=== PATIENT | male | born 1980 | race Caucasian/White ===

== ENCOUNTER 2023-12-17 21:16 | Observation (INO) | payer OTHER, SELFPAY ==
[2023-12-17 21:26] VITALS: BP 162/94; PULSE 78; TEMP 36.2; O2SAT 99; BMI 34.9
--- NOTE | 2023-12-17 21:38 | PC.NURSE ---
Patient reports he has had dry cough and that today he coughed up black blood tinged sputum.
--- NOTE | 2023-12-17 22:23 | ED_ITS ---
HPI HPI - General Adult General Chief complaint: Upper Respiratory Infection Stated complaint: Nausea/Vomiting Time Seen by Provider: 12/17/23 22:18 Source: family Mode of arrival: walk-in Limitations: no limitations History of Present Illness HPI narrative: patient presents with recurrent episodes of hematemesis daily for the past couple of weeks./ States occurred again this AM. Describes coughing jags this AM and then vomiting large amount of blood including clots. States hematemesis a few more times today but none tonight. Called his PCP and was advised to come to the ER. Denies abdominal pain or light headiness he believes he started vomiting because he was started on Actos Related Data Allergies Allergy/AdvReac Type Severity Reaction Status Date / Time aspirin Allergy tachycardia Verified 12/17/23 21:25 meloxicam (From Mobic) Allergy Anaphylaxis Verified 12/17/23 21:25 Opioid HPI Opioid Management Most Recent Opioid Data: No Data to Display Review of Systems ROS Status of ROS 10 or more systems reviewed and unremark able except as noted in history and below PFSH PFSH Social History Little interest or pleasure in doing things: not at all Feeling down, depressed, or hopeless: not at all Exam Constitutional Vital Signs, click to edit/add: Last Vital Signs Temp 97.1 F L 12/17/23 21:26 Pulse 78 12/17/23 21:26 Resp 18 12/17/23 21:26 BP 162/94 H 12/17/23 21:26 Pulse Ox 99 12/17/23 21:26 Common normals: no apparent distress, average body habitus, oriented x3, no limitations, healthy appearing, alert and well nourished [facility] Common normals: normocephalic and head/scalp atraumatic Eye Common normals: PERRL and EOMs intact bilaterally Respiratory Common normals: normal respiratory effort, no retractions, no use of accessory muscles and clear to auscultation bilaterally Cardio Common normals: regular rate, regular rhythm, S1 normal heart sound and S2 normal heart sound GI Common normals: Normal to inspection, nondistended, normoactive bowel sounds present, soft to palpation and non-tender Extremity Common normals: normal to inspection and full ROM Neuro Common normals: oriented x3, CN's II-XII intact bilaterally, moves all extremities and no focal motor deficits Psych Appearance: grossly normal Course Vital Signs Vital signs: Vital Signs Temperature 97.1 F L 12/17/23 21:26 Pulse Rate 78 12/17/23 21:26 Respiratory Rate 18 12/17/23 21:26 Blood Pressure 162/94 H 12/17/23 21:26 Pulse Oximetry 99 12/17/23 21:26 Temperature 97.1 F L 12/17/23 21:26 Pulse Rate 78 12/17/23 21:26 Respiratory Rate 18 12/17/23 21:26 Blood Pressure 162/94 H 12/17/23 21:26 Pulse Oximetry 99 12/17/23 21:26 Medical Decision Making MDM Narrative Medical decision making narrative: patient presents with a history of daily AM vomiting. States this AM the emesis was large in volume. Vomited a few more times later today. Arrives to the ER as directed by his PCP. exam is neg. Hgb 12.9 he denies use of ASA or NSAIDs. not alcoholic given his history of daily hematemesis for [address] Sousa who will consult on the patient . Patient admitted to the hospitalist service patient given dose of Protonix Discharge Plan Discharge Chief Complaint: Upper Respiratory Infection Clinical Impression: Hematemesis of fresh blood Patient Disposition: Admitted as Observation Print Language: Hong Konger Referrals: [facility] [Primary Care Provider] - 1 week
[2023-12-17] MEDS: PANTOPRAZOLE SODIUM 40 MG VIAL IV (22:46)
[2023-12-17 23:03] LABS: INR 1.02; Prothrombin Time 10.8 sec (9.0-11.6)
[2023-12-17 23:04] LABS: Alanine Aminotransferase 34 U/L (16-63); Albumin Globulin Ratio 1.1; Albumin Level 3.4 g/dL (3.4-5.0); Alkaline Phosphatase 69 U/L (46-116); Aspartate Amino Transferase 13 U/L (15-37); Bilirubin Direct 0.1 mg/dL (0.0-0.2); Bilirubin Total 0.4 mg/dL (0.2-1.0); Globulin 3.1 g/dL; Total Protein 6.5 g/dL (6.4-8.2)
[2023-12-17 23:16] LABS: Basophils Absolute Auto 0.1 10^3/uL (0.0-0.1); Basophils Percent Auto 0.8 % (0.2-2.0); Eosinophils Absolute Auto 0.5 10^3/uL (0.0-0.7); Eosinophils Percent Auto 7.5 % (0.9-7.0); Hematocrit 34.4 % (42.0-54.0); Hemoglobin 12.5 g/dL (14.0-18.0); Immature Granulocytes Abs Auto 0.02 10^3/uL (0.00-0.03); Immature Granulocytes Pct Auto 0.3 % (0.0-0.5); Lymphocytes Percent Auto 32.5 % (20.5-60.0); Mean Corpuscular HGB Conc 36.3 g/dL (29.9-35.2); Mean Corpuscular Hemoglobin 31.5 pg (25.9-34.0); Mean Corpuscular Volume 86.6 fL (80.0-94.0); Mean Platelet Volume 9.7 fL (9.5-13.5); Monocytes Absolute Auto 0.5 10^3/uL (0.3-0.8); Monocytes Percent Auto 7.8 % (1.7-12.0); Neutrophils Absolute Auto 3.2 10^3/uL (1.4-6.5); Neutrophils Percent Auto 51.1 % (43.0-75.0); Platelet Count 225 10^3/uL (150-450); Red Blood Count 3.97 10^6/uL (4.70-6.10); Red Cell Distribution Width 12.5 % (11.0-15.0); White Blood Count 6.2 10^3/uL (4.0-11.0)
[2023-12-17 23:20] LABS: Anion Gap 11.5; BUN Creatinine Ratio 11.2; Calcium 8.8 mg/dL (8.5-10.1); Carbon Dioxide 27.1 mmol/L (21.0-32.0); Chloride 102 mmol/L (98-107); Estimated GFR (African America 54 (>=60 mL/min/1.73m^2); Estimated GFR (Non-African Ame 44 (>=60 mL/min/1.73m^2); Glucose 216 mg/dL (74-106); Potassium 3.6 mmol/L (3.5-5.1); Sodium 137 mmol/L (136-145)
[2023-12-18] VITALS (16 sets, daily range): BP systolic 142–169; BP diastolic 78–90; PULSE 63–93; TEMP 36.5–37; O2SAT 92–100; BMI 33.9
[2023-12-18] MEDS: DEXTROSE 5%-0.9% NACL 1,000 ML 1,000 ML 50 ML IV (01:55)
--- NOTE | 2023-12-18 06:16 | P.HP_ITS ---
HPI H&P: HPI History of Present Illness Chief complaint: Nausea/Vomiting Narrative: Patient with a history in the past to hematemesis. Was set up for an endoscopy but was unable to complete that, that was in August. Her last 2 weeks due to having increasing hematemesis in the morning again. Yesterday had a more significant episode with more clots. As well as episode in the afternoon. With that his PCP recommended him go to the emergency room. In the emergency room hemoglobin actually is not significantly low at this time. But with the reoccurrence patient mated to observation When I saw patient up in the medical surgical floor, resting comfortably in bed, mild to moderate distress secondary to abdominal pain. Opioid HPI Opioid Management Most Recent Pain and Opioid Data: Last Pain Assessment 12/18/23 09:33 Last ORT Total Score 0 12/18/23 02:09 12/18/23 Last ORT Risk Category Low Risk 12/18/23 02:09 12/18/23 Review of Systems ROS Status of ROS 10 or more systems reviewed and unremark able except as noted in history and below PFSH PFSH Family History (Updated 12/18/23 @ 01:50 by Pina Bess RN) Grandmother Family history of COPD (chronic obstructive pulmonary disease) Other Family history of cancer Family history of diabetes mellitus Family history of hypertension Social History (Updated 12/18/23 @ 01:51 by Pina Bess RN) Within the past year, how often did you have a drink containing alcohol: monthly or less Within the past year, how often did you have six or more drinks on one occasion: less than monthly Smoking status: Never smoker Non-prescribed substance use: denies use Highest level of school completed/degree received: high school graduate Are you now , , , , never or living with a partner: refused to answer In a typical week, how many times do you talk on the telephone with family, friends, or neighbors: twice per week How often do you get together with friends or relatives: twice per week Little interest or pleasure in doing things: not at all Feeling down, depressed, or hopeless: not at all Do you think of yourself as: straight/heterosexual Gender Identity: male Meds Home Medications and Allergies Home Medications ?Medication ?Instructions ?Recorded ?Confirmed ?Type benzonatate 100 mg capsule 100 mg PO Q8H 12/18/23 12/18/23 History lisinopril 20 2 tab PO DAILY 12/18/23 12/18/23 History mg-hydrochlorothiazide 25 mg tablet pioglitazone 30 mg tablet 30 mg PO DAILY 12/18/23 12/18/23 History Allergies Allergy/AdvReac Type Severity Reaction Status Date / Time aspirin Allergy tachycardia Verified 12/17/23 21:25 meloxicam (From Mobic) Allergy Anaphylaxis Verified 12/17/23 21:25 Exam Constitutional Vital Signs, click to edit/add: Last Vital Signs Temp 98.4 F 12/18/23 05:30 Pulse 66 12/18/23 05:55 Resp 16 12/18/23 05:30 BP 162/81 H 12/18/23 05:30 Pulse Ox 97 12/18/23 05:30 O2 Del Method Room Air 12/18/23 05:30 Documenting provider has reviewed patient's vital signs: yes Common normals: apparent distress (Mild to moderate painful distress) Chest Common normals: inspection of chest normal Respiratory Common normals: normal respiratory effort, no retractions and clear to auscultation bilaterally Cardio Common normals: regular rate, regular rhythm and no murmurs GI Common normals: Normal to inspection, nondistended, normoactive bowel sounds present and soft to palpation; tender (Significant tenderness epigastric and right upper quadrant) Extremity Common normals: normal to inspection Results Labs Labs: Short CBC 12/17/23 Range/Units 22:35 WBC 6.2 (4.0-11.0) 10^3/uL Hgb 12.5 L (14.0-18.0) g/dL Hct 34.4 L (42.0-54.0) % Plt Count 225 (150-450) 10^3/uL BMP 12/17/23 22:35 Sodium 137 Potassium 3.6 Chloride 102 Carbon Dioxide 27.1 BUN 19.0 H Creatinine 1.70 H Glucose 216 H Calcium 8.8 Liver Function 12/17/23 Range/Units 22:35 Total Bilirubin 0.4 (0.2-1.0) mg/dL Direct Bilirubin 0.1 (0.0-0.2) mg/dL AST 13 L (15-37) U/L ALT 34 (16-63) U/L Alkaline Phosphatase 69 (46-116) U/L Albumin 3.4 (3.4-5.0) g/dL Assessment and Plan Assessment and Plan (1) Hematemesis of fresh blood: (2) Hypertension: (3) COPD (chronic obstructive pulmonary disease): (4) Diabetes mellitus: Plan Admission findings: Patient with hematemesis-hemoglobin actually fairly stable on admission Hematemesis: Patient on IV Protonix, status have some significant abdominal tenderness no x-rays completed at this time. Will get a stat acute abdominal series and likely need CT scan. Dysuria as well as discoloration of his urine-check urinalysis [id number], was told he has this in the past, no significant cough Hypertension-blood pressure well-controlled Diabetes mellitus-sugars are in the 140s to 150s at home., Insulin sliding scale here Admission status: Patient with hematemesis, consultation to surgery and possible endoscopy later today. Patient currently NPO. If stable later today there is a possibility he can be discharged home so currently maintain observational status. If further intervention is required patient inpatient as medically necessary treatment will span 2 midnights
[2023-12-18 06:23] LABS: Hematocrit 34.8 % (42.0-54.0); Hemoglobin 12.6 g/dL (14.0-18.0); Mean Corpuscular HGB Conc 36.2 g/dL (29.9-35.2); Mean Corpuscular Hemoglobin 31.2 pg (25.9-34.0); Mean Corpuscular Volume 86.1 fL (80.0-94.0); Mean Platelet Volume 9.5 fL (9.5-13.5); Platelet Count 209 10^3/uL (150-450); Red Blood Count 4.04 10^6/uL (4.70-6.10); Red Cell Distribution Width 12.4 % (11.0-15.0); White Blood Count 5.2 10^3/uL (4.0-11.0)
[2023-12-18 06:32] LABS: Anion Gap 12.8; BUN Creatinine Ratio 11.7; Calcium 8.4 mg/dL (8.5-10.1); Chloride 104 mmol/L (98-107); Estimated GFR (African America >60 (>=60 mL/min/1.73m^2); Estimated GFR (Non-African Ame 50 (>=60 mL/min/1.73m^2); Glucose 259 mg/dL (74-106); Potassium 3.8 mmol/L (3.5-5.1); Sodium 137 mmol/L (136-145)
[2023-12-18 07:41] LABS: Hematocrit 34.9 % (42.0-54.0); Hemoglobin 12.7 g/dL (14.0-18.0); Mean Corpuscular HGB Conc 36.4 g/dL (29.9-35.2); Mean Corpuscular Hemoglobin 31.3 pg (25.9-34.0); Platelet Count 201 10^3/uL (150-450); Red Blood Count 4.06 10^6/uL (4.70-6.10); Red Cell Distribution Width 12.4 % (11.0-15.0); White Blood Count 5.1 10^3/uL (4.0-11.0)
[2023-12-18] MEDS: INSULIN ASPART 300 UNIT/3 ML PEN SUBQ (08:31)
[2023-12-18 08:32] LABS: Glucometer 248 mg/dL (74-106)
[2023-12-18] MEDS: LACTATED RINGER'S SOLUTION 1,000 ML 50 ML IV (08:32)
[2023-12-18] MEDS: PANTOPRAZOLE SODIUM 40 MG VIAL IV (08:32)
--- NOTE | 2023-12-18 09:02 | XR_ITS ---
The [address] [address] Patient Name: ABI VALDEZ MRN: [id number] date: 1980 Sex: M Assigned Patient Location: [place] Current Patient Location: [place] Accession/Order Number: [id number] Exam Date: 12/18/2023 09:50 Report Date: 12/18/2023 11:18 At the request of: KEIRA DAHL Procedure: XR acute abdomen series EXAMINATION: XR acute abdomen series HISTORY: severe abd pain COMPARISON: No relevant comparison available. FINDINGS: LUNGS: No infiltrate, pneumothorax, or pleural effusion. MEDIASTINUM: No abnormal widening. BOWEL GAS PATTERN: Non-obstructed. FREE AIR: None. CALCIFICATIONS: None significant. BONES: No fracture or visible bone lesion. OTHER: Negative. XR/XR acute abdomen series IMPRESSION: Clear lungs Nonobstructive bowel gas pattern Electronically authenticated by: EMERALD MCKINNEY Date: 12/18/2023 11:18
--- NOTE | 2023-12-18 09:02 | CM.NOTE ---
Rounds made with Dr. Lyles, pt NPO for EGD today. Pt continues with c/o stomach pain today. Dr. Lyles will re-evaluate pt after EGD for discharge planning.
[2023-12-18 11:08] LABS: Glucometer 199 mg/dL (74-106)
[2023-12-18 12:02] LABS: Hematocrit 35.4 % (42.0-54.0); Hemoglobin 12.9 g/dL (14.0-18.0); Mean Corpuscular HGB Conc 36.4 g/dL (29.9-35.2); Mean Corpuscular Hemoglobin 31.2 pg (25.9-34.0); Mean Corpuscular Volume 85.5 fL (80.0-94.0); Mean Platelet Volume 9.4 fL (9.5-13.5); Platelet Count 209 10^3/uL (150-450); Red Blood Count 4.14 10^6/uL (4.70-6.10); Red Cell Distribution Width 12.4 % (11.0-15.0); White Blood Count 4.9 10^3/uL (4.0-11.0)
--- NOTE | 2023-12-18 12:13 | P.GSCN_ITS ---
History of Present Illness Consult details Consult date: 12/18/23 Reason for consult: other (Hematemesis/coffee-ground emesis) Requesting physician: Tunde Teran Narrative: 43-year-old male presented to the ED with complaints of hematemesis and coffee- ground emesis. He relates that he has had lower abdominal pain for some time. He states that the coffee-ground emesis and the vomiting of blood clots began after he began taking diabetes medication per his primary care physician. He never called and let them know that that happened. He just stopped the diabetes medication. His is at the bedside. Denies any melena unusual weight loss or any family history of intestinal cancer. Denies any history of ulcer disease gastritis or reflux disease. He denies aspirin or nonsteroidal anti-inflammatory drug use. He does drink 5 16 ounce Pepsi's daily. 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 I previously seen him in the office for an umbilical hernia. He is obese with a BMI of 34. The ED physician wanted him to have endoscopy and thought he needed to be admitted to the hospital. His hemoglobin and hematocrit are stable. He denies tobacco or alcohol use or drug use. Denies smoking marijuana. Review of Systems ROS Status of ROS 10 or more systems reviewed and unremark able except as noted in history and below PFSH PFSH Family History Grandmother Family history of COPD (chronic obstructive pulmonary disease) Other Family history of cancer Family history of diabetes mellitus Family history of hypertension Social History Within the past year, how often did you have a drink containing alcohol: lexi hly or less Within the past year, how often did you have six or more drinks on one occasion: less than monthly Smoking status: Never smoker Non-prescribed substance use: denies use Highest level of school completed/degree received: high school graduate Are you now , , , , never or living with a partner: refused to answer In a typical week, how many times do you talk on the telephone with family, friends, or neighbors: twice per week How often do you get together with friends or relatives: twice per week Little interest or pleasure in doing things: not at all Feeling down, depressed, or hopeless: not at all Do you think of yourself as: straight/heterosexual Gender Identity: male Meds Home Medications and Allergies Home Medications ?Medication ?Instructions ?Recorded ?Confirmed ?Type benzonatate 100 mg capsule 100 mg PO Q8H 12/18/23 12/18/23 History lisinopril 20 2 tab PO DAILY 12/18/23 12/18/23 History mg-hydrochlorothiazide 25 mg tablet pioglitazone 30 mg tablet 30 mg PO DAILY 12/18/23 12/18/23 History Allergies Allergy/AdvReac Type Severity Reaction Status Date / Time aspirin Allergy tachycardia Verified 12/17/23 21:25 meloxicam (From Mobic) Allergy Anaphylaxis Verified 12/17/23 21:25 Exam Constitutional Vital Signs, click to edit/add: Last Vital Signs Temp 98.3 F 12/18/23 08:42 Pulse 70 12/18/23 11:52 Resp 18 12/18/23 08:42 BP 142/87 H 12/18/23 08:42 Pulse Ox 97 12/18/23 11:26 O2 Del Method Room Air 12/18/23 11:26 Documenting provider has reviewed patient's vital signs: yes Common normals: no apparent distress, average body habitus, oriented x3, no limitations, healthy appearing, alert and well nourished GI Common normals: Normal to inspection, nondistended, normoactive bowel sounds present, soft to palpation, non-tender, no hepatosplenomegaly and no masses Palpation: other (sMall reducible umbilical hernia less than 1 cm) Results Labs Labs: Abnormal lab results 12/17/23 12/18/23 12/18/23 Range/Units 22:35 06:04 07:35 RBC 3.97 L 4.04 L 4.06 L (4.70-6.10) 10^6/uL Hgb 12.5 L 12.6 L 12.7 L (14.0-18.0) g/dL Hct 34.4 L 34.8 L 34.9 L (42.0-54.0) % MCHC 36.3 H 36.2 H 36.4 H (29.9-35.2) g/dL MPV 9.0 L (9.5-13.5) fL Eos % (Auto) 7.5 H (0.9-7.0) % BUN 19.0 H (7.0-18.0) mg/dL Creatinine 1.70 H 1.54 H (0.70-1.30) mg/dL Est GFR ( Amer) 54 L (>=60 mL/min/1.73m^2) Est GFR (Non-Af Amer) 44 L 50 L (>=60 mL/min/1.73m^2) Glucose 216 H 259 H (74-106) mg/dL Calcium 8.4 L (8.5-10.1) mg/dL AST 13 L (15-37) U/L POC Glucose (74-106) mg/dL 12/18/23 12/18/23 12/18/23 Range/Units 08:30 11:06 11:56 RBC 4.14 L (4.70-6.10) 10^6/uL Hgb 12.9 L (14.0-18.0) g/dL Hct 35.4 L (42.0-54.0) % MCHC 36.4 H (29.9-35.2) g/dL MPV 9.4 L (9.5-13.5) fL Eos % (Auto) (0.9-7.0) % BUN (7.0-18.0) mg/dL Creatinine (0.70-1.30) mg/dL Est GFR ( Amer) (>=60 mL/min/1.73m^2) Est GFR (Non-Af Amer) (>=60 mL/min/1.73m^2) Glucose (74-106) mg/dL Calcium (8.5-10.1) mg/dL AST (15-37) U/L POC Glucose 248 H 199 H (74-106) mg/dL Diabetes panel 12/17/23 12/18/23 Range/Units 22:35 06:04 Sodium 137 137 (136-145) mmol/L Potassium 3.6 3.8 (3.5-5.1) mmol/L Chloride 102 104 (98-107) mmol/L Carbon Dioxide 27.1 24.0 (21.0-32.0) mmol/L BUN 19.0 H 18.0 (7.0-18.0) mg/dL Creatinine 1.70 H 1.54 H (0.70-1.30) mg/dL Glucose 216 H 259 H (74-106) mg/dL Calcium 8.8 8.4 L (8.5-10.1) mg/dL AST 13 L (15-37) U/L ALT 34 (16-63) U/L Alkaline Phosphatase 69 (46-116) U/L Total Protein 6.5 (6.4-8.2) g/dL Albumin 3.4 (3.4-5.0) g/dL Calcium panel 12/17/23 12/18/23 Range/Units 22:35 06:04 Calcium 8.8 8.4 L (8.5-10.1) mg/dL Albumin 3.4 (3.4-5.0) g/dL Pituitary panel 12/17/23 12/18/23 Range/Units 22:35 06:04 Sodium 137 137 (136-145) mmol/L Potassium 3.6 3.8 (3.5-5.1) mmol/L Chloride 102 104 (98-107) mmol/L Carbon Dioxide 27.1 24.0 (21.0-32.0) mmol/L BUN 19.0 H 18.0 (7.0-18.0) mg/dL Creatinine 1.70 H 1.54 H (0.70-1.30) mg/dL Glucose 216 H 259 H (74-106) mg/dL Calcium 8.8 8.4 L (8.5-10.1) mg/dL Adrenal panel 12/17/23 12/18/23 Range/Units 22:35 06:04 Sodium 137 137 (136-145) mmol/L Potassium 3.6 3.8 (3.5-5.1) mmol/L Chloride 102 104 (98-107) mmol/L Carbon Dioxide 27.1 24.0 (21.0-32.0) mmol/L BUN 19.0 H 18.0 (7.0-18.0) mg/dL Creatinine 1.70 H 1.54 H (0.70-1.30) mg/dL Glucose 216 H 259 H (74-106) mg/dL Calcium 8.8 8.4 L (8.5-10.1) mg/dL Total Bilirubin 0.4 (0.2-1.0) mg/dL AST 13 L (15-37) U/L ALT 34 (16-63) U/L Alkaline Phosphatase 69 (46-116) U/L Total Protein 6.5 (6.4-8.2) g/dL Albumin 3.4 (3.4-5.0) g/dL All other labs normal. Assessment and Plan Assessment and Plan (1) Hematemesis of fresh blood: (2) Hypertension: (3) COPD (chronic obstructive pulmonary disease): (4) Diabetes mellitus: Plan EGD with possible biopsy. Risks benefits and alternatives to endoscopy may include perforation or bleeding. He understood and wished to proceed.
--- NOTE | 2023-12-18 13:45 | P.GSPRC_ITS ---
Date of procedure: 12/18/23 Indications for Procedure: hematemesis /coffee ground emesis Pre-op diagnosis: hematemesis/coffee ground emesis Post-op diagnosis: other (Duodenitis/gastritis without hemorrhage/esophagitis) Procedure: EGD w/ Biopsy antrum and GE junction Findings: Superficial gastritis without hemorrhage, duodenitis, esophagitis Anesthesia: [facility] [place] Surgeon: Lukasz Sousa Procedure Summary: Patient was taken to the endoscopy suite placed in the left lateral recumbent position and given IV sedation as above. The Olympus EGD scope was advanced under direct visualization into the posterior pharynx esophagus into the stomach through the pylorus and the first second third and fourth portions of the duodenum. Patient was found to have duodenitis of the first and second portions of the duodenum without ulceration. Upon withdrawing the scope into the stomach he had severe gastritis without hemorrhage or ulcers. Biopsies were taken to rule out H. pylori. The scope was retroflexed on itself look in the GE junction which was normal. The scope was then withdrawn to the distal esophagus where he has mild esophagitis and biopsies were taken and hemostasis maintained. The rest of the esophagus was normal. I would recommend that he decrease his caffeine intake to 5 Pepsi's daily to plain water and be on a proton pump inhibitor twice daily for 6 weeks only. Avoid all nonsteroidal anti-inflammatory drugs. Estimated blood loss (mL): 0 Specimens: Antral and esophageal biopsies Complications: No Condition: stable Disposition: PACU
[2023-12-18 15:02] LABS: Glucometer 223 mg/dL (74-106)
[2023-12-19 14:43] LABS: H Pylori Tissue, Urease Negative
--- NOTE | 2023-12-22 12:09 | CM.DCFOLLOWU ---
Person spoke with: patient How are you feeling?well How is your pain?none Did you understand your discharge instructions?yes Do you have any questions about your discharge instructions?no Were you given any prescriptions at discharge?yes Were you able to get your prescriptions filled?yes Do you understand how to take your medications as ordered?yes Do you have any questions about your follow up appointment and do you plan to keep your follow up appointment?no questions, [facility] contacted patient today Is there anything else that you would like to discuss?no Questions/Comments/Concerns/Other:n/a
== END 2023-12-18 18:32 | disposition home or self-care (01) ==
LOC: ER 12-18 00:22 → MS 12-18 01:55
PROVIDERS: Registered Nurse; Surgery; Admitting Provider Family Medicine; Emergency Provider Internal Medicine; Visit Provider Family Medicine
PROC: (CPT 731; principal; 2023-12-18 13:50)
DX: K29.30 Chronic superficial gastritis without bleeding (principal); K29.80 Duodenitis without bleeding; K20.90 Esophagitis, unspecified without bleeding; K92.0 Hematemesis; I10 Essential (primary) hypertension; J44.9 Chronic obstructive pulmonary disease, unspecified; E11.9 Type 2 diabetes mellitus without complications; R30.0 Dysuria; E66.9 Obesity, unspecified; Z68.34 Body mass index [BMI] 34.0-34.9, adult
CPT/HCPCS: 43239; 36415; 74022; 80048; 80076; 81001; 82948; 85025; 85027; 85610; 87077; 94761; 96361; 96374; 96376; 99285; 99999; G0328; G0378; J2250; J2704

== ENCOUNTER 2024-11-11 21:58 | Emergency (ER) | payer OTHER, SELFPAY ==
--- OUTSIDE RECORDS SUMMARY | 2024-11-02 07:29 | XMS_ITS ---
Author Organization [facility] vices Address [address] [place], [place] [id number] Care Team Providers Care Typewriter Repairer Name Role Phone Lupis Tidwell Primary Care Provider REASON FOR VISIT Refills Medications Medication SIG (Take, Route, Frequency, Duration) Notes Start Date End Date Status Lisinopril-hydroCHLOROthia zide 20-25 MG 1 tablet Oral daily; Duration: 90 days Active Social History Sex Assigned At : Social History Observation Description Sex Assigned At Male Encounters Encounter Location Date Provider Diagnosis Main [address] [place], [place] [id number] 11/02/2024 Lupis Tidwell Plan Of Treatment Medication Medication Name Sig Start Date Stop Date Notes Lisinopril-hydroCHLOROthiazi de 20-25 MG 1 tablet Oral daily; Duration: 90 days Next Appt Details Provider Name:Leonarda Adair, 12/06/2024 05:45:00 PM, [address] [place], [id number], Provider Name:Angelito Carrera, 12/20/2024 05:15:00 PM, [address] [place], [id number], Progress Notes * Charlie ADAM LDOB:1980 (44 yo M)Acc No.[id number]:11/02/2024 Patient: Shivani Charlie SAHU :1980 A ge:44 Y S ex:Male Address:[address] [place] [address], [id number] * Refills Refill Lisinopril-hydroCHLOROthiazide Tablet, 20-25 MG, Oral, 90 Tablet, 1 tablet, daily, 90 days, Refills=0 Subjective: * Chief Complaints: * R efills * Medical History: * Surgical History: * Hospitalization/Major Diagno stic Procedure: * Medications: Objective: * Vitals: * Physical Examination: Assessment: Plan: * Treatment: * Procedure Codes: * true * Date: Generated for Nickolas barnett/Fan/eTransmitting on: 0 11/11/2024 10:03 PM EDT
--- OUTSIDE RECORDS SUMMARY | 2024-11-08 13:30 | XMS_ITS ---
Author Organization Formerly [facility] vices Address [address] [place], [place] [id number] Care Team Providers Care Shingle Sawyer Name Role Phone DiannLupis germain Primary Care Provider Leonarda Adair Unavailable [phone] Allergies Allergen (clinical drug ingredient) Drug/Non Drug Allergy documented on EMR Reaction Allergy Type Onset Date Status aspirin Aspirin Comments: heart racing Drug Allergy Active Reason For Referral Reason management hx of bip olar Diagnosis 1 Anxiety and depressi on (F41.9) Referral Organization Main Referring Provider First Name Leonarda Referring Provider Last Name Giovany Referring Provider Speciality Internal M edicine Referred Organization Main Referred Provider Angelito Carrera Referred Address [address], [id number], Referred Provider Specialty Psychiatry Referral Priority Routine REASON FOR VISIT issues with sleep Medications Medication SIG (Take, Route, Frequency, Duration) Notes Start Date End Date Status hydrOXYzine Pamoate 25 MG 1 capsule at b edtime as needed Orally Once a day; Duration: 30 days 11/08/2024 Active Blood Glucose Test - 1 (one) In Vitro th ree times a day; Duration: 30 days 04/13/2019 Active Pantoprazole Sodium 40 MG Oral; Duration: 30 Days Active Plavix 75 MG 1 tablet Orally Once a day daily Active Atorvastatin Calcium 80 MG Oral; Duration: 30 Days Acti ve buPROPion HCl ER (XL) 150 MG 1 tablet in the morning Orally Once a day; Duration: 30 days 11/08/2024 Active busPIRone HCl 10 MG 1 tablet Orally Twic e a day; Duration: 30 days 11/08/2024 Active Hydrocortisone 2.5 % 1 application Externally Twice a day; Duration: 14 days 11/08/2024 Active Lisinopril-hydroCHLOROthi azide 20-25 MG 1 tablet Oral daily; Duration: 90 days Active Montelukast Sodium 10 MG 1 tablet Orally Once a day; Duration: 90 days Not-Takin g Pioglitazone HCl 30 MG 1 tablet Orally O nce a day Not-Taking Dextromethorphan-guaiFENe sin 10-200 MG/5ML 10 mL as needed Orally every 4 hrs; Duration: 7 days 07/27/2024 Not-Taking Trulicity 1.5 MG/0.5ML as directed Subcutaneous WEEKLY; Duration: 28 days Not-Taking Pepcid 20 MG 1 tablet at bedtime as needed Orally Once a day Not-Taking Cetirizine HCl 10 MG 1 tablet Orally Onc e a day; Duration: 90 days 08/20/2021 Not-Takin g Sildenafil Citrate 25 MG 1 tablet as nee ded Orally Once a day; Duration: 30 day(s) 08/10/2024 Active Pioglitazone HCl 30 MG Oral; Duration: 30 Days Not-Taking Social History Tobacco Use: Social History Observation Description Date Details (start date - stop date) Never Smoker NA - NA Sex Assigned At : Social History Observation Description Sex Assigned At Male Tobacco Use/Smoking Question Answer Notes Tobacco use: nonsmoker patient enter ed data CAGE-AID Questionnaire (2018 Edition) Question Answer Notes Have you ever felt that you ought to cut down on your drinking or drug use? Yes patient entered data Have people annoyed you by criticizing your drinking or drug use? Yes patient entered data Have you ever felt bad or gu ilty about your drinking or drug use? Yes patient entered da ta Have you ever had a drink or used drugs first thing in the morning to steady your nerves or to get rid of a hangover? No patient entered data CAGE-AID Score 1 Interpretation Possible Subtance Abuse PRAPARE Question Answer Notes Date Completed/Updated: 07/27/2024 carson nt entered data What is your current housing situation? I have housing patient entered data Are you worried about losing your housing? No patient entered data What is the highest level of school that you have finished? 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 Check all that apply I do not have problems meeting my needs Has lack of transportation k ept you from medical appointments, meetings, work or from getting things needed for daily living? No How often do you see or talk to people that you care about and feel close to? (For example: talking to friends on the phone, visiting friends or family, going to alevism or club meetings) Less than once a week patient entered data How stressed are you? Stress is when someone feels tense, nervous, anxious, or can't sleep at night because their mind is troubled Quite a bit patient entered data In the past year have you sp ent more than 2 nights in a row in a fdc, residential, group home center, or juvenile correctional facility? No patient entered marlyn a Are you a refugee? No patient en tered data What country are you from? [place] tient entered data Do you feel physically and emotionally safe where you currently live? Yes patient entered data In the past year, have you b een afraid of your partner or ex-partner? No patient entered data PRAPARE Score: 5 Problems Problem Type SNOMED Code ICD Code Onset Dates Problem Status W/U Status Risk Notes Problem Insomnia (133633928) Other insomnia (G47.09) Active confirmed Problem Essential hypertension (08635221) Essential hypertension (I10) Active confirmed Vital Signs Temperature 98.4 degrees Fahrenheit 11/09/19 25 Weight 264 lbs 11/08/2024 Height 71.00 in 11/08/2024 BMI 36.82 kg/m2 11/08/2024 Blood pressure systolic 160 mm Hg 11/09/19 25 Blood pressure diastolic 98 mm Hg 025 Heart Rate 89 /min 11/08/2024 Respiratory Rate 18 /min 11/08/2024 Oximetry 96 % 11/08/2024 Weight-kg 119.75 kg 11/08/2024 Height-cm 180.34 cm 11/08/2024 Christina العلي 11/08/2024 0 5:35:07 PM EDT > Leonarda Adair 11/08/2024 05:49:09 PM EDT > Encounters Encounter Location Date Provider Diagnosis Main [address] , [place] [id number] 11/08/2024 Leonarda Castillol Anxiety and depressi on F41.9 ; Type 1 diabetes mellitus E10.9 ; Rash R21 and Essential hypertension I10 Assessments Encounter Date Diagnosis (ICD Code) Assessment Notes Treatment Notes Treatment Clinical Notes Section Notes 11/08/2024 Anxiety and depression (ICD-10 - F41.9) I will start Wellbutrin and Buspar along with hydroxyzine as needed. Will refer to for further management given his complex hx 11/08/2024 Type 1 diabetes mellitus (ICD-10 - E10.9) Unsure whether he has type 1 or type [address] Tompkins and discuss his meds 11/08/2024 Rash (ICD-10 - R21) Likely dermatitis. Will trial hydrocortisone cream avoiding oral prednisone given DM and not taking meds. IF not improving let us know 11/08/2024 Essential hypertension (ICD-10 - I10) BP noted to be elevated. Advised to check BP at home and keep a record of it to bring on next visit Discussed having diet low in salt and exercise. Plan Of Treatment Medication Medication Name Sig Start Date Stop Date Notes hydrOXYzine Pamoate 25 MG 1 capsule at b edtime as needed Orally Once a day; Duration: 30 days 11/08/2024 buPROPion HCl ER (XL) 150 MG 1 tablet in the morning Orally Once a day; Duration: 30 days 11/08/2024 busPIRone HCl 10 MG 1 tablet Orally Twic e a day; Duration: 30 days 11/08/2024 Hydrocortisone 2.5 % 1 application Exter jose Twice a day; Duration: 14 days 11/08/2024 Lisinopril-hydroCHLOROthiazi de 20-25 MG 1 tablet Oral daily; Duration: 90 days Treatment Notes Assessment Notes Anxiety and depression I will start Well butrin and Buspar along with hydroxyzine as needed. Will refer to for further management given his complex hx Type 1 diabetes mellitus Unsure whether he has type 1 or type [address] Tompkins and discuss his meds Rash Likely dermatitis. W ill trial hydrocortisone cream avoiding oral prednisone given DM and not taking meds. IF not improving let us know Essential hypertension BP noted to be elevated. Advised to check BP at home and keep a record of it to bring on next visit Discussed having diet low in salt and exercise. Referrals Referral Date Details 11/08/2024 11/08/2024, manageme nt hx of bipolar, Angelito Carrera, [address] [place], [place], [id number], Next Appt Details Follow Up: 4 Weeks, Reason: HTN and anxiety/depression Provider Name:Leonarda Adair, 12/06/2024 05:45:00 PM, [address] [place], [place], [phone], Provider Name:Angelito Carrera, 12/20/2024 05:15:00 PM, [address] [place], [place], [id number], Progress Notes * Charlie ADAM LDOB:1980 (44 yo M)Acc No.[id number]:11/08/2024 Medical Note Patient: Ean CADETwale Quiroz Provider: Maksim Adair MD :1980 A ge:44 Y S ex:Male Date:11/08/2024 Address:[address] [place], [place] [id number] Pcp:Lupis Tidwell Subjective: * Chief Complaints: * I ssues with sleep * HPI: I nterim History: Pt presented with concerns of sleep issues ongoign for 2 months due to lot of stress between work and everything else. He is in bed at 9 o clock but cannot go to sleep until 2-3 am. then wake up at 6 am. mostly have racing thoughts. He tried tyelnol PM but unable to function next day. He tried SSRI but had sexual side effects. He does have hx of bipolar Also have depression 2 weeks ago he s topped taking pioglitasone that was prescribed from Dr Tompkins, due to having an itcy allergic reaction. He is still itchy from it. * ROS: N egative except mentioned above in the HPI. * Medical History: * Surgical History: H erniorrhaphy Right knee replacement Rotator Cuff Repair - Right Neck surgery 06/12/21 * Hospitalization/Major Diagno stic Procedure: H ematemesis 12/2023see surgical hx High Blood Sugar 02/2024 * Family History: F ather: unknown. M other: alive. P aternal Grand Father: unknown. P aternal Grand Mother: unknown. M aternal Grand Father: . M aternal Grand Mother: . 1 brother(s) . . * Social History: M iscellaneous: C ulture/Language Barrier: No. Education Level: Grade 7-12. Barriers to Learning: None. Learning Preference: Watching a video, Doing or practicing. How often do you need to have someone help you read instructions: Never. Occupation: unable to work due to surgery. S afety: P atient feels safe in relationships: Yes. L imited Patient Authorization: Richie RODRIGUEZ I authorize the following person access to my entire chart or to make inquiries concerning my healthcare. This authorization does NOT include picking up prescriptions and/or medications. I agree to the limited patient authorization for disclosure of protected health information. This authorization expires at the end of the calendar year in which it was signed. Y es patient entered data N albin, Relationship & Phone Number Geoffrey barajas casiepatient entered data [facility] Demographics: P [facility] Questions D o you have any barriers to learning? N one patient entered data W hat is your preferred method of learning??Doing or practicing patient entered data H ow often do you need to have someone help you read instructions? S ometimes patient entered data T obacco Use: T obacco Use/Smoking T obacco use: n onsmoker patient entered data D rugs/Alcohol/Caffeine: D rugs H ave you used drugs other than those for medical reasons in the past 12 months? N o Caffeine I ntake: m ore than 4 cups per day Pepsi Do you drink alcohol?: No. CAGE-AID Questionnaire (2018 Edition) H ave you ever felt that you ought to cut down on your drinking or drug use? Y es patient entered data H ave people annoyed you by criticizing your drinking or drug use? Y es patient entered data H ave you ever felt bad or guilty about your drinking or drug use? Y es patient entered data H ave you ever had a drink or used drugs first thing in the morning to steady your nerves or to get rid of a hangover? N o patient entered data C AGE-AID Score 1 I nterpretation P ossible Subtance Abuse S ocial Determinants: P RAPARE D ate Completed/Updated: 0 07/27/2024 patient entered data W hat is your current housing situation? I have housing patient entered data A re you worried about losing your housing??No patient entered data W hat is the highest level of school that you have finished? H igh school diploma or GED patient entered data W hat is your current work situation? F ull time work patient entered data I n the past year, have you or any family members you live with been unable to get any of the following when it was really needed? Check all that apply I do not have problems meeting my needs H as lack of transportation kept you from medical appointments, meetings, work or from getting things needed for daily living? N o H ow often do you see or talk to people that you care about and feel close to? (For example: talking to friends on the phone, visiting friends or family, going to alevism or club meetings) L ess than once a week patient entered data H ow stressed are you? Stress is when someone feels tense, nervous, anxious, or can't sleep at night because their mind is troubled Q uite a bit patient entered data I n the past year have you spent more than 2 nights in a row in a fdc, residential, group home center, or juvenile correctional facility? N o patient entered data A re you a refugee? N o patient entered data W hat country are you from[place] patient entered data D o you feel physically and emotionally safe where you currently live? Y es patient entered data I n the past year, have you been afraid of your partner or ex-partner? N o patient entered data P RAPARE Score: 5 * Medications: T akingPlavix 75 MG Tablet 1 tablet Orally Once a day , Notes to Pharmacist: dailyPantoprazole Sodium 40 MG Tablet Delayed Release Oral Atorvastatin Calcium 80 MG Tablet Oral Blood Glucose Test - Strip 1 (one) In Vitro three times a day Sildenafil Citrate 25 MG Tablet 1 tablet as needed Orally Once a day Lisinopril-hydroCHLOROthiazide 20-25 MG Tablet 1 tablet Oral daily Taking Plavix 75 MG Tablet 1 tablet Orally Once a day , Notes to Pharmacist: dailyTaking Pantoprazole Sodium 40 MG Tablet Delayed Release Oral Taking Atorvastatin Calcium 80 MG Tablet Oral Taking Blood Glucose Test - Strip 1 (one) In Vitro three times a day Taking Sildenafil Citrate 25 MG Tablet 1 tablet as needed Orally Once a day Taking Lisinopril-hydroCHLOROthiazide 20-25 MG Tablet 1 tablet Oral daily Not-Taking/PRNPioglitazone HCl 30 MG Tablet Oral Dextromethorphan-guaiFENesin 10-200 MG/5ML Liquid 10 mL as needed Orally every 4 hrs Pioglitazone HCl 30 MG Tablet 1 tablet Orally Once a day Pepcid 20 MG Tablet 1 tablet at bedtime as needed Orally Once a day Trulicity 1.5 MG/0.5ML Solution Pen-injector as directed Subcutaneous WEEKLY Cetirizine HCl 10 MG Tablet 1 tablet Orally Once a day Montelukast Sodium 10 MG Tablet 1 tablet Orally Once a day Medication List reviewed and reconciled with the patientNot-Taking/PRN Pioglitazone HCl 30 MG Tablet Oral Not-Taking/PRN Dextromethorphan-guaiFENesin 10-200 MG/5ML Liquid 10 mL as needed Orally every 4 hrs Not-Taking/PRN Pioglitazone HCl 30 MG Tablet 1 tablet Orally Once a day Not-Taking/PRN Pepcid 20 MG Tablet 1 tablet at bedtime as needed Orally Once a day Not-Taking/PRN Trulicity 1.5 MG/0.5ML Solution Pen-injector as directed Subcutaneous WEEKLY Not-Taking/PRN Cetirizine HCl 10 MG Tablet 1 tablet Orally Once a day Not-Taking/PRN Montelukast Sodium 10 MG Tablet 1 tablet Orally Once a day Medication List reviewed and reconciled with the patient * Allergies: Mary richard: Comments: heart racing - Allergyno[Allergies Verified] Objective: * Vitals: T emp:98.4F, Wt:264lbs, Ht: 71.00 in, BMI:36.82Index, BP: 150/91 mm Hg,160/98mm Hg, HR:89/min, RR:18/min, Pain scale:01-10, Oxygen sat %:96%, Wt-k.75 kg, Ht- cm: 180.34 cm, Body Surface Area: 2.45. Christina العلي 11/08/2024 05:35:07 PM EDT >Leonarda Adair 11/08/2024 05:49:09 PM EDT > . * Examination: G eneral Examination: G eneral appearance: alert, pleasant, well-nourished and in no acute distress. Head: normocephalic, atraumatic. Eyes: pupils equal, round, reactive to light and accommodation. Skin: skin is warm and dry, with erythematous rash on belly. Heart: regular rate and rhythm without murmurs, gallops, clicks or rubs. Lungs: clear to auscultation bilaterally, with good air movement and no rales, rhonchi or wheezes. Extremities: normal extremity with no clubbing, cyanosis or edema , full range of motion. Psych: alert and oriented x 3 , cooperative with exam , normal affect / mood , speech is clear and coherent. Assessment: * Assessment: 1. A nxiety and depression - F41.9 2 . T ype 1 diabetes mellitus - E10.9? 3. R anjelica - R21 4 . E ssential hypertension - I10 ? Plan: * Treatment: 2. T ype 1 diabetes mellitus Notes: Unsure whether he has type 1 or type [address] Tompkins and discuss his meds ? 3. R anjelica Start Hydrocortisone Cream, 2.5 %, 1 application, Externally, Twice a day, 14 days, 60 gm, Refills 1. Notes: Likely dermatitis. Will trial hydrocortisone cream avoiding oral prednisone given DM and not taking meds. IF not improving let us know 4. E ssential hypertension Refill Lisinopril-hydroCHLOROthiazide Tablet, 20-25 MG, 1 tablet, Oral, daily, 90 days, 90 Tablet, Refills 0. Notes: BP noted to be elevated. Advised to check BP at home and keep a record of it to bring on next visit Discussed having diet low in salt and exercise. * Procedure Codes: 3 077F HTN SYST BP >= [id number] HTN DIAST BP >= 90 * Follow Up: 4 Weeks (Reason: HTN and anxiety/depression) * Billing Information: * Visit Code: 50780 Office Visit Est 30-39 minutes. * Procedure Codes: 3077F HTN SYST BP >= 140. 3080F HTN DIAST BP >= 90. * Sign off status: Completed true * Provider: Maksim Adair MD Date: 0 11/08/2024 Generated for Nickolas barnett/Fan/Jonhitting on: 11/11/2024 10:03 PM EDT History and Physical Notes * HPI (History of Present Illness) Category Sub-Category Detail Notes Category Not es Interim History Pt presented with concerns of sleep issues ongoign for 2 months due to lot of stress between work and everything else. He is in bed at 9 o clock but cannot go to sleep until 2-3 am. then wake up at 6 am. mostly have racing thoughts. He tried tyelnol PM but unable to function next day. He tried SSRI but had sexual side effects. He does have hx of bipolar Also have depression 2 weeks ago he stopped taking pioglitasone that was prescribed from Dr Tompkins, due to having an itcy allergic reaction. He is still itchy from it. Examination Category Sub-Category Detail Notes Category Not es General Examination General appearance: alert, pleasant, well-nourished and in no acute distress. Head: normocephalic, atraumatic. Eyes: pupils equal, round, reactive to light and accommodation. Skin: skin is warm and dry, with erythematous rash on belly. Heart: regular rate and rhythm without murmurs, gallops, clicks or rubs. Lungs: clear to auscultation bilaterally, with good air movement and no rales, rhonchi or wheezes. Extremities: normal extremity with no clubbing, cyanosis or edema , full range of motion. Psych: alert and oriented x 3 , cooperative with exam , normal affect / mood , speech is clear and coherent. Consultation Request Notes Referral Date Referring Provider Referred Provider Not es 11/08/2024 Leonarda Adair, Angelito management hx of bipolar
[2024-11-11 22:03] VITALS: BP 149/102; PULSE 100; TEMP 37.2; O2SAT 97; BMI 34.9
--- OUTSIDE RECORDS SUMMARY | 2024-11-11 22:04 | XMS_ITS | Clinical Summary ---
Author Organization [facility] Address [address] [place] [address] Care Team Providers Care Manager Project Name Role Phone Paige Warner DO Primary Care Provider [phone] Edson Tompkins MD Unavailable [phone] Allergies Active Allergy Reactions Criticality Noted Date Comments Aspirin Unknown Medium 04/11/2013 Other Reaction(s): heart rate increase Extreme tachycardia Other reaction(s): Tachycardia Meloxicam Rash,Shortness of breath High 07/02/2021 Mushroom Extract Complex (Obsolete) Swelling 05/02/2020 Other reaction(s): Anaphylaxis Oxycodone-Acetaminop hen 08/01/2022 Other Reaction(s): addiction/mental issues Medications amLODIPine (Norvasc) 10 MG tablet Take 10 mg by mouth in the morning. 03/07/2022 Active cetirizine (ZyrTEC ALLERGY) 10 MG tablet Take 10 mg by mouth Daily prn Active OneTouch Verio test strip 12/02/2021 Active hydroCHLOROthia zide (HYDRODiuril) 12.5 MG tablet 01/16/2022 Acti ve lisinopril-hydr oCHLOROthiazide 20-25 MG tablet Take 1 tablet by mouth in the morning. 03/07/2022 Active Singulair 10 MG tablet Take 10 mg by mouth at bedtime Active omeprazole (PriLOSEC) [address] capsule Take 40 mg by mouth in the morning. Take before meals. 03/05/2022 Active Ubrelvy 100 MG tablet 04/11/2022 Active erenumab (Aimovig, 140 MG Dose,) 70 MG/ML injection Inject 140 mg under the skin every 28 (twenty-eight ) days Active ibuprofen 600 MG tablet Take 600 mg by mouth in the morning and 600 mg in the evening and 600 mg before bedtime. 07/05/2022 Active lisinopril-hydr oCHLOROthiazide 10-12.5 MG tablet Take 1 tablet by mouth Daily Active Continuous Glucose Press Service Reader (FreeStyle Sarahy 2 [place]) device 1 Device Active Continuous Glucose Sensor (FreeStyle Sarahy 2 Sensor) misc 1 Device every 14 (fourteen) days Active albuterol HFA 90 mcg/act inhaler Inhale 2 puffs every 4 (four) hours if needed for wheezing Active ergocalciferol (Vitamin D-2) 1.25 MG (67286 UT) capsule Take 1 capsule by mouth 1 (one) time per week Active simvastatin (Zocor) 20 MG tablet Take 1 tablet by mouth at bedtime Active pancrelipase, Kez-Ypdi-Bxcd, (Zenpep) 66837-185376 units capsule delayed-release particles capsule Take 1 capsule by mouth Daily Active glimepiride (Amaryl) 2 MG tabletIndicatio ns:Type 2 diabetes mellitus with hyperglycemia, without long-term current use of insulin (HCC) Take 1 tablet (2 mg) by mouth in the morning. Take before meals. 90 tablet 1 02/12/2024 Active pioglitazone (Actos) 30 MG tabletIndicatio ns:Type 2 diabetes mellitus with hyperglycemia, without long-term current use of insulin (HCC) Take 1 tablet (30 mg) by mouth Daily 90 tablet 1 09/30/2024 03/29/19 26 Active Active Problems Problem Noted Date Diagnosed Date Acute lateral meniscus tear of right knee 2022 Acute pain of right knee 08/01/2022 Internal derangement of left knee 08/01/2022 Internal derangement of right knee 08/01/2022 Patellofemoral disorder of left knee 08/01/2022 Patellofemoral disorders, right knee 08/01/2022 Vestibular dysfunction 08/01/2022 RLS (restless legs syndrome) 08/01/2022 Chronic headache disorder 04/11/2022 Hypersomnia 04/11/2022 Median neuropathy 04/11/2022 Postconcussion syndrome 04/11/2022 Cervical radiculopathy 06/12/2021 Migraine headache 06/12/2021 Hearing loss 05/15/2021 Vasovagal syncope 05/02/2020 H/O multiple concussions 08/26/2017 Amnesia 08/07/2017 Encounters Date Type Department Care Team Description 09/30/2024 11:10 AM EDT Office Visit [facility] [address] [place] [address] Edson Tompkins MD Type 2 diabetes mellitus with hyperglycemia, without long-term current use of insulin (HCC) (Primary Dx); Encounter for dietary consultation; Vitamin D deficiency; Primary hypertension ; Class 2 severe obesity due to excess calories with serious comorbidity and body mass index (BMI) of 35.0 to 35.9 in adult ([facility]) 09/30/2024 Bamboo flowsheet [facility] [address] [place] [address] Edson Tompkins MD from Last 3 Months Immunizations Immunization Administration Dates Next Due Tdap 01/11/2023,02/10/2015,04/07/2014 Family History Relation Name Status Comments Brother x 1 Daughter x 2 Alive Father Alive Mother Alive Son x 2 Alive Social History Tobacco Use Types Packs/Day Years Used Date Smoking Tobacco: Never Smokeless Tobacco: Never Tobacco Cessation:Counseling Given: Not Answered Alcohol Use Standard Drinks/Week Comments Never 0 (1 standard drink = 0.6 oz pur e alcohol) Sex and Gender Information Value Date Recorded Sex Assigned at Not on file Legal Sex Male 7:23 PM EDT Gender Identity Not on file Sexual Orientation Not on file Last Filed Vital Signs Vital Sign Reading Time Taken Comments Blood Pressure 120/78 09/30/2024 11:18 AM EDT Pulse 83 09/30/2024 11:18 AM EDT Temperature - - Respiratory Rate 16 09/30/2024 11:18 AM EDT Oxygen Saturation 94% 09/30/2024 11:18 AM EDT Inhaled Oxygen Concentration - - Weight 116 kg (255 lb 3.2 oz) 09/30/2024 11:18 A M EDT Height 180.3 cm (5' 11 ) 09/30/2024 11:18 AM EDT Body Mass Index 35.59 09/30/2024 11:18 AM EDT Plan of Treatment Upcoming Encounters Date Type Department Care Team (Late st Contact Info) Description 01/20/2025 11:10 AM EST Office Visit [facility] [address] [place] [phone] Edson Tompkins MD [address] [place] [address] Health Maintenance Due Date Last Done Comments Diabetes: Retinopathy Screening 1990 Diabetes: Urine Protein Screening 07/06/2024 024, 07/07/2023 Influenza Vaccine (#1) 2024 Diabetes: Hemoglobin A1C 12/31/2024 025, 06/03/2024, 02/08/2024, Additional history exists Procedures Procedure Name Priority Date/Time Associated Diagnosis Comments POCT GLUCOSE Routine 09/30/2024 11:27 AM EDT Type 2 diabetes mellitus with hyperglycemia, without long-term current use of insulin (HCC) POCT GLYCOSYLATED HEMOGLOBIN (HGB A1C) Routine 09/30/2024 11:27 AM EDT Type 2 diabetes mellitus with hyperglycemia, without long-term current use of insulin (HCC) from Last 3 Months Results * (ABNORMAL) POCT glycosylated hemoglobin (Hb A1C) docked device (09/30/2024 11:27 AM EDT) Hemoglobin A1C 7.5 Blood Venous blood specimen / Unknown 09/30/2024 11:27 AM EDT Edson Tompkins MD POINT OF CARE TEST ENTER/EDIT ORDERABLES Final Result * (ABNORMAL) POCT glucose manually resulted (09/30/2024 11:27 AM EDT) Glucose Blood, POC 174 mg/dL Blood Capillary blood specimen / Unknown 09/30/2024 11:27 AM EDT Edson Tompkins MD POINT OF CARE TEST ENTER/EDIT ORDERABLES Final Result from Last 3 Months Insurance [employer] Care Teams Manager Project Relationship Specialty Start Date End Date Paige Warner DO [address] [place] [address] PCP - General Family Medicine 12/16/23 Edson Tompkins MD [address], [facility] [address] [place] [address] PCP - Medical [employer] 01/31/23 03/02/99
--- OUTSIDE RECORDS SUMMARY | 2024-11-11 22:04 | XMS_ITS | Encounter Summary ---
Author Organization [facility] Address [id number] [address] [place] [address] Care Team Providers Care Infantry Indirect Fire Crewmember Name Role Phone Services, [facility] Primary Care Provider Encounter Details Date Type Department Care Team (Late st Contact Info) Description 05/29/2020 Orders Only [facility] [address] [place] [address] External, Scanning Provider Social History Tobacco Use Types Packs/Day Years Used Date Smoking Tobacco: Never Smokeless Tobacco: Never Alcohol Use Standard Drinks/Week Comments No 0 (1 standard drink = 0.6 oz pur e alcohol) Childcare Answer Date Recorded Childcare Unknown 08/12/2018 Employment Answer Date Recorded Employment Unknown 08/12/2018 Purpose - Life Answer Date Recorded Purpose and direction in life Unknown Sex and Gender Information Value Date Recorded Sex Assigned at Not on file Legal Sex Male 11:34 AM EDT Gender Identity Not on file Sexual Orientation Not on file COVID-19 Exposure Response Date Recorded In the last month, have you been in contact with someone who was confirmed or suspected to have Coronavirus / COVID-19? Unable to assess 06/01/2020 1:14 PM EDT documented as of this encounter Plan of Treatment Upcoming Encounters Date Type Department Care Team (Late st Contact Info) Description 02/11/2025 8:15 AM EST Office Visit [facility] [address] [place] [address] Guzman Bowling MD [address] [place] [address] Jose Morris DO [address] [place] [address] documented as of this encounter Procedures Procedure Name Priority Date/Time Associated Diagnosis Comments MULTIPLE LABS Routine 05/22/2020 documented in this encounter Results * Multiple labs (05/22/2020) us Scanning Provider External [facility] Final Result MANUALLY TRANSCRIBED RESULTS documented in this encounter Visit Diagnoses Not on filedocumented in this encounter Additional Health Concerns Infection Onset Date Last Indicated Resolved Time Respiratory Rule-Out 07/24/2024 07/24/2024 025 12:23 AM EDT documented as of this encounter Care Teams Infantry Indirect Fire Crewmember Relationship Specialty Start Date End Date Services, [facility] [address] [place] PCP - General Family Medicine 07/24/24 documented as of this encounter
--- OUTSIDE RECORDS SUMMARY | 2024-11-11 22:04 | XMS_ITS | Clinical Summary ---
Author Organization [facility] Address [address] [place] [address] Care Team Providers Care Oven Press Tender Name Role Phone AubrieabigailvincenzoPaige DO Unavailable [phone] Paige Warner DO Primary Care Provider [phone] Allergies Active Allergy Reactions Criticality Noted Date Comments Aspirin Other: See Comments Medium 04/11/2013 Extreme tachycardia Other reaction(s): Tachycardia Meloxicam Shortness of Breath High 07/02/2021 Mushroom Swelling 05/02/2020 Other reaction(s): Anaphylaxis Medications albuterol HFA (PROVENTIL HFA, VENTOLIN HFA) 90 mcg/actuation inhaler 2 Active amLODIPine (NORVASC) 10 mg tablet Take 10 mg by mouth. 3 Active cetirizine (ZYRTEC) 5 mg tablet Take 5 mg by mouth. 0 Active dulaglutide (TRULICITY) 1.5 mg/0.5 mL pen injector Inject 1.5 mg subcutaneously one time a week. 2 Active empagliflozin (JARDIANCE) 25 mg tablet Take 25 mg by mouth. 1 Active ergocalciferol 50,000 unit capsule (VITAMIN D2, DRISDOL) 3 Active fluticasone (FLONASE) 50 mcg/actuation nasal spray Use in the nose. 1 Active gabapentin (NEURONTIN) 300 mg capsule Take 300 mg by mouth. 1 Active hydroCHLOROthi azide (HYDRODIURIL, ESIDRIX) 12.5 mg tablet 2 Active lipase-proteas e-amylase (ZENPEP) 40,000-126,000 - 168,000 unit delayed release capsule Take by mouth. 1 Active lisinopril-hyd roCHLOROthiazi de (PRINZIDE, ZESTORETIC) 20-25 mg per tablet 3 Active metFORMIN (GLUCOPHAGE) 1,000 mg tablet 2 Active montelukast sodium (SINGULAIR ORAL) 5 mg. 0 Active omeprazole (PRILOSEC) 40 mg capsule 3 Active simvastatin (ZOCOR) 20 mg tablet 2 Active ubrogepant (UBRELVY) 100 mg tablet Take 100 mg by mouth. 2 Active Active Problems Problem Noted Date Diagnosed Date Amnesia 04/11/2022 Chronic headache disorder 04/11/2022 Glycosuria 04/11/2022 Hypersomnia 04/11/2022 Hypertension 04/11/2022 Median neuropathy 04/11/2022 Postconcussion syndrome 04/11/2022 Chronic pancreatitis 06/12/2021 Cervical radiculopathy 06/12/2021 Diabetes mellitus 06/12/2021 Migraine headache 06/12/2021 Obstructive sleep apnea syndrome 06/12/2021 Vasovagal syncope 05/02/2020 CHERYL (generalized anxiety disorder) 08/26/2017 H/O multiple concussions 08/26/2017 SOB (shortness of breath) 08/07/2017 Social History Tobacco Use Types Packs/Day Years Used Date Smoking Tobacco: Never Assessed Area Deprivation Index Answer Date Ricardo rded National Score (1-100), lower number is lower ri 86 04/12/2022 State Score (1-10), lower number is lower risk N ot on file 04/12/2022 Data from: https://www.neighborhoodatlas.medicine.[facility].edu/. Last address used for calculation [address] [place] [address] 04/12/2022 Sex and Gender Information Value Date Recorded Sex Assigned at Not on file Legal Sex Male 4:20 PM EDT Gender Identity Not on file Sexual Orientation Not on file Plan of Treatment Health Maintenance Due Date Last Done Comments Anxiety Screening 1998 Depression Screening 1998 HIV Screening 1998 Hepatitis C Screening 1998 DTaP,Tdap,Td Vaccine (1 - Tdap) 07/11/1999 Hepatitis B Vaccine (1 of 3 - 19+ 3-dose series) 07/10 HPV Vaccine (1 - 3-dose SCDM series) 07/11/2007 Lipid Screening 08/28/2023 08/27/2018 Influenza Vaccine (#1) 2024 Insurance [facility] MEDICAID Care Teams Oven Press Tender Relationship Specialty Start Date End Date Paige Warner DO [address] [place], [place] [id number] PCP - General Family Medicine 11/03/19 Paige Warner DO [address] [place], [place] [id number] Referring Family Medicine 11/03/19
--- OUTSIDE RECORDS SUMMARY | 2024-11-11 22:04 | XMS_ITS | Clinical Summary ---
Author Organization [employer] Address [id number] [place] [address] Care Team Providers Care Compliance Quality Performance Analyst Name Role Phone Services, [facility] Primary Care Provider Allergies Active Allergy Reactions Criticality Noted Date Comments Aspirin 02/05/2017 Extreme tachycardia Other reaction(s): Tachycardia Meloxicam Shortness Of Breath High 07/02/2021 Mushroom Swelling 05/02/2020 Other reaction(s): Anaphylaxis Medications pantoprazole (PROTONIX) 40 mg EC tabletIndications :heartburn Take 1 tablet (40 mg total) by mouth in the morning and 1 tablet (40 mg total) before bedtime. Indications: heartburn. Active atorvastatin (LIPITOR) 80 mg tablet Take 1 tablet (80 mg total) by mouth in the morning. 90 tablet 3 5 Active lisinopril-hydroC HLOROthiazide (PRINZIDE,ZESTORE TIC) 20-25 mg per tablet Take 1 tablet by mouth in the morning. 30 tablet 5 Active CHEST CONGESTION RELIEF DM 10-100 mg/5 mL liquid Take 5 mL by mouth every 12 (twelve) hours. 5 Active clopidogreL (PLAVIX) 75 mg tablet Take 1 tablet (75 mg total) by mouth in the morning. 90 tablet 4 5 Active carvediloL (COREG) 6.25 mg tabletIndications :Primary hypertension Take 1 tablet (6.25 mg total) by mouth in the morning and 1 tablet (6.25 mg total) before bedtime. 180 tablet 3 5 Active metoprolol tartrate (LOPRESSOR) 50 mg tabletIndications :Chest pain, unspecified type Take 1 tablet (50 mg total) by mouth as needed (take one pill the morning of the CT scan). 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 Will prescribe Plavix. Will refer him to neurology for intracranial fibromuscular dysplasia versus atherosclerotic occlusive disease. Recommend to continue high intensity statin therapy. Renal cyst 04/28/2024 Overview (09/13/2024): ==== 09/13/2024 ==== ultrasound read simple cyst only right kidney. Pain is non urologic. No mentioned of stones based on the ultrasound. I reviewed the CAT scan from August of 2023. I do not see a stone as well. PLAN: Ultrasound again read simple cyst only. At this point there is no indication for further vascular management. I do not see any stones as well. He is asymptomatic from a urologic perspective. Return clinic as needed. 04/28/24: Abd US 02/09/24 showed a 4.9 x 5.7 x 4.5cm right renal cyst and possible kidney stones. No obstruction. Of note, there were no obvious kidney stones seen on CT from August 2023. He has been having some midline lower back pain which really is more consistent with a musculoskeletal source. He agrees to referral to spine care center Assessment & Plan (04/28/2024 1:01 PM EST): We will plan on seeing him back in August with a repeat ultrasound. He will call sooner if any problems. Left ventricular hypertrophy 03/04/2024 JOS (acute kidney injury) 02/08/2024 Mixed hyperlipidemia 07/14/2023 Hearing loss 05/15/2021 Eczematoid otitis externa 05/15/2021 Obesity (BMI 30-39.9) 09/08/2020 Vasovagal syncope 05/02/2020 Hyperglycemia 04/07/2019 Hypertension Type 2 diabetes mellitus wit h hyperglycemia, without long-term current use of insulin Encounters Date Type Department Care Team Description 09/13/2024 12:30 PM EDT Office Visit [facility] [address] [phone] Lukasz Mejia MD Renal cyst (Primary Dx) 08/27/2024 9:55 AM EDT - 08/27/2024 11:59 PM EDT Hospital Encounter [facility] - [place] [address] [place] [address] Chest pain, unspecified type Discharge Disposition: Home 08/27/2024 Refill [facility] [address] [place] [phone] Meka Reyes RN opened in error 08/26/2024 Travel 08/26/2024 Telephone [facility] [address] [place] [address] Jessica Hill CMA 08/17/2024 7:09 AM EDT - 08/17/2024 11:59 PM EDT Hospital Encounter [facility] - Ultrasound [address] [place] [phone] Chronic midline low back pain with bilateral sciatica Discharge Disposition: Home 08/17/2024 Telephone [facility] [address] [place] [address] Jessica Hill CMA 08/17/2024 Travel 08/12/2024 2:30 PM EDT Office Visit [facility] [address] [place] [phone] Nicolás Maria MD Primary hypertension (Primary Dx); Chest pain, unspecified type 08/11/2024 Travel 08/11/2024 Telephone [facility] [address] [place] [address] Martine Sands CMA from Last 3 Months Immunizations Immunization Administration Dates Next Due Tdap 01/11/2023 Family History Medical History Relation Name Comments No Known Problems Father No Known Problems Mother Relation Name Status Comments Father Unknown Mother Alive Social History Tobacco Use Types Packs/Day Years Used Date Smoking Tobacco: Never Smokeless Tobacco: Never Tobacco Cessation:Counseling Given: Not Answered Alcohol Use Standard Drinks/Week Comments Not Currently 1 (1 standard drink = 0.6 oz pur e alcohol) [facility] Utilities Answer Date Recorded In the past 12 months has th e electric, gas, oil, or water company threatened to shut off services in your home? No 02/08/2024 Social Connection and Isolat ion Panel [NHANES] Answer Date Recorded In a typical week, how many times do you talk on the phone with family, friends, or neighbors? More than three times a week 02/08/2024 How often do you get togethe r with friends or relatives? More than three times a week 02/08/2024 How often do you attend chur ch or faith services? 1 to 4 times per year 02/08/2024 Do you belong to any clubs o r organizations such as congregational groups, unions, fraternal or athletic groups, or school groups? Yes 02/08/2024 How often do you attend meet ings of the clubs or organizations you belong to? More than 4 times per year 02/08/2024 Are you , , di vorced, , never , or living with a partner? 02/08/2024 AUDIT-C Answer Date Recorded Q1: How often do you have a drink containing alc ohol? 2-4 times a month 02/08/2024 Q2: How many drinks containi ng alcohol do you have on a typical day when you are drinking? 1 or 2 02/08/2024 Q3: How often do you have si x or more drinks on one occasion? Never 02/08/2024 Overall Financial Resource Strain (CARDIA) Answe r Date Recorded How hard is it for you to pa y for the very basics like food, housing, medical care, and heating? Not hard at all 02/08/2024 PHQ-2 Answer Date Recorded Total Score 0 02/08/2024 [facility] Occupat ional Health - Occupational Stress Questionnaire Answer Date Recorded Do you feel stress - tense, restless, nervous, or anxious, or unable to sleep at night because your mind is troubled all the time - these days? Not at all 02/08/2024 PRAPARE - Transportation Answer Date Re corded In the past 12 months, has l ack of transportation kept you from medical appointments or from getting medications? No 10/2023 In the past 12 months, has l ack of transportation kept you from meetings, work, or from getting things needed for daily living? No 02/08/2024 Housing Instability Answer Date Recorde d Are you worried or concerned that in the next two months you may not have stable housing that you own, rent or stay in as a part of a household? No 02/08/2024 Childcare Answer Date Recorded Do problems getting child ca re make it difficult for you to work or study? No 02/08/2024 Employment Answer Date Recorded Do you need help finding a [facility] career center and/or a training program? No 02/08/2024 Hunger Screening Answer Date Recorded Within the past 12 months we worried whether our food would run out before we got money to buy more. Never True 09/13/2024 Within the past 12 months th e food we bought just didn't last and we didn't have money to get more. Never True 09/13/2024 Purpose - Life Answer Date Recorded I have a purpose and direction in my life. Stron gly Agree 02/08/2024 Sex and Gender Information Value Date Recorded Sex Assigned at Not on file Legal Sex Male 11:34 AM EDT Gender Identity Not on file Sexual Orientation Not on file Last Filed Vital Signs Vital Sign Reading Time Taken Comments Blood Pressure 125/82 09/13/2024 12:54 PM EDT Pulse 92 09/13/2024 12:54 PM EDT Temperature 37.1 C (98.7 F) 08/10/2024 9:07 PM EDT Respiratory Rate 17 08/10/2024 11:15 PM EDT Oxygen Saturation 97% 08/12/2024 2:34 PM EDT Inhaled Oxygen Concentration - - Weight 112 kg (247 lb) 09/13/2024 12:54 PM EDT Height 180.3 cm (5' 11 ) 09/13/2024 12:54 PM EDT Body Mass Index 34.45 09/13/2024 12:54 PM EDT Plan of Treatment Upcoming Encounters Date Type Department Care Team (Late st Contact Info) Description 02/11/2025 8:15 AM EST Office Visit [facility] [address] [place] [phone] Guzman Bowling MD [address] [place] [address] Jose Morris DO [address] [place] [address] Health Maintenance Due Date Last Done Comments Diabetic Ophthalmology Exam 1980 Diabetic Foot Exam 1998 Adult BMI Follow Up Plan 07/06/2024 07/07/2023 Influenza Vaccine 11/01/2024 Depression Screening 02/07/2025 02/08/2024 Statin Use: Diabetic 03/04/2025 03/04/2024 Adult BMI Screening 09/13/2025 09/13/2024 Tobacco Screening 09/13/2025 09/13/2024 DTaP,Tdap and Td Vaccines (5 - Td or Tdap) 08/11/2034 08/11/2024, 01/11/2023, 02/10/2015, Additional history exists Goals Goal Patient Goal Type Associated Problems Recent Progress Patient-Stated? Author home General Yes Olimpia Olmstead LSW Note: Evaluation of progress towards goal: hopes to DC to home today, is in better position to afford insulin Medical Devices Implanted Type Area Human Resources Executive Assistant Device Identifier Shelf Expiration Date Model / Serial / Lot Anch Sut 5.5mm Multifix S Ult Rpl [id number] - Sna - [id number] Implanted:Qty : 1 on 03/11/2018 by Troy Wise DO at [facility] Ovalo Right: Shoulder [employer] 08/12/2020 [id number] / NA / [id number] Procedures Procedure Name Priority Date/Time Associated Diagnosis Comments CT CTA COR ARTERIES W OR WO SCORING Routine 08/31/2024 10:17 AM EDT Chest pain, unspecified type US RETROPERITONEAL COMPLETE Routine 08/17/2024 7:35 AM EDT Chronic midline low back pain with bilateral sciatica from Last 3 Months Results * CT angiogram coronary arteries with or without scoring (08/31/2024 10:17 AM EDT) Anatomical Region Laterality Modality Heart, Body, Body Covera N/A Compute d Tomography 08/31/2024 11:4 6 AM EDT Narrative 08/31/2024 12:49 PM EDT CLINICAL INFORMATION: Chest pain. Fatigue. TECHNIQUE: Computed tomography (CT) of the heart was obtained using electrocardiography (ECG) triggering. 80 mL of Omni 350 contrast was administered intravenously. In preparation for the examination, the patient received 20 mg oral metoprolol for heart rate/rhythm control and 0.8 mg sublingual nitroglycerin tablet for coronary vasodilation. There were no complications 3-D volume rendered maximum intensity projection images were generated and reviewed under concurrent physician supervision on an independent workstation.. No FFR performed. All CT scans at this facility use dose modulation, iterative reconstruction, and/or weight based dosing when appropriate to reduce radiation dose to as low as reasonably achievable. COMPARISON: No relevant prior studies available. EXTRACARDIAC FINDINGS: The visualized lungs and mediastinum are within normal limits. Images of the upper abdomen demonstrate no appreciable abnormality. The pulmonary arteries are not sufficiently opacified for diagnostic assessment. Ascending thoracic aorta measures 3.9 cm at the level the right main pulmonary artery. CALCIUM SCORE: Agatston Score: The total (aggregate) calcium score using the AJ-130 method is 31.6. Total volume score is 35.4. 22% of similar patients have less coronary artery calcium {this is reported using the interactive GENAO form found at http://www.genao- nhlbi.org} Individual major vessel AJ-130 scores are: LM = 19.7 LAD = 11.9 LCX = 0 RCA/PDA = 0 Other = [address] Angiogram: The overall quality of the CT angiographic examination is satisfactory. . Coronary Artery Angiogram Findings: Stenoses are reported as maximum percentage diameter stenosis. Stenosis grading is reported using the following scheme: Normal: no stenosis Mild: 1-49% stenosis Moderate: 50-70% stenosis Severe: >70% stenosis Occluded The coronary artery system is right dominant with normal origins. The LM no significant narrowing with small calcified plaque. The proximal LAD and first diagonal branch (D1) mild narrowing with predominantly soft plaque. The mid-distal LAD and diagonal branches demonstrate minimal additional disease. The LCx and its obtuse marginal (OM) branches have no stenosis with no plaque. The RCA demonstrates soft plaque formation with mild narrowing. No significant disease distally. IMPRESSION: Mild nonobstructive coronary disease with soft plaque formation. No FFR performed. Total calcium score of 31.6; 22% of similar patients have less coronary artery calcium. The coronary arteries and cardiac structures were co-interpreted by Dr. Clifford Eddy DO of the department of radiology and Dr. Yi of department of cardiology. The extracardiac structures including the lungs were solely interpreted by Dr. Clifford Eddy DO of the department of radiology. Calcium Score interpretation and guidelines for asymptomatic individuals, 45 - 75 years of age are as follows: Estimated Risk of a Total Score Relative Risk Coronary Event Each Year 0 very low risk 2 per 1000 1-10 low risk 5 per 1000 11-100 intermediate risk 5 to 20 per 1000 101-400 moderately high risk more than 2 per 100 over 400 high risk between 2 and 5 per 100; approximately 15% chance of significant blockages; consideration should be given to obtaining stress echo or stress nuclear testing. Finalized by Clifford Eddy DO on 08/31/2024 12:49 PM Procedure Note Clifford Eddy DO - 08/31/2024 CLINICAL INFORMATION: Chest pain. Fatigue. TECHNIQUE: Computed tomography (CT) of the heart was obtained usingelectrocardiography (ECG) triggering. 80 mL of Omni 350 contrast wasadministered intravenously. In preparation for the examination, thepatient received 20 mg oral metoprolol for heart rate/rhythm control and0.8 mg sublingual nitroglycerin tablet for coronary vasodilation. There were no complications 3-D volumerendered maximum intensity projection images were generated and reviewedunder concurrent physician supervision on an independent workstation.. No FFR performed. All CT scans at this facility use dose modulation, iterativereconstruction, and/or weight based dosing when appropriate to reduceradiation dose to as low as reasonably achievable. COMPARISON: No relevant prior studies available. EXTRACARDIAC FINDINGS: The visualized lungs and mediastinum are within normal limits. Images ofthe upper abdomen demonstrate no appreciable abnormality. The pulmonary arteries are not sufficiently opacified for diagnosticassessment. Ascending thoracic aorta measures 3.9 cm at the level the right mainpulmonary artery. CALCIUM SCORE: Agatston Score: The total (aggregate) calcium score using the AJ-130method is 31.6. Total volume score is 35.4. 22% of similar patients haveless coronary artery calcium {this is reported using the interactive MESAform found at http://www.genao- nhlbi.org} Individual major vessel AJ-130scores are: LM = 19.7 LAD = 11.9 LCX = 0 RCA/PDA = 0 Other = [address] Angiogram: The overall quality of the CT angiographic examination is satisfactory. . Coronary Artery Angiogram Findings: Stenoses are reported as maximumpercentage diameter stenosis. Stenosis grading is reported using thefollowing scheme: Normal: no stenosis Mild: 1-49% stenosis Moderate: 50-70% stenosis Severe: >70% stenosis Occluded The coronary artery system is right dominant with normal origins. The LM no significant narrowing with small calcified plaque. The proximal LAD and first diagonal branch (D1) mild narrowing withpredominantly soft plaque. The mid-distal LAD and diagonal branches demonstrate minimal additionaldisease. The LCx and its obtuse marginal (OM) branches have no stenosis with noplaque. The RCA demonstrates soft plaque formation with mild narrowing. Nosignificant disease distally. IMPRESSION: Mild nonobstructive coronary disease with soft plaque formation. No FFR performed. Total calcium score of 31.6; 22% of similar patients have less coronaryartery calcium. The coronary arteries and cardiac structures were co-interpreted by Dr.Bruce Surjit DO of the department of radiology and Dr. Yi [facility] of cardiology. The extracardiac structures including the lungs were solely interpreted byDr. Clifford Eddy DO of the department of radiology. Calcium Score interpretation and guidelines for asymptomatic individuals,45 - 75 years of age are as follows: Estimated Risk of a Total Score Relative Risk Coronary Event Each Year 0 very low risk 2 per 1000 1-10 low risk 5 per 1000 11-100 intermediate risk 5 to 20 per 1000 101-400 moderately high risk more than 2 per 100 over 400 high risk between 2 and 5 per 100;approximately 15% chance ofsignificant blockages; consideration should be given toobtaining stress echo or stress nuclear testing. Finalized by Clifford Eddy DO on 08/31/2024 12:49 PM Nicolás Maria MD IMG CT ORDERABLES Final Resu lt * Ultrasound retroperitoneal complete (08/17/2024 7:35 AM EDT) Anatomical Region Laterality Modality Body Ultrasound 08/20/2024 11:1 6 AM EDT Narrative 08/20/2024 11:19 AM EDT Clinical history: Renal cysts, kidney stones, chronic midline low back pain. COMPARISON: CT scan 08/28/2023. FINDINGS: Right kidney measures 14.1 x 6.8 x 5.3 cm. Renal cortical thickness measures 0.7 cm. No shadowing calculi. Collecting system is not dilated. There is an anechoic simple cyst upper pole right kidney measuring 5.2 x 4.6 x 4.7 cm. There are sharp morgan and good increased through transmission consistent with simple cyst. The left kidney measures 13.4 x 6.7 x 5.4 cm with renal cortical thickness of 0.7 cm. No cysts or masses are identified. Renal collecting system is not dilated. No shadowing calculi are seen. Urinary bladder contents are anechoic with bladder volume calculated at 38 mL. Color Doppler interrogation reveals the presence of bilateral ureteral jets. Prostate measurements reveal prostate volume at 35 mL. IMPRESSION: 1. Simple cyst upper pole right kidney. 2. Otherwise unremarkable exam. Finalized by Gabe Vidal MD on 08/20/2024 11:19 AM Procedure Note Gabe Vidal MD - 08/20/2024 Clinical history: Renal cysts, kidney stones, chronic midline low backpain. COMPARISON: CT scan 08/28/2023. FINDINGS: Right kidney measures 14.1 x 6.8 x 5.3 cm. Renal corticalthickness measures 0.7 cm. No shadowing calculi. Collecting system is notdilated. There is an anechoic simple cyst upper pole right kidneymeasuring 5.2 x 4.6 x 4.7 cm. There are sharp morgan and good increasedthrough transmission consistent with simple cyst. The left kidney measures 13.4 x 6.7 x 5.4 cmwith renal cortical thickness of 0.7 cm. No cysts or masses areidentified. Renal collecting system is not dilated. No shadowing calculiare seen. Urinary bladder contents are anechoic with bladder volumecalculated at 38 mL. Color Doppler interrogation reveals the presence of bilateral ureteraljets. Prostate measurements reveal prostate volume at 35 mL. IMPRESSION: 1. Simple cyst upper pole right kidney. 2. Otherwise unremarkable exam. Finalized by Gabe Vidal MD on 08/20/2024 11:19 AM Radha RODRIGUEZ G ORDERABLES Final Res ult from Last 3 Months Insurance [employer] Advance Directives * Full Code (Latest Code Status on File) Date Activated Date Inactivated Comments 02/08/2024 9:06 AM 02/09/2024 5:49 PM * Full Code Date Activated Date Inactivated Comments 04/07/2019 8:25 AM 04/08/2019 5:52 PM Care Teams Compliance Quality Performance Analyst Relationship Specialty Start Date End Date Services, [facility] [address] [place] PCP - General Family Medicine 07/24/24
--- OUTSIDE RECORDS SUMMARY | 2024-11-11 22:04 | XMS_ITS | Encounter Summary ---
Author Organization [facility] Address [address] [place] [address] Care Team Providers Care Telegraph Plant Maintainer Name Role Phone Paige Warner DO Primary Care Provider [phone] Edson Tompkins MD Unavailable [phone] Encounter Details Date Type Department Care Team (Late Contact Info) Description 07/31/2022 Abstract [facility] [address] [place] [phone] Dashawn Oleary MD [address] [place], [place] [id number] Social History Tobacco Use Types Packs/Day Years Used Date Smoking Tobacco: Never Tobacco Cessation:Counseling Given: Not Answered Alcohol Use Standard Drinks/Week Comments Never 0 (1 standard drink = 0.6 oz pur e alcohol) Sex and Gender Information Value Date Recorded Sex Assigned at Not on file Legal Sex Male 7:23 PM EDT Gender Identity Not on file Sexual Orientation Not on file COVID-19 Exposure Response Date Recorded In the last 10 days, have yo u been in contact with someone who was confirmed or suspected to have Coronavirus/COVID-19? No / Unsure 07/31/2022 6:39 PM EDT documented as of this encounter Plan of Treatment Upcoming Encounters Date Type Department Care Team (Late st Contact Info) Description 01/20/2025 11:10 AM EST Office Visit [facility] [address] [place] [phone] Edson Tompkins MD [address] [place] [address] documented as of this encounter Visit Diagnoses Not on filedocumented in this encounter Care Teams Telegraph Plant Maintainer Relationship Specialty Start Date End Date Paige Warner DO [address] [place] [address] PCP - General Family Medicine 12/16/23 Edson Tompkins MD [address] [place] [address] PCP - Medical [facility] Commercial 01/31/23 03/02/99 documented as of this encounter
--- OUTSIDE RECORDS SUMMARY | 2024-11-11 22:04 | XMS_ITS | Clinical Summary ---
Author Organization [facility] Address [address], [address] [place] [address] Care Team Providers Care Web Content Developer Name Role Phone Monserrat Underwood Primary Care Provider [phone] Allergies Active Allergy Reactions Criticality Noted Date Comments Aspirin 02/05/2017 Medications lisinopril-hydr ochlorothiazide (PRINZIDE;ZESTO RETIC) 10-12.5 MG per tablet Take 1 tablet by mouth daily Active cetirizine (ZYRTEC) 10 MG tablet TAKE 1 TABLET BY MOUTH ONCE DAILY NEEDED FOR ALLERGIES 0 9 Active OLANZapine (ZYPREXA) 10 MG tablet Take 15 mg by mouth Daily 1 9 Active Active Problems Problem Noted Date Diagnosed Date CHERYL (generalized anxiety disorder) 08/26/2017 H/O multiple concussions 08/26/2017 SOB (shortness of breath) 08/07/2017 Chest pain 08/07/2017 Memory loss 08/07/2017 Elevated blood sugar 08/07/2017 Social History Tobacco Use Types Packs/Day Years Used Date Smoking Tobacco: Never Smokeless Tobacco: Never Alcohol Use Standard Drinks/Week Comments No 0 (1 standard drink = 0.6 oz pur e alcohol) PHQ-2 Answer Date Recorded PHQ-2 Score 3 06/03/2018 Sex and Gender Information Value Date Recorded Sex Assigned at Not on file Legal Sex Male 3:38 PM EST Gender Identity Not on file Sexual Orientation Not on file Last Filed Vital Signs Vital Sign Reading Time Taken Comments Blood Pressure 128/74 08/31/2018 12:08 PM EDT Pulse 100 08/31/2018 12:00 PM EDT Temperature 37.6 C (99.7 F) 07/30/2017 8:43 PM EDT Respiratory Rate 14 08/02/2017 4:34 AM EDT Oxygen Saturation 98% 08/31/2018 12:00 PM EDT Inhaled Oxygen Concentration - - Weight 128.4 kg (283 lb) 08/31/2018 12:00 PM EDT Height - - Body Mass Index - - Plan of Treatment Not on file Insurance [facility] Care Teams Web Content Developer Relationship Specialty Start Date End Date Monserrat Underwood [address] [place], [place] [id number] PCP - General 07/31/18
--- OUTSIDE RECORDS SUMMARY | 2024-11-11 22:04 | XMS_ITS | Encounter Summary ---
Author Organization [employer] Address [id number] [address] [place] [address] Care Team Providers Care Rack Puller Name Role Phone Services, [facility] Primary Care Provider Encounter Details Date Type Department Care Team (Late st Contact Info) Description 05/03/2020 Orders Only [facility] [address] [place] [phone] Berto Perez MD [address] [place] [address] Hypertension, unspecified type Social History Tobacco Use Types Packs/Day Years [...] or suspected to have Coronavirus / COVID-19? No / Unsure 05/02/2020 11:01 AM EST documented as of this encounter Plan of Treatment Upcoming Encounters Date Type Department Care Team (Late st Contact Info) Description 02/11/2025 8:15 AM EST Office Visit [facility] [address] [place] [address] Guzman Bowling MD [address] [place], [place] [phone] Jose Morris DO [address] [place] [address] documented as of this encounter Procedures Procedure Name Priority Date/Time Associated Diagnosis Comments ECG 12-LEAD Routine 05/02/2020 10:49 AM EST Hypertension, unspecified type documented in this encounter Results * ECG 12 lead (05/02/2020 10:49 AM EST) us Berto Perez MD ECG ORDERABLES Final Result Performing Organization Address City/State/[facility] Co de Phone Number [email or web address] documented in this encounter Visit Diagnoses Diagnosis Hypertension, unspecified type documented in this encounter Additional Health Concerns Infection Onset Date Last Indicated Resolved Time COVID-19 Rule-Out 05/23/2020 05/23/2020 05/23/2020 7:47 PM EDT Respiratory Rule-Out 07/24/2024 07/24/2024 025 12:23 AM EDT documented as of this encounter Care Teams Rack Puller Relationship Specialty Start Date End Date Services, [facility] [address] [place], [place] PCP - General Family Medicine 07/24/24 documented as of this encounter
--- OUTSIDE RECORDS SUMMARY | 2024-11-11 22:04 | XMS_ITS | Encounter Summary ---
Author Organization [employer] Address [facility] [id number] [address] [place] [address] Care Team Providers Care Pediatric Registered Nurse Name Role Phone Services, [facility] Primary Care Provider Encounter Details Date Type Department Care Team (Late st Contact Info) Description 05/23/2021 Orders Only [facility] [address] [place] [address] External, Scanning Provider Social History Tobacco Use Types Packs/Day Years Used Date Smoking Tobacco: Never Smokeless Tobacco: Never Alcohol Use Standard Drinks/Week Comments Not Currently 0 (1 standard drink = 0.6 oz [...] suspected to have Coronavirus/COVID-19? No / Unsure 05/15/2021 10:54 AM EDT documented as of this encounter Plan of Treatment Upcoming Encounters Date Type Department Care Team (Late st Contact Info) Description 02/11/2025 8:15 AM EST Office Visit [facility] [address] [place] [phone] Guzman Bowling MD [address] [place] [address] Jose Morris DO [address] [place] [address] documented as of this encounter Procedures Procedure Name Priority Date/Time Associated Diagnosis Comments TYMPANOMETRY (AUDIOLOGY) Routine 022 8:11 AM EDT documented in this encounter Visit Diagnoses Not on filedocumented in this encounter Additional Health Concerns Infection Onset Date Last Indicated Resolved Time Respiratory Rule-Out 07/24/2024 07/24/2024 025 12:23 AM EDT documented as of this encounter Care Teams Pediatric Registered Nurse Relationship Specialty Start Date End Date Services, [facility] [address] [place], [place] PCP - General Family Medicine 07/24/24 documented as of this encounter
--- OUTSIDE RECORDS SUMMARY | 2024-11-11 22:04 | XMS_ITS | Encounter Summary ---
Author Organization [employer] Address [id number] [address] [place] [address] Care Team Providers Care Poultry Farm Manager Name Role Phone Services, [facility] Primary Care Provider Encounter Details Date Type Department Care Team (Late st Contact Info) Description 08/10/2024 Telephone [facility] [address] [place] [address] Tong Sanz MD [address], [facility] [address] [place] [address] Social History Tobacco Use Types Packs/Day Years Used Date Smoking Tobacco: Never Smokeless Tobacco: Never Alcohol Use Standard Drinks/Week Comments Not Currently 1 (1 standard drink = 0.6 oz pur e alcohol) [facility] Utilities Answer Date Recorded In the past 12 months has [employer], gas, oil, or water [employer] threatened to shut off services in your [...] often do you attend chur ch or tenriism services? 1 to 4 times per year 02/08/2024 Do you belong to any clubs o r organizations such as oriental orthodox groups, unions, fraternal or athletic groups, or [...] Answer Date Recorded Total Score 0 02/08/2024 [facility] - Occupational Stress Questionnaire Answer Date Recorded [...] Recorded Do you need help finding a l ocal career center and/or a training program? No 02/08/2024 Hunger Screening Answer Date Recorded Within the past 12 months we worried whether our food would run out before we got money to buy more. Never True 08/12/2024 Within the past 12 months th e food we bought just didn't last and we didn't have money to get more. Never True 08/12/2024 Purpose - Life Answer Date Recorded I have a purpose and direction in my life. Yanely villalba Agree 02/08/2024 Sex and Gender Information Value Date Recorded Sex Assigned at Not on file Legal Sex Male 11:34 AM EDT Gender Identity Not on file Sexual Orientation Not on file documented as of this encounter Miscellaneous Notes * Telephone Encounter - Analisa Chaos - 08/10/2024 12:32 PM EDT Patient is calling because his employer is now threatening to fire him if his FMLA/Disability paperwork is not turned in to employer STAT. I have checked the fax folder up front and the paperwork is not in there. Patient would like an update at [phone]. sending to and [facility] as MA is out for a couple of days Thank you * Telephone Encounter - Kerry Churchill - 08/10/2024 12:32 PM EDT Patients is calling to see if there is an update on the FMLA/Disability paperwork. She states it has been almost 2 weeks and he hasn't gotten it back. The patient and KESHIA would like an update at either [phone] (KESHIA) or [phone] (Charlie) Thank you. documented in this encounter Plan of Treatment Upcoming Encounters Date Type Department Care Team (Late st Contact Info) Description 02/11/2025 8:15 AM EST Office Visit [facility] [address] [place] [phone] Guzman Bowling MD [address] [place] [address] Jose Morris DO [address] [place] [address] documented as of this encounter Goals Goal Patient Goal Type Associated Problems Recent Progress Patient-Stated? Author home General Yes Olimpia Olmstead LSW Note: Evaluation of progress towards goal: hopes to DC to home today, is in better position to afford insulin documented as of this encounter Visit Diagnoses Not on filedocumented in this encounter Additional Health Concerns Assessment Noted Time PHQ-9 Depression Total Score: 0 02/08/20 24 10:42 AM EST documented as of this encounter Care Teams Poultry Farm Manager Relationship Specialty Start Date End Date Services, [facility] [address] [place], [place] PCP - General Family Medicine 07/24/24 documented as of this encounter
--- NOTE | 2024-11-11 22:07 | XR_ITS ---
The [address] [address] Patient Name: ABI VALDEZ MRN: [id number] date: 1980 Sex: M Assigned Patient Location: ED.MAIN Current Patient Location: ED.MAIN Accession/Order Number: [id number] Exam Date: 11/11/2024 22:25 Report Date: 11/11/2024 22:51 At the request of: SKYLER GOLDMAN MD Procedure: XR hand RT min 3V 3 views right hand INDICATION: Pain third metacarpal FINDINGS: No fracture or dislocation. Joint spaces preserved. Soft tissues are unremarkable. No radiopaque foreign body XR/XR hand RT min 3V IMPRESSION: Negative acute osseous abnormality. Impression dictated by: Arturo Rodriguez M.D. 11/11/2024 10:51 PM Dictation Location: [place] [address] Electronically authenticated by: [id number] Date: 11/11/2024 22:51
--- NOTE | 2024-11-11 22:07 | ED.GENADUL1 ---
HPI HPI - General Adult General Chief complaint: Extremity Injury, Upper Stated complaint: RIGHT HAND PAIN Time Seen by Provider: 11/11/24 22:02 History of Present Illness HPI narrative: 44-year-old male presents to the emergency department for pain in his right hand. He points to the mid shaft area of the third metacarpal. He states this started today when he was at work and he was putting an oil filter on a truck. He did not fall and nothing hit him there. He is right-handed. The pain is moderate and worse when he moves it. Related Data Home Medications ?Medication ?Instructions ?Recorded ?Confirmed benzonatate 100 mg capsule 100 mg PO Q8H 12/18/23 12/18/23 lisinopril 20 2 tab PO DAILY 12/18/23 12/18/23 mg-hydrochlorothiazide 25 mg tablet pioglitazone 30 mg tablet 30 mg PO DAILY 12/18/23 12/18/23 Previous Rx's ?Medication ?Instructions ?Recorded pantoprazole 40 mg tablet,delayed 40 mg PO BID #60 tabs 12/18/23 release (Protonix) Allergies Allergy/AdvReac Type Severity Reaction Status Date / Time aspirin Allergy tachycardia Verified 12/17/23 21:25 meloxicam (From Mobic) Allergy Anaphylaxis Verified 12/17/23 21:25 Opioid HPI Opioid Management Most Recent Opioid Data: Last Pain Scale 5 Today, 22:26 Last ORT Total Score 0 12/18/23, 02:09 Last ORT Risk Category Low Risk 12/18/23, 02:09 Review of Systems ROS Narrative A ten point review of systems is negative except as noted above. [facility] Medical History (Updated 11/11/24 @ 22:38 by Shadi Partida MD) Hypertension ?I10 - Essential (primary) hypertension (ICD-10) COPD (chronic obstructive pulmonary disease) ?J44.9 - Chronic obstructive pulmonary disease, unspecified (ICD-10) Diabetes mellitus ?E11.9 - Type 2 diabetes mellitus without complications (ICD-10) Hematemesis of fresh blood ?K92.0 - Hematemesis (ICD-10) Family History Grandmother Family history of COPD (chronic obstructive pulmonary disease) Other Family history of cancer Family history of diabetes mellitus Family history of hypertension Social History Within the past year, how often did you have a drink containing alcohol: monthly or less Within the past year, how often did you have six or more drinks on one occasion: less than monthly Smoking status: Never smoker Non-prescribed substance use: denies use Highest level of school completed/degree received: high school graduate Are you now , , , , never or living with a partner: refused to answer In a typical week, how many times do you talk on the telephone with family, friends, or neighbors: twice per week How often do you get together with friends or relatives: twice per week Little interest or pleasure in doing things: not at all Feeling down, depressed, or hopeless: not at all Do you think of yourself as: straight/heterosexual Gender Identity: male Exam Narrative Exam Narrative: Nurses note and vital signs reviewed and patient is not hypoxic. General: The patient appears well and in no apparent distress. Patient is resting comfortably on cart. Skin: Warm, dry, no pallor noted. There is no rash noted. Head: Normocephalic, atraumatic Eye: Normal conjunctiva, no drainage Ears, Nose, Mouth, and Throat: oral mucosa is moist. Nares patent. Cardiovascular: Regular Rate and Rhythm Respiratory: Patient is in no distress, no accessory muscle use, lungs are clear to auscultation, no wheezing, rales or rhonchi Back: non-tender GI: Soft and nontender Musculoskeletal: The right hand is examined. There is no bruising swelling or abrasion or other break in the skin. Fingers have full range of motion. He has tenderness in the third metacarpal region. Neurological: A&O, normal speech Psychiatric: Cooperative Constitutional Vital Signs, click to edit/add: Last Vital Signs Temp 99.0 F 11/11/24 22:03 Pulse 100 H 11/11/24 22:03 Resp 16 11/11/24 22:03 BP 149/102 H 11/11/24 22:03 Pulse Ox 97 11/11/24 22:03 O2 Del Method Room Air 11/11/24 22:03 Course Vital Signs Vital signs: Vital Signs Temperature 99.0 F 11/11/24 22:03 Pulse Rate 100 H 11/11/24 22:03 Respiratory Rate 16 11/11/24 22:03 Blood Pressure 149/102 H 11/11/24 22:03 Pulse Oximetry 97 11/11/24 22:03 Oxygen Delivery Method Room Air 11/11/24 22:03 Temperature 99.0 F 11/11/24 22:03 Pulse Rate 100 H 11/11/24 22:03 Respiratory Rate 16 11/11/24 22:03 Blood Pressure 149/102 H 11/11/24 22:03 Pulse Oximetry 97 11/11/24 22:03 Oxygen Delivery Method Room Air 11/11/24 22:03 Medical Decision Making MDM Narrative Medical decision making narrative: X-ray of the hand on my interpretation shows no acute findings. Ancelmo wrap applied, application checked by me and found to be appropriate, he is neurovascularly intact. He was recommended ice and ibuprofen. Treatment diagnosis and follow-up were discussed with the patient. Differential Diagnosis Differential Diagnosis: Hand sprain, hand fracture Imaging Data Right hand x-ray: My impression: No acute findings Discharge Plan Discharge Chief Complaint: Extremity Injury, Upper Clinical Impression: Hand pain, right Patient Disposition: Home, Self-Care Time of Disposition Decision: 22:37 Condition: Good Mode of Transportation: Private Vehicle Prescriptions / Home Meds: No Action benzonatate 100 mg capsule 100 mg PO Q8H lisinopril-hydrochlorothiazide 20-25 mg tablet 2 tab PO DAILY pioglitazone 30 mg tablet 30 mg PO DAILY pantoprazole [Protonix] 40 mg tablet,delayed release (DR/EC) 40 mg PO BID Qty: 60 11RF Print Language: Ukrainian Instructions: Hand Sprain (ED) Referrals: [facility] [Primary Care Provider, Unknown] - 1 week
--- OUTSIDE RECORDS SUMMARY | 2024-11-11 22:07 | XMS_ITS | CCD ---
Author Organization [facility] Care Team Providers Care Cover Maker Name Role Phone JOSTINYISELYAZMIN Referring Unavailable MONSERRAT UNDERWOOD Primary Care Unavailable OLESYA CADET Referring Unavailable LEW OCONNOR Primary Care Unavailable PAIGE SOTO Primary Care Physician Georgina Sototy Unavailable Paige Soto Primary Care Provider TRACEY CARRERA Admitting Unavailable TRACEY CARRERA Attending Unavailable MISC, DR CARABALLO Primary Care Unavailable MISC, DR CARABALLO Primary Care Unavailable TERRY TOLEDO Admitting Unavailable TERRY TOLEDO Attending Unavailable TERRY TOLEDO Consulting Unavailable CORINAC, DR CARABALLO Primary Care Unavailable AUSTIN, DR ATIF Loya Admitting Unavailabl e AUSTIN, DR ATIF Loya Attending Unavailabl e AUSTIN, DR ATIF Loya Consulting Unavailabl e ROBEL, GLADYS Consulting Unavailable LAWRENCE, DR SERGIO Schaeffer Admitting Unavailable LAWRENCE, DR SERGIO Schaeffer Attending Unavailable CORINAC, DR CARABALLO Primary Care Unavailable LAWRENCE, DR SERGIO Schaeffer Consulting Unavailable ALEISHA CARREON Consulting Unavailable TRACEY CARRERA Admitting Unavailable TRACEY CARRERA Attending Unavailable MISC, DR CARABALLO Primary Care Unavailable CHRIS, DR NIKKI Schaeffer Consulting Unavailable TRACEY CARRERA Consulting Unavailable MIYALAMatt, PAIGE Primary Care Unavailable Jose Love Attending Unavailable PAIGE SOTO Referring Unavailable PAIGE SOTO Primary Care Unavailable DO Paige Soto Primary Care Provider DO Aicha Kaur Attending Provider Aicha Kaur Attending Unavailable Aicha Kaur Admitting Unavailable Paige Soto Primary Care Unavailable Paige Soto DO Primary Care Provider Unavailable Primary Care Provider Unavailabl e Services, [facility] Primary Care Provider Paige Soto DO Primary Care Provider Services, [facility] Primary Care Provider Services, [facility] Primary Care Provider Edson Tompkins MD Unavailable [phone] Services, [facility] Primary Care Provider DULCE LLAMAS Attending Unavailable SERVICES, [facility] Primary Care Unava ilable DULCE LLAMAS Attending Unavailable DULCE LLAMAS Referring Unavailable SERVICES, [facility] Primary Care Unava ilable SERVICES, [facility] Care Unava ilable CAM RICH Attending Unavailable SERVICES, [facility] Primary Care Unava ilable DION MORENO Attending Unavailable SERVICES, [facility] Unava ilable NIRMAL ALIA Referring Unavailable SERVICES, [facility] Primary Care Unava ilable SERVICES, [facility] Primary Care Unava ilable KAYLIN TRAN Attending Unavailable MARSHA BENTLEY Admitting Unavailable DANA LUTHER Attending Unavailable PAIGE SOTO Referring Unavailable SERVICES, [facility] Primary Care Unava ilable SERVICES, [facility] Primary Care Unava ilable KAYLIN TRAN Attending Unavailable KAYLIN TRAN Attending Unavailable KAYLIN TRAN Referring Unavailable SERVICES, [facility] Primary Care Unava ilable SERVICES, [facility] Primary Care Unava ilable KAIA WASHINGTON Attending Unavailable NICOLÁS MARIA Attending Unavailable SERVICES, [facility] Primary Care Unava ilable CORAL CHRISTINA I Referring Unavailable SERVICES, [facility] Primary Care Unava ilable NICOLÁS MARIA Referring Unavailable SERVICES, [facility] Primary Care Unava ilable AICHA KAUR Attending Unavailable CAM RICH Referring Unavailable SERVICES, [facility] Care Unava ilable CORAL CHRISTINA I Attending Unavailable ELIS KELLEY Referring Unavailable SERVICES, [facility] Care Unava ilable TONG SANZ Attending Unavailable SERVICES, [facility] Primary Care Unava ilable AICHA SANTOS Attending Unavailable SERVICES, [facility] Primary Care Unava ilable EDSON TOMPKINS Attending Unavailable EDSON TOMPKINS Attending Unavailable EDSON TOMPKINS Attending Unavailable EDSON TOMPKINS Referring Unavailable EDSON TOMPKINS Attending Unavailable Allergies Allergy Classification Reported Allergen(s) Allergy Type Date of Onset Reaction(s) Facility (20 sources) Aspirin; Translations: [aspirin] Drug Allergy 7 Tachycardia [facility] (20 sources) meloxicam; Translations: [meloxicam] Drug Allergy 2 Dyspnea (finding), Shortness Of Breath [facility] (9 sources) Mushroom (edible); Translations: [Mushrooms] Drug allergy Anaphylaxis [facility] (2 sources) Aspirin Drug Allergy 4 [facility] (4 sources) Mushroom (edible); Translations: [MUSHROOM] Drug allergy (disorder) 1 [facility] (1 source) Aspirin Drug Allergy 1 [facility] (12 sources) Acetaminophen / oxyCODONE Drug Allergy 3 [facility] (12 sources) Aluminum aspirin Drug Allergy 4 Unknown [facility] (12 sources) meloxicam Drug Allergy 2 Rash, Shortness of breath [facility] (12 sources) Mushroom Propensity to adverse reactions 1 [facility] (20 sources) cultivated mushroom extract Drug Allergy 1 Swelling [facility] Medications Current Medications Medication Drug Class(es) Dates Sig (Normalized) Sig (Original) acetaminophen 325 mg / HYDROcodone bitartrate 5 mg oral tablet (7 sources) Opioid Agonist Start: 06-13-2021 take 1 tablet by mouth three times daily as needed for pain [place] 325 mg-5 mg oral tablet 1 tab(s), Oral, TID as needed for pain, 21 tab(s), Refill(s) 0, [facility] 536, 182.9, cm, 06/06/21 10:00:00 EDT, Height/Length Dosing, 121, kg, 06/13/21 5:10:00 EDT, Weight Dosing Start Date: 06/13/21 Status: Ordered Aimovig SureClick (8 sources) Start: 09-24-2019 inject 140 mg by subcutaneous injection every month Aimovig SureClick 140 mg, SubCutaneous, qMonth, Refills(s) 0, Headache Start Date: 09/24/19 Status: Ordered [id number] 200 actuat albuterol 0.09 mg/actuat metered dose inhaler (16 sources) beta2-Adrenergic Agonist Start: 02-25-2023 End: 10-01-2023 take 2 puff(s) by inhalation every four hours as needed for wheezing albuterol (PROVENTIL HFA;VENTOLIN HFA) 90 mcg/actuation inhaler Indications: Bronchitis Inhale 2 puffs every 4 (four) hours as needed for wheezing. 18 g 02/25/2023 10/01/2023 Discontinued Start: 08-08-2020 take 2.5 mg by inhal ation every four hours as needed for wheezing albuterol 0.083% Inh Alba 3 mL 2.5 mg, 3 mL, NEB, q4hr as needed for wheezing, Refill(s) 0 Start Date: 08/08/20 Status: Ordered take 2 puff(s) by in halation every four hours for wheezing albuterol HFA 90 mcg/act inhaler Inhale 2 puffs every 4 (four) hours if needed for wheezing Active amylase [id number] unt / lipase 26343 unt / protease [id number] unt delayed release oral capsule (13 sources) Start: 08-08-2020 take 2 capsules by mouth three times daily Zenpep 40,000 units-126,000 units-168,000 units oral delayed release capsule 2 cap(s), Oral, TID, Refill(s) 0, Other (see comment) Start Date: 08/08/20 Status: Ordered take 1 capsule by mouth once omar ly pancrelipase, Mey-Kfcm-Ofju, (Zenpep) [id number] units capsule delayed-release particles capsule Take 1 capsule by mouth Daily Active atorvastatin 80 mg oral tablet (13 sources) HMG-CoA Reductase Inhibitor Start: 03-04-2024 take 1 tablet by mouth in the morning atorvastatin (LIPITOR) 80 mg tablet Take 1 tablet (80 mg total) by mouth in the morning. 90 tablet 3 03/04/2024 Active Start: 07-14-2023 End: 10-01-2023 take 1 tablet by mouth in the morning atorvastatin (LIPITOR) 40 mg tablet Take 1 tablet (40 mg total) by mouth in the morning. 90 tablet 3 07/14/2023 10/01/2023 Discontinued (Patient Never Started This Medication) carvedilol 6.25 mg oral tablet (5 sources) alpha-Adrenergic Clare, beta-Adrenergic Clare Start: 08-12-2024 take 1 tablet by mouth in the morning, then take 1 tablet by mouth at bedtime carvediloL (COREG) 6.25 mg tablet Indications: Primary hypertension Take 1 tablet (6.25 mg total) by mouth in the morning and 1 tablet (6.25 mg total) before bedtime. 180 tablet 3 08/12/2024 Active cetirizine hydrochloride 5 mg oral tablet (20 sources) Histamine-1 Receptor Antagonist Start: 09-27-2019 take 5 mg by mouth once daily as needed Zyrtec 5 mg, Oral, Daily, PRN as needed for allergy symptoms, Refills(s) 0 Start Date: 09/27/19 Status: Ordered End: 10-01-2023 take 1 tablet by mouth once daily as needed cetirizine (ZyrTEC ALLERGY) 10 MG tablet Take 10 mg by mouth Daily prn Active ciprofloxacin 500 mg oral tablet (1 source) Quinolone Antimicrobial Start: 10-01-2023 End: 10-15-2023 take 1 tablet by mouth in the morning, then take 1 tablet by mouth at bedtime ciprofloxacin HCl (CIPRO) 500 mg tablet Take 1 tablet (500 mg total) by mouth in the morning and 1 tablet (500 mg total) before bedtime. Do all this for 14 days. 28 tablet 10/01/2023 10/15/2023 Active clopidogrel 75 mg oral tablet (7 sources) P2Y12 Platelet Inhibitor Start: 07-29-2024 take 1 tablet by mouth in the morning clopidogreL (PLAVIX) 75 mg tablet Take 1 tablet (75 mg total) by mouth in the morning. 90 tablet 4 07/29/2024 Active Continuous Glucose Jailkeeper (FreeStyle Sarahy 2 [place]) device (9 sources) Continuous Gluco se Jailkeeper (FreeStyle Sarahy 2 [place]) device 1 Device Active Continuous Glucose Sensor (FreeStyle Sarahy 2 Sensor) misc (9 sources) Continuous Gluco se Sensor (FreeStyle Sarahy 2 Sensor) misc 1 Device every 14 (fourteen) days Active cyclobenzaprine hydrochloride 5 mg oral tablet (3 sources) Muscle Relaxant Start: 06-13-2021 End: 07-13-2021 take 1 tablet by mouth three times daily as needed for muscle spasms cyclobenzaprine 5 mg Tab 5 mg = 1 tab(s), Oral, TID, PRN Spasm, X 30 day(s), # 90 tab(s), Refills(s) 0, Pharmacy: [facility] 536, 182.9, cm, 06/06/21 10:00:00 EDT, Height/Length Dosing, 121, kg, 06/13/21 5:10:00 EDT, Weight Dosing Start Date: 06/13/21 Stop Date: 07/13/21 Status: Ordered dextromethorphan hydrobromide 2 mg/ml / guaiFENesin 20 mg/ml oral solution (7 sources) Uncompetitive L-esrlvt-L-asparta te Receptor Antagonist, Sigma-1 Agonist Start: 07-27-2024 take 5 mL by mouth every twelve hours CHEST CONGESTION RELIEF DM 10-100 mg/5 mL liquid Take 5 mL by mouth every 12 (twelve) hours. 07/27/2024 Active Jardiance (3 sources) Sodium-Glucose Cotransporter 2 Inhibitor Start: 07-16-2023 Jardiance Oral, qAM, Refills(s) 0 Start Date: 07/16/23 Status: Ordered Start: 08-08-2020 take 1 tablet by delfina th once daily in the morning Jardiance 25 mg oral tablet 25 mg = 1 tab(s), Oral, qAM, Refills(s) 0, Blood glucose Start Date: 08/08/20 Status: Ordered 1 ml erenumab-aooe 70 mg/ml auto-injector (12 sources) erenumab (Aimovi g, 140 MG Dose,) 70 MG/ML injection Inject 140 mg under the skin every 28 (twenty-eight) days Active ergocalciferol 1.25 mg oral capsule (9 sources) Provitamin D2 Compound take 1 capsule by mouth every week ergocalciferol (Vitamin D-2) 1.25 MG (60598 UT) capsule Take 1 capsule by mouth 1 (one) time per week Active famotidine 20 mg oral tablet (2 sources) Histamine-2 Receptor Antagonist Start : 08-27 End: 09-30 take 1 tablet by mouth in the morning, then take 1 tablet by mouth at bedtime famotidine (PEPCID) 20 mg tablet Take 1 tablet (20 mg total) by mouth in the morning and 1 tablet (20 mg total) before bedtime. 20 tablet 08/28/2023 10/01/2023 Discontinued (Therapy completed) Flonase 0.05 mg/inh nasal spray (6 sources) Start : 08-08 Flonase 0.05 mg/inh nasal spray 2 spray(s), Nasal, Daily Allergy symptoms, Refill(s) 0 Start Date: 08/08/20 Status: Ordered fluticasone propionate 0.05 mg/actuat metered dose nasal spray (2 sources) Corticosteroid Start : 08-08 Flonase 0.05 mg/inh nasal spray 2 spray(s), Nasal, Daily Allergy symptoms, Refill(s) 0 Start Date: 08/08/20 Status: Ordered gabapentin 300 mg oral capsule (1 source) Anti-epileptic Agent Start : 08-08 take 300 mg by mouth twice daily gabapentin 300 mg, Oral, BID, Refills(s) 0, Neuropathy Start Date: 08/08/20 Status: Ordered glimepiride 2 mg oral tablet (8 sources) Sulfonylurea Start : 02-11 End: 08-10 take 1 tablet by mouth before mealtime glimepiride (Amaryl) 2 MG tablet Indications: Type 2 diabetes mellitus with hyperglycemia, without long-term current use of insulin (HCC) Take 1 tablet (2 mg) by mouth in the morning. Take before meals. 90 tablet 1 02/12/2024 Active hydroCHLOROthiazide 12.5 mg oral tablet (12 sources) Thiazide Diuretic Start : 01-16 hydroCHLOROthiazide (HYDRODiuril) 12.5 MG tablet 01/16/2022 Active hydroCHLOROthiazide 25 mg / lisinopril 20 mg oral tablet (20 sources) Thiazide Diuretic, Angiotensin Converting Enzyme Inhibitor Start : 07-25 take 1 tablet by mouth once in the morning lisinopril-hydroCHLOROth iazide (PRINZIDE,ZESTORETIC) 20-25 mg per tablet Take 1 tablet by mouth in the morning. 30 tablet 07/25/2024 Active Start: 06-12-2023 End: 07-14-2023 take 1.5 tablets by mouth once in the morning lisinopril-hydroCHLOROthiazide (PRINZIDE,ZESTORETIC) 20-25 mg per tablet Take 1.5 tablets by mouth in the morning. 135 tablet 3 07/14/2023 Active Start: 03-07-2022 take 1 tablet by delfina th in the morning lisinopril-hydroCHLOROthiazide 20-25 MG tablet Take 1 tablet by mouth in the morning. 03/07/2022 Active take 1 tablet by delfina th once daily lisinopril-hydroCHLOROthiazide 10-12.5 M G tablet Take 1 tablet by mouth Daily Active take 1 tablet by delfina th in the morning lisinopril-hydroCHLOROthiazide 10-12.5 M G tablet Take 1 tablet by mouth in the morning. Active ibuprofen 600 mg oral tablet (12 sources) Nonsteroidal Anti-inflammatory Drug Start: 07-05-2022 take 1 tablet by mouth in the morning, then take 1 tablet by mouth in the evening, then take 1 tablet by mouth at bedtime ibuprofen 600 MG tablet Take 600 mg by mouth in the morning and 600 mg in the evening and 600 mg before bedtime. 07/05/2022 Active metFORMIN hydrochloride 1000 mg oral tablet (8 sources) Biguanide Start: 08-08-2020 take 1 tablet by mouth twice daily metformin 1000 mg oral tablet 1,000 mg = 1 tab(s), Oral, BID, Refills(s) 0, Blood glucose Start Date: 08/08/20 Status: Ordered methylPREDNISolone 4 mg oral tablet (2 sources) Corticosteroid Start: 08-28-2021 End: 09-03-2021 Medrol 4 mg Tab = 1 packet(s), Oral, As Directed, as directed on package labeling, X 6 day(s), # 21 tab(s), Refills(s) 0, Pharmacy: [facility] [id number], 182.9, cm, 08/28/21 10:54:00 EDT, Height/Length Dosing, 121, kg, 06/13/21 5:10:00 EDT, Weight Dosing Start Date: 08/28/21 Stop Date: 09/03/21 Status: Ordered metoprolol tartrate 50 mg oral tablet (5 sources) beta-Adrenergic Clare Start: 08-12-2024 metoprolol tartrate (LOPRESSOR) 50 mg tablet Indications: Chest pain, unspecified type Take 1 tablet (50 mg total) by mouth as needed (take one pill the morning of the CT scan). 2 tablet 08/12/2024 Active Singulair (20 sources) Leukotriene Receptor Antagonist Start: 09-27-2019 Singulair 5 mg, Chewed, Daily, PRN Allergy symptoms, Refills(s) 0 Start Date: 09/27/19 Status: Ordered End: 10-01-2023 take 1 tablet by mouth at bedtime Singulair 10 MG tabl et Take 10 mg by mouth at bedtime Active nitroglycerin 0.4 mg sublingual tablet (5 sources) Nitrate Vasodilator Start: 08-12-2024 nitroglycerin (NITROSTAT) disintegrating tablet 0.4 mg omeprazole 40 mg delayed release oral capsule (12 sources) Proton Pump Inhibitor Start: 03-05-2022 take 1 capsule by mouth before mealtime omeprazole (PriLOSEC) [address] capsule Take 40 mg by mouth in the morning. Take before meals. 03/05/2022 Active pantoprazole 40 mg delayed release oral tablet (11 sources) Proton Pump Inhibitor take 1 tablet by mouth in the morning, then take 1 tablet by mouth at bedtime pantoprazole (PROTONIX) 40 mg EC tablet Indications: heartburn Take 1 tablet (40 mg total) by mouth in the morning and 1 tablet (40 mg total) before bedtime. Indications: heartburn. Active pioglitazone 30 mg oral tablet (19 sources) Peroxisome Proliferator Receptor alpha Agonist, Peroxisome Proliferator Receptor gamma Agonist, Thiazolidinedione Start: 11-27-2023 End: 03-29-2025 take 1 tablet by mouth once daily pioglitazone (Actos) 30 MG tablet Indications: Type 2 diabetes mellitus with hyperglycemia, without long-term current use of insulin (HCC) Take 1 tablet (30 mg) by mouth Daily 90 tablet 1 09/30/2024 03/29/2025 Active simvastatin 20 mg oral tablet (9 sources) HMG-CoA Reductase Inhibitor take 1 tablet by mouth at bedtime simvastatin (Zocor) 20 MG tablet Take 1 tablet by mouth at bedtime Active ubrogepant 100 mg oral tablet (20 sources) Start: 05-18-2021 Ubrelvy 100 MG tablet 04/11/2022 Active Ventolin HFA 90 mcg/inh Aerosol (8 sources) Start: 05-18-2021 take 2 puff(s) by inhalation every six hours for wheezing Ventolin HFA 90 mcg/inh Aerosol 2 puff(s), Inhalation, q6hr for wheezing Start Date: 05/18/21 Status: Ordered Zenpep 40,000 units-126,000 units-168,000 units oral delayed release capsule (4 sources) Start: 08-08-2020 take 2 capsules by mouth three times daily Zenpep 40,000 units-126,000 units-168,000 units oral delayed release capsule 2 cap(s), Oral, TID, Refill(s) 0, Other (see comment) Start Date: 08/08/20 Status: Ordered Completed/Discontinued Medications Medication Drug Class(es) Dates Sig (Normalized) Sig (Original) amLODIPine 5 mg oral tablet (20 sources) Dihydropyridine Calcium Channel Clare Start: 02-10-2024 End: 03-11-2024 take 1 tablet by mouth in the morning amLODIPine (NORVASC) 5 mg tablet Take 1 tablet (5 mg total) by mouth in the morning for 30 days. 30 tablet 02/10/2024 03/04/2024 Discontinued Start: 03-07-2022 take 1 tablet by delfina th in the morning amLODIPine (Norvasc) 10 MG tablet Take 10 mg by mouth in the morning. 03/07/2022 Active Start: 06-12-2021 take 1 tablet by delifna th once daily amLODIPine 2.5 mg Tab 2.5 mg = 1 tab(s), Oral, Daily, Refills(s) 0, High blood pressure Start Date: 06/12/21 Status: Ordered benzonatate 100 mg oral capsule (11 sources) Non-narcotic Antitussive Start: 12-14-2023 End: 08-12-2024 take 1 capsule by mouth every eight hours benzonatate (TESSALON PERLES) 100 mg capsule Take 1 capsule (100 mg total) by mouth every 8 (eight) hours. 21 capsule 12/14/2023 08/12/2024 Discontinued (Discontinued by another clinician) Start: 02-25-2023 End: 06-12-2023 take 1 capsule by mouth every eight hours benzonatate (TESSALON PERLES) 100 mg capsule Take 1 capsule (100 mg total) by mouth every 8 (eight) hours. 21 capsule 02/25/2023 06/12/2023 Discontinued (Therapy completed) 0.5 ml dulaglutide 1.5 mg/ml auto-injector (14 sources) GLP-1 Receptor Agonist Start: 06-18-2022 End: 11-27-2023 inject 0.75 mg by subcutaneous injection every week Trulicity 0.75 MG/0.5ML solution pen-injector Inject 0.75 mg under the skin 1 (one) time per week. 06/18/2022 11/27/2023 Discontinued (Cost of medication) Start: 05-18-2021 inject 1.5 mg by sub cutaneous injection every week Trulicity Pen 1.5 mg/0.5 mL subcutaneous solution 1.5 mg, SubCutaneous, qWeek, Blood glucose Start Date: 05/18/21 Status: Ordered End: 10-01-2023 dulaglutide (TRULICITY) 1.5 mg/0.5 mL pen injector Inject 1.5 mg under the skin every 7 days. 10/01/2023 Discontinued (Cost of medication) 3 ml insulin glargine 100 unt/ml pen injector (8 sources) Insulin Analog Start: 02-09-2024 End: 08-12-2024 inject 20 [IU] by subcutaneous injection in the morning insulin glargine (LANTUS, SEMGLEE) 100 unit/mL (3 mL) insulin pen Inject 20 Units under the skin in the morning and 20 Units before bedtime. 15 mL 12 02/09/2024 08/12/2024 Discontinued (Discontinued by another clinician) Start: 08-11-2023 End: 09-10-2023 inject 0.5 mL by subcutaneous injection once daily insulin glargine (LANTUS U-100 INSULIN) 100 unit/mL injection Inject 0.5 mL (50 Units total) under the skin nightly for 30 days. 10 mL 12 08/11/2023 09/10/2023 Active 3 ml insulin lispro 100 unt/ml pen injector (8 sources) Insulin Analog Start: 02-09-2024 End: 08-12-2024 inject 2-10 [IU] by subcutaneous injection four times daily at mealtime insulin lispro (HumaLOG) 100 unit/mL insulin pen Inject 2-10 Units under the skin 4 (four) times a day with meals and nightly. 15 mL 12 02/09/2024 08/12/2024 Discontinued (Discontinued by another clinician) Start: 06-13-2021 End: 06-13-2021 Insulin Lispro Sliding Scale 0-10 Units, Injection-Insulin, SubCutaneous, Start date 06/13/21 7:30:00 EDT Start Date: 06/13/21 Stop Date: 06/13/21 Status: Completed lisinopril 20 mg oral tablet (15 sources) Angiotensin Converting Enzyme Inhibitor Start: 03-04-2024 End: 08-12-2024 take 1 tablet by mouth in the morning lisinopriL (PRINIVIL,ZESTRIL) 20 mg tablet Take 1 tablet (20 mg total) by mouth in the morning. 90 tablet 3 03/04/2024 08/12/2024 Discontinued (Discontinued by another clinician) Start: 06-13-2021 End: 06-13-2021 lisinopril 20 mg Tab 40 mg = 2 tab(s), Tab, Oral, Start date 06/13/21 9:00:00 EDT, 06/12/21 10:37:00 EDT Start Date: 06/13/21 Stop Date: 06/13/21 Status: Completed Start: 05-29-2021 take 2 tablets by mo [facility] once daily lisinopril 20 mg Tab 40 mg = 2 tab(s), Oral, Daily, High blood pressure Start Date: 05/29/21 Status: Ordered Start: 05-29-2021 take 1 tablet by [facility] once daily lisinopril 20 mg Tab 20 mg = 1 tab(s), Oral, Daily, High blood pressure Start Date: 05/29/21 Status: Ordered ondansetron 4 mg disintegrating oral tablet (5 sources) Serotonin-3 Receptor Antagonist Start: 07-25-2024 End: 08-24-2024 take 1 tablet by mouth every six hours as needed for nausea and vomiting ondansetron ODT (ZOFRAN ODT) 4 mg disintegrating tablet Dissolve 1 tablet (4 mg total) on tongue every 6 (six) hours as needed for nausea or vomiting for up to 30 days. 10 tablet 07/25/2024 08/12/2024 Discontinued (Discontinued by another clinician) Start: 08-28-2023 End: 10-01-2023 take 1 tablet by mouth every eight hours as needed for nausea ondansetron ODT (ZOFRAN ODT) 4 mg disintegrating tablet Dissolve 1 tablet (4 mg total) on tongue every 8 (eight) hours as needed for nausea for up to 10 doses. 10 tablet 08/28/2023 10/01/2023 Discontinued (Patient Stopped On Own) return to work (2 sources) Start: 08-29-2021 return to work return to work, See Instructions, 1 EA, 0, ok to return to work on 08/30/21 without restrcition, Supply Start Date: 08/29/21 Status: Ordered Problems Active Problems Problem Classification Problem Date Documented Da te Episodic/Chronic Administrative/social admission (6 sources) Patient encounter status; Translations: [Dietary counseling and surveillance] 11-27-2023 Episodic Asthma (8 sources) Acute asthma 10-11-2019 Chronic Calculus of urinary tract (1 source) Kidney stone; Translations: [Calculus of kidney] 04-28-2024 Episodic Delirium, dementia, and amnestic and other cognitive disorders (20 sources) Postconcussion syndrome; Translations: [Postconcussional syndrome] Onset: 04-11-2022 09-24-2019 Chronic Diabetes mellitus with complications (19 sources) Hyperglycemia due to type 2 diabetes mellitus; Translations: [Type 2 diabetes mellitus with hyperglycemia] 02-12-2024 Chronic Diabetes mellitus without complication (17 sources) Diabetes mellitus; Translations: [Type 2 diabetes mellitus without complication] Onset: 06-12-2021 09-24-2019 Chronic Disorders of lipid metabolism (20 sources) Mixed hyperlipidemia; Translations: [Mixed hyperlipidemia] Onset: 07-14-2023 02-08-2024 Chronic Disorders of teeth and jaw (4 sources) Other specified disorders of teeth and supporting structures; Translations: [OTH SPEC DISORDERS TEETH SUPP STRCT] Onset: 05-20-2022 Episodic E Codes: Struck by; against (1 source) Striking against or struck by other objects, initial encounter; Translations: [STRIKING AGNST/STRUCK OTH OBJ INIT] Onset: 06-18-2022 Episodic Essential hypertension (20 sources) Hypertensive disorder; Translations: [Essential hypertension] Onset: 06-12-2021 09-24-2019 Chronic Gout and other crystal arthropathies (1 source) Idiopathic gout, right ankle and foot; Translations: [IDIOPATHIC GOUT RIGHT ANKLE AND FOOT] Onset: 11-13-2021 Chronic Headache; including migraine (20 sources) Migraine; Translations: [Migraine, unspecified, not intractable, without status migrainosus] Onset: 06-12-2021 09-24-2019 Chronic Joint disorders and dislocations; trauma-related (20 sources) Derangement of left knee; Translations: [Unspecified internal derangement of left knee] Onset: 08-01-2022 08-01-2022 Chronic Joint disorders and dislocations; trauma-related (20 sources) Derangement of right knee; Translations: [Unspecified internal derangement of right knee] Onset: 08-01-2022 08-01-2022 Chronic Malaise and fatigue (1 source) Other malaise; Translations: [Other malaise] Onset: 07-24-2024 Episodic Nausea and vomiting (4 sources) Nausea; Translations: [Nausea] Onset: 07-16-2023 Episodic Nonspecific chest pain (7 sources) Chest pain; Translations: [Chest pain, unspecified] Onset: 08-10-2024 08-12-2024 Episodic Nutritional deficiencies (6 sources) Vitamin D deficiency; Translations: [Vitamin D deficiency, unspecified] 11-27-2023 Chronic Osteoarthritis (4 sources) Primary osteoarthritis, right ankle and foot; Translations: [PRIMARY OSTEOARTHRITIS RT ANK FOOT] Onset: 11-20-2021 Chronic Other aftercare (1 source) 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; Translations: [OTH SHELTER CURRENT DRUG THERAPY] Onset: 06-18-2022 Episodic Other and ill-defined heart disease (11 sources) Left ventricular hypertrophy; Translations: [Cardiomegaly] Onset: 03-04-2024 03-04-2024 Chronic Other and ill-defined heart disease (1 source) Cardiomegaly; Translations: [Cardiomegaly] Onset: 03-04-2024 Chronic Other circulatory disease (8 sources) Arterial fibromuscular dysplasia; Translations: [Other specified disorders of arteries and arterioles] Onset: 07-29-2024 07-29-2024 Chronic Other diseases of kidney and ureters (11 sources) Cyst of kidney; Translations: [Cyst of kidney, acquired] Onset: 04-28-2024 04-28-2024 Episodic Other diseases of kidney and ureters (1 source) Cyst of kidney, acquired; Translations: [Cyst of kidney, acquired] Onset: 09-13-2024 Episodic Other ear and sense organ disorders (20 sources) Hearing loss; Translations: [Unspecified hearing loss, unspecified ear] Onset: 05-15-2021 08-01-2022 Chronic Other gastrointestinal disorders (3 sources) Altered bowel function; Translations: [Change in bowel habit] Onset: 07-16-2023 Episodic Other gastrointestinal disorders (1 source) Swollen abdomen; Translations: [Abdominal distension (gaseous)] Onset: 07-16-2023 Episodic Other gastrointestinal disorders (1 source) Diarrhea; Translations: [Diarrhea, unspecified] Onset: 07-16-2023 Episodic Other gastrointestinal disorders (2 sources) Abdominal bloating 07-16-2023 Episodic Other hereditary and degenerative nervous system conditions (12 sources) Restless legs; Translations: [Restless legs syndrome] Onset: 08-01-2022 08-01-2022 Chronic Other injuries and conditions due to external causes (8 sources) Concussion injury of body structure 09-24-2019 Episodic Other injuries and conditions due to external causes (8 sources) Injury of head 10-11-2019 Episodic Other injuries and conditions due to external causes (3 sources) Unspecified injury of left lower leg, initial encounter; Translations: [UNS INJURY LT LOWER LEG INITIAL ENC] Onset: 06-16-2022 Episodic Other nervous system disorders (20 sources) Median neuropathy; Translations: [Other lesions of median nerve, unspecified upper limb] Onset: 04-11-2022 09-24-2019 Chronic Other nervous system disorders (2 sources) Other chronic pain; Translations: [Other chronic pain] Onset: 04-28-2024 Chronic Other nutritional; endocrine; and metabolic disorders (2 sources) Obesity caused by energy imbalance; Translations: [Other obesity due to excess calories] 11-27-2023 Chronic Other nutritional; endocrine; and metabolic disorders (20 sources) Body mass index 30+ - obesity; Translations: [Obesity, unspecified] Onset: 09-08-2020 03-07-2022 Chronic Other nutritional; endocrine; and metabolic disorders (5 sources) Severe obesity; Translations: [Morbid (severe) obesity due to excess calories] 10-01-2023 Chronic Pancreatic disorders (not diabetes) (8 sources) Chronic pancreatitis; Translations: [Other chronic pancreatitis] Onset: 06-12-2021 Chronic Residual codes; unclassified (20 sources) Hypersomnia; Translations: [Hypersomnia, unspecified] Onset: 04-11-2022 09-24-2019 Chronic Residual codes; unclassified (9 sources) Obstructive sleep apnea syndrome; Translations: [Obstructive sleep apnea (adult) (pediatric)] Onset: 06-12-2021 09-24-2019 Chronic Sprains and strains (1 source) Sprain of unspecified site of left knee, initial encounter; Translations: [SPRAIN UNS SITE LT KNEE INITIAL] Onset: 06-18-2022 Episodic Unclassified (8 sources) Patient encounter status 10-11-2019 Unclassified (2 sources) 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 07-29-2024 Unclassified (1 source) Weakness - Generalized Onset: 07-24-2024 Unclassified (1 source) Patient's other noncompliance with medication regimen for other reason; Translations: [Patient's other noncompliance with medication regimen for other reason] Onset: 02-08-2024 Unclassified (1 source) High Blood Sugar - Symptomatic Onset: 02-08-2024 Unclassified (1 source) Acute cough; Translations: [Acute cough] Onset: 12-14-2023 Unclassified (1 source) Insect Bite Onset: 12-14-2023 Unclassified (1 source) Eye Problem Onset: 11-10-2023 Unclassified (1 source) Groin Pain Onset: 09-23-2023 Unclassified (1 source) Vomiting, Diarrhea, Abdominal Pain Onset: 08-28-2023 Unclassified (1 source) New Patient Onset: 04-28-2024 Unclassified (1 source) renal cyst Onset: 04-28-2024 Unclassified (1 source) Nephrolithiasis Onset: 04-28-2024 Past or Other Problems Problem Classification Problem Date Documented Da te Episodic/Chronic Abdominal hernia (6 sources) Right inguinal hernia ; Translations: [Unilateral inguinal hernia, without obstruction or gangrene, not specified as recurrent] Onset: 4 10-01-2023 Episodic Abdominal pain (5 sources) Generalized abdominal pain; Translations: [Generalized abdominal pain] Onset: 05-15-202 4 Episodic Acute and unspecified renal failure (11 sources) Acute renal failure syndrome; Translations: [Acute kidney failure, unspecified] Onset: 4 02-08-2024 Episodic Conditions associated with dizziness or vertigo (12 sources) Dysfunction of vestibular system; Translations: [Unspecified disorder of vestibular function, unspecified ear] Onset: 3 08-01-2022 Episodic Diabetes mellitus without complication (20 sources) Glycosuria; Translations: [Hyperglycemia] Onset: 0 10-11-2019 Episodic E Codes: Natural/environment (2 sources) Other and unspecified overexertion or strenuous movements or postures, initial encounter; Translations: [Bitten or stung by nonvenomous insect and other nonvenomous arthropods, initial encounter] Onset: 3 Episodic Gastrointestinal hemorrhage (1 source) Hematemesis; Translations: [Hematemesis] Onset: 4 Episodic Headache; including migraine (20 sources) Chronic headache disorder; Translations: [Chronic headache disorder] Onset: 3 10-11-2019 Episodic Immunizations and screening for infectious disease (1 source) Encounter for screening for human immunodeficiency virus [HIV]; Translations: [Encounter for screening for human immunodeficiency virus (HIV)] Onset: 4 Episodic Inflammatory conditions of male genital organs (2 sources) Acute epididymitis; Translations: [Epididymitis] Onset: 4 10-01-2023 Episodic Intracranial injury (12 sources) History of concussion injury of brain; Translations: [Personal history of traumatic brain injury] Onset: 8 08-01-2022 Episodic Joint disorders and dislocations; trauma-related (12 sources) Acute tear of lateral meniscus of right knee; Translations: [Other tear of lateral meniscus, current injury, right knee, initial encounter] Onset: 3 08-01-2022 Episodic Mood disorders (11 sources) Mood disorders Onset: 4 02-08-2024 Other connective tissue disease (3 sources) Pain in right foot; Translations: [PAIN IN RIGHT FOOT] Onset: 2 Episodic Other ear and sense organ disorders (20 sources) Eczema of external auditory canal; Translations: [Acute eczematoid otitis externa, unspecified ear] Onset: 2 05-15-2021 Episodic Other injuries and conditions due to external causes (1 source) Other injuries of left eye and orbit, initial encounter; Translations: [Other injuries of left eye and orbit, initial encounter] Onset: 4 Episodic Other non-traumatic joint disorders (12 sources) Pain in right knee; Translations: [Pain in joint, lower leg] Onset: 3 08-01-2022 Episodic Other screening for suspected conditions (not mental disorders or infectious disease) (2 sources) Other specified abnormal findings of blood chemistry; Translations: [Encounter for screening for malignant neoplasm of prostate] Onset: 4 Episodic Residual codes; unclassified (20 sources) Amnesia; Translations: [Other amnesia] Onset: 8 09-24-2019 Episodic Spondylosis; intervertebral disc disorders; other back problems (20 sources) Cervical radiculopathy; Translations: [Lumbar radiculopathy] Onset: 2 09-24-2019 Episodic Superficial injury; contusion (2 sources) Contusion of left knee, initial encounter; Translations: [Insect bite (nonvenomous) of right upper arm, initial encounter] Onset: 3 Episodic Syncope (20 sources) Syncope; Translations: [Syncope and collapse] Onset: 1 09-24-2019 Episodic Results Test Name Value Interpretation Reference Range Facility Glucose (Bld) [Mass/Vol]on 0 09-30-2024 Glucose Blood, POC 174 mg/dL [facility] Hematology and Cell countson 09-30-2024 HbA1c (Bld) [Mass fraction] 7.5 % [facility] No Panel Informationon 09-30 Interpretation and review of laboratory results Abnormal [facility] CT CTA COR ARTERIES W OR WO SCORINGon 08-31-2024 CT CTA COR ARTERIES W OR WO SCORING CT CTA COR ARTERIES W OR WO SCORING CLINICAL INFORMATION: Chest pain. Fatigue. TECHNIQUE: Computed [...] using the interactive GENAO form found at [email or web address]-[email or web address] org} Individual major vessel AJ-130 scores are: LM [...] Eddy DO of the department of radiology. __ Calcium Score interpretation and guidelines for asymptomatic individuals, 45 - 75 years of age are as follows: Estimated Risk of a Total Score Relative Risk Coronary Event Each Year __ 0 very low risk 2 per 1000 1-10 low risk 5 per 1000 11-100 intermediate risk 5 to 20 per 1000 101-400 moderately high risk more than 2 per 100 over 400 high risk between 2 and 5 per 100; approximately 15% chance of significant blockages; consideration should be given to obtaining stress echo or stress nuclear testing. __ Finalized by Clifford Eddy DO on 08/31/2024 12:49 PM [facility] US RETROPERITONEAL COMPLETEo n 08-20-2024 US RETROPERITONEAL COMPLETE US RETROPERITONEAL COMPLETE Clinical history: Renal cysts, kidney stones, chronic [...] Gabe Vidal MD on 08/20/2024 11:19 AM Normal [facility] CBC WITH AUTO DIFFERENTIALon 08-10-2024 BASOPHILS ABSOLUTE COUNT (10*3/UL) BY AUTOMATED COUNT 0.1 10*3/uL Normal 0.0-0.2 [facility] Comment on above: Performed By: #### 3 040-3, 97204-2, 50465-3, BMP, LIVR, CBCA, 53605-0, PINR #### [facility] ([id number]) [address] [place] [address] 69010 BASOPHILS RELATIVE PERCENT BY AUTOMATED COUNT 1.1 % Normal [facility] Comment on above: Performed By: #### 3 040-3, 79189-7, 30942-1, BMP, LIVR, CBCA, 17486-2, PINR #### [facility] ([id number]) [address] [place] [address] 78221 CELLAVISION DIFFERENTIAL TYPE AUTOMATED DIFFERENTIAL Normal [facility] Comment on above: Performed By: #### 3 040-3, 24882-0, 66442-7, BMP, LIVR, CBCA, 98337-7, PINR #### [facility] ([id number]) [address] [place] [address] 44809 Eosinophils (Bld) [#/Vol] 0.6 10*3/uL High 0.0-0.4 [facility] Comment on above: Performed By: #### 3 040-3, 72141-2, 56571-2, BMP, LIVR, CBCA, 44733-6, PINR #### [facility] ([id number]) [address] [place] [address] 99684 EOSINOPHILS RELATIVE PERCENT BY AUTOMATED COUNT 8.0 % Normal [facility] Comment on above: Performed By: #### 3 040-3, 66823-7, 97981-3, BMP, LIVR, CBCA, 18862-2, PINR #### [facility] ([id number]) [address] [place] [address] 82352 Erythrocyte distribution width (RBC) [Ratio] 13.7 % Normal 11.5-15 [facility] Comment on above: Performed By: #### 3 040-3, 12501-2, 54886-1, BMP, LIVR, CBCA, 49823-5, PINR #### [facility] ([id number]) [address] [place] [address] 43051 Hematocrit (Bld) [Volume fraction] 41.6 % Normal 39-50 [facility] Comment on above: Performed By: #### 3 040-3, 37358-5, 79490-3, BMP, LIVR, CBCA, 87231-1, PINR #### [facility] ([id number]) [address] [place] [address] 73726 Hemoglobin (Bld) [Mass/Vol] 15.2 g/dL Normal 13-17 [facility] Comment on above: Performed By: #### 3 040-3, 38745-6, 80727-4, BMP, LIVR, CBCA, 53813-7, PINR #### [facility] ([id number]) [address] [place] [address] 83023 LYMPHOCYTES ABSOLUTE COUNT (10*3/UL) BY AUTOMATED COUNT 1.7 10*3/uL Normal 1.0-3.5 [facility] Comment on above: Performed By: #### 3 040-3, 16425-1, 93968-6, BMP, LIVR, CBCA, 90925-6, PINR #### [facility] ([id number]) [address] [place] [address] 17055 LYMPHOCYTES RELATIVE PERCENT BY AUTOMATED COUNT 22.3 % Normal [facility] Comment on above: Performed By: #### 3 040-3, 80554-6, 92252-9, BMP, LIVR, CBCA, 39083-2, PINR #### [facility] ([id number]) [address] [place] [address] 80605 MCH (RBC) [Entitic mass] 30.7 pg Normal 27-34 [facility] Comment on above: Performed By: #### 3 040-3, 88691-0, , BMP, LIVR, CBCA, 90676-4, PINR #### [facility] ([id number]) [address] [place] [address] 45785 MCHC (RBC) [Mass/Vol] 36.4 g/dL High 32-36 [facility] Comment on above: Performed By: #### 3 040-3, 27267-4, , BMP, LIVR, CBCA, 69553-1, PINR #### [facility] ([id number]) [address] [place] [address] 30568 MCV (RBC) [Entitic vol] 84 fL Normal 80-100 [facility] Comment on above: Performed By: #### 3 040-3, 94046-3, , BMP, LIVR, CBCA, 76472-3, PINR #### [facility] ([id number]) [address] [place] [address] 53742 MONOCYTES ABSOLUTE COUNT (10*3/UL) BY AUTOMATED COUNT 0.5 10*3/uL Normal 0.0-0.9 [facility] Comment on above: Performed By: #### 3 040-3, 70894-5, 77761-9, BMP, LIVR, CBCA, 01397-1, PINR #### [facility] ([id number]) [address] [place] [address] 99626 MONOCYTES RELATIVE PERCENT BY AUTOMATED COUNT 6.1 % Normal [facility] Comment on above: Performed By: #### 3 040-3, 50335-8, 01388-7, BMP, LIVR, CBCA, 04500-2, PINR #### [facility] ([id number]) [address] [place] [address] 59097 NEUTROPHILS ABSOLUTE COUNT BY AUTOMATED COUNT 4.7 10*3/uL Normal 1.5-6.6 [facility] Comment on above: Performed By: #### 3 040-3, 73845-0, 39397-5, BMP, LIVR, CBCA, 77998-9, PINR #### [facility] ([id number]) [address] [place] [address] 01625 NEUTROPHILS RELATIVE PERCENT BY AUTOMATED COUNT 62.5 % Normal [facility] Comment on above: Performed By: #### 3 040-3, 93019-8, 94516-0, BMP, LIVR, CBCA, 13853-1, PINR #### [facility] ([id number]) [address] [place] [address] 96244 Platelet mean volume (Bld) [Entitic vol] 8.3 fL Normal 7-12 [facility] Comment on above: Performed By: #### 3 040-3, 35632-4, 63067-8, BMP, LIVR, CBCA, 52809-0, PINR #### [facility] ([id number]) [address] [place] [address] 95898 Platelets (Bld) [#/Vol] 266 10*3/uL Normal 150-450 [facility] Comment on above: Performed By: #### 3 040-3, 56663-3, 89049-3, BMP, LIVR, CBCA, 15231-9, PINR #### [facility] ([id number]) [address] [place] [address] 31177 RBC COUNT 4.95 X10E12/L Normal 4.1-5.7 [facility] Comment on above: Performed By: #### 3 040-3, 60398-0, 27647-0, BMP, LIVR, CBCA, 63068-2, PINR #### [facility] ([id number]) [address] [place] [address] 93214 WBC (Bld) [#/Vol] 7.6 10*3/uL Normal 4-[address] [facility] Comment on above: Performed By: #### 3 040-3, 97950-8, 63343-2, BMP, LIVR, CBCA, 66591-5, PINR #### [facility] ([id number]) [address] [place] [address] 93032 COMPREHENSIVE METABOLIC PANE [facility] 08-10-2024 Albumin [Mass/Vol] 4.0 g/dL Normal 3.2-5.[address] [facility] Comment on above: Performed By: #### 3 040-3, 59919-8, 07962-9, BMP, LIVR, CBCA, 37731-9, PINR #### [facility] ([id number]) [address] [place] [address] 38656 ALP [Catalytic activity/Vol] 85 U/L Normal 39-130 [facility] Comment on above: Performed By: #### 3 040-3, 91336-2, 34670-3, BMP, LIVR, CBCA, 97475-8, PINR #### [facility] ([id number]) [address] [place] [address] 28730 ALT [Catalytic activity/Vol] 25 U/L Normal <=40 [facility] Comment on above: Performed By: #### 3 040-3, 37920-4, 12740-9, BMP, LIVR, CBCA, 63803-1, PINR #### [facility] ([id number]) [address] [place] [address] 99497 Anion gap [Moles/Vol] 11 mmol/L Normal 5-15 [facility] Comment on above: Performed By: #### 3 040-3, 12452-9, 31706-2, BMP, LIVR, CBCA, 44979-0, PINR #### [facility] ([id number]) [address] [place] [address] 82306 AST [Catalytic activity/Vol] 22 U/L Normal <=41 [facility] Comment on above: Performed By: #### 3 040-3, 04063-1, 62529-1, BMP, LIVR, CBCA, 67247-1, PINR #### [facility] ([id number]) [address] [place] [address] 30339 Bilirubin [Mass/Vol] 0.7 mg/dL Normal 0.3-1.2 [facility] Comment on above: Performed By: #### 3 040-3, 08258-9, 92104-2, BMP, LIVR, CBCA, 18259-3, PINR #### [facility] ([id number]) [address] [place] [address] 49995 Calcium [Mass/Vol] 9.0 mg/dL Normal 8.5-10.[address] [facility] Comment on above: Performed By: #### 3 040-3, 02446-3, 66249-9, BMP, LIVR, CBCA, 48499-7, PINR #### [facility] ([id number]) [address] [place] [address] 23301 Chloride [Moles/Vol] 103 mmol/L Normal 98-109 [facility] Comment on above: Performed By: #### 3 040-3, 54847-6, 19846-5, BMP, LIVR, CBCA, 15363-9, PINR #### [facility] ([id number]) [address] [place] [address] 83355 CO2 [Moles/Vol] 21 mmol/L Low 22-32 [facility] Comment on above: Performed By: #### 3 040-3, 29612-5, 28653-4, BMP, LIVR, CBCA, 85208-9, PINR #### [facility] ([id number]) [address] [place] [address] 06600 Creatinine [Mass/Vol] 1.39 mg/dL High 0.70-1.20 [facility] Comment on above: Result Comment: METH OD TRACEABLE TO IDMS STANDARD Performed By: #### 3 040-3, 07672-1, 28636-6, BMP, LIVR, CBCA, 35366-0, PINR #### [facility] ([id number]) [address] [place] [address] 45093 GFR/1.73 sq M.predicted among non-blacks MDRD (S/P/Bld) [Vol rate/Area] 64 mL/min/{1.73_m2} Normal >=60 [facility] Comment on above: Result Comment: eGFR not reported due to non-numeric value for Creatinine. Reported eGFR is based on the CKD-EPI 2020 equation that does not use a race coefficient. Performed By: #### 3 040-3, 76437-6, 94522-2, BMP, LIVR, CBCA, 82154-2, PINR #### [facility] ([id number]) [address] [place] [address] 10777 Glucose [Mass/Vol] 242 mg/dL High 65-[address] [facility] Comment on above: Performed By: #### 3 040-3, 58796-1, 08449-1, BMP, LIVR, CBCA, 62864-4, PINR #### [facility] ([id number]) [address] [place] [address] 77480 Potassium [Moles/Vol] 3.8 mmol/L Normal 3.5-5.0 [facility] Comment on above: Performed By: #### 3 040-3, 16777-7, 74841-3, BMP, LIVR, CBCA, 63300-6, PINR #### [facility] ([id number]) [address] [place] [address] 23048 Protein [Mass/Vol] 7.0 g/dL Normal 6.0-8.[address] [facility] Comment on above: Performed By: #### 3 040-3, 97876-4, 80446-4, BMP, LIVR, CBCA, 55724-9, PINR #### [facility] ([id number]) [address] [place] [address] 90360 Sodium [Moles/Vol] 135 mmol/L Normal 134-[address] [facility] Comment on above: Performed By: #### 3 040-3, 98589-3, 52047-4, BMP, LIVR, CBCA, 19587-4, PINR #### [facility] ([id number]) [address] [place] [address] 07566 Urea nitrogen [Mass/Vol] 18 mg/dL Normal 5-23 [facility] Comment on above: Performed By: #### 3 040-3, 87084-7, 53398-7, BMP, LIVR, CBCA, 16892-7, PINR #### [facility] ([id number]) [address] [place] [address] 57087 TROP I, HIGH SENSITIVITY 1 H OURon 08-10-2024 TROPONIN I, HIGH SENSITIVITY 6 ng/L Normal <21 [facility] Comment on above: Performed By: #### 3 040-3, 50291-8, 34605-2, BMP, LIVR, CBCA, 36100-3, PINR #### [facility] ([id number]) [address] [place] [address] 47693 TROPONIN I, HIGH SENSITIVITY 0 HOURon 08-10-2024 TROPONIN I, HIGH SENSITIVITY 6 ng/L Normal <21 [facility] Comment on above: Performed By: #### 3 040-3, 37526-9, 98994-7, BMP, LIVR, CBCA, 29636-0, PINR #### [facility] ([id number]) [address] [place] [address] 44661 MR BRAIN W WO CONTon 025 MR BRAIN W WO CONT MR BRAIN W WO CONT EXAM:MR BRAIN W WO CONT INDICATION: Nausea and vomiting, unspecified vomiting type; Malaise COMPARISON: None TECHNIQUE: Multiplanar multisequence pre and post contrast MR sequences through the head/brain. CONTRAST: 20mL ProHance IV. BRAIN FINDINGS: Brain Parenchyma: No definite evidence of acute hemorrhage. No cerebral edema, or acute infarction. No mass, mass effect, or midline shift. Lumen artifact is seen along the anterior right cingulate sulcus. No corresponding FLAIR signal or T1 shortening suggesting acute blood products. No abnormal corresponding enhancement. No large extra-axial fluid collections. Ventricles and Sulci: Normal for age. Intracranial Flow-Voids: Arterial and venous sinus flow voids appear normal. Orbits: Normal Paranasal Sinuses: Polypoid thickening of the left maxillary sinus Mastoid Air Cells: Clear Cranium: Normal Extracranial Soft Tissues: Normal IMPRESSION: Blooming artifact along the anterior right cingulate sulcus without a correlate on FLAIR or T1 sequences is favored to be sequelae of prior subarachnoid hemorrhage/hemosiderin deposition. A small cavernoma is also a possibility, however determining intra-axial versus extra-axial location this region is difficult. Otherwise, no acute or subacute intracranial abnormalities. Finalized by Aicha Burt on 07/28/2024 12:01 PM Normal [facility] ACETONE,(BETAHYDROXYBUTYRATE , KETONE) QUANTITATIVE SERUMon 07-24-2024 BETAHYDROXYBUTYRATE 0.06 mmol/L Normal 0.02-0.27 [facility] Comment on above: Performed By: #### 3 040-3, 17504-7, 06640-3, BMP, LIVR, CBCA, 61938-6, PINR #### [facility] ([id number]) [address] [place] [address] 86179 APTTon 07-24-2024 aPTT Coag (Bld) [Time] 24 s Low 26-37 [facility] Comment on above: Performed By: #### 3 040-3, 58237-2, 81472-5, BMP, LIVR, CBCA, 06042-6, PINR #### [facility] ([id number]) [address] [place] [address] 72662 BASIC METABOLIC PANELon 05-2 Anion gap [Moles/Vol] 5 mmol/L Normal 5-15 [facility] Comment on above: Performed By: #### 3 040-3, 64682-5, 10685-8, BMP, LIVR, CBCA, 62349-7, PINR #### [facility] ([id number]) [address] [place] [address] 80024 Calcium [Mass/Vol] 8.9 mg/dL Normal 8.5-10.[address] [facility] Comment on above: Performed By: #### 3 040-3, 93239-2, 69991-5, BMP, LIVR, CBCA, 28308-4, PINR #### [facility] ([id number]) [address] [place] [address] 29346 Chloride [Moles/Vol] 106 mmol/L Normal 98-109 [facility] Comment on above: Performed By: #### 3 040-3, 06301-3, 35449-6, BMP, LIVR, CBCA, 59548-9, PINR #### [facility] ([id number]) [address] [place] [address] 12614 CO2 [Moles/Vol] 25 mmol/L Normal 22-32 [facility] Comment on above: Performed By: #### 3 040-3, 76737-4, 25420-8, BMP, LIVR, CBCA, 06306-6, PINR #### [facility] ([id number]) [address] [place] [address] 72270 Creatinine [Mass/Vol] 1.25 mg/dL High 0.70-1.20 [facility] Comment on above: Result Comment: METH OD TRACEABLE TO IDMS STANDARD Performed By: #### 3 040-3, 01601-1, 10735-2, BMP, LIVR, CBCA, 01932-0, PINR #### [facility] ([id number]) [address] [place] [address] 95415 GFR/1.73 sq M.predicted among non-blacks MDRD (S/P/Bld) [Vol rate/Area] 73 mL/min/{1.73_m2} Normal >=60 [facility] Comment on above: Result Comment: eGFR not reported due to non-numeric value for Creatinine. Reported eGFR is based on the CKD-EPI 2020 equation that does not use a race coefficient. Performed By: #### 3 040-3, 88897-5, , BMP, LIVR, CBCA, 50390-6, PINR #### [facility] ([id number]) [address] [place] [address] 17066 Glucose [Mass/Vol] 178 mg/dL High 65-[address] [facility] Comment on above: Performed By: #### 3 040-3, 65645-9, , BMP, LIVR, CBCA, 19268-3, PINR #### [facility] ([id number]) [address] [place] [address] 65593 Potassium [Moles/Vol] 3.2 mmol/L Low 3.5-5.0 [facility] Comment on above: Performed By: #### 3 040-3, 17017-6, 43277-7, BMP, LIVR, CBCA, 80709-1, PINR #### [facility] ([id number]) [address] [place] [address] 15963 Sodium [Moles/Vol] 136 mmol/L Normal 134-[address] [facility] Comment on above: Performed By: #### 3 040-3, 36554-8, 34441-6, BMP, LIVR, CBCA, 55647-1, PINR #### [facility] ([id number]) [address] [place] [address] 75195 Urea nitrogen [Mass/Vol] 19 mg/dL Normal 5-23 [facility] Comment on above: Performed By: #### 3 040-3, 91773-1, , BMP, LIVR, CBCA, 12939-4, PINR #### [facility] ([id number]) [address] [place] [address] 94740 BEDSIDE GLUCOSEon 07-24-2024 Glucose [Mass/Vol] 158 mg/dL High 65-[address] [facility] Comment on above: Performed By: #### 3 040-3, 49550-0, , BMP, LIVR, CBCA, 38965-2, PINR #### [facility] ([id number]) [address] [place] [address] [place] [address] BLOOD GAS, VENOUSon 07-25-19 25 BASE,EXCESS 1.0 mmol/L Normal 0.0-2.0 [facility] Comment on above: Performed By: #### 3 040-3, 58949-1, , BMP, LIVR, CBCA, 24498-5, PINR #### [facility] ([id number]) [address] [place] [address] 55034 HCO3 (Bld) [Moles/Vol] 25.5 mmol/L High 20.0-24.0 [facility] Comment on above: Performed By: #### 3 040-3, 48509-3, 94221-4, BMP, LIVR, CBCA, 65853-3, PINR #### [facility] ([id number]) [address] [place] [address] 63161 INSP. O2 CONC. 21 % Normal [facility] Comment on above: Performed By: #### 3 040-3, 34195-9, 80949-4, BMP, LIVR, CBCA, 53505-4, PINR #### [facility] ([id number]) [address] [place] [address] 35589 Oxygen saturation in Blood 94.0 % Normal [facility] Comment on above: Performed By: #### 3 040-3, 21734-2, 29641-2, BMP, LIVR, CBCA, 28696-2, PINR #### [facility] ([id number]) [address] [place] [address] 23090 PCO2 VENOUS 39.5 mmHg Normal 35.0-50.0 [facility] Comment on above: Performed By: #### 3 040-3, 57789-7, 65613-6, BMP, LIVR, CBCA, 34542-2, PINR #### [facility] ([id number]) [address] [place] [address] 53549 PH VENOUS 7.418 Normal 7.320-7.420 [facility] Comment on above: Performed By: #### 3 040-3, 34751-2, 91576-2, BMP, LIVR, CBCA, 36030-6, PINR #### [facility] ([id number]) [address] [place] [address] 79048 PO2 VENOUS 70 mmHg High 30-50 [facility] Comment on above: Performed By: #### 3 040-3, 84026-2, 82104-0, BMP, LIVR, CBCA, 30232-3, PINR #### [facility] ([id number]) [address] [place] [address] [place] [address] POC ROCK'S TEST N/A Normal [facility] Comment on above: Performed By: #### 3 040-3, 25606-7, 60285-7, BMP, LIVR, CBCA, 97368-8, PINR #### [facility] ([id number]) [address] [place] [address] [place] [address] SAMPLE SITE N/A Normal [facility] Comment on above: Performed By: #### 3 040-3, 00444-0, 60389-7, BMP, LIVR, CBCA, 62885-9, PINR #### [facility] ([id number]) [address] [place] [address] 28437 SAMPLE TYPE VENOUS Normal [facility] Comment on above: Performed By: #### 3 040-3, 46916-4, 74387-3, BMP, LIVR, CBCA, 56239-3, PINR #### [facility] ([id number]) [address] [place] [address] 44886 SOURCE OF OXYGEN Room Air [facility] Comment on above: Performed By: #### 3 040-3, 21926-2, 33624-9, BMP, LIVR, CBCA, 47895-1, PINR #### [facility] ([id number]) [address] [place] [address] 15507 BLOOD GAS, VENOUS VBG BLOOD GAS, VENOU S Cancelled [facility] Comment on above: Order Comment: resul ts in chart CBC WITH AUTO DIFFERENTIALon 07-24-2024 BASOPHILS ABSOLUTE COUNT (10*3/UL) BY AUTOMATED COUNT 0.1 10*3/uL Normal 0.0-0.2 [facility] Comment on above: Performed By: #### 3 040-3, 63581-3, 42047-3, BMP, LIVR, CBCA, 45160-5, PINR #### [facility] ([id number]) [address] [place] [address] 54328 BASOPHILS RELATIVE PERCENT BY AUTOMATED COUNT 1.2 % Normal [facility] Comment on above: Performed By: #### 3 040-3, 61455-9, 97815-4, BMP, LIVR, CBCA, 98035-7, PINR #### [facility] ([id number]) [address] [place] [address] CELLAVISION DIFFERENTIAL TYPE AUTOMATED DIFFERENTIAL Normal [facility] Comment on above: Performed By: #### 3 040-3, 08036-8, 28569-4, BMP, LIVR, CBCA, 90260-0, PINR #### [facility] ([id number]) [address] [place] [address] 11749 Eosinophils (Bld) [#/Vol] 0.3 10*3/uL Normal 0.0-0.4 [facility] Comment on above: Performed By: #### 3 040-3, 25968-8, 06081-5, BMP, LIVR, CBCA, 83497-8, PINR #### [facility] ([id number]) [address] [place] [address] 09182 EOSINOPHILS RELATIVE PERCENT BY AUTOMATED COUNT 4.3 % Normal [facility] Comment on above: Performed By: #### 3 040-3, 46303-0, 18494-7, BMP, LIVR, CBCA, 82820-3, PINR #### [facility] ([id number]) [address] [place] [address] 35630 Erythrocyte distribution width (RBC) [Ratio] 13.6 % Normal 11.5-15 [facility] Comment on above: Performed By: #### 3 040-3, 72118-1, 67600-7, BMP, LIVR, CBCA, 16823-9, PINR #### [facility] ([id number]) [address] [place] [address] 21964 Hematocrit (Bld) [Volume fraction] 43.2 % Normal 39-50 [facility] Comment on above: Performed By: #### 3 040-3, 71124-2, 21714-2, BMP, LIVR, CBCA, 25342-1, PINR #### [facility] ([id number]) [address] [place] [address] 65445 Hemoglobin (Bld) [Mass/Vol] 15.9 g/dL Normal 13-17 [facility] Comment on above: Performed By: #### 3 040-3, 29103-7, 34678-5, BMP, LIVR, CBCA, 35147-4, PINR #### [facility] ([id number]) [address] [place] [address] 18702 LYMPHOCYTES ABSOLUTE COUNT (10*3/UL) BY AUTOMATED COUNT 1.9 10*3/uL Normal 1.0-3.5 [facility] Comment on above: Performed By: #### 3 040-3, 25277-7, 84497-7, BMP, LIVR, CBCA, 94065-0, PINR #### [facility] ([id number]) [address] [place] [address] 57195 LYMPHOCYTES RELATIVE PERCENT BY AUTOMATED COUNT 25.6 % Normal [facility] Comment on above: Performed By: #### 3 040-3, 65274-2, 94468-3, BMP, LIVR, CBCA, 88806-3, PINR #### [facility] ([id number]) [address] [place] [address] 81578 MCH (RBC) [Entitic mass] 30.5 pg Normal 27-34 [facility] Comment on above: Performed By: #### 3 040-3, 56738-6, 37457-2, BMP, LIVR, CBCA, 20284-9, PINR #### [facility] ([id number]) [address] [place] [address] 61622 MCHC (RBC) [Mass/Vol] 36.7 g/dL High 32-36 [facility] Comment on above: Performed By: #### 3 040-3, 87110-5, 48758-6, BMP, LIVR, CBCA, 58371-4, PINR #### [facility] ([id number]) [address] [place] [address] 27286 MCV (RBC) [Entitic vol] 83 fL Normal 80-100 [facility] Comment on above: Performed By: #### 3 040-3, 10067-0, 59741-1, BMP, LIVR, CBCA, 94845-2, PINR #### [facility] ([id number]) [address] [place] [address] 92794 MONOCYTES ABSOLUTE COUNT (10*3/UL) BY AUTOMATED COUNT 0.5 10*3/uL Normal 0.0-0.9 [facility] Comment on above: Performed By: #### 3 040-3, 44345-5, 36905-8, BMP, LIVR, CBCA, 67734-4, PINR #### [facility] ([id number]) [address] [place] [address] 78000 MONOCYTES RELATIVE PERCENT BY AUTOMATED COUNT 7.2 % Normal [facility] Comment on above: Performed By: #### 3 040-3, 66771-7, 79602-7, BMP, LIVR, CBCA, 08377-9, PINR #### [facility] ([id number]) [address] [place] [address] 53682 NEUTROPHILS ABSOLUTE COUNT BY AUTOMATED COUNT 4.6 10*3/uL Normal 1.5-6.6 [facility] Comment on above: Performed By: #### 3 040-3, 55955-5, 08874-1, BMP, LIVR, CBCA, 41902-0, PINR #### [facility] ([id number]) [address] [place] [address] 30133 NEUTROPHILS RELATIVE PERCENT BY AUTOMATED COUNT 61.7 % Normal [facility] Comment on above: Performed By: #### 3 040-3, 94464-3, 81717-1, BMP, LIVR, CBCA, 41021-6, PINR #### [facility] ([id number]) [address] [place] [address] 13953 Platelet mean volume (Bld) [Entitic vol] 8.0 fL Normal 7-12 [facility] Comment on above: Performed By: #### 3 040-3, 53099-8, 30263-1, BMP, LIVR, CBCA, 46148-7, PINR #### [facility] ([id number]) [address] [place] [address] 48498 Platelets (Bld) [#/Vol] 238 10*3/uL Normal 150-450 [facility] Comment on above: Performed By: #### 3 040-3, 57817-3, 51345-6, BMP, LIVR, CBCA, 59420-2, PINR #### [facility] ([id number]) [address] [place] [address] 78608 RBC COUNT 5.19 X10E12/L Normal 4.1-5.7 [facility] Comment on above: Performed By: #### 3 040-3, 09948-6, 81727-0, BMP, LIVR, CBCA, 01884-0, PINR #### [facility] ([id number]) [address] [place] [address] 09726 WBC (Bld) [#/Vol] 7.4 10*3/uL Normal 4-[address] [facility] Comment on above: Performed By: #### 3 040-3, 93062-0, 24833-7, BMP, LIVR, CBCA, 34792-2, PINR #### [facility] ([id number]) [address] [place] [address] BRAIN WO CONT STROKE ALER Ton 07-24-2024 CT BRAIN WO CONT STROKE ALERT CT BRAIN WO CONT STROKE ALERT Noncontrast head CT, 07/24/2024 History: Generalized weakness, vomiting, headache Comparison: Head CT 10/04/2017 Technique: Multi-detector CT performed through the brain without IV contrast. Automated exposure control was utilized. Findings: There is no intracranial hemorrhage, extra-axial fluid collection, mass effect, or hydrocephalus. There is no midline shift. Basilar cisterns are patent. Padilla-white matter differentiation is appropriate. No definite acute infarct identified. The visualized orbits, paranasal sinuses and mastoid air cells are unremarkable. Osseous structures are intact. IMPRESSION: 1. No acute intracranial process. All CT scans at this facility use dose modulation, iterative reconstruction, and/or weight based dosing when appropriate to reduce radiation dose to as low as reasonably achievable. Finalized by Kayden Caballero MD on 07/24/2024 10:21 PM Normal [facility] CT CTA CAROTIDon 07-24-[address] CTA CAROTID CLINICAL INFORMATION: alteration of consciousness TECHNIQUE: CT angiogram performed following intravenous administration of nonionic intravenous contrast. Coronal and sagittal and 3-D volume rendered maximum intensity projection images generated and reviewed under concurrent physician supervision. Automated exposure control utilized. The [place] Symptomatic Carotid Endarterectomy Trial (NASCET) method for calculating the degree of stenosis was utilized for stenosis measurements. All CT scans at this facility use dose modulation, iterative reconstruction, and/or weight based dosing when appropriate to reduce radiation dose to as low as reasonably achievable. COMPARISON: No relevant prior studies available. FINDINGS: The visualized portions of the aortic arch are widely patent. The origins of the great vessels are widely patent. The common, internal, and external carotid arteries are patent bilaterally. No stenoses are seen on either side. The vertebral arteries are patent bilaterally. IMPRESSION: * Normal CT angiogram of the extracranial carotid and vertebral arteries. Finalized by Ti Frazier MD on 07/24/2024 11:01 PM Normal [facility] CT CTA HEADon 07-24-[address] CTA HEAD CLINICAL INFORMATION: Stroke. COMPARISON: None PROCEDURE: Routine CTA [place] was obtained after the uncomplicated intravenous administration of 100 cc Omnipaque 350. Sagittal and coronal reformatted images with 3-D Maximum intensity projection reconstructions of the [place] constructed under concurrent physician supervision on a independent workstation for evaluation of stroke. Arterial blood flow was measured to assist the stroke clinical team in the diagnosis of large vessel occlusion in patients undergoing screening for acute ischemic stroke using Rapid AI software when clinically indicated. Automated exposure control was utilized. FINDINGS: The intracranial portions of the internal carotid arteries are patent bilaterally. There is a beaded appearance of the right middle cerebral artery with multiple short segmental stenosis identified. This suggests a vasculitis such as fibromuscular dysplasia. The left middle cerebral artery is widely patent unremarkable. Anterior cerebral arteries are patent bilaterally. The vertebrobasilar system is normal in appearance. No basilar tip aneurysms are seen. There is persistent circulation on the right. 3-D reformatted images confirm the source data findings. IMPRESSION: 1. A beaded appearance of the right middle cerebral artery. This suggests vasculitis as often seen with fibromuscular dysplasia. 2. Otherwise normal CT angiogram of the intracranial vessels. All CT scans at this facility use dose modulation, iterative reconstruction, and/or weight based dosing when appropriate to reduce radiation dose to as low as reasonably achievable. Finalized by Ti Frazier MD on 07/24/2024 10:58 PM Normal [facility] ETHANOLon 07-24-2024 Ethanol [Mass/Vol] mg/dL Normal <=0.[address] [facility] Comment on above: Result Comment: This report is intended for use in clinical monitoring or management of patients. Performed By: #### 3 040-3, 06956-9, 72191-6, BMP, LIVR, CBCA, 43973-4, PINR #### [facility] ([id number]) [address] [place] [address] 27038 PROTIME AND INRon 07-24-2024 INR 1.0 Normal 0.9-1.2 [facility] Comment on above: Performed By: #### 3 040-3, 54633-5, 73835-7, BMP, LIVR, CBCA, 45469-5, PINR #### [facility] ([id number]) [address] [place] [address] 03787 PT Coag (PPP) [Time] 11.1 s Normal 9.8-13.2 [facility] Comment on above: Performed By: #### 3 040-3, 73751-0, 08889-5, BMP, LIVR, CBCA, 85874-6, PINR #### [facility] ([id number]) [address] [place] [address] 95387 TROP I, HIGH SENSITIVITY 1 H OURon 07-24-2024 TROPONIN I, HIGH SENSITIVITY 6 ng/L Normal <21 [facility] Comment on above: Performed By: #### 3 040-3, 80164-9, 46038-6, BMP, LIVR, CBCA, 29495-3, PINR #### [facility] ([id number]) [address] [place] [address] 58304 TROPONIN I, HIGH SENSITIVITY 0 HOURon 07-24-2024 TROPONIN I, HIGH SENSITIVITY 7 ng/L Normal <21 [facility] Comment on above: Performed By: #### 3 040-3, 63894-2, 80013-0, BMP, LIVR, CBCA, 32156-6, PINR #### [facility] ([id number]) [address] [place] [address] 17168 Glucose (Bld) [Mass/Vol]Orde red By: Cristine Durbin on 06-03-2024 Glucose Blood, POC 150 mg/dL [facility] - Hematology and Cell countson 06-03-2024 HbA1c (Bld) [Mass fraction] 6.9 % [facility] No Panel InformationOrdered By: Cristine Durbin on 06-03-2024 [facility] Glucose (Bld) [Mass/Vol]on 04-14-2023 Glucose Blood, POC 192 mg/dL [facility] Interpretation and review of laboratory results Normal [facility] CBC AND AUTO DIFFon 02-09-20 24 ABSOLUTE BASOPHIL 0.0 X10E9/L Normal 0.0-0.[address] [facility] Comment on above: Performed By: #### 3 040-3, 47825-5, 78899-4, BMP, LIVR, CBCA, 17099-5, PINR #### [facility] ([id number]) [address] [place] [address] 21352 ABSOLUTE NEUTROPHIL 3.7 X10E9/L Normal 1.5-6.6 [facility] Comment on above: Performed By: #### 3 040-3, 60187-9, 59697-2, BMP, LIVR, CBCA, 14206-2, PINR #### [facility] ([id number]) [address] [place] [address] 66272 Basophils/100 WBC (Bld) 0.6 % Normal [facility] Comment on above: Performed By: #### 3 040-3, 59088-5, 89950-5, BMP, LIVR, CBCA, 04572-1, PINR #### [facility] ([id number]) [address] [place] [address] 05977 Eosinophils (Bld) [#/Vol] 0.5 10*3/uL High 0.0-0.4 [facility] Comment on above: Performed By: #### 3 040-3, 21173-7, 13113-9, BMP, LIVR, CBCA, 06837-7, PINR #### [facility] ([id number]) [address] [place] [address] 94848 Eosinophils/100 WBC (Bld) 7.0 % Normal [facility] Comment on above: Performed By: #### 3 040-3, 88833-1, 47192-2, BMP, LIVR, CBCA, 83967-3, PINR #### [facility] ([id number]) [address] [place] [address] 76613 Erythrocyte distribution width (RBC) [Ratio] 13.2 % Normal 11.5-15.0 [facility] Comment on above: Performed By: #### 3 040-3, 78234-3, 45184-6, BMP, LIVR, CBCA, 10764-9, PINR #### [facility] ([id number]) [address] [place] [address] 27114 Hematocrit (Bld) [Volume fraction] 40.0 % Normal 39-49 [facility] Comment on above: Performed By: #### 3 040-3, 30225-3, 90984-4, BMP, LIVR, CBCA, 31001-5, PINR #### [facility] ([id number]) [address] [place] [address] 54739 Hemoglobin (Bld) [Mass/Vol] 14.2 g/dL Normal 13.0-17.0 [facility] Comment on above: Performed By: #### 3 040-3, 29947-6, 06121-1, BMP, LIVR, CBCA, 90962-8, PINR #### [facility] ([id number]) [address] [place] [address] 37378 Lymphocytes (Bld) [#/Vol] 1.8 10*3/uL Normal 1.0-3.5 [facility] Comment on above: Performed By: #### 3 040-3, 54296-8, 73350-7, BMP, LIVR, CBCA, 27119-6, PINR #### [facility] ([id number]) [address] [place] [address] 56667 Lymphocytes/100 WBC (Bld) 28.0 % Normal [facility] Comment on above: Performed By: #### 3 040-3, 23254-8, 87093-2, BMP, LIVR, CBCA, 38706-4, PINR #### [facility] ([id number]) [address] [place] [address] 00340 MCH (RBC) [Entitic mass] 31.2 pg Normal 27-34 [facility] Comment on above: Performed By: #### 3 040-3, 44328-4, 15322-6, BMP, LIVR, CBCA, 44928-4, PINR #### [facility] ([id number]) [address] [place] [address] 73063 MCHC (RBC) [Mass/Vol] 35.4 g/dL Normal 32-36 [facility] Comment on above: Performed By: #### 3 040-3, 21188-8, 89115-1, BMP, LIVR, CBCA, 89798-3, PINR #### [facility] ([id number]) [address] [place] [address] 44034 MCV (RBC) [Entitic vol] 88 fL Normal 80-100 [facility] Comment on above: Performed By: #### 3 040-3, 14278-1, 84451-5, BMP, LIVR, CBCA, 00502-1, PINR #### [facility] ([id number]) [address] [place] [address] 59446 Monocytes (Bld) [#/Vol] 0.4 10*3/uL Normal 0-0.9 [facility] Comment on above: Performed By: #### 3 040-3, 80262-7, 35927-3, BMP, LIVR, CBCA, 59774-9, PINR #### [facility] ([id number]) [address] [place] [address] 08405 Monocytes/100 WBC (Bld) 6.8 % Normal [facility] Comment on above: Performed By: #### 3 040-3, 04789-2, 45265-3, BMP, LIVR, CBCA, 01689-1, PINR #### [facility] ([id number]) [address] [place] [address] 52845 Neutrophils/100 WBC (Bld) 57.6 % Normal [facility] Comment on above: Performed By: #### 3 040-3, 94504-7, 72977-5, BMP, LIVR, CBCA, 83171-5, PINR #### [facility] ([id number]) [address] [place] [address] 16947 Platelet mean volume (Bld) [Entitic vol] 8.9 fL Normal 7-12 [facility] Comment on above: Performed By: #### 3 040-3, 83222-4, 00951-8, BMP, LIVR, CBCA, 58301-5, PINR #### [facility] ([id number]) [address] [place] [address] 77111 Platelets (Bld) [#/Vol] 222 10*3/uL Normal 150-450 [facility] Comment on above: Performed By: #### 3 040-3, 60861-5, 64437-1, BMP, LIVR, CBCA, 97948-9, PINR #### [facility] ([id number]) [address] [place] [address] 88279 RBC COUNT 4.55 X10E12/L Normal 4.10-5.70 [facility] Comment on above: Performed By: #### 3 040-3, 97818-6, 38834-0, BMP, LIVR, CBCA, 84096-1, PINR #### [facility] ([id number]) [address] [place] [address] 97744 WBC (Bld) [#/Vol] 6.4 10*3/uL Normal 4.0-11.[address] [facility] Comment on above: Performed By: #### 3 040-3, 10878-2, 79390-0, BMP, LIVR, CBCA, 83240-0, PINR #### [facility] ([id number]) [address] [place] [address] 48090 COMPREHENSIVE METABOLIC PANE [place] 02-09-2024 Albumin [Mass/Vol] 3.8 g/dL Normal 3.2-5.[address] [facility] Comment on above: Performed By: #### 3 040-3, 97690-3, 78415-0, BMP, LIVR, CBCA, 60201-3, PINR #### [facility] ([id number]) [address] [place] [address] 46251 ALP [Catalytic activity/Vol] 56 U/L Normal 39-130 [facility] Comment on above: Performed By: #### 3 040-3, 72897-4, 54373-6, BMP, LIVR, CBCA, 43454-7, PINR #### [facility] ([id number]) [address] [place] [address] 76857 ALT [Catalytic activity/Vol] 27 U/L Normal 0-40 [facility] Comment on above: Performed By: #### 3 040-3, 05642-4, 53166-9, BMP, LIVR, CBCA, 31719-3, PINR #### [facility] ([id number]) [address] [place] [address] 70368 Anion gap [Moles/Vol] 8 mmol/L Normal 5-15 [facility] Comment on above: Performed By: #### 3 040-3, 59285-9, 16724-5, BMP, LIVR, CBCA, 00406-9, PINR #### [facility] ([id number]) [address] [place] [address] 68796 AST [Catalytic activity/Vol] 18 U/L Normal 0-41 [facility] Comment on above: Performed By: #### 3 040-3, 92168-5, 68010-2, BMP, LIVR, CBCA, 35908-5, PINR #### [facility] ([id number]) [address] [place] [address] 86949 Bilirubin [Mass/Vol] 0.7 mg/dL Normal 0.3-1.2 [facility] Comment on above: Performed By: #### 3 040-3, 10219-7, 91760-3, BMP, LIVR, CBCA, 43168-4, PINR #### [facility] ([id number]) [address] [place] [address] 76182 Calcium [Mass/Vol] 8.6 mg/dL Normal 8.5-10.[address] [facility] Comment on above: Performed By: #### 3 040-3, 76433-8, 27455-3, BMP, LIVR, CBCA, 67426-8, PINR #### [facility] ([id number]) [address] [place] [address] 55789 Chloride [Moles/Vol] 101 mmol/L Normal 98-109 [facility] Comment on above: Performed By: #### 3 040-3, 20327-1, 08628-9, BMP, LIVR, CBCA, 15632-5, PINR #### [facility] ([id number]) [address] [place] [address] 75095 CO2 [Moles/Vol] 23 mmol/L Normal 22-32 [facility] Comment on above: Performed By: #### 3 040-3, 10947-3, 54001-0, BMP, LIVR, CBCA, 31364-2, PINR #### [facility] ([id number]) [address] [place] [address] 03610 Creatinine [Mass/Vol] 1.75 mg/dL High 0.70-1.20 [facility] Comment on above: Result Comment: METH OD TRACEABLE TO IDMS STANDARD Performed By: #### 3 040-3, 85614-1, 09545-7, BMP, LIVR, CBCA, 97752-9, PINR #### [facility] ([id number]) [address] [place] [address] 20180 GFR/1.73 sq M.predicted among non-blacks MDRD (S/P/Bld) [Vol rate/Area] 49 mL/min/{1.73_m2} Low >59 [facility] Comment on above: Result Comment: Reported eGFR is based on the CKD-EPI 2020 equation that does not use a race coefficient. Performed By: #### 3 040-3, 58145-5, 72811-7, BMP, LIVR, CBCA, 71290-2, PINR #### [facility] ([id number]) [address] [place] [address] Glucose [Mass/Vol] 304 mg/dL High 65-[address] [facility] Comment on above: Performed By: #### 3 040-3, 26531-6, 01416-0, BMP, LIVR, CBCA, 26844-6, PINR #### [facility] ([id number]) [address] [place] [address] 25343 Potassium [Moles/Vol] 4.0 mmol/L Normal 3.5-5.0 [facility] Comment on above: Performed By: #### 3 040-3, 75705-7, 15600-6, BMP, LIVR, CBCA, 57084-3, PINR #### [facility] ([id number]) [address] [place] [address] 78182 Protein [Mass/Vol] 6.4 g/dL Normal 6.0-8.[address] [facility] Comment on above: Performed By: #### 3 040-3, 06725-2, 56423-9, BMP, LIVR, CBCA, 29075-4, PINR #### [facility] ([id number]) [address] [place] [address] 30129 Sodium [Moles/Vol] 132 mmol/L Low 134-[address] [facility] Comment on above: Performed By: #### 3 040-3, 74136-6, 84414-6, BMP, LIVR, CBCA, 31251-0, PINR #### [facility] ([id number]) [address] [place] [address] 37989 Urea nitrogen [Mass/Vol] 32 mg/dL High 5-23 [facility] Comment on above: Performed By: #### 3 040-3, 15841-3, 29260-3, BMP, LIVR, CBCA, 25485-2, PINR #### [facility] ([id number]) [address] [place] [address] 57944 Glucose Glucometer (BldC) [M ass/Vol]on 02-09-2024 Glucose [Mass/Vol] 225 mg/dL High 65-[address] [facility] MAGNESIUMon 02-09-2024 Magnesium [Mass/Vol] 1.9 mg/dL Normal 1.8-2.6 [facility] Comment on above: Performed By: #### 3 040-3, 98759-9, 78264-1, BMP, LIVR, CBCA, 23490-4, PINR #### [facility] ([id number]) [address] [place] [address] 82442 US ABDOMEN LMTDon 02-09-2024 US ABDOMEN LMTD US ABDOMEN LMTD Clinical history: Right upper quadrant pain Findings: Multiplanar sonography was performed of the right upper quadrant. Comparison: None. Gallbladder is sonolucent. No abnormal wall thickness or pericholecystic fluid. Common duct measures 4.7 mm. Echotexture of liver is diffusely increased consistent with hepatic steatosis. No definite pancreatic ductal dilatation. Cyst upper pole right kidney measuring 4.9 x 5.7 x 4.5 cm. No obstructive calculus also present. No ascites visualized in all 4 quadrants of the abdomen. Impression: * No ascites. * Hepatic steatosis. * Nonobstructive right renal calculi with large right renal cyst. Finalized by Mitchell Evans MD on 02/09/2024 2:22 PM Normal [facility] BASIC METABOLIC PANLon 02-07 Anion gap [Moles/Vol] 11 mmol/L Normal 5-[address] [facility] Comment on above: Performed By: #### 3 040-3, 14486-5, 94659-9, BMP, LIVR, CBCA, 59631-4, PINR #### [facility] ([id number]) [address] [place] [address] 63167 Calcium [Mass/Vol] 9.1 mg/dL Normal 8.5-10.[address] [facility] Comment on above: Performed By: #### 3 040-3, 28243-0, 79702-8, BMP, LIVR, CBCA, 67618-6, PINR #### [facility] ([id number]) [address] [place] [address] 73314 Chloride [Moles/Vol] 99 mmol/L Normal 98-109 [facility] Comment on above: Performed By: #### 3 040-3, 95453-9, 53487-1, BMP, LIVR, CBCA, 16486-9, PINR #### [facility] ([id number]) [address] [place] [address] 08129 CO2 [Moles/Vol] 23 mmol/L Normal 22-32 [facility] Comment on above: Performed By: #### 3 040-3, 93441-8, 00380-7, BMP, LIVR, CBCA, 73082-8, PINR #### [facility] ([id number]) [address] [place] [address] 87415 Creatinine [Mass/Vol] 1.83 mg/dL High 0.70-1.20 [facility] Comment on above: Result Comment: METH OD TRACEABLE TO IDMS STANDARD Performed By: #### 3 040-3, 89636-3, 71207-5, BMP, LIVR, CBCA, 39228-5, PINR #### [facility] ([id number]) [address] [place] [address] 17583 GFR/1.73 sq M.predicted among non-blacks MDRD (S/P/Bld) [Vol rate/Area] 46 mL/min/{1.73_m2} Low >59 [facility] Comment on above: Result Comment: Reported eGFR is based on the CKD-EPI 2020 equation that does not use a race coefficient. Performed By: #### 3 040-3, 91708-6, 13398-5, BMP, LIVR, CBCA, 86106-9, PINR #### [facility] ([id number]) [address] [place] [address] 22609 Glucose [Mass/Vol] 297 mg/dL High 65-[address] [facility] Comment on above: Performed By: #### 3 040-3, 32162-0, 16633-3, BMP, LIVR, CBCA, 54184-9, PINR #### [facility] ([id number]) [address] [place] [address] 68262 Potassium [Moles/Vol] 3.8 mmol/L Normal 3.5-5.0 [facility] Comment on above: Performed By: #### 3 040-3, 10853-5, 57610-7, BMP, LIVR, CBCA, 43126-7, PINR #### [facility] ([id number]) [address] [place] [address] 53043 Sodium [Moles/Vol] 133 mmol/L Low 134-[address] [facility] Comment on above: Performed By: #### 3 040-3, 60668-0, 97219-7, BMP, LIVR, CBCA, 06535-7, PINR #### [facility] ([id number]) [address] [place] [address] 03994 Urea nitrogen [Mass/Vol] 33 mg/dL High 5-23 [facility] Comment on above: Performed By: #### 3 040-3, 00170-0, 61335-9, BMP, LIVR, CBCA, 80287-7, PINR #### [facility] ([id number]) [address] [place] [address] 72413 Anion gap [Moles/Vol] 9 mmol/L Normal 5-15 [facility] Comment on above: Performed By: #### 3 040-3, 80359-0, 78938-7, BMP, LIVR, CBCA, 68567-0, PINR #### [facility] ([id number]) [address] [place] [address] 10708 Calcium [Mass/Vol] 9.4 mg/dL Normal 8.5-10.[address] [facility] Comment on above: Performed By: #### 3 040-3, 62009-6, 44559-8, BMP, LIVR, CBCA, 77719-0, PINR #### [facility] ([id number]) [address] [place] [address] 84264 Chloride [Moles/Vol] 98 mmol/L Normal 98-109 [facility] Comment on above: Performed By: #### 3 040-3, 70246-1, 76196-3, BMP, LIVR, CBCA, 31831-5, PINR #### [facility] ([id number]) [address] [place] [address] 18147 CO2 [Moles/Vol] 24 mmol/L Normal 22-32 [facility] Comment on above: Performed By: #### 3 040-3, 48616-5, 30782-0, BMP, LIVR, CBCA, 21950-7, PINR #### [facility] ([id number]) [address] [place] [address] 72834 Creatinine [Mass/Vol] 1.84 mg/dL High 0.70-1.20 [facility] Comment on above: Result Comment: METH OD TRACEABLE TO IDMS STANDARD Performed By: #### 3 040-3, 24682-9, 92456-3, BMP, LIVR, CBCA, 09868-5, PINR #### [facility] ([id number]) [address] [place] [address] 28632 GFR/1.73 sq M.predicted among non-blacks MDRD (S/P/Bld) [Vol rate/Area] 46 mL/min/{1.73_m2} Low >59 [facility] Comment on above: Result Comment: Reported eGFR is based on the CKD-EPI 2020 equation that does not use a race coefficient. Performed By: #### 3 040-3, 86421-0, 28837-0, BMP, LIVR, CBCA, 10893-1, PINR #### [facility] ([id number]) [address] [place] [address] 89163 Glucose [Mass/Vol] 382 mg/dL High 65-[address] [facility] Comment on above: Performed By: #### 3 040-3, 87882-9, 10509-8, BMP, LIVR, CBCA, 38623-4, PINR #### [facility] ([id number]) [address] [place] [address] 87675 Potassium [Moles/Vol] 4.4 mmol/L Normal 3.5-5.0 [facility] Comment on above: Performed By: #### 3 040-3, 60168-6, 95202-7, BMP, LIVR, CBCA, 91822-2, PINR #### [facility] ([id number]) [address] [place] [address] 31213 Sodium [Moles/Vol] 131 mmol/L Low 134-[address] [facility] Comment on above: Performed By: #### 3 040-3, 75463-1, 68503-7, BMP, LIVR, CBCA, 98839-2, PINR #### [facility] ([id number]) [address] [place] [address] 65205 Urea nitrogen [Mass/Vol] 33 mg/dL High 5-23 [facility] Comment on above: Performed By: #### 3 040-3, 02520-4, 11538-0, BMP, LIVR, CBCA, 37026-3, PINR #### [facility] ([id number]) [address] [place] [address] 62838 Anion gap [Moles/Vol] 9 mmol/L Normal 5-15 [facility] Comment on above: Performed By: #### 3 040-3, 53220-4, 16705-8, BMP, LIVR, CBCA, 06459-7, PINR #### [facility] ([id number]) [address] [place] [address] 94394 Calcium [Mass/Vol] 10.0 mg/dL Normal 8.5-10.[address] [facility] Comment on above: Performed By: #### 3 040-3, 97931-7, 25941-3, BMP, LIVR, CBCA, 67748-3, PINR #### [facility] ([id number]) [address] [place] [address] 66517 Chloride [Moles/Vol] 97 mmol/L Low 98-109 [facility] Comment on above: Performed By: #### 3 040-3, 86252-3, 29804-3, BMP, LIVR, CBCA, 04373-4, PINR #### [facility] ([id number]) [address] [place] [address] 20714 CO2 [Moles/Vol] 26 mmol/L Normal 22-32 [facility] Comment on above: Performed By: #### 3 040-3, 49120-9, 14842-1, BMP, LIVR, CBCA, 87516-6, PINR #### [facility] ([id number]) [address] [place] [address] 76315 Creatinine [Mass/Vol] 1.79 mg/dL High 0.70-1.20 [facility] Comment on above: Result Comment: METH OD TRACEABLE TO IDMS STANDARD Performed By: #### 3 040-3, 77114-7, 71216-3, BMP, LIVR, CBCA, 05842-9, PINR #### [facility] ([id number]) [address] [place] [address] 24706 GFR/1.73 sq M.predicted among non-blacks MDRD (S/P/Bld) [Vol rate/Area] 48 mL/min/{1.73_m2} Low >59 [facility] Comment on above: Result Comment: Reported eGFR is based on the CKD-EPI 2021 equation that does not use a race coefficient. Performed By: #### 3 040-3, 10331-7, 26994-0, BMP, LIVR, CBCA, 61261-1, PINR #### [facility] ([id number]) [address] [place] [address] 70907 Glucose [Mass/Vol] 377 mg/dL High 65-[address] [facility] Comment on above: Performed By: #### 3 040-3, 03523-9, 06940-8, BMP, LIVR, CBCA, 00966-5, PINR #### [facility] ([id number]) [address] [place] [address] 65161 Potassium [Moles/Vol] 4.3 mmol/L Normal 3.5-5.0 [facility] Comment on above: Performed By: #### 3 040-3, 71124-5, 06365-4, BMP, LIVR, CBCA, 56607-5, PINR #### [facility] ([id number]) [address] [place] [address] 85482 Sodium [Moles/Vol] 132 mmol/L Low 134-[address] [facility] Comment on above: Performed By: #### 3 040-3, 54835-4, 02175-2, BMP, LIVR, CBCA, 42580-1, PINR #### [facility] ([id number]) [address] [place] [address] 06960 Urea nitrogen [Mass/Vol] 33 mg/dL High 5-23 [facility] Comment on above: Performed By: #### 3 040-3, 53135-3, 82482-0, BMP, LIVR, CBCA, 01825-8, PINR #### [facility] ([id number]) [address] [place] [address] 49706 Anion gap [Moles/Vol] 13 mmol/L Normal 5-15 [facility] Comment on above: Performed By: #### 3 040-3, 30903-2, 63103-0, BMP, LIVR, CBCA, 10678-1, PINR #### [facility] ([id number]) [address] [place] [address] 79668 Chloride [Moles/Vol] 93 mmol/L Low 98-109 [facility] Comment on above: Performed By: #### 3 040-3, 06781-6, 69480-1, BMP, LIVR, CBCA, 53297-8, PINR #### [facility] ([id number]) [address] [place] [address] 14921 Glucose [Mass/Vol] 541 mg/dL Critically high 65-99 [facility] Comment on above: Performed By: #### 3 040-3, 48636-9, 29929-4, BMP, LIVR, CBCA, 77257-4, PINR #### [facility] ([id number]) [address] [place] [address] 09011 Potassium [Moles/Vol] 4.0 mmol/L Normal 3.5-5.0 [facility] Comment on above: Performed By: #### 3 040-3, 59626-8, 74123-8, BMP, LIVR, CBCA, 12902-5, PINR #### [facility] ([id number]) [address] [place] [address] 29300 Sodium [Moles/Vol] 130 mmol/L Low 134-[address] [facility] Comment on above: Performed By: #### 3 040-3, 25220-8, 12912-2, BMP, LIVR, CBCA, 46050-4, PINR #### [facility] ([id number]) [address] [place] [address] 64377 Urea nitrogen [Mass/Vol] 35 mg/dL High 5-23 [facility] Comment on above: Performed By: #### 3 040-3, 24510-7, 05984-3, BMP, LIVR, CBCA, 44373-8, PINR #### [facility] ([id number]) [address] [place] [address] Creatinine [Mass/Vol] 1.71 mg/dL High 0.70-1.20 [facility] Comment on above: Result Comment: METH OD TRACEABLE TO IDMS STANDARD Performed By: #### 3 040-3, 94029-4, , BMP, LIVR, CBCA, 50317-0, PINR #### [facility] ([id number]) [address] [place] [address] 92506 GFR/1.73 sq M.predicted among non-blacks MDRD (S/P/Bld) [Vol rate/Area] 50 mL/min/{1.73_m2} Low >59 [facility] Comment on above: Result Comment: Reported eGFR is based on the CKD-EPI 2020 equation that does not use a race coefficient. Performed By: #### 3 040-3, 14282-7, , BMP, LIVR, CBCA, 06148-9, PINR #### [facility] ([id number]) [address] [place] [address] 17121 Beta hydroxybutyrate [Moles/ Vol]on 02-08-2024 BetaHydroxybutyrate 0.19 mmol/L Normal 0.02-0.27 [facility] Comment on above: Performed By: #### 3 040-3, 99806-7, 18661-4, BMP, LIVR, CBCA, 28225-3, PINR #### [facility] ([id number]) [address] [place] [address] 54633 CBC AND AUTO DIFFon 02-08-20 24 ABSOLUTE BASOPHIL 0.1 X10E9/L Normal 0.0-0.[address] [facility] Comment on above: Performed By: #### 3 040-3, 11334-1, 90385-1, BMP, LIVR, CBCA, 30699-5, PINR #### [facility] ([id number]) [address] [place] [address] 60834 ABSOLUTE NEUTROPHIL 3.7 X10E9/L Normal 1.5-6.6 [facility] Comment on above: Performed By: #### 3 040-3, 32934-9, 64125-7, BMP, LIVR, CBCA, 00679-2, PINR #### [facility] ([id number]) [address] [place] [address] 21983 Basophils/100 WBC (Bld) 1.3 % Normal [facility] Comment on above: Performed By: #### 3 040-3, 41151-9, 63426-5, BMP, LIVR, CBCA, 95520-8, PINR #### [facility] ([id number]) [address] [place] [address] 02949 Eosinophils (Bld) [#/Vol] 0.4 10*3/uL Normal 0.0-0.4 [facility] Comment on above: Performed By: #### 3 040-3, 13947-9, 36166-7, BMP, LIVR, CBCA, 48888-9, PINR #### [facility] ([id number]) [address] [place] [address] 09456 Eosinophils/100 WBC (Bld) 6.5 % Normal [facility] Comment on above: Performed By: #### 3 040-3, 05425-7, 66762-0, BMP, LIVR, CBCA, 48035-8, PINR #### [facility] ([id number]) [address] [place] [address] 47290 Erythrocyte distribution width (RBC) [Ratio] 13.0 % Normal 11.5-15.0 [facility] Comment on above: Performed By: #### 3 040-3, 13337-1, 26395-5, BMP, LIVR, CBCA, 14005-8, PINR #### [facility] ([id number]) [address] [place] [address] 67486 Hematocrit (Bld) [Volume fraction] 44.7 % Normal 39-49 [facility] Comment on above: Performed By: #### 3 040-3, 49648-0, 84846-0, BMP, LIVR, CBCA, 60887-2, PINR #### [facility] ([id number]) [address] [place] [address] 22531 Hemoglobin (Bld) [Mass/Vol] 15.3 g/dL Normal 13.0-17.0 [facility] Comment on above: Performed By: #### 3 040-3, 53611-7, 19433-9, BMP, LIVR, CBCA, 67255-3, PINR #### [facility] ([id number]) [address] [place] [address] 05418 Lymphocytes (Bld) [#/Vol] 1.2 10*3/uL Normal 1.0-3.5 [facility] Comment on above: Performed By: #### 3 040-3, 02635-3, 28141-3, BMP, LIVR, CBCA, 04888-0, PINR #### [facility] ([id number]) [address] [place] [address] 55450 Lymphocytes/100 WBC (Bld) 21.2 % Normal [facility] Comment on above: Performed By: #### 3 040-3, 63665-0, 35857-0, BMP, LIVR, CBCA, 56285-6, PINR #### [facility] ([id number]) [address] [place] [address] 79922 MCH (RBC) [Entitic mass] 30.8 pg Normal 27-34 [facility] Comment on above: Performed By: #### 3 040-3, 69553-6, 30391-9, BMP, LIVR, CBCA, 70228-9, PINR #### [facility] ([id number]) [address] [place] [address] 74438 MCHC (RBC) [Mass/Vol] 34.3 g/dL Normal 32-36 [facility] Comment on above: Performed By: #### 3 040-3, 59010-6, 85346-4, BMP, LIVR, CBCA, 39106-7, PINR #### [facility] ([id number]) [address] [place] [address] 23252 MCV (RBC) [Entitic vol] 90 fL Normal 80-100 [facility] Comment on above: Performed By: #### 3 040-3, 30465-7, 48638-5, BMP, LIVR, CBCA, 17085-2, PINR #### [facility] ([id number]) [address] [place] [address] 70342 Monocytes (Bld) [#/Vol] 0.4 10*3/uL Normal 0-0.9 [facility] Comment on above: Performed By: #### 3 040-3, 91722-1, 79987-1, BMP, LIVR, CBCA, 75436-9, PINR #### [facility] ([id number]) [address] [place] [address] 76641 Monocytes/100 WBC (Bld) 6.9 % Normal [facility] Comment on above: Performed By: #### 3 040-3, 32662-9, 92138-0, BMP, LIVR, CBCA, 07601-5, PINR #### [facility] ([id number]) [address] [place] [address] 24550 Neutrophils/100 WBC (Bld) 64.1 % Normal [facility] Comment on above: Performed By: #### 3 040-3, 30672-6, 38192-6, BMP, LIVR, CBCA, 01437-3, PINR #### [facility] ([id number]) [address] [place] [address] 05223 Platelet mean volume (Bld) [Entitic vol] 9.1 fL Normal 7-12 [facility] Comment on above: Performed By: #### 3 040-3, 91703-2, 42738-9, BMP, LIVR, CBCA, 11981-2, PINR #### [facility] ([id number]) [address] [place] [address] 85044 Platelets (Bld) [#/Vol] 268 10*3/uL Normal 150-450 [facility] Comment on above: Performed By: #### 3 040-3, 40474-8, 73077-2, BMP, LIVR, CBCA, 89462-9, PINR #### [facility] ([id number]) [address] [place] [address] 81021 RBC COUNT 4.98 X10E12/L Normal 4.10-5.70 [facility] Comment on above: Performed By: #### 3 040-3, 85440-0, 33095-3, BMP, LIVR, CBCA, 44522-7, PINR #### [facility] ([id number]) [address] [place] [address] 09094 WBC (Bld) [#/Vol] 5.8 10*3/uL Normal 4.0-11.[address] [facility] Comment on above: Performed By: #### 3 040-3, 41025-3, 73014-8, BMP, LIVR, CBCA, 35297-9, PINR #### [facility] ([id number]) [address] [place] [address] 31065 COMPREHENSIVE METABOLIC PANE [place] 02-08-2024 Albumin [Mass/Vol] 4.6 g/dL Normal 3.2-5.[address] [facility] Comment on above: Performed By: #### 3 040-3, 24409-5, 15688-5, BMP, LIVR, CBCA, 44942-1, PINR #### [facility] ([id number]) [address] [place] [address] 24741 ALP [Catalytic activity/Vol] 99 U/L Normal 39-130 [facility] Comment on above: Performed By: #### 3 040-3, 98872-4, 09135-5, BMP, LIVR, CBCA, 63833-0, PINR #### [facility] ([id number]) [address] [place] [address] 31434 ALT [Catalytic activity/Vol] 34 U/L Normal 0-40 [facility] Comment on above: Performed By: #### 3 040-3, 60247-8, 38832-8, BMP, LIVR, CBCA, 73865-6, PINR #### [facility] ([id number]) [address] [place] [address] 96076 Anion gap [Moles/Vol] 14 mmol/L Normal 5-15 [facility] Comment on above: Performed By: #### 3 040-3, 56564-7, 15454-4, BMP, LIVR, CBCA, 50953-7, PINR #### [facility] ([id number]) [address] [place] [address] 78205 AST [Catalytic activity/Vol] 21 U/L Normal 0-41 [facility] Comment on above: Performed By: #### 3 040-3, 85659-6, 51160-8, BMP, LIVR, CBCA, 45226-3, PINR #### [facility] ([id number]) [address] [place] [address] 75052 Bilirubin [Mass/Vol] 0.8 mg/dL Normal 0.3-1.2 [facility] Comment on above: Performed By: #### 3 040-3, 39179-9, 51723-6, BMP, LIVR, CBCA, 30255-7, PINR #### [facility] ([id number]) [address] [place] [address] 98200 Calcium [Mass/Vol] 10.0 mg/dL Normal 8.5-10.[address] [facility] Comment on above: Performed By: #### 3 040-3, 22727-9, 73383-5, BMP, LIVR, CBCA, 13673-9, PINR #### [facility] ([id number]) [address] [place] [address] 94499 Chloride [Moles/Vol] 89 mmol/L Low 98-109 [facility] Comment on above: Performed By: #### 3 040-3, 12119-3, , BMP, LIVR, CBCA, 20606-4, PINR #### [facility] ([id number]) [address] [place] [address] 78582 CO2 [Moles/Vol] 20 mmol/L Low 22-32 [facility] Comment on above: Performed By: #### 3 040-3, 16685-0, 86685-8, BMP, LIVR, CBCA, 75169-6, PINR #### [facility] ([id number]) [address] [place] [address] 89626 Glucose [Mass/Vol] 900 mg/dL Critically high 65-99 [facility] Comment on above: Performed By: #### 3 040-3, 59362-0, 97912-8, BMP, LIVR, CBCA, 41931-8, PINR #### [facility] ([id number]) [address] [place] [address] 31224 Potassium [Moles/Vol] 4.8 mmol/L Normal 3.5-5.0 [facility] Comment on above: Performed By: #### 3 040-3, 02264-9, 69063-8, BMP, LIVR, CBCA, 98803-0, PINR #### [facility] ([id number]) [address] [place] [address] 63704 Protein [Mass/Vol] 8.0 g/dL Normal 6.0-8.[address] [facility] Comment on above: Performed By: #### 3 040-3, 52087-1, 42937-1, BMP, LIVR, CBCA, 20458-2, PINR #### [facility] ([id number]) [address] [place] [address] 65932 Sodium [Moles/Vol] 123 mmol/L Low 134-[address] [facility] Comment on above: Performed By: #### 3 040-3, 56608-1, 60706-9, BMP, LIVR, CBCA, 48214-4, PINR #### [facility] ([id number]) [address] [place] [address] 44342 Urea nitrogen [Mass/Vol] 36 mg/dL High 5-23 [facility] Comment on above: Performed By: #### 3 040-3, 31039-5, 30807-1, BMP, LIVR, CBCA, 02466-3, PINR #### [facility] ([id number]) [address] [place] [address] 96107 DIRECT LDLon 02-08-2024 Cholesterol in LDL [Mass/Vol] 104 mg/dL Normal <130 [facility] Comment on above: Result Comment: LDL <100 mg/dL - Desirable LDL 130-159 mg/dL - Borderline High Risk LDL >160 mg/dL - High Risk Performed By: #### 3 040-3, 49636-1, 82374-1, BMP, LIVR, CBCA, 21488-1, PINR #### [facility] ([id number]) [address] [place] [address] 26239 DRUG SCREEN, URINEon 024 AMPHETAMINE/METHAMP Negative Normal NEG [facility] Comment on above: Result Comment: AMPH /METH screening cut off = 1000 ng/mL Performed By: #### 3 040-3, 30823-3, 34919-0, BMP, LIVR, CBCA, 56281-5, PINR #### [facility] ([id number]) [address] [place], [place] [address] BARBITURATES Negative Normal NEG [facility] Comment on above: Result Comment: Jane iturates screening cut off value = 200 ng/mL Performed By: #### 3 040-3, 27808-7, 93928-8, BMP, LIVR, CBCA, 99666-6, PINR #### [facility] ([id number]) [address] [place], [place] [address] BENZODIAZEPINES Negative Normal [facility] Comment on above: Result Comment: Favian odiazepines screening cut off value = 200 ng/mL Performed By: #### 3 040-3, 03957-5, 84210-1, BMP, LIVR, CBCA, 48999-4, PINR #### [facility] ([id number]) [address] [place], [place] [address] CANNABINOIDS Negative Normal NEG [facility] Comment on above: Result Comment: Ab abinoids/THC screening cut off value = 50 ng/mL Performed By: #### 3 040-3, 68021-8, 08699-2, BMP, LIVR, CBCA, 15947-6, PINR #### [facility] ([id number]) [address] [place], [place] [address] COCAINE METABOLITE Negative Normal NEG [facility] Comment on above: Result Comment: Coca ine screening cut off value = 300 ng/mL Performed By: #### 3 040-3, 17375-5, 58304-2, BMP, LIVR, CBCA, 84251-1, PINR #### [facility] ([id number]) [address] [place] [address] 35237 ECSTASY Negative Normal NEG [facility] Comment on above: Result Comment: Ecst asy screening cut off value = 500 ng/mL This report is intended for use in clinical monitoring or management of patients. Performed By: #### 3 040-3, 21260-0, 11139-1, BMP, LIVR, CBCA, 37697-0, PINR #### [facility] ([id number]) [address] [place] [address] 78055 METHADONE Negative Normal NEG [facility] Comment on above: Result Comment: Meth adone screening cut off value = 300 ng/mL. Performed By: #### 3 040-3, 70513-8, 28444-2, BMP, LIVR, CBCA, 59520-6, PINR #### [facility] ([id number]) [address] [place] [address] 93267 OPIATES Negative Normal NEG [facility] Comment on above: Result Comment: Opia salomón screening cut off value = 300 ng/mL NOTE: This test is used for the detection of codeine, hydrocodone (>1000 ng/mL), morphine and hydromorphone (>900 ng/mL) in urine. Performed By: #### 3 040-3, 51808-5, 37927-8, BMP, LIVR, CBCA, 01026-0, PINR #### [facility] ([id number]) [address] [place] [address] [place] [address] OXYCODONE Negative Normal NEG [facility] Comment on above: Result Comment: Oxyc odone screening cut off value = 300 ng/mL NOTE: This test is used for the detection of oxycodone and oxymorphone in urine. Performed By: #### 3 040-3, 27183-6, 11090-7, BMP, LIVR, CBCA, 52854-2, PINR #### [facility] ([id number]) [address] [place] [address] PHENCYCLIDINE Negative Normal NEG [facility] Comment on above: Result Comment: Phen cyclidine screening cut off value = 25 ng/mL Performed By: #### 3 040-3, 00952-1, 75718-6, BMP, LIVR, CBCA, 98039-7, PINR #### [facility] ([id number]) [address] [place] [address] GLUCOSEon 02-08-2024 Glucose [Mass/Vol] 681 mg/dL Critically high [facility]99 [facility] Comment on above: Performed By: #### 3 040-3, 35806-1, 55166-4, BMP, LIVR, CBCA, 61060-2, PINR #### [facility] ([id number]) [address] [place] [address] 02066 Glucose Glucometer (BldC) [M ass/Vol]on 02-08-2024 Glucose [Mass/Vol] 261 mg/dL High 65-[address] [facility] BEDSIDE GLUCOSE LAB >[address] [place] [address] Comment on above: Result Comment: SEE LAB RESULTS FOR CONFIRMATION BEDSIDE GLUCOSE LAB >[address]ically high [address] [place] [address] Comment on above: Result Comment: SEE LAB RESULTS FOR CONFIRMATION HGB A1C (GLYCO-HGB)on 2023 Glucose [Mass/Vol] 280 mg/dL Normal [facility] Comment on above: Performed By: #### 3 040-3, 77538-2, 27953-3, BMP, LIVR, CBCA, 41983-5, PINR #### [facility] ([id number]) [address] [place] [address] 76668 HbA1c (Bld) [Mass fraction] 11.4 % High 4.4-5.6 [facility] Comment on above: Result Comment: NOTE ADA Guidelines Result HgbA1c Normal : less than 5.7 % Prediabetes : 5.7 % to 6.4 % Diabetes : > 6.4 % Use with caution in patients with abnormal hemoglobin variants as the half-life of red blood cells and in vivo glycation rates are affected. Performed By: #### 3 040-3, 59474-4, 82577-5, BMP, LIVR, CBCA, 42231-3, PINR #### [facility] ([id number]) [address] [place] [address] 41972 Lipid 1996 panelon 4 Cholesterol [Mass/Vol] 269 mg/dL High 150-200 [facility] Comment on above: Performed By: #### 3 040-3, 45638-6, , BMP, LIVR, CBCA, 81899-8, PINR #### [facility] ([id number]) [address] [place] [address] 07708 Cholesterol in HDL [Mass/Vol] 39 mg/dL Low >39 [facility] Comment on above: Result Comment: HDL <40 mg/dL - High Risk HDL > or = 40mg/dL- Desirable HDL >60 mg/dL - Negative Risk Performed By: #### 3 040-3, 83622-9, , BMP, LIVR, CBCA, 26567-2, PINR #### [facility] ([id number]) [address] [place] [address] 61524 Cholesterol in VLDL [Mass/Vol] 187 mg/dL High 0-30 [facility] Comment on above: Performed By: #### 3 040-3, 11050-7, 20382-8, BMP, LIVR, CBCA, 08319-6, PINR #### [facility] ([id number]) [address] [place] [address] 37233 CHOLESTEROL:HDL 6.9 High 1.0-5.0 [facility] Comment on above: Performed By: #### 3 040-3, 91782-2, 10417-5, BMP, LIVR, CBCA, 15800-0, PINR #### [facility] ([id number]) [address] [place] [address] 62703 LDL (CALC) RESULT NOT REPORTED DUE TO HIGH TRIGLYCERIDE Normal <130 [facility] Comment on above: Performed By: #### 3 040-3, 61666-5, 73284-0, BMP, LIVR, CBCA, 79041-5, PINR #### [facility] ([id number]) [address] [place] [address] 79180 Triglyceride [Mass/Vol] 934 mg/dL High 27-150 [facility] Comment on above: Performed By: #### 3 040-3, 88345-6, 46891-8, BMP, LIVR, CBCA, 51566-8, PINR #### [facility] ([id number]) [address] [place] [address] 11083 THYROID PROFILEon 02-08-2024 Free T4 [Mass/Vol] 1.29 ng/dL Normal 0.61-1.[address] [facility] Comment on above: Result Comment: NEW REFERENCE RANGE FOR PEDIATRIC PATIENTS Performed By: #### 3 040-3, 71650-8, 86512-5, BMP, LIVR, CBCA, 84002-5, PINR #### [facility] ([id number]) [address] [place] [address] 81779 TSH 1.13 uIU/mL Normal 0.49-4.67 [facility] Comment on above: Result Comment: NEW REFERENCE RANGE FOR PEDIATRIC PATIENTS Performed By: #### 3 040-3, 87660-7, 43776-3, BMP, LIVR, CBCA, 87458-6, PINR #### [facility] ([id number]) [address] [place] [address] 34309 URN MACROSCOPIC NURon 2023 BILIRUBIN DEMETRIO Negative Normal NEG [facility] Comment on above: Performed By: #### 3 040-3, 93629-8, 27778-3, BMP, LIVR, CBCA, 87278-4, PINR #### [facility] ([id number]) [address] [place] [address] 76950 BLOOD/HGB DEMETRIO Negative Normal NEG [facility] Comment on above: Performed By: #### 3 040-3, 20317-5, 26696-0, BMP, LIVR, CBCA, 82582-9, PINR #### [facility] ([id number]) [address] [place] [address] 40178 GLUCOSE DEMETRIO >=1000 Abnormal NEG [facility] Comment on above: Performed By: #### 3 040-3, 00489-0, 86686-0, BMP, LIVR, CBCA, 89894-5, PINR #### [facility] ([id number]) [address] [place] [address] 19320 KETONES DEMETRIO Negative Normal NEG [facility] Comment on above: Performed By: #### 3 040-3, 82727-0, 14199-4, BMP, LIVR, CBCA, 21466-1, PINR #### [facility] ([id number]) [address] [place] [address] 66834 LEUKOCYTE ESTERASE DEMETRIO Negative Normal NEG Pr [facility] Comment on above: Performed By: #### 3 040-3, 33493-9, 22970-9, BMP, LIVR, CBCA, 98189-2, PINR #### [facility] ([id number]) [address] [place] [address] 86336 NITRITE DEMETRIO Negative Normal NEG [facility] Comment on above: Performed By: #### 3 040-3, 42842-0, 11912-2, BMP, LIVR, CBCA, 87595-7, PINR #### [facility] ([id number]) [address] [place] [address] 17249 PH DEMETROI 5.5 Normal 5.0-8.5 [facility] Comment on above: Performed By: #### 3 040-3, 26253-9, 68226-6, BMP, LIVR, CBCA, 31987-6, PINR #### [facility] ([id number]) [address] [place] [address] 93577 PROTEIN DEMETRIO Negative Normal NEG [facility] Comment on above: Performed By: #### 3 040-3, 10103-7, 46457-1, BMP, LIVR, CBCA, 44759-2, PINR #### [facility] ([id number]) [address] [place] [address] 21076 SPECIFIC GRAVITY DEMETRIO <=1.005 Normal 1.003-1.035 [facility] Comment on above: Performed By: #### 3 040-3, 28629-3, 87113-0, BMP, LIVR, CBCA, 94509-8, PINR #### [facility] ([id number]) [address] [place] [address] 35110 UROBILINOGEN DEMETRIO 0.2 eu/dL Normal <1.1 [facility] Comment on above: Performed By: #### 3 040-3, 68402-2, 35463-7, BMP, LIVR, CBCA, 36343-1, PINR #### [facility] ([id number]) [address] [place] [address] 09050 VENOUS BLOOD GASon 4 ROCK'S TEST Normal [facility] Comment on above: Performed By: #### 3 040-3, 35186-2, 94945-0, BMP, LIVR, CBCA, 87844-2, PINR #### [facility] ([id number]) [address] [place] [address] BASE,DEFICIT 4.0 MMOL/L High 0.0-2.0 [facility] Comment on above: Performed By: #### 3 040-3, 38283-1, 58700-0, BMP, LIVR, CBCA, 68423-5, PINR #### [facility] ([id number]) [address] [place] [address] 20453 Body temperature 98.6 [degF] Normal 37.0 [facility] Comment on above: Performed By: #### 3 040-3, 14682-9, , BMP, LIVR, CBCA, 46640-9, PINR #### [facility] ([id number]) [address] [place] [address] 70360 HCO3 (Bld) [Moles/Vol] 22.3 mmol/L Normal 20.0-24.0 [facility] Comment on above: Performed By: #### 3 040-3, 96161-8, , BMP, LIVR, CBCA, 18265-3, PINR #### [facility] ([id number]) [address] [place] [address] 96631 INSP. O2 CONC. 21 % Normal [facility] Comment on above: Performed By: #### 3 040-3, 86626-4, 13711-6, BMP, LIVR, CBCA, 30976-7, PINR #### [facility] ([id number]) [address] [place] [address] 14565 Oxygen saturation in Blood 89.0 % Normal >80.0 [facility] Comment on above: Performed By: #### 3 040-3, 01176-1, 63722-2, BMP, LIVR, CBCA, 14803-7, PINR #### [facility] ([id number]) [address] [place] [address] 60037 OXYGEN SOURCE RoomAir Normal [facility] Comment on above: Performed By: #### 3 040-3, 84193-8, 43768-7, BMP, LIVR, CBCA, 37421-0, PINR #### [facility] ([id number]) [address] [place] [address] 12541 PCO2, VENOUS 42.4 MMHG Normal 35-50 [facility] Comment on above: Performed By: #### 3 040-3, 88328-0, 67817-3, BMP, LIVR, CBCA, 29881-6, PINR #### [facility] ([id number]) [address] [place] [address] 00045 PH, VENOUS 7.328 Normal 7.320-7.420 [facility] Comment on above: Performed By: #### 3 040-3, 93210-6, 09894-0, BMP, LIVR, CBCA, 46198-1, PINR #### [facility] ([id number]) [address] [place] [address] [place] [address] PO2, VENOUS 60 MMHG High 30-50 [facility] Comment on above: Performed By: #### 3 040-3, 98861-8, 46655-1, BMP, LIVR, CBCA, 94675-7, PINR #### [facility] ([id number]) [address] [place] [address] [place] [address] SAMPLE SITE N/A Normal [facility] Comment on above: Performed By: #### 3 040-3, 76428-5, 48352-0, BMP, LIVR, CBCA, 19159-4, PINR #### [facility] ([id number]) [address] [place] [address] [place] [address] SAMPLE TYPE VENOUS Normal [facility] Comment on above: Performed By: #### 3 040-3, 77593-1, 86937-2, BMP, LIVR, CBCA, 85499-3, PINR #### [facility] ([id number]) [address] [place] [address] 29362 ACUTE HEPATITIS PANELon 01-01 ANTI HCV W/PCR REFLX Non-Reactive Normal NRCT Pr [facility] Comment on above: Result Comment: If recent infection suspected, recommend repeat testing (>2 months). Hucpdi-ok-lafyes ratio is <0.80. Performed By: #### 3 040-3, 04353-8, 90071-8, BMP, LIVR, CBCA, 10663-5, PINR #### [facility] ([id number]) [address] [place] [address] 68131 HEPATITIS A IGM Non-Reactive Normal NRCT [facility] Comment on above: Performed By: #### 3 040-3, 88502-6, 95110-7, BMP, LIVR, CBCA, 83273-9, PINR #### [facility] ([id number]) [address] [place], [place] [address] HEPATITIS B CORE IGM Negative Normal NEG [facility] Comment on above: Performed By: #### 3 040-3, 81425-9, 70388-6, BMP, LIVR, CBCA, 23279-6, PINR #### [facility] ([id number]) [address] [place], [place] [address] HEPATITIS B SURF AG Negative Normal [facility] Comment on above: Performed By: #### 3 040-3, 77317-1, 86300-8, BMP, LIVR, CBCA, 74713-8, PINR #### [facility] ([id number]) [address] [place], [place] [address] CBC AND AUTO DIFFon 01-20-20 24 ABSOLUTE BASOPHIL 0.1 X10E9/L Normal 0.0-0.[address] [facility] Comment on above: Performed By: #### 3 040-3, 95721-6, 45901-3, BMP, LIVR, CBCA, 96722-8, PINR #### [facility] ([id number]) [address] [place] [address] 09762 ABSOLUTE NEUTROPHIL 3.8 X10E9/L Normal 1.5-6.6 [facility] Comment on above: Performed By: #### 3 040-3, 52088-5, 83671-0, BMP, LIVR, CBCA, 69504-7, PINR #### [facility] ([id number]) [address] [place] [address] 89876 Basophils/100 WBC (Bld) 2.2 % Normal [facility] Comment on above: Performed By: #### 3 040-3, 13102-4, 85562-9, BMP, LIVR, CBCA, 68722-0, PINR #### [facility] ([id number]) [address] [place] [address] 11822 Eosinophils (Bld) [#/Vol] 0.5 10*3/uL High 0.0-0.4 [facility] Comment on above: Performed By: #### 3 040-3, 69864-7, 35641-0, BMP, LIVR, CBCA, 30442-4, PINR #### [facility] ([id number]) [address] [place] [address] 09705 Eosinophils/100 WBC (Bld) 7.2 % Normal [facility] Comment on above: Performed By: #### 3 040-3, 71000-9, 48191-9, BMP, LIVR, CBCA, 21259-5, PINR #### [facility] ([id number]) [address] [place] [address] 57960 Erythrocyte distribution width (RBC) [Ratio] 13.2 % Normal 11.5-15.0 [facility] Comment on above: Performed By: #### 3 040-3, 83649-8, 00290-1, BMP, LIVR, CBCA, 47519-2, PINR #### [facility] ([id number]) [address] [place] [address] 96270 Hematocrit (Bld) [Volume fraction] 39.2 % Normal 39-49 [facility] Comment on above: Performed By: #### 3 040-3, 10128-2, 47884-9, BMP, LIVR, CBCA, 27682-8, PINR #### [facility] ([id number]) [address] [place] [address] 24279 Hemoglobin (Bld) [Mass/Vol] 14.3 g/dL Normal 13.0-17.0 [facility] Comment on above: Performed By: #### 3 040-3, 94370-9, 42302-4, BMP, LIVR, CBCA, 58943-2, PINR #### [facility] ([id number]) [address] [place] [address] 46435 Lymphocytes (Bld) [#/Vol] 1.7 10*3/uL Normal 1.0-3.5 [facility] Comment on above: Performed By: #### 3 040-3, 72433-3, 78250-0, BMP, LIVR, CBCA, 92743-5, PINR #### [facility] ([id number]) [address] [place] [address] 85630 Lymphocytes/100 WBC (Bld) 26.0 % Normal [facility] Comment on above: Performed By: #### 3 040-3, 58654-0, 50901-8, BMP, LIVR, CBCA, 44214-5, PINR #### [facility] ([id number]) [address] [place] [address] 68791 MCH (RBC) [Entitic mass] 32.0 pg Normal 27-34 [facility] Comment on above: Performed By: #### 3 040-3, 72658-9, 76110-0, BMP, LIVR, CBCA, 24973-9, PINR #### [facility] ([id number]) [address] [place] [address] 82262 MCHC (RBC) [Mass/Vol] 36.4 g/dL High 32-36 [facility] Comment on above: Performed By: #### 3 040-3, 11584-4, 52749-6, BMP, LIVR, CBCA, 78701-2, PINR #### [facility] ([id number]) [address] [place] [address] 68948 MCV (RBC) [Entitic vol] 88 fL Normal 80-100 [facility] Comment on above: Performed By: #### 3 040-3, 17929-9, 54104-1, BMP, LIVR, CBCA, 26817-5, PINR #### [facility] ([id number]) [address] [place] [address] 05421 Monocytes (Bld) [#/Vol] 0.3 10*3/uL Normal 0-0.9 [facility] Comment on above: Performed By: #### 3 040-3, 36018-7, 11845-8, BMP, LIVR, CBCA, 62485-7, PINR #### [facility] ([id number]) [address] [place] [address] 90844 Monocytes/100 WBC (Bld) 5.4 % Normal [facility] Comment on above: Performed By: #### 3 040-3, 80719-7, 43131-1, BMP, LIVR, CBCA, 32731-8, PINR #### [facility] ([id number]) [address] [place] [address] 77790 Neutrophils/100 WBC (Bld) 59.2 % Normal [facility] Comment on above: Performed By: #### 3 040-3, 01743-3, 34985-5, BMP, LIVR, CBCA, 89174-1, PINR #### [facility] ([id number]) [address] [place] [address] 40680 Platelet mean volume (Bld) [Entitic vol] 8.4 fL Normal 7-12 [facility] Comment on above: Performed By: #### 3 040-3, 39584-2, 28789-9, BMP, LIVR, CBCA, 49841-8, PINR #### [facility] ([id number]) [address] [place] [address] 30842 Platelets (Bld) [#/Vol] 230 10*3/uL Normal 150-450 [facility] Comment on above: Performed By: #### 3 040-3, 55456-3, 94551-0, BMP, LIVR, CBCA, 06670-1, PINR #### [facility] ([id number]) [address] [place] [address] 82579 RBC COUNT 4.46 X10E12/L Normal 4.10-5.70 [facility] Comment on above: Performed By: #### 3 040-3, 80477-4, 77149-8, BMP, LIVR, CBCA, 80092-4, PINR #### [facility] ([id number]) [address] [place] [address] 18866 WBC (Bld) [#/Vol] 6.4 10*3/uL Normal 4.0-11.[address] [facility] Comment on above: Performed By: #### 3 040-3, 75425-4, 45151-2, BMP, LIVR, CBCA, 15777-3, PINR #### [facility] ([id number]) [address] [place] [address] 85669 FERRITINon 01-20-2024 Ferritin [Mass/Vol] 197 ng/mL Normal 24-336 [facility] Comment on above: Performed By: #### 3 040-3, 12652-9, 54679-8, BMP, LIVR, CBCA, 70375-3, PINR #### [facility] ([id number]) [address] [place] [address] 48236 Folate [Mass/Vol]on 01-20-20 24 FOLIC ACID 9.9 ng/mL Normal >5.8 [facility] Comment on above: Result Comment: NEW REFERENCE RANGE Performed By: #### 3 040-3, 67423-0, 85860-7, BMP, LIVR, CBCA, 01248-0, PINR #### [facility] ([id number]) [address] [place] [address] 55591 HIV 1+2 Ab+HIV1 p24 Ag IA Ql on 01-20-2024 HIV 1 and 2 Ab/Ag Screen Non-Reactive Normal NRCT [facility] Comment on above: Result Comment: This information has been disclosed to you from confidential records protected from disclosure by state law. You shall make no further disclosure of this information without the specific, written and informed release of the individual to whom it pertains, or as otherwise permitted by state law. A general authorization for the release of medical or other information is not sufficient for the purpose of the release of HIV test results or diagnoses. Performed By: #### 3 040-3, 23354-3, 33187-6, BMP, LIVR, CBCA, 64730-5, PINR #### [facility] ([id number]) [address] [place] [address] 25564 IRON PROFILEon 01-20-2024 Iron [Mass/Vol] 76 ug/dL Normal 50-212 [facility] Comment on above: Performed By: #### 3 040-3, 57186-9, 82779-5, BMP, LIVR, CBCA, 26337-1, PINR #### [facility] ([id number]) [address] [place] [address] 64666 IRON BINDING 319 ug/dL Normal 250-425 [facility] Comment on above: Performed By: #### 3 040-3, 67567-2, 16090-7, BMP, LIVR, CBCA, 35141-6, PINR #### [facility] ([id number]) [address] [place] [address] IRON SATURATION 24 % SATURATION Normal 20-50 [facility] Comment on above: Performed By: #### 3 040-3, 38673-0, 67599-7, BMP, LIVR, CBCA, 47133-0, PINR #### [facility] ([id number]) [address] [place] [address] 39822 Prostate specific Ag [Mass/V ol]on 01-20-2024 PROSTATIC SPEC ANT 0.86 ng/mL Normal 0.00-4.[address] [facility] Comment on above: Result Comment: The method used for this test is Hua eSnips DXI chemiluminescent immunoassay. Values obtained by different assay methods cannot be used interchangeably. Performed By: #### 3 040-3, 29287-4, 77370-8, BMP, LIVR, CBCA, 98272-3, PINR #### [facility] ([id number]) [address] [place] [address] 28408 VITAMIN B12on 01-20-2024 Cobalamin (Vitamin B12) [Mass/Vol] 229 pg/mL Normal 180-914 [facility] Comment on above: Performed By: #### 3 040-3, 72298-5, 90955-5, BMP, LIVR, CBCA, 14113-2, PINR #### [facility] ([id number]) [address] [place] [address] 79526 No Panel InformationOrdered By: Carmela Mckeon on 12-18-2023 [facility] Pathology Request for Lab Co rpon 12-18-2023 Pathology Request for Lab Emmanuel Normal [facility] Comment on above: Order Comment: PATHO LOGY GI SPECIMEN Result Comment: See report. Scanned copy available in EMR. PERFORMED BY: [place] [id number] PATHOLOGIST FINISH SAW OPERATOR LINO ROSA M.D. Performed By: #### P ATH TO [facility] #### [address] [address] [place] Glucose (Bld) [Mass/Vol]on 0 11-27-2023 Glucose Blood, POC 281 mg/dL [facility] - Hematology and Cell countson 11-27-2023 HbA1c (Bld) [Mass fraction] 9.4 % [facility] No Panel Informationon 11-26 Interpretation and review of laboratory results Abnormal [facility] BASIC METABOLIC PANLon 08-27 Anion gap [Moles/Vol] 8 mmol/L Normal 5-15 [facility] Comment on above: Performed By: #### 3 040-3, 30928-3, 68538-5, BMP, LIVR, CBCA, 20521-7, PINR #### [facility] ([id number]) [address] [place] [address] 86436 Calcium [Mass/Vol] 8.6 mg/dL Normal 8.5-10.[address] [facility] Comment on above: Performed By: #### 3 040-3, 10434-4, 91345-8, BMP, LIVR, CBCA, 44139-4, PINR #### [facility] ([id number]) [address] [place] [address] 82856 Chloride [Moles/Vol] 102 mmol/L Normal 98-109 [facility] Comment on above: Performed By: #### 3 040-3, 05371-2, 56102-0, BMP, LIVR, CBCA, 08474-8, PINR #### [facility] ([id number]) [address] [place] [address] 51399 CO2 [Moles/Vol] 22 mmol/L Normal 22-32 [facility] Comment on above: Performed By: #### 3 040-3, 20650-3, 23882-8, BMP, LIVR, CBCA, 68878-4, PINR #### [facility] ([id number]) [address] [place] [address] 49660 Creatinine [Mass/Vol] 1.63 mg/dL High 0.70-1.20 [facility] Comment on above: Result Comment: METH OD TRACEABLE TO IDMS STANDARD Performed By: #### 3 040-3, 37480-8, 02335-3, BMP, LIVR, CBCA, 68612-8, PINR #### [facility] ([id number]) [address] [place] [address] 36026 GFR/1.73 sq M.predicted among non-blacks MDRD (S/P/Bld) [Vol rate/Area] 53 mL/min/{1.73_m2} Low >59 [facility] Comment on above: Result Comment: Reported eGFR is based on the CKD-EPI 2020 equation that does not use a race coefficient. Performed By: #### 3 040-3, 79721-0, 14632-6, BMP, LIVR, CBCA, 23704-8, PINR #### [facility] ([id number]) [address] [place] [address] 62397 Glucose [Mass/Vol] 292 mg/dL High 65-[address] [facility] Comment on above: Performed By: #### 3 040-3, 69972-0, 53945-2, BMP, LIVR, CBCA, 69722-9, PINR #### [facility] ([id number]) [address] [place] [address] 98155 Potassium [Moles/Vol] 3.5 mmol/L Normal 3.5-5.0 [facility] Comment on above: Performed By: #### 3 040-3, 13768-7, 75149-6, BMP, LIVR, CBCA, 06524-5, PINR #### [facility] ([id number]) [address] [place] [address] 54517 Sodium [Moles/Vol] 132 mmol/L Low 134-[address] [facility] Comment on above: Performed By: #### 3 040-3, 59427-7, 60981-3, BMP, LIVR, CBCA, 84113-5, PINR #### [facility] ([id number]) [address] [place] [address] 03264 Urea nitrogen [Mass/Vol] 23 mg/dL Normal 5-23 [facility] Comment on above: Performed By: #### 3 040-3, 74260-1, 33333-3, BMP, LIVR, CBCA, 47177-8, PINR #### [facility] ([id number]) [address] [place] [address] 33536 CBC AND AUTO DIFFon 08-28-19 24 ABSOLUTE BASOPHIL 0.1 X10E9/L Normal 0.0-0.[address] [facility] Comment on above: Performed By: #### 3 040-3, 57987-3, 09811-6, BMP, LIVR, CBCA, 40219-8, PINR #### [facility] ([id number]) [address] [place] [address] 81160 ABSOLUTE NEUTROPHIL 4.8 X10E9/L Normal 1.5-6.6 [facility] Comment on above: Performed By: #### 3 040-3, 58995-3, 80159-8, BMP, LIVR, CBCA, 94862-7, PINR #### [facility] ([id number]) [address] [place] [address] 72179 Basophils/100 WBC (Bld) 1.2 % Normal [facility] Comment on above: Performed By: #### 3 040-3, 99747-2, 45284-2, BMP, LIVR, CBCA, 05294-1, PINR #### [facility] ([id number]) [address] [place] [address] 38557 Eosinophils (Bld) [#/Vol] 0.3 10*3/uL Normal 0.0-0.4 [facility] Comment on above: Performed By: #### 3 040-3, 01959-5, 18902-9, BMP, LIVR, CBCA, 62914-0, PINR #### [facility] ([id number]) [address] [place] [address] 97612 Eosinophils/100 WBC (Bld) 4.7 % Normal [facility] Comment on above: Performed By: #### 3 040-3, 35231-2, 80513-0, BMP, LIVR, CBCA, 41356-2, PINR #### [facility] ([id number]) [address] [place] [address] 05546 Erythrocyte distribution width (RBC) [Ratio] 13.5 % Normal 11.5-15.0 [facility] Comment on above: Performed By: #### 3 040-3, 19537-0, 74446-6, BMP, LIVR, CBCA, 95894-3, PINR #### [facility] ([id number]) [address] [place] [address] 20747 Hematocrit (Bld) [Volume fraction] 37.2 % Low 39-49 [facility] Comment on above: Performed By: #### 3 040-3, 23160-6, 48494-3, BMP, LIVR, CBCA, 00874-6, PINR #### [facility] ([id number]) [address] [place] [address] 96619 Hemoglobin (Bld) [Mass/Vol] 13.3 g/dL Normal 13.0-17.0 [facility] Comment on above: Performed By: #### 3 040-3, 15987-4, 46735-0, BMP, LIVR, CBCA, 17280-6, PINR #### [facility] ([id number]) [address] [place] [address] 83927 Lymphocytes (Bld) [#/Vol] 1.1 10*3/uL Normal 1.0-3.5 [facility] Comment on above: Performed By: #### 3 040-3, 59851-4, 81054-3, BMP, LIVR, CBCA, 32974-0, PINR #### [facility] ([id number]) [address] [place] [address] 81994 Lymphocytes/100 WBC (Bld) 15.7 % Normal [facility] Comment on above: Performed By: #### 3 040-3, 37897-0, 23351-8, BMP, LIVR, CBCA, 09096-8, PINR #### [facility] ([id number]) [address] [place] [address] 02013 MCH (RBC) [Entitic mass] 30.8 pg Normal 27-34 [facility] Comment on above: Performed By: #### 3 040-3, 65347-0, 17201-3, BMP, LIVR, CBCA, 57547-9, PINR #### [facility] ([id number]) [address] [place] [address] 17499 MCHC (RBC) [Mass/Vol] 35.8 g/dL Normal 32-36 [facility] Comment on above: Performed By: #### 3 040-3, 81020-0, 45521-5, BMP, LIVR, CBCA, 97816-0, PINR #### [facility] ([id number]) [address] [place] [address] 97519 MCV (RBC) [Entitic vol] 86 fL Normal 80-100 [facility] Comment on above: Performed By: #### 3 040-3, 20153-5, 13109-8, BMP, LIVR, CBCA, 69866-1, PINR #### [facility] ([id number]) [address] [place] [address] 41531 Monocytes (Bld) [#/Vol] 0.4 10*3/uL Normal 0-0.9 [facility] Comment on above: Performed By: #### 3 040-3, 55280-6, 03302-5, BMP, LIVR, CBCA, 00934-5, PINR #### [facility] ([id number]) [address] [place] [address] 51791 Monocytes/100 WBC (Bld) 5.9 % Normal [facility] Comment on above: Performed By: #### 3 040-3, 26541-6, 46726-2, BMP, LIVR, CBCA, 29260-7, PINR #### [facility] ([id number]) [address] [place] [address] 03693 Neutrophils/100 WBC (Bld) 72.5 % Normal [facility] Comment on above: Performed By: #### 3 040-3, 02005-2, 32832-8, BMP, LIVR, CBCA, 39268-1, PINR #### [facility] ([id number]) [address] [place] [address] 63028 Platelet mean volume (Bld) [Entitic vol] 8.2 fL Normal 7-12 [facility] Comment on above: Performed By: #### 3 040-3, 28863-2, 65705-6, BMP, LIVR, CBCA, 80287-3, PINR #### [facility] ([id number]) [address] [place] [address] 48666 Platelets (Bld) [#/Vol] 259 10*3/uL Normal 150-450 [facility] Comment on above: Performed By: #### 3 040-3, 62402-6, 57959-4, BMP, LIVR, CBCA, 32330-2, PINR #### [facility] ([id number]) [address] [place] [address] RBC COUNT 4.32 X10E12/L Normal 4.10-5.70 [facility] Comment on above: Performed By: #### 3 040-3, 06767-0, 59294-6, BMP, LIVR, CBCA, 94551-5, PINR #### [facility] ([id number]) [address] [place] [address] WBC (Bld) [#/Vol] 6.7 10*3/uL Normal 4.0-11.[address] [facility] Comment on above: Performed By: #### 3 040-3, 95257-6, 42772-2, BMP, LIVR, CBCA, 47134-2, PINR #### [facility] ([id number]) [address] [place] [address] ABDOMEN AND PELVIS W CONT on 08-28-2023 CT ABDOMEN AND PELVIS W CONT CT ABDOMEN AND PELVIS W CONT History: right lower quadrant pain with nausea and vomiting. Exam/Technique: CT Abdomen & Pelvis. Contiguous axial images are obtained of the abdomen and pelvis. Omnipaque 300 IV contrast utilized. Coronal and sagittal images are reconstructed and reviewed as well. Automatic exposure control was utilized. Comparison: 09/07/2017 Findings: Lung bases: Within normal limits Bony structures: Age compatible Abdomen: Diffuse hepatic stenosis. No focal lesion appreciated. Patent hepatic vasculature. The gallbladder, pancreas, spleen and adrenal glands are within normal limits. Nonobstructive bowel gas pattern. No free air. Normal appendix. No significant diverticular disease. Kidneys perfuse symmetrically. No hydronephrosis, solid cortical lesion or inflammatory focus. Pelvis: No free fluid. Urinary bladder grossly normal. Normal size aorta. No retroperitoneal adenopathy or hematoma. IMPRESSION: * No acute findings to correspond with the patient's symptoms. All CT scans at this facility use dose modulation, iterative reconstruction, and/or weight based dosing when appropriate to reduce radiation dose to as low as reasonably achievable. Finalized by Clifford Eddy DO on 08/28/2023 11:21 AM Normal [facility] LIPASEon 08-28-2023 Lipase [Catalytic activity/Vol] 46 U/L High 17-40 [facility] Comment on above: Performed By: #### 3 040-3, 11089-6, 87361-7, BMP, LIVR, CBCA, 34879-6, PINR #### [facility] ([id number]) [address] [place] [address] 83474 LIVER PANELon 08-28-2023 Albumin [Mass/Vol] 4.1 g/dL Normal 3.2-5.[address] [facility] Comment on above: Performed By: #### 3 040-3, 81902-6, 95660-9, BMP, LIVR, CBCA, 31235-1, PINR #### [facility] ([id number]) [address] [place] [address] 99096 ALP [Catalytic activity/Vol] 64 U/L Normal 39-130 [facility] Comment on above: Performed By: #### 3 040-3, 51439-0, 05379-9, BMP, LIVR, CBCA, 64095-5, PINR #### [facility] ([id number]) [address] [place] [address] 46440 ALT [Catalytic activity/Vol] 30 U/L Normal 0-40 [facility] Comment on above: Performed By: #### 3 040-3, 05296-6, 50453-4, BMP, LIVR, CBCA, 62054-1, PINR #### [facility] ([id number]) [address] [place] [address] 37942 AST [Catalytic activity/Vol] 23 U/L Normal 0-41 [facility] Comment on above: Performed By: #### 3 040-3, 39600-1, 08843-3, BMP, LIVR, CBCA, 98436-3, PINR #### [facility] ([id number]) [address] [place] [address] Bilirubin [Mass/Vol] 0.9 mg/dL Normal 0.3-1.2 [facility] Comment on above: Performed By: #### 3 040-3, 24318-5, 47552-0, BMP, LIVR, CBCA, 06257-9, PINR #### [facility] ([id number]) [address] [place] [address] 13664 Bilirubin.direct [Mass/Vol] 0.1 mg/dL Normal 0.0-0.4 [facility] Comment on above: Performed By: #### 3 040-3, 03448-3, , BMP, LIVR, CBCA, 03363-8, PINR #### [facility] ([id number]) [address] [place] [address] 57033 Protein [Mass/Vol] 7.2 g/dL Normal 6.0-8.[address] [facility] Comment on above: Performed By: #### 3 040-3, 00234-4, , BMP, LIVR, CBCA, 14826-2, PINR #### [facility] ([id number]) [address] [place] [address] 85265 Lactate (P tisha) [Moles/Vol]o n 08-28-2023 Lactate [Moles/Vol] 1.3 mmol/L Normal 0.4-2.0 [facility] Comment on above: Performed By: #### 3 2133-1 #### [facility] ([id number]) [address] [place] [address] 42720 LACTATE W/REFLEX 3.2 mmol/L High 0.4-2.0 [facility] Comment on above: Performed By: #### 3 040-3, 05547-3, 71006-1, BMP, LIVR, CBCA, 10884-5, PINR #### [facility] ([id number]) [address] [place] [address] 10491 MAGNESIUMon 08-28-2023 Magnesium [Mass/Vol] 1.7 mg/dL Low 1.8-2.6 [facility] Comment on above: Performed By: #### 3 040-3, 36795-9, 79508-8, BMP, LIVR, CBCA, 30221-7, PINR #### [facility] ([id number]) [address] [place] [address] 28161 PROTIME AND INRon 08-28-2023 INR Coag (PPP) [Relative time] 1.0 {INR} Normal 0.8-1.1 [facility] Comment on above: Performed By: #### 3 040-3, 10493-4, 10255-9, BMP, LIVR, CBCA, 62439-5, PINR #### [facility] ([id number]) [address] [place] [address] 13062 PT Coag (PPP) [Time] 11.9 s Normal 9.8-13.2 [facility] Comment on above: Result Comment: NEW REFERENCE RANGE Performed By: #### 3 040-3, 00041-9, 70382-8, BMP, LIVR, CBCA, 01303-4, PINR #### [facility] ([id number]) [address] [place] [address] 86940 aPTT Coag (PPP) [Time]on aPTT Coag (Bld) [Time] 30 s Normal 26-37 [facility] Comment on above: Result Comment: NEW REFERENCE RANGE Performed By: #### 3 040-3, 76623-2, 49496-0, BMP, LIVR, CBCA, 17493-5, PINR #### [facility] ([id number]) [address] [place] [address] 09526 Consent for Procedure/Surger yon 07-18-2023 Consent for Procedure/Surgery [id number]. [id number] [facility] Gastroenterology Office/Clin ic Noteon 07-16-2023 Gastroenterology Office/Clinic Note Chief Complaint change in bowel habits HPI Staff Patient is a 43 year old male who was referred by Dr Paige Soto for constipation. change in bowel habits: How many BM a day or a week: 3-4 daily sometimes more blood in stool Denies fhx of colon ca, CD, UC Per Referral/ Interim History: 07/01/2023 Patient has nausea after eating anything. Denies vomiting. Has diarrhea for a few days. Hx nausea, diarrhea x 4 days, thinks just had pizza just prior to symptoms. States does get diarrhea frequently, and constipation >1 year. States eating more ice cream lately . History of Present Illness I have reviewed HPI staff note, most recent labs and imaging, more than 30 minutes spent reviewing the chart, during encounter, placing orders and counseling the patient. pt with pain all over the stomach x 1-2 years bowel movements comes and goes pt moves 3-4 bowel movements a day incomplete evacuation no straining feels bloated pt was recently started on Trulicity A1c is 8.1 pt with nausea early satiety pt with discomfort after eating lots of pasta Review of Systems PHQ Score Initial Depression Screen Score: 0 SCORE All systems reviewed, negative except as mentioned above Physical Exam Vitals & Measurements HR: 84(Peripheral) RR: 16 BP: 143/78 HT: 72 in HT: 184 cm WT: 119 kg WT: 261.8 lb BMI: 35.15 General: alert, no acute distress HEENT: atraumatic normocephalic Cardiovascular: regular rate and rhythm, normal peripheral perfusion Respiratory: Lungs CTA, respirations non labored Extremities: no deformity, no trauma Abdomen: Benign, soft, tender nondistended Assessment/Plan 1. Diarrhea (R19.7: Diarrhea, unspecified) Ordered: C-Reactive Protein Calprotectin, Fecal Celiac Disease Comprehensive Colonoscopy (Hospital Procedure) EGD Endoscopy (Hospital Procedure) IgA, Quant. 2. Nausea (R11.0: Nausea) Ordered: C-Reactive Protein Calprotectin, Fecal Celiac Disease Comprehensive Colonoscopy (Hospital Procedure) EGD Endoscopy (Hospital Procedure) IgA, Quant. 3. Generalized abdominal pain (R10.84: Generalized abdominal pain) Ordered: C-Reactive Protein Calprotectin, Fecal Celiac Disease Comprehensive Colonoscopy (Hospital Procedure) EGD Endoscopy (Hospital Procedure) IgA, Quant. 4. Altered bowel habits (R19.4: Change in bowel habit) Ordered: C-Reactive Protein Calprotectin, Fecal Celiac Disease Comprehensive Colonoscopy (Hospital Procedure) EGD Endoscopy (Hospital Procedure) IgA, Quant. 5. Bloating (R14.0: Abdominal distension (gaseous)) Ordered: C-Reactive Protein Calprotectin, Fecal Celiac Disease Comprehensive Colonoscopy (Hospital Procedure) EGD Endoscopy (Hospital Procedure) IgA, Quant. Patient likely has pelvic floor dysfunction since he moves multiple bowel movements every day and his bowel movements are incomplete. EGD with small bowel biopsy and possible stomach biopsies Colonoscopy with TI evaluation and random colon biopsies Advised to use MiraLAX and titrate to have 1-2 bowel movements every day Advised to use squatty potty massage the colon Advised to consume prunes and kiwi fruit obtain CRP, calprotectin, and celiac panel Follow-up No qualifying data available Problem List/Past Medical History Ongoing Acute asthma Altered bowel habits Bloating Blunt head injury Cervical radiculopathy Chronic headaches Chronic pancreatitis Concussion CTE (chronic traumatic encephalopathy) Diabetes Diabetes Generalized abdominal pain Glucosuria Headache, migraine History of testicular surgery HTN (hypertension) Hypersomnia Lumbar radiculopathy Median neuropathy Memory loss Migraine Nausea Obstructive sleep apnea Syncope Vasectomy evaluation Historical No qualifying data Procedure/Surgical History Cervical spinal fusion (06/12/2021), Epidural injection of cervical spine using fluoroscopic guidance (12/13/2019), Epidural injection of lumbar spine using fluoroscopic guidance (11/15/2019), Shoulder reconstruction (03/11/2018), Knee arthrogram (12/10/2016), Arthroscopy of knee, Hernia repair. Medications Aimovig SureClick, 140 mg, SubCutaneous, qMonth amLODIPine 2.5 mg Tab, 2.5 mg= 1 tab(s), Oral, Daily Flonase 0.05 mg/inh nasal spray, 2 spray(s), Nasal, Daily, PRN Jardiance, Oral, qAM lisinopril 20 mg Tab, 40 mg= 2 tab(s), Oral, Daily metformin 1000 mg oral tablet, 1000 mg= 1 tab(s), Oral, BID, Not taking [place] 325 mg-5 mg oral tablet, 1 tab(s), Oral, TID, PRN return to work, See Instructions Singulair, 5 mg, Chewed, Daily, PRN Trulicity Pen 1.5 mg/0.5 mL subcutaneous solution, 1.5 mg, SubCutaneous, qWeek Ubrelvy 100 mg oral tablet, 100 mg= 1 tab(s), Oral, Daily, PRN Ventolin HFA 90 mcg/inh Aerosol, 2 puff(s), Inhalation, q6hr, PRN Zenpep 40,000 units-126,000 units-168,000 units oral delayed release capsule, 2 cap(s), Oral, TID, Not taking Zyrtec, 5 mg, Oral, Daily (more content not included)... [facility] Comment on above: Result Comment: Elec tronically Signed By: Kate ARMENTA, Jose Wiley\.br\Date and Time Signed: 07/16/23 14:48 EDT Provider Letteron 07-16-2023 Provider Letter July 16, 2023 CHARLIE VALDEZ [facility] [place] [address] : 1980 To Whom It May Concern, Please excuse above patient from work for today's visit. While at today's visit 07-16-23 we have sent and scheduled a EGD and Colonoscopy for 08-15-23. Charlie will need to be prepping for the procedure the entire day of 08-14-23 while completing a colon cleanse. He will not be able to return to work till the following Friday08-18-23 after the procedure which is set for 08-15-23 due to being under anesthesia. Please contact our office with any questions or concerns. Sincerely, [facility] [employer] Jose Love MD [facility] XR KNEE LT 4V or >on 023 XR KNEE LT 4V or > EXAM: XR KNEE LT 4V or > 06/16/2022 FINDINGS: Frontal, oblique and lateral views for a total of 4 images obtained. HISTORY: Traumatic injury COMPARISON: None. IMPRESSION: 1. No acute fracture or dislocation. 2. Mild bicompartmental arthritic changes involving patellofemoral and medial compartments suspected. 3. Subcentimeter bone island involving the distal femur noted. Changes from atherosclerosis are identified on the lateral view posterior to the distal femur. No obvious joint effusion. Electronically authenticated by: GLADYS HUSTON Date: 2022-06-16 12:49 Normal [facility] CT FOOT RT WO CONon 11-21-[address] FOOT RT WO CON EXAMINATION: CT FOOT RT WO CON HISTORY: Idiopathic osteoarthritis ; plantar foot pain between second and third toes for 2 months COMPARISON: XR foot right 11/11/2021 TECHNIQUE: Multi-planar CT images were created without IV contrast. Dose reduction techniques were achieved by using automated exposure control and/or adjustment of mA and/or kV according to patient size and/or use of iterative reconstruction technique. FINDINGS: BONES: No significant arthropathy or acute abnormality. Scattered small benign-appearing bone islands. SOFT TISSUES: No suspicious soft tissue nodules, foreign body, or inflammatory changes with specific attention between the second and third toes.. No visible soft tissue swelling. EFFUSION: None visible. OTHER: Negative. IMPRESSION: 1. No abnormal or suspicious findings to account for patient's symptoms. Electronically authenticated by: NIKKI PEREZ Date: 2021-11-20 14:23 Normal [facility] URIC ACID SERUMon 11-11-2021 Urate [Mass/Vol] 7.0 mg/dL Normal 3.5-7.2 [facility] Comment on above: Performed By: #### U TALIB #### [facility] [address] [place] [address] Dr. Milagro Villa XR FOOT RT MIN 3 VIEWSon XR FOOT RT MIN 3 VIEWS EXAM: XR FOOT RT MIN 3 VIEWS HISTORY: Right lateral foot Pain COMPARISON: X-ray performed 01/31/2020. TECHNIQUE: AP, lateral and oblique views of the right foot are obtained. FINDINGS: There is no focal soft tissue swelling. Osseous mineralization is within normal limits. No acute fracture or dislocation. Dorsal spurring at the tarsometatarsal articulation is present. Small posterior calcaneal heel spur at the Achilles tendon is present. Joint spaces appear normally maintained. Tarsal alignment appears normally maintained. IMPRESSION: No acute fracture or dislocation. Electronically authenticated by: ALEISHA CARREON Date: 2021-11-11 02:28 Normal [facility] CHEMISTRYOrdered By: Yann Garcia on 06-13-2021 Glucose [Mass/Vol] 162 mg/dL High 55 - 99 mg/dL [facility] [place] POC Subsection Comment on above: Result Comment: Lorna castaneda RN/ POC Device SN [id number] Invalid Interpretation Code FT POC Subsection POC User ID [id number] Invalid Interpretation Code [facility] [place] POC Subsection POC Username JOE CERNA Invalid Interpretation Code [facility] [place] POC Subsection CHEMISTRYOrdered By: SYSTEM SYSTEM on 06-13-2021 Anion gap [Moles/Vol] 13 mmol/L Normal 6 - 16 mEq/L F C Remisol Calcium [Mass/Vol] 9.5 mg/dL Normal 8.9 - 11. 1 mg/dL [facility] Chloride [Moles/Vol] 102 mmol/L Normal 101 - 1 11 mmol/L [facility] CO2 [Moles/Vol] 24 mmol/L Normal 21 - 31 mmol/L [facility] Creatinine [Mass/Vol] 1.3 mg/dL Normal 0.5 - 1.3 mg/dL [facility] GFR/1.73 sq M.predicted among blacks MDRD (S/P/Bld) [Vol rate/Area] mL/min/1.73 m2 Normal >=59mL/min/1 .73 m2 [facility] [place] Chem S GFR/1.73 sq M.predicted among non-blacks MDRD (S/P/Bld) [Vol rate/Area] mL/min/1.73 m2 Normal >=59mL/min/1 .73 m2 [facility] – [place] Chem S Glucose [Mass/Vol] 178 mg/dL Normal 55 - 199 mg/dL [facility] Magnesium [Mass/Vol] 2.0 mg/dL Normal 1.3 - 2 .4 mg/dL [facility] Phosphate [Mass/Vol] 3.0 mg/dL Normal 1.9 - 4 .6 mg/dL [facility] Potassium [Moles/Vol] 4.3 mmol/L Normal 3.5 - 5.3 mmol/L [facility] Sodium [Moles/Vol] 135 mmol/L Normal 135 - 145 mmol/L [facility] Urea nitrogen [Mass/Vol] 14 mg/dL Normal 5 - 21 mg/dL [facility] Urea nitrogen/Creatinine [Mass ratio] 11 mg/mg Normal 10 - 20 [facility] HEMATOLOGYOrdered By: SYSTEM SYSTEM on 06-13-2021 Basophils/100 WBC (Bld) 0.1 % Normal 0.0 - 2.0 % [facility] Basophils/Leukocytes Auto (Bld) [Pure # fraction] 0.0 E9/L Normal 0.0 - 0.2 E9/L [facility] Eosinophils/100 WBC (Bld) 0.0 % Normal 0.0 - 8.0 % [facility] Eosinophils/Leukocytes Auto (Bld) [Pure # fraction] 0.0 E9/L Normal 0.0 - 0.5 E9/L [facility] Lymphocytes/100 WBC (Bld) 4.7 % Low 14.0 - 50.0 % [facility] Lymphocytes/Leukocytes Auto (Bld) [Pure # fraction] 0.8 E9/L Low 1.0 - 4.0 E9/L [facility] Monocytes/100 WBC (Bld) 3.8 % Low 4.0 - 14.0 % [facility] Monocytes/Leukocytes Auto (Bld) [Pure # fraction] 0.6 E9/L Normal 0.2 - 1.0 E9/L [facility] Neutrophils/100 WBC (Bld) 91.4 % High 36.0 - 75.0 % [facility] Neutrophils/Leukocytes Auto (Bld) [Pure # fraction] 14.6 E9/L High 2.0 - 7.5 E9/L [facility] HEMATOLOGYOrdered By: Rosalia Ngo on 06-13-2021 Erythrocyte distribution width (RBC) [Ratio] 13.3 % Normal 10.9 - 14.2 % [facility] Hematocrit (Bld) [Volume fraction] 43.6 % Normal 37.7 - 49.0 % [facility] Hemoglobin (Bld) [Mass/Vol] 15.3 g/dL Normal 13.5 - 17.5 gm/dL [facility] MCH (RBC) [Entitic mass] 30.0 pg Normal 27.0 - 34.0 pg [facility] MCHC (RBC) [Mass/Vol] 35.2 g/dL Normal 31.4 - 36.0 gm/dL [facility] MCV (RBC) [Entitic vol] 85.3 fL Normal 80.0 - 100.0 fL [facility] Platelet mean volume (Bld) [Entitic vol] 7.7 fL Normal 6.4 - 10.8 fL [facility] Platelets (Bld) [#/Vol] 300.0 E9/L Normal 150.0 - 500.0 E9/L [facility] RBC (Bld) [#/Vol] 5.1 E12/L Normal 4.3 - 5.9 E12/L [facility] WBC corrected for nucl RBC Auto (Bld) [#/Vol] 16.0 E9/L High 4.0 - 11.0 E9/L [facility] Comment on above: Result Comment: Slid e reviewed by cmk. BLOOD BANKOrdered By: Isidra campoverde on 06-12-2021 ABO/Rh Interp Positive Invalid Interpretation Code [facility] BB Subsection ABSC Gel Interp Negative (06/12/21 9:31 AM) Normal [facility] BB Subsection CHEMISTRYOrdered By: Lab ROP User on 06-12-2021 Glucose [Mass/Vol] 189 mg/dL High 55 - 99 mg/dL [facility] POC Subsection Comment on above: Result Comment: Lorna castaneda RN/ POC Device SN [id number] Invalid Interpretation Code [facility] POC Subsection POC User ID [id number] Invalid Interpretation Code [facility] POC Subsection POC Username CORAL TITUS Invalid Interpretation Code [facility] POC Subsection Glucose [Mass/Vol] 180 mg/dL High 55 - 99 mg/dL [facility] POC Subsection Comment on above: Result Comment: Lorna castaneda RN/ POC Device SN [id number] Invalid Interpretation Code [facility] POC Subsection POC User ID [id number] Invalid Interpretation Code [facility] POC Subsection POC Username JOSESITO FRIAS Invalid Interpretation Code [facility] POC Subsection Provider Orderson 05-11-2020 Provider Orders [id number] 30 [id number]#1.0 [id number] [facility] Coding Summaryon 05-08-2020 Coding Summary HTMLBase 64 ZlbrousbOQl7wSk+PGhlYW Q+XP4CFXEgC20xvHKjvD7B V1jQEH4EOJCOWNOICD5JPL 5cdDY8DNljS6WlqoUf NsfeuBYoAC59IHy4ZOK7lM qtBCbosZ3ciJFgC4d6KkMo PI98zC91NUfkRZInBfA4Ue ZpbjsgbWFy Y2dsBmYllNCcRcj+PHRhYm xlIHdpZHRoPScxMDAlJyBz gGhmZO7rQw2ySZLgVZNzqO xhcHNlOiBj l8ywHERcIHulOQ7arAxxY0 NqwOM4GBErs7x4Mb71aBV+ VIAxWCQ5bDzwSDoxg999Ao Ylp0jsRDJ3 sUNrZLpnKUR1I23ny0X9ZH IyZTEyEFE5tBO3oV7chCub cpdeN4XnjIHuUhS8EHK8dM FdjQ0fkKjt vtlpsC4lFuo+U58SJO3CRE MJCG4GOfs1T9IoQgewgLA+ KM94CFVjKJ12tWDoxXTav4 fuuJh4JvWd RPYaISC8aXntJHqux7DeKE BiX63lvNDpn5W5PBIfcVqj jFScVoNyuAQ3cM6iUPmqjy ywg8mkvqnz Dguqj6vtsz95zV63I23bCR xvAHCeRNM0OCGlTOQskIvg tb4azI7nAw0+MNqcb5yzc3 izvXi7AcMf LAColvTueDamOUI5l6YjWg 43Y5WzjEhyp0JhAhl4eq48 qUMzb5S8bTA6MPwtQQPwaT 9aIEfoKqQ7 GENjYhYhtO53qLBbKElyGx 7kgBvvbBhoJM5cYZSzxrpw XKYvhO7zASDyhIYwmYnaHA 4wNTBpbjtm d735EfDnZEO2AZWurTWzJ2 TuoN5yPzAwRGFqDFWcV1Mx jSFqGFxgR040BIifFjD9YO SzngQvP0Ra XVSpvArvVxO0u6P7Xa6Cs2 BknzvqDCN6ZKnsUIFkKwP0 WpZxOdU4V9LdDvm4GBZjrX fuUS9qF2Zj ZOSinktkvjynbOR0CVRkXQ WzxT30kZBpKNpcSa3xq5F3 s332FHUeGOJqwR02Qz5gcV ogMTBwdCBU kV2bhemfg5yyxmszGgKqCO CpBBa6XPp8OSZvnKkcJvGn HAG8MbZ0WMW3jSXlmE6ccK aiydocyP9r Oyc+C37boW5tEKF9IML0zp mxYUMbydQySP34UH50P4Tr PjwvdGFibGU+PGRpdiBzdH hqYC2cTnJz m9byw1UqBRfvS2JlHDGaGP rnZpg2XVEtRBA7mNV9kF2p UIIdEUebt4A6iNS7S7Kyja Tunz2hz9bd TQLsZIbvD79imTWkf1R4RM UtvTL3XQIbpOztBpIodW08 Oyc+WUSnoOngu7QbGsdfi9 ndc6jogPs6 XoBoTFAmxiGymMnhIUC2d2 FcQd34J21jPYtxCFHuDCPd OMOiWPXhzRosha7obT8iIb 8+PGNvbCB3 aQN9cV2bHISdGlS1IIvqL4 74EoZuzXUzXrkux8unu9ar tNe0XgBuWYVfbsHmdFeiWB T5y9SqAh28 T21aWGgwIOZkXMQsABFzSR WshMmzmp3lfI8eIc2+PC9j m9wpci51sS83lJH+PHRkIH U9mTouCZvy VVDonG0tGHzzIsU5LOYsFr WckW70bPCgAEdlVy2jjXpf mQmiLQ4bZTZvpxvfo563Iu Oqn5hcTOCw bAYfMHgtEJG2X10hm1R7LQ PlPFXmGNK9aXD2aR2kfUnl bjogbGVmdDsgdmVydGljYW paRMcbJ224 IHRvcDsnPlBhdGllbnQgTm YfEGq2L1KqDzk8DOVguOsu MB4gtGUtDDgkAj1foKgtyM prGD8hIGXu cnujh132YhTrv2nuAVYezN UnJDycXYQ8M76pu2W3ZLWq KGCnJRK0jKB6gW2roAsslp ogbGVmdDsg jcFomAtoWLbeYMfdK403JS RvcDsnPkJpcnRoIERhdGU6 WS64KF66fPLvr0A3iOB1M5 BhZGRpbmct bfexhUQ1HEBsOJUcmN87Sr 8hqOmkWc7lSZWuXKK8UDHb fRQhO4BkcZ1uMiMhNGNgTG RyJ9RodYZk MYnrG279SAlvQvX7MXYzqn JaH2BuGPVonJyxZyF8q9C1 Ly8ZI6L4BT82BZ12vOSrq5 W8bMC8D4Uf BANeoucmfwzjlMY7AQReID CtuQ89Zr8jnHjyOq8vCGGt RAL0AGQpzTViR3WydY7jSj AjMDAwMDAw F2HthMGpCDycG011COqnQj M9YUWlggAmR0WcOTIgySfi ApZ0o6H5Az8ZQAw8CO35QF 99tODsy3D8 pEF1A3BjDDZlraosfywejH L8EATrGYGbjU62Ys1xcOiu Fd6rESZxQOU9PKFynINuL2 NdfP0nByIi RDIpABWvH6CegXMeZFrkO0 26BUulTyI0GLPbzmUkN0Hw IWAdeGirXsG3w5O6Uu1STR UhQE19CGG2 qAD7BM09TV04I8QjXkkqrB FibGU+PHRhYmxlIHdpZHRo UWzkSROqNxXweFxkVT4yTl 9yZGVyLWNv iMzjaUDyUmJxt8xyLKZmCS fmIU9fpOvdY0PswKO8VXPc t5p5Nc24S05wY7DtlXJ+PG WaiXS4fVT7 pL0tAuXuRjG9SXosS042Rp RpmOIeZkpkl9phj8mspZq8 TkR5LOXjufCbhSktPRB8x8 SwQy44F87j IHdpZHRoPSIxNSUiIHZhbG gtlx9ixA0iZf8+PGNvbCB3 rCL6aZ0pYkWwCsM4BEkyB3 49InRvcCIv Ijbhl1aoc7smaKr2NnXkEK SbpaAeiJqpELB4z5GpYa92 F3IyhRcov1PeGqm3tj14nM Pkl3P9zYZ5 X3FdUDQvnxuivZRpgWehJZ 3yLKFyqeaeYBJfmP6nEPZf S8t3LlDuZuP2OWlsQ3Plvz M6ZJQxqZUc GYkqHUR4F28dc3N3ZAFmJL UlUQO7tLL4cA9wtVcjuomq bGVmdDsgdmVydGljYWwtYW heP383TCWl eBxrZLVhvB7zYMVjwQNcrM qlUD9yVLRbliazYzRAVYXP NDxpTqSNLL4XRBmwDHwjmE Q+PHRkIHN0 zNefZDgrMFRuvG6kBWQsY1 v8AdNpPyA8TRhrL5ZkCELm xzaaDb34nN6yLmCrEdQ7MR bwL3GyqoZ3 CDMuuXAjBLsxMGX0E60jj5 Q3ZRGwTSZvXTH6qYB6kW9k bGlnbjogbGVmdDsgdmVydG ljYWwtYWxp U331EBVknKxmGkK5BxRzBe V8JDW3P0HfAnl1IPJovEvm WY5sfESvNMeiFj9rtCmrdY yeTW2cXZDr gxctKQEvwZ0lLLQfjYCzmY nvET8iZQHvvugxg974CdId SLF6YPQhtGSgY8UweE9yKx AjMDAwMDAw M0OzsQTdEAsmY088TMlgIs P5PHCwyoLlR5WwKSYrcChn PhL0x9M4Nb4rTJVXEOBlna wvdGQ+PHRk SKP3vTnhYIbuMYDtxI7fZX NsE3b3EtKnArQ1EWjqM7Zn ZYLdpvoqSz55xW6aTpDpFe U5RVunO5Zu krF4CJRruVMqXDyePGV4O2 1gc0P3SRGgQWEnMZQ1zZF3 kC5gkIadppzpqNNksCzsou VydGljYWwt RMgnG320UFEtfWqoAe8JRS N7E3HbPof1WEIfsWncOL2i cMVrAOrnZv2mzKxnzAisXG 4wNTBpbjtw OOXruD5rJZEanQXzdZoiDE 4dJYRoymrmf489HaMdYGM2 OTPplUWlZ4AroE8pFsWpOI LgSQVtX5Ad gHXcAWrjM579IYpcDnX3GW AyeeKnR9QmIXZsyOefYiA9 l9F6Nb4QSCiplIK+PC90cj 68P4OnVpxw Mcd0LABdJDR2oUV6qD9dVD RhELprz3P5uSL6P9VvchEg wc9mq0ywVSScXOoyN62ruB Kwo7Q2HBMd jRV4OYUjzCsuSeAuoD76Vl c+NGKxsRixr7JpYqtwp7ge x0ohlUp5IaRcBAUeptIvlZ zhZAM4z7Yv My08E82yFKywEDQsLHTxPO GjLONhxTmkib3rmA4vVp6+ YTJalYI4jWL9cP2pQjRxTm J3WZqmR872 EeYaqDRmHdozf0qyj2vazD i2OdTpVLNdrmGmeCwbEGR2 p9PmQh58O8LexDmyi3KpNe h3gn51lFZi g4G3oSR1L9DdIJRrdvihuL XpwTryZR2nRDUfdalrHORf wZ2lXFRjK4c6OjIdWvF8VI loA0VepfG4 TCPkaGQsUJRtkVAJcJ1wpl lau9rqnsmjLmUfFJFvEOr4 IKe7RZGtyJeuQhZmFYD3Sp C1ZZK3oZSt wC7tmBbnxyqxkV9bRsy+UG n3z4gloILyLM7csMJ8SB81 BG92yYEgm5B9sXK6D9WnFD Rpbmctcmln jSW6GVTbLZAvlB47Ft1raM tmWj1kNOFcSMN0FMLevTJc I6HqmI4rWiMjBFYoPWPrW3 RleHQtYWxp F774WDeuIvG4DWHzhkLrZ8 NjTSKurSjjOwF2c1O0Xf3H EE81SD52SI01zQGij3H7eE X2S9HkHPJb cxarkcgwbHN9PHWwJGRlnF 45Kc5qdQxuYn9mRFHdSKV6 TTNyeYSdM1TucO5bWjZsZH QbQOPzO8Dd tKVyPQenL525WMyhAxE3RH RhemAbR4QcCNUycTamTeN9 u7U1Jc5FHm89NA28ZA33zM Hsm7R5lOV1 N2BhZTHopgggiqadeTX8GK IoKMFfkC59Iq5csYtmPl3n LZTlZRG8HKGtcUQpS5AhuX 9yOiAjMDAw BWIxJ8YyxLHpMBfuH876JI xuDsE3EHGjmwXrP6MwNJTi vHtbInN4o1R2Fh9TIOqxkg g3V9OsWbob dHI+QB07PMHlSE63fEFogE Cab8jviEq3AdGrBGEiJRF1 pPxjAGakm3WiBBLkL39zoN Uub9D2IDZc uEqmnEZsAkEguGL1vO8iCC iydoqcx4pgvfpyLecej9fv oz86iR71W96sZQlgNANeUD IzMCUiIHZh aVxnqb7emA4kEk9+PGNvbC L6gTY5sT6fJiDgXxL9TPkr U641SpAnmLThXnbwr1zcl1 ytsOy7LpQp JTDawnInjQuzNIO8a7OqTo 68X63iVNpdORTjJAYbHLMz SCTadGxpqo6bzD7wRv1+PC 7oz1xdtg51 cF21fSU+QGUsMPT4sEfkKE ngKTQqqH0aJTywYtY9PJJo RhZehI18jGAsTZzmTn8amL hgdIsnZO6w OBSfvtiku483EtRhKRE1QK WxqYTyJ8BfvU3kTxOgDYJh WBNfI6MjpAZpUXkmY375LN pqEaY0GRWi zfUjS1TzYYPoqSdbQqF7g9 U7pQShWIdzIt7eu5I4p311 RSVbATPidC94Yf5Gt6oyKZ ksIEJyaWFu OPZtNGM7V5WjLwm7WJGeoC azBB0bjJCwPGdqXf5hbVbe oRlyJW0mZTUjplebBADhaR 5nLWJvdHRv lArvHK0fRNUhjdyep216Hb BcODJ4AAMczFKzV0VwfO0m HqDfNZMpTTKkG2XfuHLoHB syK148OPhe GjL1IYNbxdJtG7AzSENnrW kgWqJ9f0S5Lf6lETO5MVV2 NTwvdGQ+TJIgSZC2xCwyUW caRZVdsI2v IIEyS2n8RsOoOkF8YJavA1 AvJDYczcxuQj65rI3oDpZp BlU0GHeeU6RdumF2YXFabS QgVGltZXM7 Q70id1Y8SWTeGGRzXEN7kU T5zJ1ckAzolytaeSMsvYvw jyUqyVujHKlvOPbfP958KR RvcDsnPjE3 RBXvGOGdBJ87XG32aLRxw7 Y9rUI3W2WsVKMizkubewsw mHE6VQPbJSZkjM81gADfOI icNh6xr9V0 j173XFGrUNTzlU53Xo4deA kqFQLifUZErJ6dqfrqc9uf cgfrIiGlRGZvRQz5AYk7WF FsaWduOiBs GEO8MhC3RAA7gHOfbQ5nqM fsbukkwH7rVtu+TWVkaWNh tQXbLG1CFG31YL67I0QdIa wvdGFibGU+ PHRhYmxlIHdpZHRoPScxMD RaCiKiyOqlMZ5fIg1lUIQy RZBuxDshuTGfMrQkc6qaOJ JjSFjxEQ6c tPqyG6IcoOP0PIZqa2s5Sg 36D71fP4JlfLT+PGNvbCB3 fXH4dG2lGcRoKvM9IOpmX5 49InRvcCIv Exxlx4vnp0xtmSm2JpKbWK ZsguEduLgtZHQ5u8ArJc02 W35uGJuwGWPzLZLoSCFyXU TgoPznaj1y pF7bZc3+VJDmbOD7lUK6wX 4aMeMjEgL8BHyiV623DsIo mJCkWeamO99iT0YswJG+PH AmFxe4CPCs qAzbBQ7kdOIfRGzlYp5rUL R4LpXmSsVsJMcrX8McYVNh fsujboiywBD3SVEdBINwoB 01Ai1qeXqh Uy6kWOYmVMB1QHEgpGPaH5 ChtF4qByBfQKZwCKYxE0Bv jNRcABtrY622VXnwQdW5QE BounVuM3Ym FONdvLmxFdC6j2D0Cc2GML TukCg5bJh2U3BdVyw6DARm dDkeYS5gbGUhYSjyIy1geW nzuTctCT6v KYTrclgii329McRmq7gqAX WewPWjQWcbTLO0C88zl6R8 HCDhCQXpJMO9sOX9sM0ejW lnbjogbGVm dDsgdmVydGljYWwtYWxpZ2 06TSIpwNhaWqBfo8LrUWZx BEXNwGNit4KqyVhrezh0K4 JkDnm0UZLp pEpkZA9gbDInNGblYj4zdU abjPelKW0oYVYjpoelt548 GtAmf8leLEPabWXeUQevJW I3X39se6N7 ZLQqSDZwCDS6pPW5vH8hnR lnbjogbGVmdDsgdmVydGlj ZLsaGMvoH079OCZzuWpmHm OkmTm7DVMt bRE4FG72UM98hNCst6T0xS B0L5RqQUEwypqxmigkxRD2 JBOeDLMgaA74Fr8mrEnbYa 1lIEClMVB6 PVHzxWRjO2TmmD1oUdTwVM FmSARfO5BocKIbHLlqG186 POqpPhH6ZLEnbvEhY2ExHS FsaWduOiB0 k7H3Hs0YmBZkySAeU9GtOE M0AYi4A9LrQlwnrFW+PC90 YYQyOW33oJZntKEge1aoxD f2DwLuCWYq LQM9dXedLDzqe6FqHXApQ8 2svWIev8A4LFEroSbazITn DkAclSU7kX8jBCcchngdu1 hvdzsnPjxj p4rssh09iR01S02fSPlmVG DdPSKfZRKuKEPafLuefy1n wS2oUl1+ZKKcmNJ9kAG3kL 7lMnAaIgD6 MVnrM496ZrEifXLoCponz9 lxf6kcqPn1QdOfDGFsyaUs dIegFFG4l0YcKz12S90zSA dpZHRoPSIy THNyIPMwkJrmpp4fwC8tUt 8+IU1gi8wugi43qY53qHS+ IPNtJEP0aAmvCMpkCXRjgJ 9jDNftKqS3 ARTzOoPqkN96wLOpQTqiFz 1rkYjxsLrmSC0hHJGpscdm m475LaNcSCO2PSGpkUAgW7 DpfK1sVqLn KUZhATMhE2ZqzQTyCBndG3 16CFytEhC8VUHdjuMnT7Hm IRMueNvjVsT4n7G3qDPzKP eqWz2er4O6 r983ACLgQXEfmQ65Fq1EDV bkeGWlnjWBi9VpfHIojXmx dGQ+CVIfAAP4qUiiMHvtHM RhvR5rXUVp Z4y5QuMeRvU9YPisX8RtOM IenisaBt58bI3oGtFlLiT4 GUcpE4ObhwM3STNjjMRvRI tcIAH7R79h e4H7UPPdPIXoEPC3nRR2vF 1hbGlnbjogbGVmdDsgdmVy yPydWZfqINosV715OFZyfE snPkhvbWU8 M3XuYmv7WUOpuCeeJZ9hsX DbQQveUn0naDkdmUceVY7d UMEdpihhCGItxE1pCFYcnQ BkoVyoFT3b FSTlpkedh382IvYvZVS1DZ QljORaM4SxlR5fJnVpTMXm IEDnA2XqgUMxBZxqY200LR ssFbB4CMRl yjTsK0VqWKBfpPjdQzH2j0 F0So0lSn7jNk6vUBErDY02 ZN71wSSeq2I1bFX8L4IrXH Rpbmctcmln eQL5UORuRGXorS26eKEsZH klSc4gj3R2m263MTZpBQNf aL42Mr1tgLheQEMgiIWSxD 8eksicl0jp sjcmOkQjPWMsJHg4HOe8CZ SoeCiiKwVmTAK3LeY6FUS6 tVHnlF5caMkkgyegpG6oZe c+MDMvMDIv MjAyMTwvdGQ+OG94hs77W0 ZnQkglVcwzEFw8Jaa8VTTj MZJ6xGZ1lY0gSNFdQVlnv7 B5sBB2S1Av trKbxa5wu3X5h871AQP2TV FzbGrtEXUkACCgWyJwr6Ec AENmI76svFVrs3P5WHJdeS xhcHNlOyBl oCO4aW1mHKdsxuqog7frpd fbEqqwq6dzwv62yW62Y10p UWbpDXTsUZDaAXXqDtF9JX fhO276IiYs xMRdMxwuQ69qH4WjrLV+PH VpFnv6LS25YeGbUhqeaZG+ HW29eb47iNW+VRGiWTV4kS pbINahl686 AzHsy0ibGDLvhPQwQUnvWP X0O92ja6N4KPBmVQAsQIS0 jGV7uA9ggLcewgckV3BizB GyQgN8EOA7 fBKryV6tdIoqouffgJ4kWe c+U8OQBIYWFqhjoQN+PC90 xv62B3BqRgxgAxx1MQQsFW L0vNW5kM3q FGJeZVbxh1Z4aKO8C7Ghho Lpje7ba1U7l595PGX1MVBy pCafZUOyFBPpFwPfj9RuUV NmL80adXBa s7V9GUHfmRvzvTIbNxOhbC G5jB3qGSirzeigs4itatrm Mwxps8xokz78qS75T51eYB dpZHRoPSIx GWUiKsE5TTlaW723WqDdrW PrKestI69pY7XczWO+PHRy Pgp8UV35XbPvImhqjZT+PC 06fw04cTE+ VCNcMPZ6vZtpBUsor211Mk Ago7noOGIjwPZmCYhqJLM7 I16yp9E1BYNlGPRsMWQ7wI E5lJ7nsYiu dcpdJ4KctGKxJnH6EHY5rG EqcP2hmLvrjuqkhD9oNyk+ ZFtPZ29TZ2vDPJ79EJ64S4 RyPjwvdGFi bGU+PHRhYmxlIHdpZHRoPS luQCJlAdNxwXekOO0tEm4x ZGVyLWNvbGxhcHNlOiBjb2 xsYXBzZTsg JH1arDxqE2HuwIM4YXIer1 l4Is42R25bP4PyhUL+PGNv kYM6hYC9sL6eOIChFqV4BP ppR635PaLs mSPfTxtiw9dnt8byeMg4Yt Z8MTHnhcOrdPlmWFC0j9Fl Ie76S57aWRtzKZSdJOG0Rt UiIHZhbGln su0ucU1zOr9+EDGecHW4tM T5sB5qUZKtIwG3OHxyA510 LaAtuQQeVsufE50vD3KqcN A+PHRyPjx0 ANFilMjlDG6xiMNjHRrxCj 6dODZ1NiRlInJpJArnJ0Ha WXRmrdgcudijnRC6BTWmRQ LzjB55Md9r oSngNk5sIZQjASU4NCEwuC VoX3BdhX7jVfVqTRXeLFQt Q7GcuESzRKpwY760DEuqPl K4TBDhbkRj H5EnJPLgnBpkXpL4j7J8Rn 2Zu4CwXT76AJ80xGJll1Z1 rIM1Y0AfBXIlacihazxfkJ Q5YJYwTAZa rY06Td7fcQbuWk8dYBIrSC O9JOAokSMnX9ZsgL6jEcHe OCAtOWEgP6RogLOcXFuhF4 66NUwzSnD2 QAVkgnYpO0NjBFDvnAalSq P5n4Y9Oj5QK3X3O7GkZpi5 CCDrwJmqPH8tlHBlGYwxYo 1yaWdodDog BH3xAWPwxrliy584YoZgp3 zaZEMzyAFnYJgvHNT8N80a y1N8MBVqOCQvDFN7jJI1lH 1hbGlnbjog bGVmdDsgdmVydGljYWwtYW krN009AVVbxLqnKlYlw7Vr eGA0iF6xJG65OL65yVMiy2 K9uXU3J5Fy MMCpchxxtwhgaEJ2KBGwAP LgwZ68Pt9dwWrqNr7jENXa GNS1VMJtfREoG0YnhL6cAy AjMDAwMDAw A8ZynRXjMDmjG604ZTkpGu L7YCKlngCmM8WrANEbjByi FuB5f7K7Ws5XkIPiDV09LW 93D9EfNthq dGFibGU+PHRhYmxlIHdpZH LfPNaxZRDhUaWzoKezFB1c Ij2bGGPoBVLhaChrtCPnUo Fnb1ypPWMw PUkmUO9lsHnbD4BkwDF1CG Bel5j7Vo43R04aN2HaiXS+ ANKjiFN9eYF6yH3pEZQbXg Y0XSoqK993 XmNepNCzJywpb9akw5yqfC d1CaU4NYBhrkRcvFtpDHV9 y7HbKl73V42mYQecHGCjXK Q3ZnKpJGZy pLyxzy9ifN1sUc0+PGNvbC A1nVY1aP0cZQWfQjV7LVub C732BqPknYCvBlozY28gV7 JvdXA+PHRy Phh9YVVubCrvMD2qdYDlYJ jcPq1tTKO7UuCyKhWvRYph Z2DxKMCapoamrkdkgWL7YX YsBPCuyA06 Hj7daUizIHNczWRMrP9lzu bas5ulmonhGsFtPIBkTZj9 SBr3IBBsrAudApHwKBT0Qo C9UQU9pDRr bG4cjLljunxigU0rWen+ST XxUW32MM92qDL+BB90BE12 lYZre8D4tJL0Y8YrWYTisy ctcmlnaHQ6 SHDaXDRggT25Mz7fwSuuAV EblZDDtT1vkycaz5cezfou HwUgQSZoLBc4LZj0ROLlxC duOiBsZWZ0 SkH4OPE4nHYrwM0ugJfmru fznE8yIzj+ILTgOH44iDYo LVfgaovwBQG5ZZHvdYCwkh HsjqOyr703 R1FhXfh8JRXjeLogTW1agU ImSIttPz5cuTjmxOgeDJ8k QBXzkhspr396ZzQfLRF4HI LhmNRlH7Ug eS3sPiBxJEToEGRvJ6VqkY OoRIimM667HChzYpJ7VWTr saOgI5ZuBJYgxMsmXjN9y0 O2Hx9DPmD9 F2KwYbiswRE+CA21KKAvMQ 76eMGrzMVwv5jxsIp7WyCd ZYUjTYN7mLdqODtxa9VaOR McU55wrVIr a5K7ULHdiYhgzJWzMgJflQ A7cX1oEHctxympv3bkceah Vew4ad85fISpt6U0tQC2Ej NyDKOvmJ5w LMabTuQ6MDSfKvEszG64mZ ZvWWzzZh2caKhcrIfyED5j LWZfsgkao793TpVgl6bzNK EwcHQgVGlt ZUX6D87su9Y5WYHvQJIlIB C3PzAhn9mzq1PfWHikG9Mb QFFoACt3GCz8NRAsiGncQe SiVZH0JyD9 QAL4xOMvhW9psBwswlyvdM 9wOyc+NIWjwnVywUMoUM29 LD60M3ZuFwchcQDikKP+PH RhYmxlIHdp ZHRoPScxMDAlJyBzdHlsZT 5mCx0mUPAhOKEelOzmaQBj AhJyq7kxJOVxTDouGZ9kpF bkP0SasYW1 WAUgp6l8Xx28I65sH1HkkX A+AHCrpWK1nKK3wM2jSVPw BbQ9FOzzV416PlQoxMTvYl rls9vtg2jm tMg7HlC6IOJqdwFizHnuBP Q5v8LbSc25W26yDWvhXJOs TMZ2OuKvIBGcwNsfkz5syM 9wIi8+PGNv xJI6yUL5dM3sSUByFqK0ZG byH178VuNtjZBsXyynA95h H2IkrFI+SFBeBmc5UHUliT hdFA2hiOJa EBkjJr7jPJB8QpPbFeQrTT vzS7FzAUTpcznqcybbpPI0 SJXzIOQheZ38Xd1bbDguTW HwxMNRxH2f magah5dfrhvnVmGuWVVyNV e8UFn7HLEkvLkwAsJrAGN1 XgC7NFT6mGGaaA2bxKycae kivX9jBpf+ PXJlOV42GB05tZYuz3A6zT I3F8LzKECzgeutralpnGZ2 IOKbIPPplL63Gi2wiDlsYH QlfFQIuD3a mcrat6djbvzyUyFqUUVfBE h1MKh5UWNghZbdEpLoRMT3 TbT8ZME8wPZejL7xcUfjde waxL1gVnq+ TK19CZ32xSIak8G1gDL9F0 LsEPQrabqcgdzymQA6ZFQr MHKvcT56Wn3rvRxsFHCyvR IKnW6qthmy u3gspkwrExUeSRIqMLm6DP o4VGFwgYnyCkUdSJW0TsX4 DTH7yFMofS4aySesajnycX 9wOyc+RXNz KO98jLRhWQfljcpoJHK1PL TvmHBphiFwkdWgp417T6Rq Ypi0MHZqkQclGM6kcVDuNA mtQy2zyHyx fYxrTI9pMJNrcbhqe912Qp RfAYE9XLEtdIIxY4VmjY0o TqTnRSWaVQTqH6CmvGJqES ddW369YEib XnN5ZVErmpFuJ6GtVFKttM fdBkO5i5M4Ek1MrU4suEyx dGQ+UF96sg53Q3RaZpmbEv d8ZCFeRBQ5 dSS5rC6lOXJdBVacf9K1tR I1N4LpwzWkgz2dd1M4q510 AIE5VEOjyBgmSCYnGHPsYj Zje8XlPYQy I22ibZGol9Y7DCWdjAvwrB KnVpWjxNX5uH6mIAbelsth f8eoqamuWjolb6cwxj59pG 65V72gSIqq XHPtERIrUQQxSkZ2KFgaW1 12OvIyaGEiYlzvK49cI0Bs dXA+MOJpMgc5WG45EaGwMj wvdGQ+PC90 sg43lDF+QQTuTGA7cTnmOW jxt478EqEqh1siTTOqsZAw KYdpPGP4E91sv8G9NJFoRO VsJOH0mIY5 cN1djPpdxvnnI3ZhiOMsPd E1UQG2yZKwqZ0fdVudzshg vT1rZqq+RQIHR0DOLJJWAO 68PT32L5Hx PjwvdGFibGU+FXHdLs67Va NrCxx4SNEjQXI7lMT5cV3b KYRsVRkdo8P2uTB8V0Drjn Trzm2jv1tc JVYyLYnmF25ncKRek9H8ZQ UddIS4RQIqxLteRkFmgS63 Oyc+NUTlqFbhd1PdPwmeq8 dwd8jhdYk4 PvJiEZSmZMRjtAezlm2puN 9wIi8+PD2yw9qept61rR88 dHI+FFFaDGC7nEafLPpbEO QsoF0vUFyf SvH3JCIsAlJsvM17qTApMY hhIv8kzIagcDvxHW2eZXZh jsqhd159JjJbAZU2PYDrxH YqC2HdhH1t AmUrEPWaKYHtM7KduCWkAY kdO849ZPhkLrO0CEEguoOv J0IwTOCgbKfwPcA2n2A3Er 5TL8ILCfVW fAMxQ65dKIZicA7nRUVyWZ AobGatZIAdwPV8Q5qgxhG0 tCRiVF5ceI0sicTnEDVbjY Gyah5stHKh WE0iI34xUWLbm4IlXTHeUZ OzroI1wLKnrEW1zWGdqXon XHTvRXH0WuTFi3wqebGxTH D6rVKimxKe cuP6dUIaNNBzgoDkCVMpdk oukHLmHSPsv42ouUbnJSZn OFnsBjIgl3Y0c0FiBQArBD kgYXBwZWFy IGFiYnJldmlhdGVkLCBvci KbUNI7tMNhqL7sr3zzV4s5 zKwhLXqyGrIkQW59FMItvk 5ufj4sk7n9 LjwvdGQ+HW23dq62S8WmUd xlPjxici8+HKGdHb46D3Tu PjwvdGFibGU+PHRhYmxlIH dpZHRoPScx SAFhDmSneKznXT6nMg6nTN EdGKAlvWjcaIDpKqSkx7gk NLAtOYfwCO7dzWphG5JgcX I2UGWjr2w6 Qh21B91iA7KzfGE+PGNvbC Y6rQT6kO8qCsGbVuI3ZJhu G883NjIltALlRuzsv9jpc4 yzvAm3MxUs ZLWzmkIuyVqhXUZ4z9PzRp 33C4LytKigh1AzGst0vh03 dGQ+GM93AR22pOBfl7N9iF N4AcDbVVFs zT1oXIWpX0d4JwDdYgA4FP ayB8BfjxZ4BMTusLQjDKfv WXF1D79ye4Q5KANtOKPsYU H0fIY7gD6n bGlnbjogbGVmdDsgdmVydG bdACfnBOhyF570UONzrYsn UmEaKEUxCXG1JsMyZi5tzX FyZCwgSmVu laqnWZD8D5HmRbeziBA+PC 36QOMdAT12oRGfxNIyf7wq oAc6OnQvZVFgZDA2fYuyOR lsn3KvMBCm I91sfASga0F9UNIfwFpzpL VyEjQvhAA4hG3gMCdrxump m4kzjhaeZzorr8fuki26tX 40V29aWKmv DLQhCFV8IDAjXWKbsPbdst 2uzD8oBz5+PSHkjSN5tHR6 qF3oIJUvEkS2NHsuY580Be RvcCIvPjwv J61vD7GlsAU+XGJcMyt8TS 67Z1SjIog6GNYplWzrII0x RKVzUMBhogdrwqxilHN0MH QyVDYujS41 Xi1sjYiqMUIevQTYlC2zvg vsg1zwabekFsQvSJQhRYo2 EQs3LZRaqZocXsEpXRL4Pd O3PNR9yRTr fI0jtPoustkibY2sBeb+RG E7CTFLWBXsLUncAZGtSwU6 GlFsTiQeFCO8QsWsNO45I8 RkPjwvdHI+ KM92YBQrNW37CaQaPeecza 8+OS5fyX0jZl== Normal [facility] EVENT MONITORon 10-02-2018 [place] [address] EVENT MONITOR PATIENT NAME: CHARLIE VALDEZ : 1980 MED REC NO: [id number] ROOM: ACCOUNT NO: [id number] ADMIT DATE: 08/31/2018 PROVIDER: Tobias Patel REASON FOR EVENT RECORDER: Syncope. He wore a 30-day event recorder from 08/31/2018 to 09/29/2018. We received 9 transmissions. Each transmission showed sinus rhythm with occasional mild sinus tachycardia up to 118 beats per minute. There was no SVT, no bradycardia. His symptoms of lightheadedness and dizziness did not correlate with any arrhythmias. This was an overall unremarkable, normal 30-day event recorder with no arrhythmias identified. He had mild sinus tachycardia up to 118 beats per minute. No therapy is recommended on the basis of this event recorder. TOBIAS TRACEY [id number] Doc#: [id number] CC: Monserrat [facility] Vital Signs Date Time Vital Sign Value Performing Clinician Facility 09-30-2024 11:18-0400 Body height 180.3 cm Edson Tompkins MD Work Phone: [facility] 09-30-2024 11:18-0400 Body mass index (BMI) [Ratio] 35.59 kg/m2 Edson Tompkins MD Work Phone: [facility] 09-30-2024 11:18-0400 Body weight 115.76 kg Edson Tompkins MD Work Phone: [facility] 09-30-2024 11:18-0400 Diastolic blood pressure 78 mm[Hg] Edson Tompkins MD Work Phone: [facility] 09-30-2024 11:18-0400 Heart rate 83 /min Edson Tompkins MD Work Phone: [facility] 09-30-2024 11:18-0400 Respiratory rate 16 /min Edson Tompkins MD Work Phone: [facility] 09-30-2024 11:18-0400 SaO2% (BldA) [Mass fraction] 94 % Edson Tompkins MD Work Phone: [facility] 09-30-2024 11:18-0400 Systolic blood pressure 120 mm[Hg] Edson Tompkins MD Work Phone: [facility] 09-13-2024 12:54-0400 Body height 180.3 cm Aicha Santos MD Work Phone: [facility] 09-13-2024 12:54-0400 Body mass index (BMI) [Ratio] 34.45 kg/m2 Aicha Santos MD Work Phone: [facility] 09-13-2024 12:54-0400 Body weight 112.04 kg Aicha Santos MD Work Phone: [facility] 09-13-2024 12:54-0400 Diastolic blood pressure 82 mm[Hg] Aicha Santos MD Work Phone: [facility] 09-13-2024 12:54-0400 Heart rate 92 /min Aicha Santos MD Work Phone: [facility] 09-13-2024 12:54-0400 Systolic blood pressure 125 mm[Hg] Aicha Santos MD Work Phone: [facility] 08-12-2024 14:34-0400 Body height 180.3 cm Nicolás Maria MD Work Phone: [facility] 08-12-2024 14:34-0400 Body mass index (BMI) [Ratio] 34.45 kg/m2 Nicolás Maria MD Work Phone: [facility] 08-12-2024 14:34-0400 Body weight 112.04 kg Nicolás Maria MD Work Phone: [facility] 08-12-2024 14:34-0400 Diastolic blood pressure 86 mm[Hg] Nicolás Maria MD Work Phone: [facility] 08-12-2024 14:34-0400 Heart rate 96 /min Nicolás Maria MD Work Phone: [facility] 08-12-2024 14:34-0400 SaO2% (BldA) [Mass fraction] 97 % Nicolás Maria MD Work Phone: [facility] 08-12-2024 14:34-0400 Systolic blood pressure 134 mm[Hg] Nicolás Maria MD Work Phone: [facility] 07-29-2024 08:33-0400 Body height 180.3 cm Tong Sanz MD Work Phone: [facility] 07-29-2024 08:33-0400 Body mass index (BMI) [Ratio] 33.47 kg/m2 Tong Sanz MD Work Phone: [facility] 07-29-2024 08:33-0400 Body temperature 98.1 [degF] Tong Sanz MD Work Phone: [facility] 07-29-2024 08:33-0400 Body weight 108.86 kg Tong Sanz MD Work Phone: [facility] 07-29-2024 08:33-0400 Diastolic blood pressure 96 mm[Hg] Tong Sanz MD Work Phone: [facility] 07-29-2024 08:33-0400 Heart rate 88 /min Tong Sanz MD Work Phone: [facility] 07-29-2024 08:33-0400 SaO2% (BldA) [Mass fraction] 98 % Tong Sanz MD Work Phone: [facility] 07-29-2024 08:33-0400 Systolic blood pressure 150 mm[Hg] Tong Sanz MD Work Phone: [facility] 07-24-2024 21:55-0400 SaO2% (BldA) [Mass fraction] 98 % DULCE LLAMAS [facility] Comment on above: Performed By: #### 3040-3, 07754-1, 1912 3-9, BMP, LIVR, CBCA, 21601-2, PINR #### [facility] ([id number]) [address] [place] [address], [place] [address] 06-03-2024 11:09-0400 Body height 180.3 cm Edson Tompkins MD Work Phone: [facility] 06-03-2024 11:09-0400 Body mass index (BMI) [Ratio] 35.29 kg/m2 Edson Tompkins MD Work Phone: [facility] 06-03-2024 11:09-0400 Body weight 114.76 kg Edson Tompkins MD Work Phone: [facility] 06-03-2024 11:09-0400 Diastolic blood pressure 88 mm[Hg] Edson Tompkins MD Work Phone: [facility] 06-03-2024 11:09-0400 Heart rate 84 /min Edson Tompkins MD Work Phone: [facility] 06-03-2024 11:09-0400 Respiratory rate 18 /min Edson Tompkins MD Work Phone: [facility] 06-03-2024 11:09-0400 SaO2% (BldA) [Mass fraction] 95 % Edson Tompkins MD Work Phone: [facility] 06-03-2024 11:09-0400 Systolic blood pressure 160 mm[Hg] Edson Tompkins MD Work Phone: [facility] 04-28-2024 09:10-0500 Body height 180.3 cm Coral RODRIGUEZ Work Phone: [facility] 04-28-2024 09:10-0500 Body mass index (BMI) [Ratio] 33.61 kg/m2 Coral RODRIGUEZ Work Phone: [facility] 04-28-2024 09:10-0500 Body weight 109.32 kg Coral RODRIGUEZ Work Phone: [facility] 04-28-2024 09:10-0500 Diastolic blood pressure 90 mm[Hg] Coral RODRIGUEZ Work Phone: [facility] 04-28-2024 09:10-0500 Heart rate 84 /min Coral RODRIGUEZ Work Phone: [facility] 04-28-2024 09:10-0500 Systolic blood pressure 162 mm[Hg] Coral RODRIGUEZ Work Phone: [facility] 03-04-2024 15:23-0500 Body height 180.3 cm Dana Luther MD Work Phone: [facility] 03-04-2024 15:23-0500 Body mass index (BMI) [Ratio] 35.34 kg/m2 Dana Luther MD Work Phone: [facility] 03-04-2024 15:23-0500 Body weight 114.94 kg Dana Luther MD Work Phone: [facility] 03-04-2024 15:23-0500 Diastolic blood pressure 82 mm[Hg] Dana Luther MD Work Phone: [facility] 03-04-2024 15:23-0500 Heart rate 79 /min Dana Luther MD Work Phone: [facility] 03-04-2024 15:23-0500 SaO2% (BldA) [Mass fraction] 97 % Dana Luther MD Work Phone: [facility] 03-04-2024 15:23-0500 Systolic blood pressure 100 mm[Hg] Dana Luther MD Work Phone: [facility] 02-12-2024 12:11-0500 Body height 180.3 cm Edson Tompkins MD Work Phone: [facility] 02-12-2024 12:11-0500 Body mass index (BMI) [Ratio] 34.87 kg/m2 Edson Tompkins MD Work Phone: [facility] 02-12-2024 12:11-0500 Body weight 113.4 kg Edson Tompkins MD Work Phone: [facility] 02-12-2024 12:11-0500 Diastolic blood pressure 70 mm[Hg] Edson Tompkins MD Work Phone: [facility] 02-12-2024 12:11-0500 Heart rate 83 /min Edson Tompkins MD Work Phone: [facility] 02-12-2024 12:11-0500 Respiratory rate 18 /min Edson Tompkins MD Work Phone: [facility] 02-12-2024 12:11-0500 Systolic blood pressure 120 mm[Hg] Edson Tompkins MD Work Phone: [facility] 11-27-2023 11:35-0400 Body height 182.9 cm Edson Tompkins MD Work Phone: [facility] 11-27-2023 11:35-0400 Body mass index (BMI) [Ratio] 30.65 kg/m2 Edson Tompkins MD Work Phone: [facility] 11-27-2023 11:35-0400 Body weight 102.51 kg Edson Tompkins MD Work Phone: [facility] 11-27-2023 11:35-0400 Heart rate 88 /min Edson Tompkins MD Work Phone: [facility] 11-27-2023 11:35-0400 Respiratory rate 18 /min Edson Tompkins MD Work Phone: [facility] Comment on above: O2 SAT 97% 10-01-2023 08:20-0400 Body height 182.9 cm Aicha Kaur DO Work Phone: [facility] 10-01-2023 08:20-0400 Body mass index (BMI) [Ratio] 34.99 kg/m2 Aicha Kaur DO Work Phone: [facility] 10-01-2023 08:20-0400 Body weight 117.03 kg Aicha Kaur DO Work Phone: [facility] 10-01-2023 08:20-0400 Diastolic blood pressure 82 mm[Hg] Aicha Kaur DO Work Phone: [facility] 10-01-2023 08:20-0400 Heart rate 82 /min Aicha Kaur DO Work Phone: [facility] 10-01-2023 08:20-0400 Systolic blood pressure 139 mm[Hg] Aicha Kaur DO Work Phone: [facility] 07-16-2023 14:37-0400 Diastolic blood pressure 78 mm[Hg] Mohamad Mouchli [facility] 07-16-2023 14:37-0400 Mean blood pressure 100 mm[Hg] Mohamad Mouchli [facility] 07-16-2023 14:37-0400 Systolic blood pressure 143 mm[Hg] Mohamad Mouchli [facility] 07-16-2023 14:28-0400 Blood Pressure Location Mohamad Mouchli [facility] 07-16-2023 14:28-0400 Diastolic blood pressure 79 mm[Hg] Mohamad Mouchli [facility] 07-16-2023 14:28-0400 Heart rate 84 /min Mohamad Mouchli [facility] 07-16-2023 14:28-0400 Respiratory rate 16 /min Mohamad Mouchli [facility] 07-16-2023 14:28-0400 Systolic blood pressure 147 mm[Hg] Mohamad Mouchli [facility] 07-14-2023 15:32-0400 Body height 182.9 cm Jhonny Elias MD Work Phone: [facility] 07-14-2023 15:32-0400 Body mass index (BMI) [Ratio] 35.53 kg/m2 Jhonny Elias MD Work Phone: [facility] 07-14-2023 15:32-0400 Body weight 118.84 kg Jhonny Elias MD Work Phone: [facility] 07-14-2023 15:32-0400 Diastolic blood pressure 80 mm[Hg] Jhonny Elias MD Work Phone: [facility] 07-14-2023 15:32-0400 Heart rate 91 /min Jhonny Elias MD Work Phone: [facility] 07-14-2023 15:32-0400 SaO2% (BldA) [Mass fraction] 95 % Jhonny Elias MD Work Phone: [facility] 07-14-2023 15:32-0400 Systolic blood pressure 102 mm[Hg] Jhonny Elias MD Work Phone: [facility] 06-12-2023 15:12-0400 Body height 182.9 cm Jhonny Elias MD Work Phone: [facility] 06-12-2023 15:12-0400 Body mass index (BMI) [Ratio] 36.75 kg/m2 Jhonny Elias MD Work Phone: [facility] 06-12-2023 15:12-0400 Body weight 122.92 kg Jhonny Elias MD Work Phone: [facility] 06-12-2023 15:12-0400 Diastolic blood pressure 110 mm[Hg] Jhonny Elias MD Work Phone: [facility] 06-12-2023 15:12-0400 Heart rate 91 /min Jhonny Elias MD Work Phone: [facility] 06-12-2023 15:12-0400 SaO2% (BldA) [Mass fraction] 96 % Jhonny Elias MD Work Phone: [facility] 06-12-2023 15:12-0400 Systolic blood pressure 160 mm[Hg] Jhonny Elias MD Work Phone: [facility] 08-28-2021 10:45-0400 Diastolic blood pressure 103 mm[Hg] Catarina Laurent [facility] 08-28-2021 10:45-0400 Heart rate 81 /min Catarina Laurent [facility] 08-28-2021 10:45-0400 Mean blood pressure 120 mm[Hg] Catarinacourtney Laurent [facility] 08-28-2021 10:45-0400 Systolic blood pressure 154 mm[Hg] Catarina Laurent [facility] 06-25-2021 10:06-0400 Body temperature 97.7 [degF] Catarina Laurent [facility] 06-25-2021 10:06-0400 Diastolic blood pressure 106 mm[Hg] Catarina Laurent [facility] 06-25-2021 10:06-0400 Heart rate 90 /min Catarina Laurent [facility] 06-25-2021 10:06-0400 Mean blood pressure 123 mm[Hg] Catarinacourtney Laurent [facility] 06-25-2021 10:06-0400 Systolic blood pressure 158 mm[Hg] Catarinacourtney Laurent [facility] 06-13-2021 10:00-0400 Promise to Return Anderson Cottrell [facility] 06-13-2021 08:32-0400 gluc 162 mg/dL Anderson Cottrell [facility] 06-13-2021 08:30-0400 Diastolic blood pressure 88 mm[Hg] Anderson Cottrell [facility] 06-13-2021 08:30-0400 Hourly Rounding Anderson Cottrell [facility] 06-13-2021 08:30-0400 Systolic blood pressure 144 mm[Hg] Anderson Cottrlel [facility] 06-13-2021 07:52-0400 Body temperature 98.42 [degF] Anderson Cottrell [facility] 06-13-2021 07:52-0400 Diastolic blood pressure 88 mm[Hg] Anderson Cottrell [facility] 06-13-2021 07:52-0400 Heart rate 76 /min Anderson Cottrell [facility] 06-13-2021 07:52-0400 Mean blood pressure 107 mm[Hg] Anderson Cottrell [facility] 06-13-2021 07:52-0400 Respiratory rate 18 /min Anderson Cottrell [facility] 06-13-2021 07:52-0400 SaO2% (BldA) [Mass fraction] 96 % Anderson Cottrell [facility] 06-13-2021 07:52-0400 Systolic blood pressure 144 mm[Hg] Anderson Cottrell [facility] 06-13-2021 03:30-0400 SaO2% (BldA) [Mass fraction] 95 % Anderson Cottrell [facility] 06-13-2021 03:00-0400 Blood Pressure Location Anderson Cottrell [facility] 06-13-2021 03:00-0400 Body temperature 98.24 [degF] Anderson Cottrell [facility] 06-13-2021 03:00-0400 Diastolic blood pressure 83 mm[Hg] Anderson Cottrell [facility] 06-13-2021 03:00-0400 Heart rate 85 /min Anderson Cottrell [facility] 06-13-2021 03:00-0400 Mean blood pressure 104 mm[Hg] Anderson Cottrell [facility] 06-13-2021 03:00-0400 Respiratory rate 15 /min Anderson Cottrell [facility] 06-13-2021 03:00-0400 SaO2% (BldA) [Mass fraction] 97 % Anderson Cottrell [facility] 06-13-2021 03:00-0400 Systolic blood pressure 146 mm[Hg] Anderson Cottrell [facility] 06-13-2021 00:00-0400 Blood Pressure Location Anderson Cottrell [facility] 06-13-2021 00:00-0400 Body temperature 98.24 [degF] Anderson Cottrell [facility] 06-13-2021 00:00-0400 Heart rate 82 /min Anderson Cottrell [facility] 06-13-2021 00:00-0400 Respiratory rate 15 /min Anderson Cottrell [facility] 06-12-2021 20:01-0400 Mean blood pressure 99 mm[Hg] Andersonlilliam Cottrell [facility] 06-12-2021 13:37-0400 Mean blood pressure 110 mm[Hg] Andersonlilliam Cottrell [facility] 06-12-2021 13:12-0400 Body temperature 97.16 [degF] Anderson Cottrell [facility] 06-12-2021 13:12-0400 Respiratory rate 20 /min Anderson Cottrell [facility] 06-12-2021 13:05-0400 Respiratory rate 9 /min Anderson Cottrell [facility] 06-12-2021 13:00-0400 Respiratory rate 12 /min Anderson Cottrell [facility] 06-12-2021 12:46-0400 Blood Pressure Location Anderson Cottrell [facility] 06-12-2021 12:46-0400 Body temperature 97.52 [degF] Anderson Cottrell [facility] 06-12-2021 09:01-0400 Heart rate 84 /min Anderson Cottrell [facility] Encounters Encounter Date Encounter Type Care Provider Facility Start: 09-30-2024 End: 09-30-2024 Lisette Tompkins MD Work Phone: [facility] Start: 09-30-2024 End: 09-30-2024 Bamimelda [facility]kins MD [facility] Start: 09-30-2024 End: 09-30-2024 ambulatory EDSON TOMPKINS Not Available Start: 09-30-2024 End: 09-30-2024 Office outpatient visit 25 minutes Edson Tompkins MD Work Phone: [facility] Comment on above: Type 2 diabetes joan itus with hyperglycemia, without long-term current use of insulin (HCC) (Primary Dx); Encounter for dietary consultation; Vitamin D deficiency; Primary hypertension ; Class 2 severe obesity due to excess calories with serious comorbidity and body mass index (BMI) of 35.0 to 35.9 in adult ([facility]-HCC) Start: 09-13-2024 End: 09-13-2024 ambulatory AICHA SANTOS [facility] Start: 09-13-2024 End: 09-13-2024 Office outpatient visit 15 minutes Aicha Santos MD Work Phone: [facility] Comment on above: Renal cyst (Primary Dx) Start: 08-27-2024 End: 08-27-2024 Refill Meka Reyes RN [facility] Comment on above: opened in error Start: 08-26-2024 End: 08-26-2024 Telephone encounter Jessicashimon Hill [facility] Start: 08-17-2024 End: 08-17-2024 Telephone encounter Jessica Sergio [facility] Start: 08-17-2024 End: 08-17-2024 ambulatory CORAL CHRISTINA [facility] Start: 08-12-2024 End: 08-12-2024 Office outpatient visit 25 minutes Nicolás Maria MD Work Phone: [facility] Comment on above: Primary hypertension (Primary Dx); Chest pain, unspecified type Start: 08-12-2024 End: 08-12-2024 ambulatory [facility] Start: 08-11-2024 End: 08-11-2024 Telephone encounter [facility]ands [facility] Start: 08-10-2024 End: 08-10-2024 Emergency department patient visit [facility] Start: 07-29-2024 End: 07-29-2024 Office outpatient new 45 minutes Tong Sanz MD Work Phone: [facility] Comment on above: 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) Start: 07-29-2024 End: 07-29-2024 ambulatory TONG SANZ [facility] Start: 07-28-2024 End: 07-28-2024 ambulatory KAYLIN Richie TRAN [facility] Start: 07-24-2024 End: 07-25-2024 Emergency department patient visit [facility] Start: 06-03-2024 End: 06-03-2024 Lisette Tompkins MD Work Phone: [facility] Start: 06-03-2024 End: 06-03-2024 Lisette Tompkins MD Work Phone: [facility] Start: 06-03-2024 End: 06-03-2024 Office outpatient visit 25 minutes Edson Tompkins MD Work Phone: [facility] Comment on above: Type 2 diabetes joan itus with hyperglycemia, without long-term current use of insulin ([facility]) (Primary Dx); Encounter for dietary consultation; Vitamin D deficiency; Primary hypertension ([facility]); Class 2 severe obesity due to excess calories with serious comorbidity and body mass index (BMI) of 35.0 to 35.9 in adult (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); Hyperglycemia; Renal cyst; Kidney stones Start: 04-28-2024 End: 04-28-2024 ambulatory CORAL CHRISTINA [facility] Start: 03-04-2024 End: 03-04-2024 Office outpatient visit 15 minutes Tremayne Cade MD Work Phone: [facility] Comment on above: Left ventricular hyp ertrophy (Primary Dx); Primary hypertension; Mixed hyperlipidemia Start: 03-04-2024 End: 03-04-2024 ambulatory DANA LUTHER [facility] Start: 03-02-2024 End: 03-02-2024 Telephone encounter Rosalia Fitch C[facility] Start: 02-12-2024 End: 02-12-2024 Lisette flowsheet Edson Tompkins MD Work Phone: [facility] Start: 02-12-2024 End: 02-12-2024 Bamboo flowsarni Tompkins MD Work Phone: [facility] Start: 02-12-2024 End: 02-12-2024 Office outpatient visit 25 minutes Edson Tompkins MD Work Phone: [facility] Comment on above: Type 2 diabetes joan itus with hyperglycemia, without long-term current use of insulin ([facility]) Start: 02-12-2024 End: 02-12-2024 ambulatory EDSON TOMPKINS Not Available Start: 02-08-2024 End: 02-09-2024 ambulatory [facility] Start: 01-20-2024 End: 01-20-2024 ambulatory [facility] Start: 12-30-2023 End: 12-30-2023 Telephone encounter Ping Castelan [facility] Start: 12-29-2023 End: 12-29-2023 Orders Only Not In System Ref Prov [facility] Start: 12-18-2023 End: 12-18-2023 ambulatory DO Paige Rumschlag Work Phone: [facility] Work Phone: Start: 12-18-2023 End: 12-18-2023 Departed Referred DO Paige Rumschlag Work Phone: [facility] Start: 12-14-2023 End: 12-14-2023 Emergency department patient visit [facility] Start: 12-11-2023 End: 12-11-2023 [facility] Start: 12-09-2023 End: 12-09-2023 Telephone encounter [facility] Start: 11-27-2023 End: 11-27-2023 Bamboo flowsrani Tompkins MD Work Phone: [facility] Start: 11-27-2023 End: 11-27-2023 Bamboo flowsrani Tompkins MD Work Phone: [facility] Start: 11-27-2023 End: 11-27-2023 Office outpatient visit 25 minutes Edson Tompkins MD Work Phone: [facility] Comment on above: Type 2 diabetes joan itus with hyperglycemia, without long-term current use of insulin (CMS/HCC) (Primary Dx); Encounter for dietary consultation; Vitamin D deficiency; Primary hypertension ([facility]/HCC); Class 1 obesity due to excess calories with serious comorbidity and body mass index (BMI) of 30.0 to 30.9 in adult Start: 11-27-2023 End: 11-27-2023 ambulatory EDSON TOMPKINS Not Available Start: 11-10-2023 End: 11-10-2023 Emergency department patient visit [facility] Start: 10-01-2023 End: 10-01-2023 Office outpatient new 30 minutes Aicha Kaur DO Work Phone: [facility] Comment on above: Acute epididymitis ( Primary Dx); Right inguinal hernia; Recurrent right inguinal hernia; Umbilical hernia without obstruction and without gangrene; Class 2 severe obesity due to excess calories with serious comorbidity in adult, unspecified BMI ([facility]-HCC); Primary hypertension Start: 10-01-2023 End: 10-01-2023 ambulatory AICHA KAUR [facility] Start: 09-23-2023 End: 09-23-2023 Emergency department patient visit [facility] Start: 09-09-2023 End: 09-10-2023 Telephone encounter Jossie Bustamante MD Work Phone: [facility] Start: 08-28-2023 End: 08-29-2023 Emergency department patient visit DULCE LLAMAS [facility] Start: 07-16-2023 End: 07-17-2023 ambulatory Jose Love Facility:[facility] Start: 07-16-2023 End: 09-02-2023 Pre-admission assessment Jose Love [facility] Start: 07-16-2023 End: 07-16-2023 Patient encounter procedure Jose Wiley Kate [facility] Start: 07-14-2023 End: 07-14-2023 Office outpatient visit 15 minutes Jhonny Elias MD Work Phone: [facility] Comment on above: Primary hypertension (Primary Dx); Mixed hyperlipidemia Start: 07-11-2023 End: 07-11-2023 Telephone encounter Rosalia Fitch CMA [facility] Start: 07-02-2023 ambulatory PAIGE SOTO Facilit y:[facility] Start: 06-12-2023 End: 06-12-2023 Office outpatient visit 15 minutes Dana Luther MD Work Phone: [facility] Comment on above: Primary hypertension (Primary Dx) Start: 06-11-2023 End: 06-11-2023 Telephone encounter Martine Sands CMA [facility] Start: 06-16-2022 End: 06-16-[address] DOCTOR EDDY Facility:[facility] Start: 05-20-2022 End: 05-20-[address] DOCTOR EDDY Facility:[facility] Start: 01-17-2022 Orders Only Shadi august DO Work Phone: Cardiology Comment on above: Syncope, unspecified syncope type (Primary Dx) Start: 01-16-2022 Telephone encounter No One (Historic al) Referring Physician Comment on above: External Referrals/r esources Start: 11-20-2021 End: 11-21-2021 ambulatory TRACEY CARRERA Facility:[facility] Start: 11-14-2021 ambulatory TRACEY CARRERA Faci lity:[facility] Start: 11-11-2021 End: 11-11-[address] SERGIO BRAVO Facility:[facility] Start: 08-28-2021 End: 08-28-2021 Patient encounter procedure Catarina Laurent [facility] Start: 06-25-2021 End: 06-25-2021 Patient encounter procedure Catarina Laurent [facility] Start: 06-12-2021 End: 06-13-2021 Admission to same day surgery center Anderson Cottrell [facility] Start: 05-30-2021 End: 06-06-2021 Pre-admission assessment Anderson Cottrell [facility] Start: 08-31-2018 End: 09-01-2018 [facility] Start: 05-25-2018 End: 05-26-2018 Patient encounter procedure OLESYA Chirinos HELIO [facility] Procedures Date Procedure Procedure Detail Performing Clinician Start: 09-30-2024 Gluc bld gluc mntr d ev cleared fda spec home use Edson Tompkins MD Work Phone: Start: 09-13-2024 Follow-up visit Follow-up AICHA SANTOS Start: 06-03-2024 Gluc bld gluc mntr d ev cleared fda spec home use Edson Tompkins MD Work Phone: Start: 03-04-2024 Follow-up visit Follow-up DANA LUTHER Start: 02-12-2024 Gluc bld gluc mntr d ev cleared fda spec home use Edson Tompkins MD Work Phone: Start: 02-08-2024 Adult depression screening assessment Rosalia Fitch CMA Start: 12-18-2023 Level i surg patholo gy gross examination only Not In System Ref Prov Start: 12-18-2023 MULTIPLE LABS Not In Sy stem Ref Prov Start: 11-27-2023 Gluc bld gluc mntr d ev cleared fda spec home use Edson Tompkins MD Work Phone: Start: 07-07-2023 Microalbumin [Mass/volume] in Urine by Test strip Rosalia Fitch [employer] Start: 06-12-2023 Ecg routine ecg w/le ast 12 lds w/i&r Jhonny Elias MD Work Phone: Start: 06-12-2021 Cervical arthrodesis Tom Cottrell Start: 12-13-2019 Epidural injection o f cervical spine using fluoroscopic guidance Anderson Cottrell Comment on above: 90% relief Start: 11-15-2019 Epidural injection o f lumbar spine using fluoroscopic guidance Anderson Cottrell Comment on above: 50-60% relief Start: 03-11-2018 Shoulder reconstruction Anderson Cottrell Start: 12-10-2016 Knee arthrogram Anderson Cottrell Arthroscopy of knee Anderson Cottrell H/O: surgery History of testi cular surgery( Confirmed ) Anderson Cottrell Hernia repair Anderson Cottrell Plan of Treatment Date Care Activity Detail Author Start: 08-11-2034 DTaP,Tdap and Td Vaccines (5 - Td or Tdap) DTaP,Tdap and Td Vaccines (5 - Td or Tdap) [facility] Start: 01-11-2033 DTaP,Tdap and Td Vaccines (4 - Td or Tdap) DTaP,Tdap and Td Vaccines (4 - Td or Tdap) [facility] Start: 09-13-2025 Adult BMI Screening Adult BMI Screening [facility] Start: 09-13-2025 Tobacco Screening Tobacco Screening [facility] Start: 08-12-2025 Adult BMI Screening Adult BMI Screening [facility] Start: 08-12-2025 Tobacco Screening Tobacco Screening [facility] Start: 08-10-2025 Adult BMI Screening Adult BMI Screening [facility] Start: 08-10-2025 Tobacco Screening Tobacco Screening [facility] Start: 07-28-2025 Adult BMI Screening Adult BMI Screening [facility] Start: 04-28-2025 Adult BMI Screening Adult BMI Screening [facility] Start: 04-28-2025 Tobacco Screening Tobacco Screening [facility] Start: 02-11-2025 End: 02-11-2025 Patient encounter procedure [facility] Start: 02-07-2025 Adult BMI Screening Adult BMI Screening [facility] Start: 02-07-2025 Depression Screening Depression Screening [facility] [facility] Start: 02-07-2025 Tobacco Screening Tobacco Screening [facility] Start: 12-31-2024 Hemoglobin A1c measurement Diabetes: Hemoglobin A1C [facility] Start: 12-13-2024 Adult BMI Screening Adult BMI Screening [facility] Start: 12-13-2024 Tobacco Screening Tobacco Screening [facility] Start: 11-09-2024 Adult BMI Screening Adult BMI Screening [facility] Start: 11-01-2024 Influenza vaccination [facility] Start: 10-08-2024 End: 10-08-2024 Patient encounter procedure 10/08/2024 8:50 AM EDT [facility] [address] [place] [address] Dashawn Oleary MD 53[address] [facility] [address] [address] [facility] Start: 09-30-2024 Adult BMI Screening Adult BMI Screening [facility] Start: 09-30-2024 Tobacco Screening Tobacco Screening [facility] Start: 09-30-2024 End: 09-30-2024 Patient encounter procedure 09/30/2024 11:10 AM EDT Office Visit [facility] [address] [place] [address] Edsno Tompkins MD [address] [place] [address] [facility] Start: 09-02-2024 Hemoglobin A1c measurement Diabetes: Hemoglobin A1C [facility] Start: 08-27-2024 Adult BMI Screening Adult BMI Screening [facility] Start: 08-27-2024 Tobacco Screening Tobacco Screening [facility] Start: 08-27-2024 End: 08-27-2024 Patient encounter procedure 08/27/2024 10:20 AM EDT Appointment [facility] [address] [place] [address] [facility] [place] Start: 08-27-2024 Subsequent hospital visit by physician 08/27/2024 10:20 AM EDT Hospital Encounter [facility] [address] [place] [address] [facility] [address] Start: 08-23-2024 End: 08-23-2024 Patient encounter procedure 08/23/2024 2:45 PM EDT Office Visit [facility] [address] [place] [address] [facility] [place] [phone] Aicha Santos MD [address] [place] [address] [facility] Start: 08-17-2024 End: 08-17-2024 Patient encounter procedure 08/17/2024 7:[address] [facility] [address] [place] [phone] [facility] Start: 08-12-2024 End: 08-12-2024 Patient encounter procedure 08/12/2024 2:30 PM EDT Office Visit [facility] [address] [facility] 1 [place] [phone] Nicolás Maria MD [address] [place] [address] [facility] Start: 08-12-2024 End: 08-12-2025 CTA Heart and Coronary arteries WO and W contrast IV CT angiogram coronary arteries with or without scoring Imaging Routine Chest pain, unspecified type Expected: 08/12/2024, Expires: 08/12/2025 [facility] Work Phone: Comment on above: Expected: 08/12/2024, Expires: Start: 07-29-2024 End: 01-29-2026 US.doppler Renal vessels - bilateral Vas renal artery duplex complete Vascular Ultrasound Routine 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 Start: 07-06-2024 Adult BMI Follow Up Plan Adult BMI Follow Up Plan [facility] Start: 07-06-2024 Urine screening for protein [facility] Start: 06-11-2024 Adult BMI Screening [facility] Start: 06-11-2024 Tobacco Screening [facility] Start: 06-03-2024 End: 06-03-2025 25-hydroxyvitamin D3 [Mass/volume] in Serum or Plasma Vitamin D 25 hydroxy Total Lab Routine Type 2 diabetes mellitus with hyperglycemia, without long-term current use of insulin (CMS/HCC) Expected: 06/03/2024 (Approximate), Expires: 06/03/2025 [facility] [employer] Comment on above: Expected: 06/03/2024 (Approximate), Expi res: 06/03/2025 Start: 06-03-2024 End: 06-03-2025 C-peptide C-peptide Lab Routine Type 2 diabetes mellitus with hyperglycemia, without long-term current use of insulin (CMS/HCC) Expected: 06/03/2024 (Approximate), Expires: 06/03/2025 [facility] [employer] Work Phone: Comment on above: Expected: 06/03/2024 (Approximate), Expi res: 06/03/2025 Start: 06-03-2024 End: 06-03-2025 Lipid 1996 panel - Serum or Plasma Lipid panel Lab Routine Type 2 diabetes mellitus with hyperglycemia, without long-term current use of insulin (CMS/HCC) Expected: 06/03/2024 (Approximate), Expires: 06/03/2025 [facility] Comment on above: Expected: 06/03/2024 (Approximate), Expi res: 06/03/2025 Start: 06-03-2024 End: 06-03-2025 Microalbumin/Creatinine panel in random Urine Microalbumin / creatinine urine ratio Lab Routine Type 2 diabetes mellitus with hyperglycemia, without long-term current use of insulin ([facility]) Expected: 06/03/2024 (Approximate), Expires: 06/03/2025 [facility] Comment on above: Expected: 06/03/2024 (Approximate), Expi res: 06/03/2025 Start: 06-03-2024 End: 06-03-2025 Renal function panel Renal function panel Lab Routine Type 2 diabetes mellitus with hyperglycemia, without long-term current use of insulin (CMS/HCC) Expected: 06/03/2024 (Approximate), Expires: 06/03/2025 [facility] Comment on above: Expected: 06/03/2024 (Approximate), Expi res: 06/03/2025 Start: 06-03-2024 End: 06-03-2024 Patient encounter procedure [facility] Comment on above: Type 2 diabetes mellitus with hyperglyce cristhian, without long-term current use of insulin ([facility]) Start: 06-02-2024 End: 03-04-2025 Comprehensive metabolic 2000 panel - Serum or Plasma CMP Lab Routine Primary hypertension Expected: 06/02/2024 (Approximate), Expires: 03/04/2025 [facility] [employer] Comment on above: Expected: 06/02/2024 (Approximate), Expi res: 03/04/2025 Start: 06-02-2024 End: 03-04-2025 Lipid panel Lipid panel Lab Routine Mixed hyperlipidemia Expected: 06/02/2024 (Approximate), Expires: 03/04/2025 [employer] Work Phone: Comment on above: Expected: 06/02/2024 (Approximate), Expi res: 03/04/2025 Start: 06-01-2024 End: 06-01-2024 Patient encounter procedure 06/01/2024 3:30 PM EDT Office Visit [facility] [address] [place] [address] Micaela Wheeler, THREAD CHECKER-HOME HEALTH CARE WORKER [address] [facility] [address] [place] [phone] [facility] Start: 05-08-2024 Hemoglobin A1c measurement Diabetes: Hemoglobin A1C [facility] Start: 04-30-2024 End: 04-30-2025 XR Lumbar spine Views W flexion and W extension X-ray spine lumbar ap, lateral, flexion and extension only Imaging Routine Back pain, unspecified back location, unspecified back pain laterality, unspecified chronicity Expected: 04/30/2024, Expires: 04/30/2025 [facility] Work Phone: Comment on above: Expected: 04/30/2024, Expires: Start: 04-28-2024 End: 04-28-2025 US Retroperitoneum Ultrasound retroperitoneal complete Imaging Routine Chronic midline low back pain with bilateral sciatica Expected: 04/28/2024, Expires: 04/28/2025 [facility] Work Phone: Comment on above: Expected: 04/28/2024, Expires: Start: 04-28-2024 End: 04-28-2024 Patient encounter procedure 04/28/2024 9:00 AM EST Office Visit [facility] [address] [place] [address] Coral Christina PA [address] [place] [address] [facility] Start: 03-04-2024 End: 03-04-2024 Patient encounter procedure 03/04/2024 3:15 PM EST Office Visit [facility] [address] [facility] [address] [place] [address] Tremayne Cade MD [address] [place] [address] Dana Luther MD [address] [place] [address] [facility] Start: 02-25-2024 Adult BMI Screening Adult BMI Screening [facility] Start: 02-25-2024 Tobacco Screening Tobacco Screening [facility] Start: 02-12-2024 End: 02-12-2024 Patient encounter procedure [facility] Comment on above: Arrived Start: 01-15-2024 End: 01-15-2024 Patient encounter procedure 01/15/2024 2:30 PM EST Office Visit [facility] [address] [place] [address] Tremayne Cade MD [address] [place] [address] [facility] Start: 12-18-2023 [facility] Start: 11-27-2023 End: 11-27-2023 Patient encounter procedure 11/27/2023 11:20 AM EDT Office Visit [facility] [address] [place] [address] Edson Tompkins MD [address] [place] [address] Arrived [facility] Comment on above: Arrived Start: 11-17-2023 End: 07-13-2024 Lipid panel Lipid panel Lab Routine Mixed hyperlipidemia Expected: 11/17/2023, Expires: 07/13/2024 [facility] Work Phone: Comment on above: Expected: 11/17/2023, Expires: Start: 11-02-2023 Influenza vaccination Influenza Vaccine [facility] Start: 10-15-2023 End: 10-15-2023 Patient encounter procedure 10/15/2023 2:30 PM EDT Office Visit [facility] [address] [place] [phone] Aicha Kaur, DO [address] [place], [place] [id number] [facility] Start: 10-01-2023 End: 10-01-2023 Patient encounter procedure 10/01/2023 8:30 AM EDT Office Visit [facility] [address] [place] [address] Aicha Kaur DO [address] [place], [place] [id number] [facility] Start: 08-28-2023 LIPID SCREEN LIPID SCREEN [facility] Start: 07-14-2023 End: 07-14-2023 Patient encounter procedure 07/14/2023 3:15 PM EDT Office Visit [facility] [address] [place] [address] Jhonny Elias MD [address] [place] [address] [facility] Start: 06-12-2023 End: 06-12-2023 Patient encounter procedure 06/12/2023 3:00 PM EDT Office Visit [facility] [address] [place] [address] Dana Luther MD [address] [place] [address] Jhonny Elias MD [address] [facility] [address] [place] [address] [facility] Start: 11-01-2021 Influenza vaccination INFLUENZA (#1) [facility] Start: 03-03-2021 DEPRESSION ASSESSMENT DEPRESSION ASSESSMENT [facility] Start: 07-11-1999 Urine microalbumin profile DTAP,TDAP,TD (1 - Tdap) [facility] Start: 1998 Adult BMI Follow Up Plan Adult BMI Follow Up Plan [facility] Start: 1998 Diabetic foot examination Diabetic Foot Exam [facility] Start: 1998 HEPATITIS C SCREENING HEPATITIS C SCREENING [facility] Start: 1998 HIV SCREENING HIV SCREENING [facility] Start: 1992 Depression Screening Depression Screening [facility] Start: 1990 Glaucoma screening Diabetes: Retinopathy Screening [facility] Start: 01-10-1981 COVID-19 VACCINE (#1) COVID-19 VACCINE (#1) [facility] Start: 1980 Glaucoma screening Diabetic Ophthalmology Exam [facility] Start: 1980 HEPATITIS B (1 of 3 - 3-dose series) HEPATITIS B (1 of 3 - 3-dose series) [facility] Start: 1980 Statin Use: Diabetic Statin Use: Diabetic [facility] End: 01-17-2023 ECG COMPLETE ECG COMPLETE ECG Routine Syncope, unspecified syncope type 1 Occurrences starting 01/17/2022 until 01/17/2023 [facility] Work Phone: Comment on above: 1 Occurrences starting 01/17/2022 until 01/17/2023 POCT EKG POCT EKG ECG Rou nereida Primary hypertension 06/12/2023 [facility] Work Phone: [facility] Immunizations Immunization Date Immunization Notes Care Provider Preston pineda 01-11-2023 tetanus toxoid, redu kathrine diphtheria toxoid, and acellular pertussis vaccine, adsorbed Martine Sands CMA [facility] 02-10-2015 tetanus toxoid, redu kathrine diphtheria toxoid, and acellular pertussis vaccine, adsorbed Dankamamartín Love [facility] 04-07-2014 tetanus toxoid, redu kathrine diphtheria toxoid, and acellular pertussis vaccine, adsorbed Mohamad Mouchli [facility] Payers Date Payer Category Payer Self-pay [id number] 2023 Commercial Managed C are - PPO [employer] [id number] 2023 [facility] Insurance [employer] [id number] 2023 Unknown [id number] [id number]. [id number] 2023 Unknown [id number] 2022 Worker's Compensation WORKER'S C OMPENSATION WORKER'S [id number] ONLY [id number] 2022-Present [address] [address] [id number] [id number] 2018 Medicaid [place] MEDICAID TERM 01/30 [facility] MEDICAID [id number] 2018-2022 [address] [place] [address] Medicaid [id number] [id number] 1980 Unknown [id number] 2.16.840.1.297556.3.579. 2.174 1980 Unknown [id number] 2.16.840.1.103418.3.579. 2.175 1980 Unknown [id number] 2.16.840.1.579877.3.579. 2.593 1980 Unknown [id number] 2.16.840.1.507355.3.579. 2.593 1980 Unknown [id number] 2.16.840.1.555174.3.579. 2.593 1980 Unknown [id number] 2.16.840.1.551319.3.579. 2.593 1980 Unknown [id number] 2.16.840.1.544759.3.579. 2.593 1980 Unknown [id number] 2.16.840.1.094464.3.579. 2.727 1980 Unknown [id number] 2.16.840.1.575536.3.579. 2.727 1980 Unknown [id number] 2.16.840.1.817653.3.579. 2.1286 1980 Unknown [id number] 2.16.840.1.849719.3.579. 2.128 1980 Unknown [id number] 2.16.840.1.791949.3.579. 2.1285 1980 Unknown [id number] 2.16.840.1.501088.3.579. 2.128 1980 Unknown [id number] 2.16.840.1.397512.3.579. 2.128 1980 Unknown [id number] 2.16.840.1.020743.3.579. 2.1285 1980 Unknown [id number] 2.0.1.770064.3.579. 2.1285 1980 Unknown [id number] 2.840.1.659480.3.579. 2.1285 1980 Unknown [id number] 2.0.1.211652.3.579. 2.1285 1980 Unknown [id number] 2.840.1.318644.3.579. 2.1285 1980 Unknown [id number] 2..1.292206.3.579. 2.1285 1980 Unknown [id number] 2..1.820468.3.579. 2.1285 1980 Unknown [id number] 2..1.389382.3.579. 2.1285 1980 Unknown [id number] 2.0.1.241035.3.579. 2.1285 1980 Unknown [id number] 2.1.352816.3.579. 2.1285 1980 Unknown [id number] 2.0.1.233982.3.579. 2.1285 1980 Unknown [id number] 2.1.941804.3.579. 2.1285 1980 Unknown [id number] 2.0.1.102936.3.579. 2.1285 1980 Unknown [id number] 2.0.1.906433.3.579. 2.1258 1980 Unknown [id number] 2.840.1.763398.3.579. 2.1258 1980 Unknown [id number] 2.840.1.471801.3.579. 2.1258 1980 Unknown [id number] 2.0.1.276572.3.579. 2.1259 Unknown [id number] Unknown [id number] 2.16.840.1.092915.3.579. 2.531 Social History Date Type Detail Facility Start: 10-11-2019 End: 08-01-2022 Tobacco smoking status Never smoked tobacco (finding) [facility] Start: 11-27-2023 End: 09-30-2024 Sex Assigned At Male [facility] smoking consumption unknown [facility] Start: 1980 Sex Assigned At Not on file [facility] Start: 1980 Sex Assigned At Male [facility] Start: 03-07-2022 End: 08-01-2022 Tobacco use and exposure Smokeless tobacco non-user [facility] Start: 12-16-2023 End: 09-30-2024 Alcoholic beverage intake Lifetime non-drinker (finding) [facility] Start: 11-27-2023 End: 09-30-2024 History of Social function [facility] Start: 02-08-2024 End: 09-13-2024 Alcoholic beverage intake Ex-drinker (finding) [facility] Has the [email or web address], or [employer] threatened to shut off services in your home in past 12Mo No [facility] Do you belong to any clubs or organizations such as yazidi groups, unions, fraternal or athletic groups, or school groups? Yes [facility] Are you now , , , , never or living with a partner? [facility] How often to you hav e a drink containing alcohol? 2-4 times a month [facility] How many standard dr inks containing alcohol do you have on a typical day? 1 or 2 [facility] How often do you hav e 6 or more drinks on 1 occasion? Never [facility] How hard is it for y ou to pay for the very basics like food, housing, medical care, and heating Not hard at all [facility] Do you feel stress - tense, restless, nervous, or anxious, or unable to sleep at night because your mind is troubled all the time - these days [OSQ] Not at all [employer] Start: 10-06-2014 Sex Male (finding) [facility] Medical Equipment Procedure Code Equipment Code Equipment Origin al Text Equipment Identifier Dates FDA Start: 06-12-2021 FDA Start: 06-12-2021 FDA Start: 06-12-2021 FDA Start: 06-12-2021 FDA Start: 06-12-2021 FDA Start: 06-12-2021 FDA Start: 06-12-2021 FDA Start: 06-12-2021 FDA Start: 06-12-2021 FDA Start: 06-12-2021 FDA Start: 06-12-2021 FDA Start: 06-12-2021 CERVICAL ANTERIO R DISCECTOMY W/ FUSION, Simba ARMENTA, Anderson Hernandez 06/12/21 Unknown Neck FDA Start: 06-12-2021 CERVICAL ANTERIO R DISCECTOMY W/ FUSION, Simba ARMENTA, Anderson Hernandez 06/12/21 Unknown Neck FDA Start: 06-12-2021 CERVICAL ANTERIO R DISCECTOMY W/ FUSION, Simba ARMENTA, Anderson A 06/12/21 Unknown Neck FDA Start: 06-12-2021 CERVICAL ANTERIO R DISCECTOMY W/ FUSION, Simba ARMENTA, Anderson Hernandez 06/12/21 Unknown Neck FDA Start: 06-12-2021 CERVICAL ANTERIO R DISCECTOMY W/ FUSION, Simba ARMENTA, Anderson A 06/12/21 Unknown Neck FDA Start: 06-12-2021 CERVICAL ANTERIO R DISCECTOMY W/ FUSION, Simba ARMENTA, Anderson Hernandez 06/12/21 Unknown Neck FDA Start: 06-12-2021 CERVICAL ANTERIO R DISCECTOMY W/ FUSION, Simba ARMENTA, Anderson A 06/12/21 Unknown Neck FDA Start: 06-12-2021 CERVICAL ANTERIO R DISCECTOMY W/ FUSION, Simba ARMENTA, Anderson A 06/12/21 Unknown Neck FDA Start: 06-12-2021 CERVICAL ANTERIO R DISCECTOMY W/ FUSION, Simba ARMENTA, Anderson A 06/12/21 Unknown Neck FDA Start: 06-12-2021 CERVICAL ANTERIO R DISCECTOMY W/ FUSION, Simba ARMENTA, Anderson A 06/12/21 Unknown Neck FDA Start: 06-12-2021 CERVICAL ANTERIO R DISCECTOMY W/ FUSION, Anderson Cottrell MD 06/12/21 Unknown Neck FDA Start: 06-12-2021 CERVICAL ANTERIO R DISCECTOMY W/ FUSION, Anderson Cottrell MD 06/12/21 Unknown Neck FDA Start: 06-12-2021 CERVICAL ANTERIO R DISCECTOMY W/ FUSION, Anderson Cottrell MD 06/12/21 Unknown Neck FDA Start: 06-12-2021 CERVICAL ANTERIO R DISCECTOMY W/ FUSION, Anderson Cottrell MD 06/12/21 Unknown Neck FDA Start: 06-12-2021 CERVICAL ANTERIO R DISCECTOMY W/ FUSION, Anderson Cottrell MD 06/12/21 Unknown Neck FDA Start: 06-12-2021 CERVICAL ANTERIO R DISCECTOMY W/ FUSION, Anderson Cottrell MD 06/12/21 Unknown Neck FDA Start: 06-12-2021 Start: 12-02-2021 End: 08-12-2024 Anch Sut 5.5mm Multifix S Ult Rpl [id number] - Sna - [id number] Start: 03-11-2018 Goals Date Patient Goal Desired Activity /State Personal health goal Comment on above: Formatting of this n ote might be different from the original. Evaluation of progress towards goal: hopes to DC to home today, is in better position to afford insulin Personal health goal Comment on above: Formatting of this n ote might be different from the original. Evaluation of progress towards goal: Safe transition from hospital to home. Functional Status Date Assessment Result Facility 07-16-2023 Functional Status N/A [facility] 08-28-2021 Functional Status N/A [facility] Clinical Notes 06-13-2021 to 09-30-2024 Edson Tompkins MD - 09/30/2024 11:10 AM Terence Santos MD - 09/13/2024 12:30 PM EDTTelephone Encounter - Meka Reyes RN - 08/27/2024 10:41 AM Jr Maria MD - 08/12/2024 2:30 PM EDT Note Date & Type Note Facility 09-30-2024 History of Present illness Narrative Charlie Valdez is a 44 y.o. male No ref. provider found presents with chief complaint of Diabetes HPI: IM : 08/2024 Follow-up visit 09/30/2024 he is off all his medication still, A1c 7.5 blood sugar 174, he is willing to try new meds. GFR 64 on 08/2024. IM : 06/2024 Follow-up visit 06/03/2024 A1c 6.9, low sugar 150 currently, not on any medication fro DM, he stopped soda he tried to lose weight. Only his medication is lisinopril 20 and atorvastatin 80. Interim History: 02/2024 Follow-up visit of 02/12/2024 for type 2 diabetes. A1c 11.8 , bg 192, he was in the hospital and A1c 11.8, started him on Lantus 20 twice a day, and NovoLog sliding scale, he did not start actos I prescribed it for him from last visit. Interim History: 11/2023 Follow-up visit of for type 2 diabetes. A1c 9.2 , bg 281, Off metformin caused him GI symptoms, off Trulicity not on any medication at this time, lab done in July/2023 C-peptide detected. Interim History: 07/2023 Follow-up visit of 07/07/2023 for type 2 diabetes. A1c 8.6 , bg 254, off Trulicity 1.5 mg weekly for 2-3 months Interim History: 06/2022 Follow-up visit of 06/17/2022 for type 2 diabetes. A1c 5.9, bg 188, off metformin 100 once a day, on Trulicity 1.5 mg weekly. Interim History: 11/2021 Follow-up visit of 11/23/2021 for type 2 diabetes. A1c 5.6, bg 201, off metformin 100 once a day, on Trulicity 1.5 Interim History: 08/2021 Follow-up visit of 08/27/2021 for type 2 diabetes. A1c 5.3, bg 119 . He is on metformin 100 once a day, on Trulicity 1.5 Interim History: 03/2021 Follow-up visit of 03/12/2021for type 2 diabetes. He is off Lantus 20 , Humalog barely use it , He is on metformin 100 once a day, on trulicity 1.5. off abilify Interim History: 11/2020 Follow-up visit of 11/21/2020for type 2 diabetes. He is on Lantus 20 , Humalog barely use it , He is on metformin 100 once a day, on trulicity 1.5 Interim History: 08/2020 Follow-up visit of 08/29/2020for type 2 diabetes. He is on Lantus 20 , Humalog 4-6-8 only scale #2 prn , He is on metformin 100 once a day, off Jardiance 25 mg once a day due ot rash and yeast, and wants to start trulicity Interim History: 07/2020 Follow-up visit of 07/27/2020for type 2 diabetes. He is on Lantus 20 , Humalog only scale #2 prn , He is on metformin 100 once a day, and Jardiance 25 mg once a day Interim History: 06/13/2020 Follow-up visit of 06/13/2020for type 2 diabetes. He is off Lantus 60, off Humalog 12-15-18, only scale #2 prn , He is on metformin 100 once a day, and Jardiance 25 mg once a day, lab pending, bg in the office 176 Interim History: 03/29/2020 Follow-up visit of for type 2 diabetes. He is on Lantus 60, Humalog 12-15-18 plus scale #2, He is on metformin 100 once a day, and Jardiance 25 mg once a day, METER 130-600, AVG 1.4, AVG 371 Interim History: 03/2020 Follow-up visit of for type 2 diabetes. we saw him today with tele. He is on Lantus 60, Humalog 12-15-18 plus scale #2, He is on metformin 100 once a day ( said make his bg low) and Jardiance 25 mg once a day Interim History: 10/2019. Follow-up visit of 10/19/2019 for type 2 diabetes. A1c in the office is 9.5, blood sugar 357. He is on Lantus 50, Humalog 10-12-15 plus scale #2, did not bring his meter. He is on metformin 500 twice a day and Jardiance 25 mg once a day and he lost almost 17 pounds since last visit in July. Interim History 07/2019. Followup visit on 07/19/2019 for type 2 diabetes. A1c in the office is 8.6, blood sugar 314. CGM interpretation: 55 in good range, 40% in high range, 5% in very high range. Meter lower is 187, highest 464, average 278. He is currently on Lantus 50, Humalog 8 plus scale #3. Labs done in May total cholesterol 244, triglycerides 594, and kidney function within normal limits. Creatinine above 60. LDL 133, C-peptide 4.7, vitamin D 20. HPI: 05/20 New patient sent from [facility] for uncontrolled diabetes. A1c 9.4 and it was in April 10.4 when he was diagnosed recently. BUN 23, creatinine 1.42, GFR 56, but might be dehydrated. He found he was diabetic when he was started on Medrol Dosepak due to his chest and found his blood sugars 900s. I do not think he is in DKA, so he is only now on insulin Lantus 80 units and Humalog only sliding scale 3:50 above 150 with 3 units extra. Family history, numbness in his feet due to his back surgery, back problems, he does not have surgery. SUBJECTIVE: MEDICATIONS: Current Outpatient Medications Medication Instructions Aimovig (140 MG Dose) 140 mg, Every 28 days albuterol HFA 90 mcg/act inhaler 2 puffs, Every 4 hours PRN amLODIPine (NORVASC) 10 mg, Daily RT cetirizine (ZYRTEC ALLERGY) 10 mg, Daily Continuous Glucose Jailkeeper (FreeStyle Sarahy 2 [place]) device 1 Device Continuous Glucose Sensor (FreeStyle Sarahy 2 Sensor) misc 1 Device, Every 14 days ergocalciferol (Vitamin D-2) 1.25 MG (61704 UT) capsule 1 capsule, Weekly glimepiride (AMARYL) 2 mg, Oral, Daily before breakfast hydroCHLOROthiazide (HYDRODiuril) 12.5 MG tablet ibuprofen 600 mg, 3 times daily lisinopril-hydroCHLOROthiazide 10-12.5 MG tablet 1 tablet, Daily lisinopril-hydroCHLOROthiazide 20-25 MG tablet 1 tablet, Daily RT omeprazole (PRILOSEC) 40 mg, Daily before breakfast OneTouch Verio test strip pancrelipase, Njd-Afly-Edkd, (Zenpep) 14675-310348 units capsule delayed-release particles capsule 1 capsule, Daily pioglitazone (ACTOS) 30 mg, Oral, Daily simvastatin (Zocor) 20 MG tablet 1 tablet, Nightly Singulair 10 mg, Nightly Ubrelvy 100 MG tablet ALLERGIES: Allergies Allergen Reactions Meloxicam Rash and Shortness of breath Aspirin Unknown Other Reaction(s): heart rate increase Extreme tachycardia Other reaction(s): Tachycardia Mushroom Extract Complex (Obsolete) Swelling Other reaction(s): Anaphylaxis Oxycodone-Acetaminophen Other Reaction(s): addiction/mental issues Past Medical History: Diagnosis Date Bipolar disorder (HCC) Current use of insulin (HCC) Dietary counseling and surveillance HTN (hypertension) Obesity with body mass index (BMI) of 30.0 to 39.9 RLS (restless legs syndrome) Type 2 diabetes mellitus (HCC) Type 2 diabetes mellitus with other circulatory complications (HCC) Vitamin D deficiency Past Surgical History: Procedure Laterality Date ANTERIOR CRUCIATE LIGAMENT REPAIR Right [address] ANGIOGRAM HEART CORONARY 02/04/2021 CT ANGIOGRAM TAVR 02/04/2021 CT ANGIOGRAM HEART CORONARY 09/24/2020 CT ANGIOGRAM TAVR 09/24/2020 CT ANGIOGRAM HEART CORONARY 08/31/2024 CT ANGIOGRAM HEART CORONARY 08/31/2024 CT GUIDED TRANSVAGINAL TRANSRECTAL FLUID DRAIN 07/24/2024 CT GUIDED TRANSVAGINAL TRANSRECTAL FLUID DRAIN 07/24/2024 HERNIA REPAIR 2006 HI KNEE SCOPE,DIAGNOSTIC Right 12/08/[address] Hyde ROTATOR CUFF REPAIR Right 03/11/[address] Wise REVIEW OF SYMPTOMS: 14 POINT OF SYSTEM REVIEWED AND NEGATIVE OBJECTIVE: Constitutional: Afebrile @ home; no weakness or night sweats SKIN: No change in skin color; no itching, rash or lesions; no hair loss; HEENT: No HAs or injury; no dizziness; No difficulty with vision; no eye pain, discharge or lesions; no hearing loss or difficulty; no nasal discharge, NECK: No pain, limitation of motion, lumps or swollen glands RESP: No cough, wheezing or difficulty breathing. No CP with breathing; CARDIO: No CP , SOB or fatigue, No edema, palpitations or dyspnea with exertion GI: No N/V/D or abd. pain; good appetite with no recent change. No heart burn, liver or gallbladder disease; no rectal bleeding or pain : No urinary pain , frequency or odor. MUSCULOSKELETAL: No muscle pain or cramps; no extremity weakness.No joint pain, stiffness, swelling or limitation of movement NEUROLOGY: No H/O seizures, stroke or fainting. No weakness, tremors. Hematology: No bleeding problems or excessive bruising ENDOCRINE: No increase in hunger, thirst or urination; admits compliance to medical management plan Feet: numbness tingling yes , ulcers or skin break no Lab Results Component Value Date HGBA1C 7.5 09/30/2024 HGBA1C 6.9 06/03/2024 HGBA1C 9.4 11/27/2023 Lab Results Component Value Date GLU 174 09/30/2024 GLU 242 (H) 08/10/2024 GLU 178 (H) 07/24/2024 04/21/2019 12:00 PM 06/16/2020 12:00 PM 08/01/2022 1:03 PM 11/27/2023 11:35 AM 02/12/2024 12:11 PM 06/03/2024 11:09 AM 09/30/2024 11:18 AM Vitals BMI 39.31 kg/m2 39.31 kg/m2 35.65 kg/m2 30.65 kg/m2 34.87 kg/m2 35.29 kg/m2 35.59 kg/m2 BSA (m2) 2.47 m2 2.47 m2 2.41 m2 2.29 m2 2.38 m2 2.4 m2 2.41 m2 Systolic 120 160 120 Diastolic 70 88 78 Heart Rate 88 83 84 83 SpO2 95 % 94 % Resp 18 18 18 16 Height (in) 5' 10 5' 10 5' 11 6' 5' 11 ' 11 ' 11 Weight (lb) 274 274 255.6 226 250 253 255.2 Visit Report Report Report Report Report Report ASSESSMENT AND PLAN: Assessment/Plan Diagnoses and all orders for this visit: Type 2 diabetes mellitus with hyperglycemia, without long-term current use of insulin (HCC) - POCT glycosylated hemoglobin (Hb A1C) docked device - POCT glucose manually resulted - pioglitazone (Actos) 30 MG tablet; Take 1 tablet (30 mg) by mouth Daily I will start him back on actos 30 mg once a day. Encounter for dietary consultation Vitamin D deficiency Primary hypertension Class 2 severe obesity due to excess calories with serious comorbidity and body mass index (BMI) of 35.0 to 35.9 in adult ([facility]) Diet and exercise reviewed with the patient Follow up in about 4 months (around 01/30/2025). documented in this encounter [facility] 09-13-2024 History of Present illness Narrative Images from the original note were not included. [id number] [place] [address] A [facility] [id number] Patient: Charlie Valdez Date of : 1980 Encounter Date: 09/13/2024 History of Present Illness: The patient is a 44 y.o. male, an established patient, and is here for Chief Complaint Patient presents with Follow-up . Renal cyst. Some baseline back pain discomfort. That is stable. Cysto stable based on the ultrasound. Bosniak 1. Urinalysis today: No results for input(s): EXTPOCURCO , EXTPOCURCH , EXTPOCAPP , EXTPOCURBS , EXTPOCURBIL , EXTPOCUKET , EXTPOCUSPG , EXTPOCUHGB , EXTPOCUPRO , EXTPOCUURO , EXTPOCULEU , EXTPOCUNIT , EXTPOCUWBC , EXTPOCUBLD , EXTPOCURBC , EXTPOCUCRY , EXTPOCUBAC , EXTPOCUTREP , EXTPOCUPH , EXTPOCULEE in the last 72 hours. Last BUN and creatinine: Lab Results Component Value Date BUN 18 08/10/2024 Lab Results Component Value Date CREATININE 1.39 (H) 08/10/2024 Last PSA: Lab Results Component Value Date PSA 0.86 01/20/2024 No results found for: PROSTATICSP Past Medical, Family, and Social History Update: The following portions of the patient's history were reviewed and updated as appropriate: allergies, current medications, past family history, past medical history, past social history, past surgical history and problem list. Past Medical History: Diagnosis Date Allergic Anxiety Arthritis Asthma Back pain Bipolar 1 disorder ([facility]) Chronic headache Closed head injury COPD (chronic obstructive pulmonary disease) ([facility]) COVID 01/30/2021 CTE (chronic traumatic encephalopathy) Depression Diabetes mellitus ([facility]) Diabetes mellitus type I ([facility]) Eczema GERD (gastroesophageal reflux disease) Hx of brain damage Hypertension Migraine Narcotic abuse in remission ([facility]) history of problem with percocet, pt states he has since taken [place] without any issues - 03/06/18 Obesity Prolonged emergence from general anesthesia Shingles Sleep apnea Substance abuse ([facility]) Varicella Visual impairment glasses Past Surgical History: Procedure Laterality Date ARTHROSCOPY KNEE Right 12/08/2018 Performed by Dick Hyde Jr., DO at [facility] ARTHROSCOPY REPAIR ROTATOR CUFF SHOULDER Right 03/11/2018 Performed by Troy Wise DO at [facility] ARTHROSCOPY SHOULDER Right 03/11/2018 Performed by Troy Wise DO at [facility] INGUINAL HERNIA REPAIR Right 6 years old KNEE ARTHROSCOPY Right 2002 ACL NECK SURGERY 06/12/2021 SPINE SURGERY Family History Problem Relation Age of Onset No Known Problems Mother No Known Problems Father Current Outpatient Medications Medication Sig Dispense Refill atorvastatin (LIPITOR) 80 mg tablet Take 1 tablet (80 mg total) by mouth in the morning. 90 tablet 3 carvediloL (COREG) 6.25 mg tablet Take 1 tablet (6.25 mg total) by mouth in the morning and 1 tablet (6.25 mg total) before bedtime. 180 tablet 3 CHEST CONGESTION RELIEF DM 10-100 mg/5 mL liquid Take 5 mL by mouth every 12 (twelve) hours. clopidogreL (PLAVIX) 75 mg tablet Take 1 tablet (75 mg total) by mouth in the morning. 90 tablet 4 lisinopril-hydroCHLOROthiazide (PRINZIDE,ZESTORETIC) 20-25 mg per tablet Take 1 tablet by mouth in the morning. 30 tablet 0 metoprolol tartrate (LOPRESSOR) 50 mg tablet Take 1 tablet (50 mg total) by mouth as needed (take one pill the morning of the CT scan). 2 tablet 0 pantoprazole (PROTONIX) 40 mg EC tablet Take 1 tablet (40 mg total) by mouth in the morning and 1 tablet (40 mg total) before bedtime. Indications: heartburn. Current Facility-Administered Medications Medication Dose Route Frequency Provider Last Rate Last Admin nitroglycerin (NITROSTAT) disintegrating tablet 0.4 mg 0.4 mg sublingual Q5 Min PRN (All medications reviewed and updated by provider since last office visit or hospitalization) Allergies: Meloxicam, Aspirin, and Mushroom Tobacco History: Social History Tobacco Use Smoking Status Never Smokeless Tobacco Never (If patient a smoker, smoking cessation counseling offered) Social History: Social History Substance and Sexual Activity Alcohol Use Not Currently Alcohol/week: 1.0 standard drink of alcohol Review of Systems: General: Negative for chills and fever. Cardiovascular: Negative for chest pain and shortness of breath. Gastrointestinal: Negative for constipation, diarrhea, nausea, and vomitting. -per HPI Physical Exam: BP 125/82 Pulse 92 Ht 180.3 cm (5' 11 ) Wt 112 kg (247 lb) BMI 34.45 kg/m Nontoxic no apparent distress. Respirations nonlabored. Skin is dry. Awake alert oriented x3. Assessment and Plan: Charlie was seen today for follow-up. Diagnoses and all orders for this visit: Renal cyst Problem List High Renal cyst - Primary Overview ==== 09/13/2024 ==== ultrasound read simple cyst [...] agrees to referral to spine care center Follow-up: Return clinic as needed Aicha Santos MD I, Aicha Santos MD, was responsible for the contents of the history of present illness, physical examination and assessment and plan Independent visualization of tracing, image or specimen was made: I reviewed previous CT. Cysto. To be simple. There was no stone that I can see as well. This note was created with the assistance of a speech recognition program. While intending to generate a timely document that accurately reflects the content of the visit, no guarantee can be provided that every grammatical or spelling mistake has been or will be identified or corrected. Thank you for your understanding. documented in this encounter [facility] 08-27-2024 Miscellaneous Notes Opened in error documented in this encounter [facility] 08-27-2024 Telephone encounter Note Opened in error [facility] 08-26-2024 Miscellaneous Notes Called patient and LVM his FMLA paperwork will need to go to neurology per Dr. Sanz , We will need his neurologist number documented in this encounter [facility] 08-26-2024 Telephone encounter Note Called patient and LVM his FMLA paperwork will need to go to neurology per Dr. Sanz , We will need his neurologist number [facility] 08-17-2024 Miscellaneous Notes Spoke to patient about FMLA paperwork I will speak to Dr. Sanz on to find out if cardiology or Vascular will fill out the paperwork FYI will get with Dr. Sanz for clarification from Dr Sanz on this since LVM , we can not fill out the FMLA paper as Dr Sanz gave patient referral to [facility] documented in this encounter [facility] 08-17-2024 Telephone encounter Note Spoke to patient about FMLA paperwork I will speak to Dr. Sanz on to find out if cardiology or Vascular will fill out the paperwork FYI will get with Dr. Sanz for clarification from Dr Sanz on this since LV , we can not fill out the FMLA paper as Dr Sanz gave patient referral to [facility] 08-12-2024 History of Present illness Narrative Charlie Richie Valdez Date of visit: 08/12/2024 Date of : 1980 Age: 44 y.o. Patient Active Problem List Diagnosis Hyperglycemia Hypertension Vasovagal syncope Obesity (BMI 30-39.9) Hearing loss Eczematoid otitis externa Mixed hyperlipidemia Type 2 diabetes mellitus with hyperglycemia, without long-term current use of insulin (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 90 tablet 3 CHEST CONGESTION RELIEF DM 10-100 mg/5 mL liquid Take 5 mL by mouth every 12 (twelve) hours. clopidogreL (PLAVIX) 75 mg tablet Take 1 tablet (75 mg total) by mouth in the morning. 90 tablet 4 lisinopril-hydroCHLOROthiazide (PRINZIDE,ZESTORETIC) 20-25 mg per tablet Take 1 tablet by mouth in the morning. 30 tablet 0 pantoprazole (PROTONIX) 40 mg EC tablet Take 1 tablet (40 mg total) by mouth in the morning and 1 tablet (40 mg total) before bedtime. Indications: heartburn. benzonatate (TESSALON PERLES) 100 mg capsule Take 1 capsule (100 mg total) by mouth every 8 (eight) hours. (Patient not taking: Reported on 08/12/2024) 21 capsule 0 insulin glargine (LANTUS, SEMGLEE) 100 unit/mL (3 mL) insulin pen Inject 20 Units under the skin in the morning and 20 Units before bedtime. (Patient not taking: Reported on 08/12/2024) 15 mL 12 insulin lispro (HumaLOG) 100 unit/mL insulin pen Inject 2-10 Units under the skin 4 (four) times a day with meals and nightly. (Patient not taking: Reported on 08/12/2024) 15 mL 12 lisinopriL (PRINIVIL,ZESTRIL) 20 mg tablet Take 1 tablet (20 mg total) by mouth in the morning. (Patient not taking: Reported on 08/12/2024) 90 tablet 3 ondansetron ODT (ZOFRAN ODT) 4 mg disintegrating tablet Dissolve 1 tablet (4 mg total) on tongue every 6 (six) hours as needed for nausea or vomiting for up to 30 days. (Patient not taking: Reported on 08/12/2024) 10 tablet 0 pen needle, diabetic 32 gauge x /32 needle Inject 1 each under the skin 4 (four) times a day before meals and nightly. (Patient not taking: Reported on 08/12/2024) 100 each 0 No current facility-administered medications for this visit. Chief Complaint Patient presents with Follow-up EST PT 6 MO FU LABS DONE L/S LLD, PER PT NEEDS SOONER APPT HAVING [facility] 07/24/[facility], SCHED W/PT History of Present Illness 44-year-old male here in follow-up. This is the 1st time I meet him. He told me that he has been feeling horrible for this hold past year due to intermittent chest pains on and off he was followed here for essential hypertension he recently had a CTA head the was suggestive of intracranial fibromuscular dysplasia and ultrasound renal was ordered and it is still pending His blood pressure is slightly above goal he does not check it at home He report frequent headaches and multiple complaints as detailed below hard to know how much of this is cardiac Past Medical History: Diagnosis Date Allergic Anxiety Arthritis Asthma Back pain Bipolar 1 disorder ([facility]) Chronic headache Closed head injury COPD (chronic obstructive pulmonary disease) ([facility]) COVID 01/30/2021 CTE (chronic traumatic encephalopathy) Depression Diabetes mellitus ([facility]) Diabetes mellitus type I ([facility]) Eczema GERD (gastroesophageal reflux disease) Hx of brain damage Hypertension Migraine Narcotic abuse in remission ([facility]) history of problem with percocet, pt states he has since taken [place] without any issues - 03/06/18 Obesity Prolonged emergence from general anesthesia Shingles Sleep apnea Varicella Visual impairment glasses No data recorded No data recorded No data recorded Past Surgical History: Procedure Laterality Date ARTHROSCOPY KNEE Right 12/08/2018 Performed by Dick Hyde Jr., DO at [facility] ARTHROSCOPY REPAIR ROTATOR CUFF SHOULDER Right 03/11/2018 Performed by Troy Wise DO at [facility] ARTHROSCOPY SHOULDER Right 03/11/2018 Performed by Troy Wise DO at [facility] INGUINAL HERNIA REPAIR Right 6 years old KNEE ARTHROSCOPY Right 2002 ACL NECK SURGERY 06/12/2021 SPINE SURGERY Family History Problem Relation Age of Onset No Known Problems Mother No Known Problems Father Social History Socioeconomic History Marital status: Spouse name: Not on file Number of children: Not on file Years of education: Not on file Highest education level: Not on file Occupational History Not on file Tobacco Use Smoking status: Never Smokeless tobacco: Never Vaping Use Vaping status: Never Used Substance and Sexual Activity Alcohol use: Not Currently Alcohol/week: 1.0 standard drink of alcohol Drug use: Not Currently Sexual activity: Yes Partners: Female Other Topics Concern Caffeine Use Yes Comment: 3-4 cans of pepsi daily Social History Narrative Not on file Social Drivers of Health Financial Resource Strain: Low Risk (02/08/2024) Overall Financial Resource Strain (CARDIA) Difficulty of Paying Living Expenses: Not hard at all Food Insecurity: No Food Insecurity (08/12/2024) Hunger Screening Food Insecurity - Worry: Never True Food Insecurity - Inability: Never True Transportation Needs: No Transportation Needs (02/08/2024) PRAPARE - Transportation Lack of Transportation (Medical): No Lack of Transportation (Non-Medical): No Physical Activity: Not on file Stress: No Stress Concern Present (02/08/2024) [place] of Occupational Health - Occupational Stress Questionnaire Feeling of Stress : Not at all Social Connections: Moderately Integrated (02/08/2024) Social Connection and Isolation Panel [NHANES] Frequency of Communication with Friends and Family: More than three times a week Frequency of Social Gatherings with Friends and Family: More than three times a week Attends L[employer] Services: 1 to 4 times per year Active Member of Clubs or Organizations: Yes Attends Club or Organization Meetings: More than 4 times per year Marital Status: Interpersonal Safety: Not At Risk (02/08/2024) Humiliation, Afraid, Rape, and Kick questionnaire Fear of Current or Ex-Partner: No Emotionally Abused: No Physically Abused: No Sexually Abused: No Housing Instability: Low Risk (02/08/2024) Housing Instability Housing Instability: No Review of Systems Review of Systems Constitutional: Positive for malaise/fatigue. HENT: Negative. Eyes: Positive for blurred vision. Cardiovascular: Positive for chest pain. Respiratory: Positive for cough, shortness of breath and wheezing. Endocrine: Negative. Hematologic/Lymphatic: Negative. Skin: Negative. Musculoskeletal: Positive for back pain, joint swelling and muscle weakness. Gastrointestinal: Negative. Genitourinary: Negative. Neurological: Positive for dizziness, headaches, light-headedness, loss of balance and numbness. Psychiatric/Behavioral: Positive for depression. The patient is nervous/anxious. Allergic/Immunologic: Positive for environmental allergies. Vascular: Negative. CARDIOVASCULAR: Please review HPI. Physical Examination General appearance: Alert, oriented and cooperative. In no acute distress. Skin: Warm and dry to touch. Head: Normocephalic, without obvious abnormality, atraumatic. Ears, Nose, Mouth, Throat: Throat clear without erythema or exudate. Dentition intact. Eyes: Conjunctivae unremarkable, EOM intact. Neck: No JVD, No carotid bruit. Neck supple, trachea midline. Respiratory: Clear to auscultation bilaterally, no use of accessory muscles. Cardiovascular: RRR with normal S1 and S2 with no murmurs. Gastrointestinal: Soft, non-tender. Bowel sounds normal. Musculoskeletal: No peripheral edema. Neurologic: Oriented to time, person and place, affect appropriate. No focal/major motor defects noted. Psychiatric: Appropriate mood, memory and judgement. VITAL SIGNS: BP 134/86 Pulse 96 Ht 180.3 cm (5' 11 ) Wt 112 kg (247 lb) SpO2 97% BMI 34.45 kg/m No orders of the defined types were placed in this encounter. There are no discontinued medications. IMPRESSIONS/PLAN There are no diagnoses linked to this encounter. Chest pain, very atypical not anginal per history at rest intermittent Primary hypertension Hypertensive heart disease Intracranial fibromuscular dysplasia Diabetes mellitus type 1 COPD/former smoker Bipolar type 1 Obstructive sleep apnea Aspirin allergy Add Coreg 6.25 mg p.o. b.i.d. for better blood pressure control and antianginal although he has been is not typical for angina With the his recent diagnosis of intracranial fibromuscular dysplasia and ongoing chest pain , I will do an anatomical test type coronary CTA to further evaluate. We did discuss that he is at high-risk of SCAD if diagnosis is actually true and not intracranial atherosclerotic disease. Already refer to neurology per vascular Continue high-intensity statin and Plavix Continue lisinopril and hydrochlorothiazide Extra dose of Lopressor to be given the morning of the coronary CTA for goal heart rate less than 60 beats per minute prescribed - NICOLÁS MARIA MD 08/12/24 2:53 PM TODAYS ORDERS No orders of the defined types were placed in this encounter. FOLLOW UP No follow-ups on file. PCP: [facility] Referring Physician: No referring provider defined for this encounter. 2:50 pm Pt was given NTG stat 0.4 mg SL x [address] KAUR request. BP 164/98. 2:55 pm BP 130/90 Chest discomfort slightly better 3:03 pm BP 126/88- Dr. KAUR notified of outcome [facility] Miscellaneous Notes Phoned pt to remind of appointment scheduled on 08/12/2024, reminded patient to bring current list of medications, photo ID, insurance card or cards,and any copays that will be due at that time. [facility] [email or web address] 08-11-2024 Telephone encounter Note Phoned pt to remind of appointment scheduled on 08/12/2024, reminded patient to bring current list of medications, photo ID, insurance card or cards,and any copays that will be due at that time. 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 Will prescribe Plavix. Will refer him to neurology for intracranial fibromuscular dysplasia versus atherosclerotic occlusive disease. Recommend to continue high intensity statin therapy. 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 Will prescribe Plavix. Will refer him to neurology for intracranial fibromuscular dysplasia versus atherosclerotic occlusive disease. Recommend to continue high intensity statin therapy. documented in this encounter [facility] 07-29-2024 History of Present illness Narrative Images from the original note were not included. To: [facility] HPI: Charlie Valdez is a 44 y.o. male with With intracranial fibromuscular dysplasia. He does not have evidence of stenosis in the extracranial carotid arteries. He is on statin but he is not on aspirin. He is allergic to aspirin. Does not have any renal testing. Did not see neurology. No stroke or mini stroke.. Review of Systems: Review of Systems Constitutional: Negative. HENT: Negative. Respiratory: Negative. Cardiovascular: Negative. Gastrointestinal: Negative. Endocrine: Negative. Genitourinary: Negative. Musculoskeletal: Negative. Skin: Negative. Neurological: Negative. Hematological: Negative. Medications: Current Outpatient Medications on File Prior to Visit Medication Sig Dispense Refill atorvastatin (LIPITOR) 80 mg tablet Take 1 tablet (80 mg total) by mouth in the morning. 90 tablet 3 CHEST CONGESTION RELIEF DM 10-100 mg/5 mL liquid Take 5 mL by mouth every 12 (twelve) hours. lisinopril-hydroCHLOROthiazide (PRINZIDE,ZESTORETIC) 20-25 mg per tablet Take 1 tablet by mouth in the morning. 30 tablet 0 pantoprazole (PROTONIX) 40 mg EC tablet Take 1 tablet (40 mg total) by mouth in the morning and 1 tablet (40 mg total) before bedtime. Indications: heartburn. benzonatate (TESSALON PERLES) 100 mg capsule Take 1 capsule (100 mg total) by mouth every 8 (eight) hours. (Patient not taking: Reported on 07/29/2024) 21 capsule 0 insulin glargine (LANTUS, SEMGLEE) 100 unit/mL (3 mL) insulin pen Inject 20 Units under the skin in the morning and 20 Units before bedtime. (Patient not taking: Reported on 07/29/2024) 15 mL 12 insulin lispro (HumaLOG) 100 unit/mL insulin pen Inject 2-10 Units under the skin 4 (four) times a day with meals and nightly. (Patient not taking: Reported on 07/29/2024) 15 mL 12 lisinopriL (PRINIVIL,ZESTRIL) 20 mg tablet Take 1 tablet (20 mg total) by mouth in the morning. (Patient not taking: Reported on 07/29/2024) 90 tablet 3 ondansetron ODT (ZOFRAN ODT) 4 mg disintegrating tablet Dissolve 1 tablet (4 mg total) on tongue every 6 (six) hours as needed for nausea or vomiting for up to 30 days. (Patient not taking: Reported on 07/29/2024) 10 tablet 0 pen needle, diabetic 32 gauge x needle Inject 1 each under the skin 4 (four) times a day before meals and nightly. (Patient not taking: Reported on 07/29/2024) 100 each 0 Current Facility-Administered Medications on File Prior to Visit Medication Dose Route Frequency Provider Last Rate Last Admin [COMPLETED] gadoteridoL (PROHANCE) injection 10 mmol 20 mL 0.1 mmol/kg intravenous Once in imaging [facility] Davin, DO 10 mmol at 07/28/24 1134 [COMPLETED] sodium chloride 0.9 % flush 10 mL 10 mL intravenous Once in imaging [facility] Davin, DO 10 mL at 07/28/24 1134 Past Medical History: Past Medical History: Diagnosis Date Allergic Anxiety Arthritis Asthma Back pain Bipolar 1 disorder ([facility]) Chronic headache Closed head injury COPD (chronic obstructive pulmonary disease) ([facility]) COVID 01/30/2021 CTE (chronic traumatic encephalopathy) Depression Diabetes mellitus ([facility]) Diabetes mellitus type I ([facility]) Eczema GERD (gastroesophageal reflux disease) Hx of brain damage Hypertension Migraine Narcotic abuse in remission ([facility]) history of problem with percocet, pt states he has since taken [place] without any issues - 03/06/18 Obesity Prolonged emergence from general anesthesia Shingles Sleep apnea Varicella Visual impairment glasses Past Surgical History: Past Surgical History: Procedure Laterality Date ARTHROSCOPY KNEE Right 12/08/2018 Performed by Dick Hyde Jr., DO at [facility] ARTHROSCOPY REPAIR ROTATOR CUFF SHOULDER Right 03/11/2018 Performed by Troy Wise DO at [facility] ARTHROSCOPY SHOULDER Right 03/11/2018 Performed by Troy Wise DO at [facility] INGUINAL HERNIA REPAIR Right 6 years old KNEE ARTHROSCOPY Right 2002 ACL NECK SURGERY 06/12/2021 SPINE SURGERY Social and Family History: Social History Socioeconomic History Marital status: Spouse name: Not on file Number of children: Not on file Years of education: Not on file Highest education level: Not on file Occupational History Not on file Tobacco Use Smoking status: Never Smokeless tobacco: Never Vaping Use Vaping status: Never Used Substance and Sexual Activity Alcohol use: Not Currently Alcohol/week: 1.0 standard drink of alcohol Drug use: Not Currently Sexual activity: Yes Partners: Female Other Topics Concern Caffeine Use Yes Comment: 3-4 cans of pepsi daily Social History Narrative Not on file Social Drivers of Health Financial Resource Strain: Low Risk (02/08/2024) Overall Financial Resource Strain (CARDIA) Difficulty of Paying Living Expenses: Not hard at all Food Insecurity: No Food Insecurity (07/29/2024) Hunger Screening Food Insecurity - Worry: Never True Food Insecurity - Inability: Never True Transportation Needs: No Transportation Needs (02/08/2024) PRAPARE - Transportation Lack of Transportation (Medical): No Lack of Transportation (Non-Medical): No Physical Activity: Not on file Stress: No Stress Concern Present (02/08/2024) [place] of Occupational Health - Occupational Stress Questionnaire Feeling of Stress : Not at all Social Connections: Moderately Integrated (02/08/2024) Social Connection and Isolation Panel [NHANES] Frequency of Communication with Friends and Family: More than three times a week Frequency of Social Gatherings with Friends and Family: More than three times a week Attends L[employer] Services: 1 to 4 times per year Active Member of Clubs or Organizations: Yes Attends Club or Organization Meetings: More than 4 times per year Marital Status: Interpersonal Safety: Not At Risk (02/08/2024) Humiliation, Afraid, Rape, and Kick questionnaire Fear of Current or Ex-Partner: No Emotionally Abused: No Physically Abused: No Sexually Abused: No Housing Instability: Low Risk (02/08/2024) Housing Instability Housing Instability: No Family History Problem Relation Age of Onset No Known Problems Mother No Known Problems Father Recent Labs: Recent and relative labs were reviewed and interpreted and contributed to the assessment and plan below. Vitals: BP (!) 150/96 (BP Site: Right Arm, BP Postition: Sitting, BP CUFF SIZE: M (9-13 inches)) Pulse 88 Temp 36.7 C (98.1 F) (Temporal) Ht 180.3 cm (5' 11 ) Wt 108.9 kg (240 lb) SpO2 98% BMI 33.47 kg/m Body mass index is 33.47 kg/m . Physical Exam: Physical Exam Constitutional: Appearance: Normal appearance. HENT: Head: Normocephalic and atraumatic. Mouth/Throat: Mouth: Mucous membranes are moist. Eyes: Extraocular Movements: Extraocular movements intact. Pupils: Pupils are equal, round, and reactive to light. Cardiovascular: Rate and Rhythm: Normal rate and regular rhythm. Pulmonary: Effort: Pulmonary effort is normal. Breath sounds: Normal breath sounds. Abdominal: General: Abdomen is flat. Bowel sounds are normal. Palpations: Abdomen is soft. Musculoskeletal: General: Normal range of motion. Cervical back: Normal range of motion. Skin: General: Skin is warm and dry. Neurological: General: No focal deficit present. Mental Status: He is alert and oriented to person, place, and time. Mental status is at baseline. Psychiatric: Mood and Affect: Mood normal. Behavior: Behavior normal. Thought Content: Thought content normal. Judgment: Judgment normal. 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 Will prescribe Plavix. Will refer him to neurology for intracranial fibromuscular dysplasia versus atherosclerotic occlusive disease. Recommend to continue high intensity statin therapy. Charlie was seen today for a beaded appearance of the right middle cerebral artery. th. 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 This note was created with the assistance of a speech recognition program. While intending to generate a timely document that accurately reflects the content of the visit, no guarantee can be provided that every grammatical or spelling mistake has been or will be identified or corrected. Thank you for your understanding. documented in this encounter [facility] 07-24-2024 Note XR CHEST 1 VIEW STRO KE Procedure: Chest x-ray performed Number of views:1 History:Weakness Comparison:09/23/2020 Findings: The heart and lungs show no acute findings, and the mediastinum and karen are grossly negative . Impression: 1. No acute change. Finalized by Renard Moore MD on 07/24/2024 10:27 PM [facility] 06-03-2024 History of Present illness Narrative Charlie Valdez is a 43 y.o. male No ref. provider found presents with chief complaint of Diabetes and Follow-up HPI: IM : 06/2024 Follow-up visit 06/03/2024 A1c 6.9, low sugar 150 currently, not on any medication fro DM, he stopped soda he tried to lose weight. Only his medication is lisinopril 20 and atorvastatin 80. Interim History: 02/2024 Follow-up visit of 02/12/2024 for type 2 diabetes. A1c 11.8 , bg 192, he was in the hospital and A1c 11.8, started him on Lantus 20 twice a day, and NovoLog sliding scale, he did not start actos I prescribed it for him from last visit. Interim History: 11/2023 Follow-up visit of for type 2 diabetes. A1c 9.2 , bg 281, Off metformin caused him GI symptoms, off Trulicity not on any medication at this time, lab done in July/2023 C-peptide detected. Interim History: 07/2023 Follow-up visit of 07/07/2023 for type 2 diabetes. A1c 8.6 , bg 254, off Trulicity 1.5 mg weekly for 2-3 months Interim History: 06/2022 Follow-up visit of 06/17/2022 for type 2 diabetes. A1c 5.9, bg 188, off metformin 100 once a day, on Trulicity 1.5 mg weekly. Interim History: 11/2021 Follow-up visit of 11/23/2021 for type 2 diabetes. A1c 5.6, bg 201, off metformin 100 once a day, on Trulicity 1.5 Interim History: 08/2021 Follow-up visit of 08/27/2021 for type 2 diabetes. A1c 5.3, bg 119 . He is on metformin 100 once a day, on Trulicity 1.5 Interim History: 03/2021 Follow-up visit of 03/12/2021for type 2 diabetes. He is off Lantus 20 , Humalog barely use it , He is on metformin 100 once a day, on trulicity 1.5. off abilify Interim History: 11/2020 Follow-up visit of 11/21/2020for type 2 diabetes. He is on Lantus 20 , Humalog barely use it , He is on metformin 100 once a day, on trulicity 1.5 Interim History: 08/2020 Follow-up visit of 08/29/2020for type 2 diabetes. He is on Lantus 20 , Humalog 4-6-8 only scale #2 prn , He is on metformin 100 once a day, off Jardiance 25 mg once a day due ot rash and yeast, and wants to start trulicity Interim History: 07/2020 Follow-up visit of 07/27/2020for type 2 diabetes. He is on Lantus 20 , Humalog only scale #2 prn , He is on metformin 100 once a day, and Jardiance 25 mg once a day Interim History: 06/13/2020 Follow-up visit of 06/13/2020for type 2 diabetes. He is off Lantus 60, off Humalog 12-15-18, only scale #2 prn , He is on metformin 100 once a day, and Jardiance 25 mg once a day, lab pending, bg in the office 176 Interim History: 03/29/2020 Follow-up visit of for type 2 diabetes. He is on Lantus 60, Humalog 12-15-18 plus scale #2, He is on metformin 100 once a day, and Jardiance 25 mg once a day, METER 130-600, AVG 1.4, AVG 371 Interim History: 03/2020 Follow-up visit of for type 2 diabetes. we saw him today with tele. He is on Lantus 60, Humalog 12-15-18 plus scale #2, He is on metformin 100 once a day ( said make his bg low) and Jardiance 25 mg once a day Interim History: 10/2019. Follow-up visit of 10/19/2019 for type 2 diabetes. A1c in the office is 9.5, blood sugar 357. He is on Lantus 50, Humalog 10-12-15 plus scale #2, did not bring his meter. He is on metformin 500 twice a day and Jardiance 25 mg once a day and he lost almost 17 pounds since last visit in July. Interim History 07/2019. Followup visit on 07/19/2019 for type 2 diabetes. A1c in the office is 8.6, blood sugar 314. CGM interpretation: 55 in good range, 40% in high range, 5% in very high range. Meter lower is 187, highest 464, average 278. He is currently on Lantus 50, Humalog 8 plus scale #3. Labs done in May total cholesterol 244, triglycerides 594, and kidney function within normal limits. Creatinine above 60. LDL 133, C-peptide 4.7, vitamin D 20. HPI: 05/20 New patient sent from [facility] for uncontrolled diabetes. A1c 9.4 and it was in April 12.4 when he was diagnosed recently. BUN 23, creatinine 1.42, GFR 56, but might be dehydrated. He found he was diabetic when he was started on Medrol Dosepak due to his chest and found his blood sugars 900s. I do not think he is in DKA, so he is only now on insulin Lantus 80 units and Humalog only sliding scale 3:50 above 150 with 3 units extra. Family history, numbness in his feet due to his back surgery, back problems, he does not have surgery. SUBJECTIVE: MEDICATIONS: Current Outpatient Medications Medication Instructions Aimovig (140 MG Dose) 140 mg, Every 28 days albuterol HFA 90 mcg/act inhaler 2 puffs, Every 4 hours PRN amLODIPine (NORVASC) 10 mg, Daily RT cetirizine (ZYRTEC ALLERGY) 10 mg, Daily Continuous Glucose Jailkeeper (FreeStyle Sarahy 2 [place]) device 1 Device Continuous Glucose Sensor (FreeStyle Sarhay 2 Sensor) misc 1 Device, Every 14 days ergocalciferol (Vitamin D-2) 1.25 MG (93644 UT) capsule 1 capsule, Weekly glimepiride (AMARYL) 2 mg, Oral, Daily before breakfast hydroCHLOROthiazide (HYDRODiuril) 12.5 MG tablet ibuprofen 600 mg, 3 times daily lisinopril-hydroCHLOROthiazide 10-12.5 MG tablet 1 tablet, Daily lisinopril-hydroCHLOROthiazide 20-25 MG tablet 1 tablet, Daily RT omeprazole (PRILOSEC) 40 mg, Daily before breakfast OneTouch Verio test strip pancrelipase, Pba-Igfa-Hljm, (Zenpep) 99984-530051 units capsule delayed-release particles capsule 1 capsule, Daily pioglitazone (ACTOS) 30 mg, Oral, Daily simvastatin (Zocor) 20 MG tablet 1 tablet, Nightly Singulair 10 mg, Nightly Ubrelvy 100 MG tablet ALLERGIES: Allergies Allergen Reactions Meloxicam Rash and Shortness of breath Aspirin Unknown Other Reaction(s): heart rate increase Extreme tachycardia Other reaction(s): Tachycardia Mushroom Extract Complex (Obsolete) Swelling Other reaction(s): Anaphylaxis Oxycodone-Acetaminophen Other Reaction(s): addiction/mental issues Past Medical History: Diagnosis Date Bipolar disorder ([facility]) Current use of insulin ([facility]) Dietary counseling and surveillance HTN (hypertension) ([facility]) Obesity with body mass index (BMI) of 30.0 to 39.9 RLS (restless legs syndrome) Type 2 diabetes mellitus ([facility]) Type 2 diabetes mellitus with other circulatory complications ([facility]) Vitamin D deficiency Past Surgical History: Procedure Laterality Date ANTERIOR CRUCIATE LIGAMENT REPAIR Right [address] ANGIOGRAM HEART CORONARY 02/04/2021 CT ANGIOGRAM TAVR 02/04/2021 CT ANGIOGRAM HEART CORONARY 09/24/2020 CT ANGIOGRAM TAVR 09/24/2020 HERNIA REPAIR 2006 HI KNEE SCOPE,DIAGNOSTIC Right 12/08/[address] Hyde ROTATOR CUFF REPAIR Right 03/11/[address] Wise REVIEW OF SYMPTOMS: 14 POINT OF SYSTEM REVIEWED AND NEGATIVE OBJECTIVE: Constitutional: Afebrile @ home; no weakness or night sweats SKIN: No change in skin color; no itching, rash or lesions; no hair loss; HEENT: No HAs or injury; no dizziness; No difficulty with vision; no eye pain, discharge or lesions; no hearing loss or difficulty; no nasal discharge, NECK: No pain, limitation of motion, lumps or swollen glands RESP: No cough, wheezing or difficulty breathing. No CP with breathing; CARDIO: No CP , SOB or fatigue, No edema, palpitations or dyspnea with exertion GI: No N/V/D or abd. pain; good appetite with no recent change. No heart burn, liver or gallbladder disease; no rectal bleeding or pain : No urinary pain , frequency or odor. MUSCULOSKELETAL: No muscle pain or cramps; no extremity weakness.No joint pain, stiffness, swelling or limitation of movement NEUROLOGY: No H/O seizures, stroke or fainting. No weakness, tremors. Hematology: No bleeding problems or excessive bruising ENDOCRINE: No increase in hunger, thirst or urination; admits compliance to medical management plan Feet: numbness tingling yes , ulcers or skin break no Lab Results Component Value Date HGBA1C 6.9 06/03/2024 HGBA1C 9.4 11/27/2023 Lab Results Component Value Date GLU 150 06/03/2024 GLU 192 02/12/2024 GLU 304 (H) 02/09/2024 02/22/2019 12:00 PM 04/21/2019 12:00 PM 06/16/2020 12:00 PM 08/01/2022 1:03 PM 11/27/2023 11:35 AM 02/12/2024 12:11 PM 06/03/2024 11:09 AM Vitals BMI 39.31 kg/m2 39.31 kg/m2 39.31 kg/m2 35.65 kg/m2 30.65 kg/m2 34.87 kg/m2 35.29 kg/m2 BSA (m2) 2.47 m2 2.47 m2 2.47 m2 2.41 m2 2.29 m2 2.38 m2 2.4 m2 Systolic 120 160 Diastolic 70 88 Heart Rate 88 83 84 SpO2 95 % Resp 18 18 18 Height (in) 5' 10 5' 10 5' 10 5' 11 6' 5' 11 5' 11 Weight (lb) 274 274 274 255.6 226 250 253 Visit Report Report Report Report Report ASSESSMENT AND PLAN: Assessment/Plan Diagnoses and all orders for this visit: Type 2 diabetes mellitus with hyperglycemia, without long-term current use of insulin ([facility]) - POCT glucose manually resulted - POCT glycosylated hemoglobin (Hb A1C) docked device - C-peptide; Future - Vitamin D 25 hydroxy Total; Future - Microalbumin / creatinine urine ratio; Future - Lipid panel; Future - Renal function panel; Future He is off all his medication, if his blood sugar start to rise up I told him to start back on Actos 30 and glimepiride 2 mg twice a day. Encounter for dietary consultation Vitamin D deficiency Primary hypertension ([facility]) Class 2 severe obesity due to excess calories with serious comorbidity and body mass index (BMI) of 35.0 to 35.9 in adult ([facility]) Diet and exercise reviewed with the patient Follow up in about 3 months (around 09/02/2024). documented in this encounter [facility] 04-28-2024 Evaluation + Plan note Associated Problem(s): Renal cyst We will plan on seeing him back in August with a repeat ultrasound. He will call sooner if any problems. [facility] 04-28-2024 Miscellaneous Notes Associated Problem(s): Renal cyst We will plan on seeing him back in August with a repeat ultrasound. He will call sooner if any problems. documented in this encounter [facility] 04-28-2024 History of Present illness Narrative Images from the original note were not included. [id number] [place] [address] A [facility] [id number] Patient: Charlie Valdez Date of : 1980 Encounter Date: 04/28/2024 History of Present Illness: Chief Complaint: Kidney stones/renal cyst The patient is a 43 y.o. male, a new patient, and is here for kidney stones and renal cyst. 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 Recently he has been having some right upper quadrant pain and had an abdominal ultrasound done 02/09/2024. This showed a 4.9 x 5.7 x 4.5 cm right renal cyst and nonobstructing right renal calculi. He has no prior history of stones. I was able to look at a CT with contrast from 08/28/2023. It looks like he was having right lower quadrant pain at that time. There was no acute process identified. I do not see any obvious stones at that time. The renal cyst appeared to be the same size as mentioned in his most recent ultrasound report. The abdominal pain is still present but not as intense. He was told that it was likely secondary to an ulcer or hernia. For the past couple of weeks he has had midline back pain. It is constant, dull, aching, sharp, and shooting. Nothing makes it better or worse. Urinalysis today: No results for input(s): EXTPOCURCO , EXTPOCURCH , EXTPOCAPP , EXTPOCURBS , EXTPOCURBIL , EXTPOCUKET , EXTPOCUSPG , EXTPOCUHGB , EXTPOCUPRO , EXTPOCUURO , EXTPOCULEU , EXTPOCUNIT , EXTPOCUWBC , EXTPOCUBLD , EXTPOCURBC , EXTPOCUCRY , EXTPOCUBAC , EXTPOCUTREP , EXTPOCUPH , EXTPOCULEE in the last 72 hours. Last BUN and creatinine: Lab Results Component Value Date BUN 32 (H) 02/09/2024 Lab Results Component Value Date CREATININE 1.75 (H) 02/09/2024 Last PSA: Lab Results Component Value Date PSA 0.86 01/20/2024 No results found for: PROSTATICSP Past Medical, Family, and Social History Update: The following portions of the patient's history were reviewed and updated as appropriate: allergies, current medications, past family history, past medical history, past social history, past surgical history and problem list. Past Medical History: Diagnosis Date Allergic Anxiety Arthritis Asthma Back pain Bipolar 1 disorder ([facility]) Chronic headache Closed head injury COPD (chronic obstructive pulmonary disease) ([facility]) COVID 01/30/2021 CTE (chronic traumatic encephalopathy) Depression Diabetes mellitus ([facility]) Diabetes mellitus type I ([facility]) Eczema GERD (gastroesophageal reflux disease) Hx of brain damage Hypertension Migraine Narcotic abuse in remission ([facility]) history of problem with percocet, pt states he has since taken [place] without any issues - 03/06/18 Obesity Prolonged emergence from general anesthesia Shingles Sleep apnea Varicella Visual impairment glasses Past Surgical History: Procedure Laterality Date ARTHROSCOPY KNEE Right 12/08/2018 Performed by Dick Hyde Jr., DO at [facility] ARTHROSCOPY REPAIR ROTATOR CUFF SHOULDER Right 03/11/2018 Performed by Troy Wise DO at [facility] ARTHROSCOPY SHOULDER Right 03/11/2018 Performed by Troy Wise DO at [facility] INGUINAL HERNIA REPAIR Right 6 years old KNEE ARTHROSCOPY Right 2002 ACL NECK SURGERY 06/12/2021 SPINE SURGERY Family History Problem Relation Age of Onset No Known Problems Mother No Known Problems Father Current Outpatient Medications Medication Sig Dispense Refill atorvastatin (LIPITOR) 80 mg tablet Take 1 tablet (80 mg total) by mouth in the morning. 90 tablet 3 benzonatate (TESSALON PERLES) 100 mg capsule Take 1 capsule (100 mg total) by mouth every 8 (eight) hours. 21 capsule 0 insulin glargine (LANTUS, SEMGLEE) 100 unit/mL (3 mL) insulin pen Inject 20 Units under the skin in the morning and 20 Units before bedtime. 15 mL 12 insulin lispro (HumaLOG) 100 unit/mL insulin pen Inject 2-10 Units under the skin 4 (four) times a day with meals and nightly. 15 mL 12 lisinopriL (PRINIVIL,ZESTRIL) 20 mg tablet Take 1 tablet (20 mg total) by mouth in the morning. 90 tablet 3 pantoprazole (PROTONIX) 40 mg EC tablet Take 1 tablet (40 mg total) by mouth in the morning and 1 tablet (40 mg total) before bedtime. Indications: heartburn. pen needle, diabetic 32 gauge x 5/32 needle Inject 1 each under the skin 4 (four) times a day before meals and nightly. 100 each 0 No current facility-administered medications for this visit. (All medications reviewed and updated by provider since last office visit or hospitalization) Allergies: Meloxicam, Aspirin, and Mushroom Tobacco History: Social History Tobacco Use Smoking Status Never Smokeless Tobacco Never (If patient a smoker, smoking cessation counseling offered) Social History: Social History Substance and Sexual Activity Alcohol Use Not Currently Alcohol/week: 1.0 standard drink of alcohol Review of Systems: Constitutional: Weight loss or gain(lost 40lbs since January) Eyes: Patient denies vision changes or diplopia (double vision). Ears, Nose, Nose and Throat: Patient denies tinnitus (ringing in ears), hearing loss, epistaxis (nose bleed), hoarseness, and dysphagia (hard to swallow). Respiratory: Cough(job) Cardiovascular: Patient denies chest pain, palpitations, and shortness of breath. Gastrointestinal: Patient denies abdominal pain, nausea, vomiting, bloating, diarrhea (chronic), constipation (chronic), melena (black stool), hematochezia (blood in stool). Musculoskeletal: Joint pain/stiffness Neurologic: Patient denies weakness, dizziness, loss of consciousness, transient ischemic symptoms, and seizures. Integument: Patient denies rashes and non-healing lesions. Psychiatric: Patient denies increased nervousness, mood changes, or depression. Endocrine: Diabetes Blood Disorders: Patient denies anemia, easy bruising, and easy bleeding. Physical Exam: BP 162/90 Pulse 84 Ht 180.3 cm (5' 11 ) Wt 109.3 kg (241 lb) BMI 33.61 kg/m Constitutional: He appears well-developed. No distress. HENT: Head: Atraumatic. Nose: Nose normal. Eyes: Conjunctivae are normal. Pulmonary/Chest: Effort normal. No respiratory distress. Abdominal: Bilateral mild CVA tenderness. He is most tender on palpation of the spine. Neurological: He is alert and oriented for age. Gait normal. Psychiatric: He has a normal mood and affect. His speech is normal. Nursing note and vitals reviewed. Assessment and Plan: Charlie was seen today for new patient, renal cyst and nephrolithiasis. Diagnoses and all orders for this visit: Chronic midline low back pain with bilateral sciatica - [facility] [place]; Future - Ultrasound retroperitoneal complete; Future Hyperglycemia - Ambulatory referral to Urology Renal cyst Kidney stones Problem List Genitourinary Renal cyst Overview 04/28/24: Abd US 02/09/24 showed a 4.9 x 5.7 x 4.5cm right renal cyst and possible kidney stones. No obstruction. Of note, there were no obvious kidney stones seen on CT from August 2023. He has been having some midline lower back pain which really is more consistent with a musculoskeletal source. He agrees to referral to spine care center Current Assessment & Plan We will plan on seeing him back in August with a repeat ultrasound. He will call sooner if any problems. Other Hyperglycemia Follow-up: Renal US in August and appointment with Dr. Santos or Dr. Merlos for the results. Refer to spine care center MICHAEL DUVALL This note was created with the assistance of a speech recognition program. While intending to generate a timely document that accurately reflects the content of the visit, no guarantee can be provided that every grammatical or spelling mistake has been or will be identified or corrected. Thank you for your understanding. MICHAEL Duvall 04/28/24 1302 documented in this encounter [employer] 03-04-2024 History of Present illness Narrative Charlie Quiroz Jair Date of visit: 03/04/2024 Date of : 1980 Age: 43 y.o. Patient Active Problem List Diagnosis Hyperglycemia Hypertension Vasovagal syncope Obesity (BMI 30-39.9) Hearing loss Eczematoid otitis externa Mixed hyperlipidemia Type 2 diabetes mellitus with hyperglycemia, without long-term current use of insulin ([facility]) JOS (acute kidney injury) ([facility]) Left ventricular hypertrophy Allergies Allergen Reactions Meloxicam Shortness Of Breath Aspirin Extreme tachycardia Other reaction(s): Tachycardia Mushroom Swelling Other reaction(s): Anaphylaxis Current Outpatient Medications Medication Sig Dispense Refill benzonatate (TESSALON PERLES) 100 mg capsule Take 1 capsule (100 mg total) by mouth every 8 (eight) hours. 21 capsule 0 insulin glargine (LANTUS, SEMGLEE) 100 unit/mL (3 mL) insulin pen Inject 20 Units under the skin in the morning and 20 Units before bedtime. 15 mL 12 insulin lispro (HumaLOG) 100 unit/mL insulin pen Inject 2-10 Units under the skin 4 (four) times a day with meals and nightly. 15 mL 12 pantoprazole (PROTONIX) 40 mg EC tablet Take 1 tablet (40 mg total) by mouth in the morning and 1 tablet (40 mg total) before bedtime. Indications: heartburn. pen needle, diabetic 32 gauge x 5/32 needle Inject 1 each under the skin 4 (four) times a day before meals and nightly. 100 each 0 atorvastatin (LIPITOR) 80 mg tablet Take 1 tablet (80 mg total) by mouth in the morning. 90 tablet 3 lisinopriL (PRINIVIL,ZESTRIL) 20 mg tablet Take 1 tablet (20 mg total) by mouth in the morning. 90 tablet 3 No current facility-administered medications for this visit. Chief Complaint Patient presents with Follow-up EST PT F/U 6 MS L/S TLM SCHED W/ PT LMOM X 2 AND LETTER MAILED LETTING PT KNOW APPT NEEDS R/S NOI History of Present Illness I had the opportunity to meet this 43-year-old. He was last in the office 07/14/2023 He has a history of elevated blood pressure. It is now controlled. He did not bring a medication list in with him but states that he is taking the medication as prescribed by Dr. 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 He is unaccompanied today CV TESTING HISTORY: ECHO: No results found. STRESS: No results found. HOLTER: No results found. CARDIAC CATH: No results found. CAROTID: No results found. CXR: No results found. Lipid Profile: Lab Results Component Value Date Cholesterol 269 (H) 02/08/2024 Cholesterol:HDL Ratio 6.9 (H) 02/08/2024 HDL Cholesterol 39 (L) 02/08/2024 Triglycerides 934 (H) 02/08/2024 LDL (calc) RESULT NOT REPORTED DUE TO HIGH TRIGLYCERIDE 02/08/2024 Past Medical History: Diagnosis Date Allergic Anxiety Arthritis Asthma Back pain Bipolar 1 disorder ([facility]) Chronic headache Closed head injury COPD (chronic obstructive pulmonary disease) ([facility]) COVID 01/30/2021 CTE (chronic traumatic encephalopathy) Depression Diabetes mellitus ([facility]) Diabetes mellitus type I ([facility]) Eczema GERD (gastroesophageal reflux disease) Hx of brain damage Hypertension Migraine Narcotic abuse in remission ([facility]) history of problem with percocet, pt states he has since taken [place] without any issues - 03/06/18 Obesity Prolonged emergence from general anesthesia Shingles Sleep apnea Varicella Visual impairment glasses Past Surgical History: Procedure Laterality Date ARTHROSCOPY KNEE Right 12/08/2018 Performed by Dick Hyde Jr., DO at [facility] ARTHROSCOPY REPAIR ROTATOR CUFF SHOULDER Right 03/11/2018 Performed by Troy Wise DO at [facility] ARTHROSCOPY SHOULDER Right 03/11/2018 Performed by Troy Wise DO at [facility] INGUINAL HERNIA REPAIR Right 6 years old KNEE ARTHROSCOPY Right 2002 ACL NECK SURGERY 06/12/2021 Family History Problem Relation Age of Onset No Known Problems Mother No Known Problems Father Social History Socioeconomic History Marital status: Spouse name: Not on file Number of children: Not on file Years of education: Not on file Highest education level: Not on file Occupational History Not on file Tobacco Use Smoking status: Never Smokeless tobacco: Never Vaping Use Vaping status: Never Used Substance and Sexual Activity Alcohol use: Not Currently Alcohol/week: 1.0 standard drink of alcohol Types: 1 Shots of liquor per week Drug use: Not Currently Sexual activity: Yes Partners: Female Other Topics Concern Caffeine Use Yes Comment: 3-4 cans of pepsi daily Social History Narrative Not on file Social Drivers of Health Financial Resource Strain: Low Risk (02/08/2024) Overall Financial Resource Strain (CARDIA) Difficulty of Paying Living Expenses: Not hard at all Food Insecurity: No Food Insecurity (03/04/2024) Hunger Screening Food Insecurity - Worry: Never True Food Insecurity - Inability: Never True Transportation Needs: No Transportation Needs (02/08/2024) PRAPARE - Transportation Lack of Transportation (Medical): No Lack of Transportation (Non-Medical): No Physical Activity: Not on file Stress: No Stress Concern Present (02/08/2024) [place] of Occupational Health - Occupational Stress Questionnaire Feeling of Stress : Not at all Social Connections: Moderately Integrated (02/08/2024) Social Connection and Isolation Panel [NHANES] Frequency of Communication with Friends and Family: More than three times a week Frequency of Social Gatherings with Friends and Family: More than three times a week Attends L[employer] Services: 1 to 4 times per year Active Member of Clubs or Organizations: Yes Attends Club or Organization Meetings: More than 4 times per year Marital Status: Interpersonal Safety: Not At Risk (02/08/2024) Humiliation, Afraid, Rape, and Kick questionnaire Fear of Current or Ex-Partner: No Emotionally Abused: No Physically Abused: No Sexually Abused: No Housing Instability: Low Risk (02/08/2024) Housing Instability Housing Instability: No Review of Systems Review of Systems Constitutional: Negative. HENT: Negative. Eyes: Positive for blurred vision. Cardiovascular: Negative. Vascular: Negative. Respiratory: Positive for cough. Endocrine: Negative. Hematologic/Lymphatic: Negative. Skin: Negative. Musculoskeletal: Positive for back pain, joint swelling and muscle weakness. Gastrointestinal: Negative. Neurological: Positive for dizziness. Psychiatric/Behavioral: Negative. Allergic/Immunologic: Positive for environmental allergies. CARDIOVASCULAR: Please review HPI. Physical Examination General appearance: Alert, oriented and cooperative. In no acute distress. Pleasant Skin: Warm and dry to touch. Respiratory: Clear to auscultation bilaterally, no use of accessory muscles. Cardiovascular: RRR with normal S1 and S2 with no murmurs. Musculoskeletal: No peripheral edema. VITAL SIGNS: BP 100/82 (BP Site: Left Arm, BP Postition: Sitting) Pulse 79 Ht 180.3 cm (5' 11 ) Wt 114.9 kg (253 lb 6.4 oz) SpO2 97% BMI 35.34 kg/m Orders Placed or Reconciled This Encounter Medications atorvastatin (LIPITOR) 80 mg tablet Sig: Take 1 tablet (80 mg total) by mouth in the morning. Dispense: 90 tablet Refill: 3 lisinopriL (PRINIVIL,ZESTRIL) 20 mg tablet Sig: Take 1 tablet (20 mg total) by mouth in the morning. Dispense: 90 tablet Refill: 3 Medications Discontinued During This Encounter Medication Reason amLODIPine (NORVASC) 5 mg tablet pioglitazone (ACTOS) 30 mg tablet IMPRESSIONS/PLAN 1. Left ventricular hypertrophy 2. Primary hypertension - CMP; Future 3. Mixed hyperlipidemia - Lipid panel; Future 1. Primary hypertension 2. Hypertriglyceridemia 3. Type 2 diabetes 4. COPD 5. Bipolar 1 disorder 6. Obstructive sleep apnea 7. Narcotic abuse in remission 8. 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 Intolerance of aspirin 10. Low risk exercise only stress test 05/2020 11. Moderate LVH with normal left ventricular systolic function on echocardiogram 05/2018; as last echo in 2018 anticipate echocardiogram over the next year to reassess LVH. Discussed with patient Patient given new prescriptions for lisinopril and atorvastatin which have been previously prescribed and he states that he continues to take. Atorvastatin to be increased as cholesterol elevated 02/08/2024 Record blood pressure and heart rate 3 times per week. Call if systolic (top) number is consistently greater than 140 or less than 100 or diastolic (bottom) number is consistently greater than 90. Call if heart rate is consistently greater than 110 or less than 50. TODAYS ORDERS Orders Placed This Encounter Procedures Lipid panel CMP FOLLOW UP Return in about 6 months (around 09/01/2024). PCP: ANGELA Turner Referring Physician: Paige Soto, DO [address] [place] [address] [facility]24 Instructions Dana Luther MD - 03/04/2024 3:15 PM EST Atorvastatin to be increased Repeat labs in 3 months Record blood pressure and heart rate 3 times per week. Call if systolic (top) number is consistently greater than 140 or less than 100 or diastolic (bottom) number is consistently greater than 90. Call if heart rate is consistently greater than 110 or less than 50. documented in this encounter [facility] 03-02-2024 Miscellaneous Notes Called patient to remind them to bring their most current copy of their medication list with them to their appt. Patient verbalizes understanding. documented in this encounter [facility] 03-02-2024 Telephone encounter Note Called patient to remind them to bring their most current copy of their medication list with them to their appt. Patient verbalizes understanding. [facility] 02-12-[facility]24 History of Present illness Narrative Charlie Valdez is a 43 y.o. male No ref. provider found presents with chief complaint of Diabetes HPI: Interim History: 02/2024 Follow-up visit of 02/12/2024 for type 2 diabetes. A1c 11.8 , bg 192, he was in the hospital and A1c 11.8, started him on Lantus 20 twice a day, and NovoLog sliding scale, he did not start actos I prescribed it for him from last visit. Interim History: 11/2023 Follow-up visit of for type 2 diabetes. A1c 9.2 , bg 281, Off metformin caused him GI symptoms, off Trulicity not on any medication at this time, lab done in July/2023 C-peptide detected. Interim History: 07/2023 Follow-up visit of 07/07/2023 for type 2 diabetes. A1c 8.6 , bg 254, off Trulicity 1.5 mg weekly for 2-3 months Interim History: 06/2022 Follow-up visit of 06/17/2022 for type 2 diabetes. A1c 5.9, bg 188, off metformin 100 once a day, on Trulicity 1.5 mg weekly. Interim History: 11/2021 Follow-up visit of 11/23/2021 for type 2 diabetes. A1c 5.6, bg 201, off metformin 100 once a day, on Trulicity 1.5 Interim History: 08/2021 Follow-up visit of 08/27/2021 for type 2 diabetes. A1c 5.3, bg 119 . He is on metformin 100 once a day, on Trulicity 1.5 Interim History: 03/2021 Follow-up visit of 03/12/2021for type 2 diabetes. He is off Lantus 20 , Humalog barely use it , He is on metformin 100 once a day, on trulicity 1.5. off abilify Interim History: 11/2020 Follow-up visit of 11/21/2020for type 2 diabetes. He is on Lantus 20 , Humalog barely use it , He is on metformin 100 once a day, on trulicity 1.5 Interim History: 08/2020 Follow-up visit of 08/29/2020for type 2 diabetes. He is on Lantus 20 , Humalog 4-6-8 only scale #2 prn , He is on metformin 100 once a day, off Jardiance 25 mg once a day due ot rash and yeast, and wants to start trulicity Interim History: 07/2020 Follow-up visit of 07/27/2020for type 2 diabetes. He is on Lantus 20 , Humalog only scale #2 prn , He is on metformin 100 once a day, and Jardiance 25 mg once a day Interim History: 06/13/2020 Follow-up visit of 06/13/2020for type 2 diabetes. He is off Lantus 60, off Humalog 12-15-18, only scale #2 prn , He is on metformin 100 once a day, and Jardiance 25 mg once a day, lab pending, bg in the office 176 Interim History: 03/29/2020 Follow-up visit of for type 2 diabetes. He is on Lantus 60, Humalog 12-15-18 plus scale #2, He is on metformin 100 once a day, and Jardiance 25 mg once a day, METER 130-600, AVG 1.4, AVG 371 Interim History: 03/2020 Follow-up visit of for type 2 diabetes. we saw him today with tele. He is on Lantus 60, Humalog 12-15-18 plus scale #2, He is on metformin 100 once a day ( said make his bg low) and Jardiance 25 mg once a day Interim History: 10/2019. Follow-up visit of 10/19/2019 for type 2 diabetes. A1c in the office is 9.5, blood sugar 357. He is on Lantus 50, Humalog 10-12-15 plus scale #2, did not bring his meter. He is on metformin 500 twice a day and Jardiance 25 mg once a day and he lost almost 17 pounds since last visit in July. Interim History 07/2019. Followup visit on 07/19/2019 for type 2 diabetes. A1c in the office is 8.6, blood sugar 314. CGM interpretation: 55 in good range, 40% in high range, 5% in very high range. Meter lower is 187, highest 464, average 278. He is currently on Lantus 50, Humalog 8 plus scale #3. Labs done in May total cholesterol 244, triglycerides 594, and kidney function within normal limits. Creatinine above 60. LDL 133, C-peptide 4.7, vitamin D 20. HPI: 05/20 New patient sent from [facility] for uncontrolled diabetes. A1c 9.4 and it was in April 12.4 when he was diagnosed recently. BUN 23, creatinine 1.42, GFR 56, but might be dehydrated. He found he was diabetic when he was started on Medrol Dosepak due to his chest and found his blood sugars 900s. I do not think he is in DKA, so he is only now on insulin Lantus 80 units and Humalog only sliding scale 3:50 above 150 with 3 units extra. Family history, numbness in his feet due to his back surgery, back problems, he does not have surgery. SUBJECTIVE: MEDICATIONS: Current Outpatient Medications Medication Instructions Aimovig (140 MG Dose) 140 mg, Every 28 days albuterol HFA 90 mcg/act inhaler 2 puffs, Every 4 hours PRN amLODIPine (NORVASC) 10 mg, Daily RT cetirizine (ZYRTEC ALLERGY) 10 mg, Daily Continuous Glucose Jailkeeper (FreeStyle Sarahy 2 [place]) device 1 Device Continuous Glucose Sensor (FreeStyle Sarahy 2 Sensor) misc 1 Device, Every 14 days ergocalciferol (Vitamin D-2) 1.25 MG (55551 UT) capsule 1 capsule, Weekly glimepiride (AMARYL) 2 mg, Oral, Daily before breakfast hydroCHLOROthiazide (HYDRODiuril) 12.5 MG tablet ibuprofen 600 mg, 3 times daily lisinopril-hydroCHLOROthiazide 10-12.5 MG tablet 1 tablet, Daily lisinopril-hydroCHLOROthiazide 20-25 MG tablet 1 tablet, Daily RT omeprazole (PRILOSEC) 40 mg, Daily before breakfast OneTouch Verio test strip pancrelipase, Mfu-Xmzc-Gknc, (Zenpep) 08772-088572 units capsule delayed-release particles capsule 1 capsule, Daily pioglitazone (ACTOS) 30 mg, Oral, Daily simvastatin (Zocor) 20 MG tablet 1 tablet, Nightly Singulair 10 mg, Nightly Ubrelvy 100 MG tablet ALLERGIES: Allergies Allergen Reactions Meloxicam Rash and Shortness of breath Aspirin Unknown Other Reaction(s): heart rate increase Extreme tachycardia Other reaction(s): Tachycardia Mushroom Extract Complex (Do Not Select) Swelling Other reaction(s): Anaphylaxis Oxycodone-Acetaminophen Other Reaction(s): addiction/mental issues Past Medical History: Diagnosis Date Bipolar disorder ([facility]) Current use of insulin ([facility]) Dietary counseling and surveillance HTN (hypertension) ([facility]) Obesity with body mass index (BMI) of 30.0 to 39.9 RLS (restless legs syndrome) Type 2 diabetes mellitus ([facility]) Type 2 diabetes mellitus with other circulatory complications ([facility]) Vitamin D deficiency Past Surgical History: Procedure Laterality Date ANTERIOR CRUCIATE LIGAMENT REPAIR Right [address] ANGIOGRAM HEART CORONARY 02/04/2021 CT ANGIOGRAM TAVR 02/04/2021 CT ANGIOGRAM HEART CORONARY 09/24/2020 CT ANGIOGRAM TAVR 09/24/2020 HERNIA REPAIR 2006 HI KNEE SCOPE,DIAGNOSTIC Right 12/08/[address] Hyde ROTATOR CUFF REPAIR Right 03/11/[address] Wise REVIEW OF SYMPTOMS: 14 POINT OF SYSTEM REVIEWED AND NEGATIVE OBJECTIVE: Constitutional: Afebrile @ home; no weakness or night sweats SKIN: No change in skin color; no itching, rash or lesions; no hair loss; HEENT: No HAs or injury; no dizziness; No difficulty with vision; no eye pain, discharge or lesions; no hearing loss or difficulty; no nasal discharge, NECK: No pain, limitation of motion, lumps or swollen glands RESP: No cough, wheezing or difficulty breathing. No CP with breathing; CARDIO: No CP , SOB or fatigue, No edema, palpitations or dyspnea with exertion GI: No N/V/D or abd. pain; good appetite with no recent change. No heart burn, liver or gallbladder disease; no rectal bleeding or pain : No urinary pain , frequency or odor. MUSCULOSKELETAL: No muscle pain or cramps; no extremity weakness.No joint pain, stiffness, swelling or limitation of movement NEUROLOGY: No H/O seizures, stroke or fainting. No weakness, tremors. Hematology: No bleeding problems or excessive bruising ENDOCRINE: No increase in hunger, thirst or urination; admits compliance to medical management plan Feet: numbness tingling yes , ulcers or skin break no Lab Results Component Value Date HGBA1C 9.4 11/27/2023 Lab Results Component Value Date GLU 192 02/12/2024 GLU 304 (H) 02/09/2024 GLU 297 (H) 02/08/2024 Visit Vitals BP 120/70 Pulse 83 Resp 18 Ht 5' 11 Wt 250 lb BMI 34.87 kg/m Smoking Status Never BSA 2.38 m ASSESSMENT AND PLAN: Assessment/Plan Diagnoses and all orders for this visit: Type 2 diabetes mellitus with hyperglycemia, without long-term current use of insulin ([facility]) We will change Lantus to 30 units once a day, start Actos back 30 mg once a day, start glimepiride 2 mg twice a day, no need for short-acting insulin once start glimepiride Encounter for dietary consultation Diet and exercise reviewed with the patient Vitamin D deficiency Primary hypertension ([facility]) Continue amlodipine 10 mg once daily Class 1 obesity due to excess calories with serious comorbidity and body mass index (BMI) of 30.0 to 30.9 in adult Follow up in about 3 months (around 05/12/2024). documented in this encounter [facility] 12-30-2023 Miscellaneous Notes ----- Message from Dr. Aicha Kaur DO sent at 12/29/2023 2:41 PM EDT ----- Please let patient know he had mild inflammatory changes of the stomach and no evidence of Pratt's esophagus. I would recommend that he take omeprazole OTC he for the next 6 weeks and follow up p.r.n.. ThanksDr. Loya Spoke with patient regarding pathology results and Dr. Kaur's recommendations. Patient verbally understood with no further questions. documented in this encounter [facility] 12-30-2023 Telephone encounter Note ----- Message from Dr. Aicha Kaur DO sent at 12/29/2023 2:41 PM EDT ----- Please let patient know he had mild inflammatory changes of the stomach and no evidence of Pratt's esophagus. I would recommend that he take omeprazole OTC he for the next 6 weeks and follow up p.r.n.. ThanksDr. Loya [facility] 12-30-2023 Telephone encounter Note Spoke with patient regarding pathology results and Dr. Kaur's recommendations. Patient verbally understood with no further questions. [facility] 12-11-2023 Miscellaneous Notes LMOM for pt to call PPC and reschedule his 01-15-24 appt as [employer] is out. Letter also mailed requesting pt call office to r/s. documented in this encounter [facility] 12-11-2023 Telephone encounter Note LMOM for pt to call [facility]PC and reschedule his 01-15-24 appt as [employer] is out. Letter also mailed requesting pt call office to r/s. [facility] 12-09-2023 Miscellaneous Notes Lmom to r/s his 01-15-24 appt as [employer] is out of the office. documented in this encounter [facility] 12-09-2023 Telephone encounter Note Lmom to r/s his 01-15-24 appt as [employer] is out of the office. [facility] 11-27-2023 History of Present illness Narrative Charlie Valdez is a 43 y.o. male Edson Tompkins MD presents with chief complaint of Diabetes HPI: Interim History: 11/2023 Follow-up visit of for type 2 diabetes. A1c 9.2 , bg 281, Off metformin caused him GI symptoms, off Trulicity not on any medication at this time, lab done in July/2023 C-peptide detected. Interim History: 07/2023 Follow-up visit of 07/07/2023 for type 2 diabetes. A1c 8.6 , bg 254, off Trulicity 1.5 mg weekly for 2-3 months Interim History: 06/2022 Follow-up visit of 06/17/2022 for type 2 diabetes. A1c 5.9, bg 188, off metformin 100 once a day, on Trulicity 1.5 mg weekly. Interim History: 11/2021 Follow-up visit of 11/23/2021 for type 2 diabetes. A1c 5.6, bg 201, off metformin 100 once a day, on Trulicity 1.5 Interim History: 08/2021 Follow-up visit of 08/27/2021 for type 2 diabetes. A1c 5.3, bg 119 . He is on metformin 100 once a day, on Trulicity 1.5 Interim History: 03/2021 Follow-up visit of 03/12/2021for type 2 diabetes. He is off Lantus 20 , Humalog barely use it , He is on metformin 100 once a day, on trulicity 1.5. off abilify Interim History: 11/2020 Follow-up visit of 11/21/2020for type 2 diabetes. He is on Lantus 20 , Humalog barely use it , He is on metformin 100 once a day, on trulicity 1.5 Interim History: 08/2020 Follow-up visit of 08/29/2020for type 2 diabetes. He is on Lantus 20 , Humalog 4-6-8 only scale #2 prn , He is on metformin 100 once a day, off Jardiance 25 mg once a day due ot rash and yeast, and wants to start trulicity Interim History: 07/2020 Follow-up visit of 07/27/2020for type 2 diabetes. He is on Lantus 20 , Humalog only scale #2 prn , He is on metformin 100 once a day, and Jardiance 25 mg once a day Interim History: 06/13/2020 Follow-up visit of 06/13/2020for type 2 diabetes. He is off Lantus 60, off Humalog 12-15-18, only scale #2 prn , He is on metformin 100 once a day, and Jardiance 25 mg once a day, lab pending, bg in the office 176 Interim History: 03/29/2020 Follow-up visit of for type 2 diabetes. He is on Lantus 60, Humalog 12-15-18 plus scale #2, He is on metformin 100 once a day, and Jardiance 25 mg once a day, METER 130-600, AVG 1.4, AVG 371 Interim History: 03/2020 Follow-up visit of for type 2 diabetes. we saw him today with tele. He is on Lantus 60, Humalog 12-15-18 plus scale #2, He is on metformin 100 once a day ( said make his bg low) and Jardiance 25 mg once a day Interim History: 10/2019. Follow-up visit of 10/19/2019 for type 2 diabetes. A1c in the office is 9.5, blood sugar 357. He is on Lantus 50, Humalog 10-12-15 plus scale #2, did not bring his meter. He is on metformin 500 twice a day and Jardiance 25 mg once a day and he lost almost 17 pounds since last visit in July. Interim History 07/2019. Followup visit on 07/19/2019 for type 2 diabetes. A1c in the office is 8.6, blood sugar 314. CGM interpretation: 55 in good range, 40% in high range, 5% in very high range. Meter lower is 187, highest 464, average 278. He is currently on Lantus 50, Humalog 8 plus scale #3. Labs done in May total cholesterol 244, triglycerides 594, and kidney function within normal limits. Creatinine above 60. LDL 133, C-peptide 4.7, vitamin D 20. HPI: 05/20 New patient sent from [facility] for uncontrolled diabetes. A1c 9.4 and it was in April 10.4 when he was diagnosed recently. BUN 23, creatinine 1.42, GFR 56, but might be dehydrated. He found he was diabetic when he was started on Medrol Dosepak due to his chest and found his blood sugars 900s. I do not think he is in DKA, so he is only now on insulin Lantus 80 units and Humalog only sliding scale 3:50 above 150 with 3 units extra. Family history, numbness in his feet due to his back surgery, back problems, he does not have surgery. SUBJECTIVE: MEDICATIONS: Current Outpatient Medications Medication Instructions Aimovig (140 MG Dose) 140 mg, Subcutaneous, Every 28 days amLODIPine (NORVASC) 10 mg, Oral, Daily RT cetirizine (ZYRTEC ALLERGY) 10 mg, Oral, Daily, prn hydroCHLOROthiazide (HYDRODiuril) 12.5 MG tablet ibuprofen 600 mg, Oral, 3 times daily lisinopril-hydroCHLOROthiazide 10-12.5 MG tablet 1 tablet, Oral, Daily lisinopril-hydroCHLOROthiazide 20-25 MG tablet 1 tablet, Oral, Daily RT omeprazole (PRILOSEC) 40 mg, Oral, Daily before breakfast OneTouch Verio test strip pioglitazone (ACTOS) 30 mg, Oral, Daily Singulair 10 mg, Oral, Nightly Trulicity 0.75 mg, Subcutaneous, Weekly Ubrelvy 100 MG tablet ALLERGIES: Allergies Allergen Reactions Meloxicam Rash and Shortness of breath Aspirin Unknown Other Reaction(s): heart rate increase Extreme tachycardia Other reaction(s): Tachycardia Mushroom Extract Complex Swelling Other reaction(s): Anaphylaxis Oxycodone-Acetaminophen Other Reaction(s): addiction/mental issues Past Medical History: Diagnosis Date Bipolar disorder ([facility]) HTN (hypertension) ([facility]) RLS (restless legs syndrome) Type 2 diabetes mellitus ([facility]) Past Surgical History: Procedure Laterality Date ANTERIOR CRUCIATE LIGAMENT REPAIR Right [address] ANGIOGRAM HEART CORONARY 02/04/2021 CT ANGIOGRAM TAVR 02/04/2021 CT ANGIOGRAM HEART CORONARY 09/24/2020 CT ANGIOGRAM TAVR 09/24/2020 HERNIA REPAIR 2006 HI KNEE SCOPE,DIAGNOSTIC Right 12/08/[address] Hyde ROTATOR CUFF REPAIR Right 03/11/[address] Wise REVIEW OF SYMPTOMS: 14 POINT OF SYSTEM REVIEWED AND NEGATIVE OBJECTIVE: Constitutional: Afebrile @ home; no weakness or night sweats SKIN: No change in skin color; no itching, rash or lesions; no hair loss; HEENT: No HAs or injury; no dizziness; No difficulty with vision; no eye pain, discharge or lesions; no hearing loss or difficulty; no nasal discharge, NECK: No pain, limitation of motion, lumps or swollen glands RESP: No cough, wheezing or difficulty breathing. No CP with breathing; CARDIO: No CP , SOB or fatigue, No edema, palpitations or dyspnea with exertion GI: No N/V/D or abd. pain; good appetite with no recent change. No heart burn, liver or gallbladder disease; no rectal bleeding or pain : No urinary pain , frequency or odor. MUSCULOSKELETAL: No muscle pain or cramps; no extremity weakness.No joint pain, stiffness, swelling or limitation of movement NEUROLOGY: No H/O seizures, stroke or fainting. No weakness, tremors. Hematology: No bleeding problems or excessive bruising ENDOCRINE: No increase in hunger, thirst or urination; admits compliance to medical management plan Feet: numbness tingling yes , ulcers or skin break no Lab Results Component Value Date HGBA1C 9.4 11/27/2023 Lab Results Component Value Date GLU 281 11/27/2023 GLU 292 (H) 08/28/2023 GLU 505 (HH) 08/11/2023 Visit Vitals Pulse 88 Resp 18 Comment: O2 SAT 97% Ht 6' Wt 226 lb BMI 30.65 kg/m Smoking Status Never BSA 2.29 m ASSESSMENT AND PLAN: Assessment/Plan Diagnoses and all orders for this visit: Type 2 diabetes mellitus with hyperglycemia, without long-term current use of insulin (CMS/HCC) - POCT glycosylated hemoglobin (Hb A1C) docked device - POCT glucose manually resulted I will start him on Actos 30 mg p.o. once a day, and we will see him in 4 months Encounter for dietary consultation Vitamin D deficiency Primary hypertension (CMS/HCC) Continue amlodipine 10 mg once daily Class 1 obesity due to excess calories with serious comorbidity and body mass index (BMI) of 30.0 to 30.9 in adult Follow up in about 3 months (around 02/26/2024). documented in this encounter [facility] 10-01-2023 History of Present illness Narrative Images from the original note were not included. [facility] [id number] CONSULT NOTE CHIEF COMPLAINT Chief Complaint Patient presents with Hernia Umbilical hernia, right inguinal hernia, [facility] 09/23/23, referred by Rubina Glass Charlie Valdez is a 43 y.o. male who presents complaining of 2 hernias 1 at the umbilicus when he was feeling his abdomen it did not feel right and he felt a lump and then he found a lump in his right groin. He had a prior right inguinal hernia repair performed at [address] Robison the urologist. Patient was in the ED about a month ago and had a CT scan which failed to show either hernia. 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 Denies any nausea vomiting currently. Denies any change in his bowel habits or any family history of colon cancer inflammatory bowel disease. Reason for Exam RLQ abdominal pain PACS Images Show images for CT abdomen and pelvis with contrast CT abdomen and pelvis with contrast Order: [id number] Status: Final result Visible to patient: Yes (seen) Next appt: 10/01/2023 at 08:30 AM in General Surgery (Aicha Kaur DO) 0 Result Notes Details Reading Physician Reading Date Result Priority Clifford Eddy DO [phone] 08/28/2023 STAT Narrative & Impression History: right lower quadrant pain with nausea and vomiting. Exam/Technique: CT Abdomen & Pelvis. Contiguous axial images are obtained of the abdomen and pelvis. Omnipaque 300 IV contrast utilized. Coronal and sagittal images are reconstructed and reviewed as well. Automatic exposure control was utilized. Comparison: 09/07/2017 Findings: Lung bases: Within normal limits Bony structures: Age compatible Abdomen: Diffuse hepatic stenosis. No focal lesion appreciated. Patent hepatic vasculature. The gallbladder, pancreas, spleen and adrenal glands are within normal limits. Nonobstructive bowel gas pattern. No free air. Normal appendix. No significant diverticular disease. Kidneys perfuse symmetrically. No hydronephrosis, solid cortical lesion or inflammatory focus. Pelvis: No free fluid. Urinary bladder grossly normal. Normal size aorta. No retroperitoneal adenopathy or hematoma. IMPRESSION: * No acute findings to correspond with the patient's symptoms. All CT scans at this facility use dose modulation, iterative reconstruction, and/or weight based dosing when appropriate to reduce radiation dose to as low as reasonably achievable. Finalized by Clifford Eddy DO on 08/28/2023 11:21 AM Exam Ended: 08/28/23 11:13 EDT Last Resulted: 08/28/23 11:21 EDT MEDICATION Current Outpatient Medications: lisinopril-hydroCHLOROthiazide (PRINZIDE,ZESTORETIC) 20-25 mg per tablet, Take 1.5 tablets by mouth in the morning., Disp: 135 tablet, Rfl: 3 ALLERGY Allergies Allergen Reactions Meloxicam Shortness Of Breath Aspirin Extreme tachycardia Other reaction(s): Tachycardia Mushroom Swelling Other reaction(s): Anaphylaxis MEDICAL HISTORY Past Medical History: Diagnosis Date Allergic Anxiety Arthritis Asthma Back pain Bipolar 1 disorder ([facility]) Chronic headache Closed head injury COPD (chronic obstructive pulmonary disease) ([facility]) COVID 01/30/2021 CTE (chronic traumatic encephalopathy) Depression Diabetes mellitus ([facility]) Diabetes mellitus type I ([facility]) Eczema GERD (gastroesophageal reflux disease) Hx of brain damage Hypertension Migraine Narcotic abuse in remission ([facility]) history of problem with percocet, pt states he has since taken [place] without any issues - 03/06/18 Obesity Prolonged emergence from general anesthesia Shingles Sleep apnea Varicella Visual impairment glasses SURGICAL HISTORY Past Surgical History: Procedure Laterality Date ARTHROSCOPY KNEE Right 12/08/2018 Performed by Dick Hyde Jr., DO at [facility] ARTHROSCOPY REPAIR ROTATOR CUFF SHOULDER Right 03/11/2018 Performed by Troy Wise DO at [facility] ARTHROSCOPY SHOULDER Right 03/11/2018 Performed by Troy Wise DO at [facility] INGUINAL HERNIA REPAIR Right 6 years old KNEE ARTHROSCOPY Right 2002 ACL NECK SURGERY 06/12/2021 SOCIAL HISTORY Social History Socioeconomic History Marital status: Spouse name: Not on file Number of children: Not on file Years of education: Not on file Highest education level: Not on file Occupational History Not on file Tobacco Use Smoking status: Never Smokeless tobacco: Never Vaping Use Vaping status: Never Used Substance and Sexual Activity Alcohol use: Not Currently Drug use: Not Currently Sexual activity: Yes Partners: Female Other Topics Concern Caffeine Use Yes Comment: 3-4 cans of pepsi daily Social History Narrative Not on file Social Determinants of Health Financial Resource Strain: Not on file Food Insecurity: No Food Insecurity (10/01/2023) Hunger Screening Food Insecurity - Worry: Never True Food Insecurity - Inability: Never True Transportation Needs: Not on file Physical Activity: Not on file Stress: Not on file Social Connections: Not on file Interpersonal Safety: Not on file Housing Instability: Not on file FAMILY HISTORY Family History Problem Relation Age of Onset No Known Problems Mother No Known Problems Father REVIEW OF SYSTEMS: Constitutional: Denies fevers, denies recent illnesses. Eyes: Denies any vision changes. ENT: Denies any throat pain. Neck: Denies any neck pain. Cardiovascular denies chest pain. Denies palpitations. Respiratory: Denies shortness of breath, denies cough, He has a history of respiratory illness in the wintertime requiring inhalers but not during this time of year. Gastrointestinal: See chief complaint Genitourinary negative for dysuria hematuria urinary frequency or urgency. Musculoskeletal: positivefor extremity pains or joint discomfort. Neurologic: No change in sensation or paresthesias or history of seizure disorder skin: No rashes. Hematologic: No anemia. No purpura. No petechiae and no prolonged or excessive bleeding Allergic and immunologic: No pruritus. No swelling. Endocrine: past history of diabetes mellitus; No unexplained weight loss. No polydipsia. No polyuria. No polyphagia. PHYSICAL EXAM Constitutional: He is oriented to person, place, and time. Vital signs are normal. He appears well-developed and well-nourished. HEENT: Head: Normocephalic and atraumatic. Eyes: Conjunctivae, EOM and lids are normal. Neck: Trachea normal. Neck supple. No thyroid mass present. Cardiovascular: Normal rate and regular rhythm. Pulmonary/Chest: Effort normal and breath sounds normal. Abdominal: Soft. Normal appearance. Obese with a small reducible umbilical hernia proximally 1 cm above the umbilicus and then a recurrent right inguinal hernia small underneath the previous right inguinal incision. : Both testes are descended bilaterally but extremely tender on the right side compatible with epididymitis Musculoskeletal: Normal range of motion. Lymphadenopathy: He has no cervical adenopathy. He has no axillary adenopathy. Right: No inguinal and no supraclavicular adenopathy present. Left: No inguinal and no supraclavicular adenopathy present. Neurological: He is alert and oriented to person, place, and time. Skin: Skin is warm, dry and intact. Psychiatric: He has a normal mood and affect. His speech is normal and behavior is normal. Cognition and memory are normal. IMPRESSION 1. Acute epididymitis right testicle from chronic lifting at work 2. Reducible umbilical hernia less than 1 cm 3. Recurrent right inguinal hernia 4. Obesity with BMI of 35 5. History of hypertension 6. Past history of diabetes mellitus ASSESSMENT & PLAN 1. Athletic supporter and tight-fitting underwear 24 hours a day for supportive testes 2. Cipro 500 mg p.o. b.I.d. times 14 days and return to office for recheck in 2-4 weeks 3. Discussed discontinuation of his current employment because this is exacerbating his epididymitis and hernias and puts him at increased risk of recurrence of hernias even after repair due to being obese and continuous lifting of greater than 100 lb regularly sometimes up to 7 days a week. 4. Return to the office after Cipro to check the epididymitis. 5. It was also recommended that patient lose weight. He told me he eats fast food any loses weight consisting of burgers and fries. I told him eat more fresh fruits and vegetables and drink more water. He was drinking a regular Pepsi which contains 240 calories and contain sugar and he has been diabetic previously. He voiced understanding of all the above and will return to the office in 2-4 weeks. He does understand that when I would do the hernia repair it would require 8 weeks of no lifting greater than 5 [address] him on a nonsteroidal anti-inflammatory drug for inflammation and epididymitis but he can not tolerate meloxicam or aspirin which were in the same class and I recommended Tylenol in addition to the Cipro for pain. Evaluation included: Preparing to see the patient (e.g., review of tests) Obtaining and/or reviewing separately obtained history Performing a medically appropriate examination and/or evaluation Counseling and educating the patient/family/caregiver Referring and communicating with other health home health care worker Acute epididymitis [N45.1] Aicha Kaur, This note was created with the assistance of a speech recognition program. While intending to generate a timely document that accurately reflects the content of the visit, no guarantee can be provided that every grammatical or spelling mistake has been or will be identified or corrected. Thank you for your understanding. documented in this encounter [facility] 09-09-2023 Miscellaneous Notes Called Charlie regarding the umbilical hernia referral that our office received from Rubina Glass NP, left message on voicemail to call the office back to schedule an appointment. Called Charlie regarding the referral that our office received, we scheduled him an appointment on 10/01/[address] Sanchez. documented in this encounter [facility] 09-09-2023 Telephone encounter Note Called Charlie regarding the umbilical hernia referral that our office received from Rubina Glass NP, left message on voicemail to call the office back to schedule an appointment. [facility] 09-09-2023 Telephone encounter Note Called Charlie regarding the referral that our office received, we scheduled him an appointment on 10/01/[address] Sanchez. [facility] 07-16-2023 Evaluation + Plan note Future Scheduled TestsCalprotectin, Fecal 07/16/23IgA, Quant. 07/16/23Celiac Disease Comprehensive 07/16/23C-Reactive Protein 07/16/23 [facility] 07-14-2023 History of Present illness Narrative Charlie Valdez Date of visit: 07/14/2023 Date of : 1980 Age: 43 y.o. Patient Active Problem List Diagnosis Hyperglycemia Hypertension Vasovagal syncope Obesity (BMI 30-39.9) Hearing loss Eczematoid otitis externa Mixed hyperlipidemia Allergies Allergen Reactions Meloxicam Shortness Of Breath Aspirin Extreme tachycardia Other reaction(s): Tachycardia Mushroom Swelling Other reaction(s): Anaphylaxis Current Outpatient Medications Medication Sig Dispense Refill albuterol (PROVENTIL HFA;VENTOLIN HFA) 90 mcg/actuation inhaler Inhale 2 puffs every 4 (four) hours as needed for wheezing. 18 g 0 cetirizine (ZyrTEC) 10 mg tablet Take 1 tablet (10 mg total) by mouth in the morning. dulaglutide (TRULICITY) 1.5 mg/0.5 mL pen injector Inject 1.5 mg under the skin every 7 days. montelukast (SINGULAIR) 10 mg tablet Take 1 tablet (10 mg total) by mouth nightly. atorvastatin (LIPITOR) 40 mg tablet Take 1 tablet (40 mg total) by mouth in the morning. 90 tablet 3 lisinopril-hydroCHLOROthiazide (PRINZIDE,ZESTORETIC) 20-25 mg per tablet Take 1.5 tablets by mouth in the morning. 135 tablet 3 No current facility-administered medications for this visit. Chief Complaint Patient presents with Follow-up 1 MONTH Hypertension History of Present Illness Charlie was seen in our office for follow-up. He was seen about a month ago for high blood pressure. At that time his blood pressure was running about 200/100. We started him on lisinopril hydrochlorothiazide 40/50 mg. His blood pressures are now running in the 120/80 range. Does get some dizziness and lightheadedness with changes in position. He otherwise is not experiencing any other significant symptoms. He denies any chest pain or pressure. Denies any palpitations. He states that he did have lipid profile performed in his triglycerides were above 400. Hemoglobin A1c is 8.4. He is following up with an lighting fixtures decorator here in [place]. Past Medical History: Diagnosis Date Asthma Bipolar 1 disorder ([facility]) Closed head injury COPD (chronic obstructive pulmonary disease) ([facility]) COVID 01/30/2021 CTE (chronic traumatic encephalopathy) Diabetes mellitus ([facility]) Diabetes mellitus type I ([facility]) Hx of brain damage Hypertension Narcotic abuse in remission ([facility]) history of problem with percocet, pt states he has since taken [place] without any issues - 03/06/18 Prolonged emergence from general anesthesia Sleep apnea Visual impairment glasses No data recorded No data recorded No data recorded Past Surgical History: Procedure Laterality Date ARTHROSCOPY KNEE Right 12/08/2018 Performed by Dick Hyde Jr., DO at [facility] ARTHROSCOPY REPAIR ROTATOR CUFF SHOULDER Right 03/11/2018 Performed by Troy Wise DO at [facility] ARTHROSCOPY SHOULDER Right 03/11/2018 Performed by Troy Wise DO at [facility] HERNIA REPAIR KNEE ARTHROSCOPY NECK SURGERY 06/12/2021 Family History Problem Relation Age of Onset No Known Problems Mother No Known Problems Father Social History Socioeconomic History Marital status: Spouse name: Not on file Number of children: Not on file Years of education: Not on file Highest education level: Not on file Occupational History Not on file Tobacco Use Smoking status: Never Smokeless tobacco: Never Vaping Use Vaping status: Never Used Substance and Sexual Activity Alcohol use: Not Currently Drug use: Not Currently Sexual activity: Defer Other Topics Concern Caffeine Use Yes Comment: 3-4 cans of pepsi daily Social History Narrative Not on file Social Determinants of Health Financial Resource Strain: Not on file Food Insecurity: No Food Insecurity (07/14/2023) Hunger Screening Food Insecurity - Worry: Never True Food Insecurity - Inability: Never True Transportation Needs: Not on file Physical Activity: Not on file Stress: Not on file Social Connections: Not on file Interpersonal Safety: Not on file Housing Instability: Not on file Review of Systems Review of Systems Constitutional: Positive for malaise/fatigue. HENT: Negative. Eyes: Negative. Respiratory: Negative. Hematologic/Lymphatic: Bruises/bleeds easily. Skin: Negative. Musculoskeletal: Negative. Gastrointestinal: Negative. Neurological: Positive for dizziness, headaches and light-headedness. Psychiatric/Behavioral: Negative. Allergic/Immunologic: Positive for environmental allergies. CARDIOVASCULAR: Please review HPI. Physical Examination General appearance: Alert, oriented and cooperative. In no acute distress. Skin: Warm and dry to touch. Head: Normocephalic Neck: No JVD, No carotid bruit. Respiratory: Clear to auscultation bilaterally Musculoskeletal: No peripheral edema. Neurologic: Nonfocal VITAL SIGNS: BP 102/80 (BP Site: Right Arm, BP Postition: Sitting) Pulse 91 Ht 182.9 cm (6') Wt 118.8 kg (262 lb) SpO2 95% BMI 35.53 kg/m Orders Placed or Reconciled This Encounter Medications dulaglutide (TRULICITY) 1.5 mg/0.5 mL pen injector Sig: Inject 1.5 mg under the skin every 7 days. atorvastatin (LIPITOR) 40 mg tablet Sig: Take 1 tablet (40 mg total) by mouth in the morning. Dispense: 90 tablet Refill: 3 lisinopril-hydroCHLOROthiazide (PRINZIDE,ZESTORETIC) 20-25 mg per tablet Sig: Take 1.5 tablets by mouth in the morning. Dispense: 135 tablet Refill: 3 Medications Discontinued During This Encounter Medication Reason lisinopril-hydroCHLOROthiazide (PRINZIDE,ZESTORETIC) 20-25 mg per tablet IMPRESSIONS/PLAN 1. Primary hypertension 2. Mixed hyperlipidemia 1. Primary hypertension. Blood pressure much better controlled with current medications of lisinopril/hydrochlorothiazide. He is having some symptoms of orthostatic blood pressure changes. I have asked him to decrease the dosage down to 1-1/2 tablets daily. 2. Mixed hyperlipidemia. Significant hypertriglyceridemia. Probably related to type 2 diabetes mellitus and poorly controlled blood sugars. I have started him on atorvastatin 40 mg a day and estimated a fasting lipid profile performed in 4 months. He should follow up with his lighting fixtures decorator regarding better blood sugar control. Total time spent on this patient was 23 minutes: Preparing to see the patient(e.g. review of tests and prior office/hospital notes) Obtaining and/or reviewing separately obtained history Performing and medical specialty appropriate examination and/or evaluation Counseling and educating the patient/family/caregiver Ordering medications,tests or procedures TODAYS ORDERS No orders of the defined types were placed in this encounter. FOLLOW UP No follow-ups on file. PCP: PAIGE SOTO DO Referring Physician: Paige Soto DO [address] [place] [address] documented in this encounter [facility] 07-11-2023 Miscellaneous Notes Left message for patient to remind them to bring their most current medication list with them to their appointment. documented in this encounter [facility] 07-11-2023 Telephone encounter Note Left message for patient to remind them to bring their most current medication list with them to their appointment. [facility] 06-12-2023 History of Present illness Narrative Charlie Valdez Date of visit: 06/12/2023 Date of : 1980 Age: 42 y.o. Patient Active Problem List Diagnosis Hyperglycemia Hypertension Vasovagal syncope Obesity (BMI 30-39.9) Hearing loss Eczematoid otitis externa Allergies Allergen Reactions Meloxicam Shortness Of Breath Aspirin Extreme tachycardia Other reaction(s): Tachycardia Mushroom Swelling Other reaction(s): Anaphylaxis Current Outpatient Medications Medication Sig Dispense Refill albuterol (PROVENTIL HFA;VENTOLIN HFA) 90 mcg/actuation inhaler Inhale 2 puffs every 4 (four) hours as needed for wheezing. 18 g 0 cetirizine (ZyrTEC) 10 mg tablet Take 1 tablet (10 mg total) by mouth in the morning. montelukast (SINGULAIR) 10 mg tablet Take 1 tablet (10 mg total) by mouth nightly. lisinopril-hydroCHLOROthiazide (PRINZIDE,ZESTORETIC) 20-25 mg per tablet Take 2 tablets by mouth in the morning. 180 tablet 3 No current facility-administered medications for this visit. Chief Complaint Patient presents with Follow-up 1 YEAR Hypertension Chest Pain Palpitations Shortness of Breath Dizziness History of Present Illness Mr Valdez was here for follow-up. He has primary hypertension which has been poorly controlled any sent in by his primary care physician. Patient has been on multiple medications in the past and had problems with low blood pressures and syncope. Patient has not been taking any blood pressure medication for a while. He states that his blood pressures have been running in the stroke range . He has not experienced any chest pain or shortness of breath. He has not had any palpitations presyncope or syncope recently. He denies any orthopnea or PND. He has not any significant lower extremity edema. Today in our office his blood pressure was running 190/110 in both arms. Past Medical History: Diagnosis Date Asthma Bipolar 1 disorder ([facility]) Closed head injury COPD (chronic obstructive pulmonary disease) ([facility]) COVID 01/30/2021 CTE (chronic traumatic encephalopathy) Diabetes mellitus ([facility]) Diabetes mellitus type I ([facility]) Hx of brain damage Hypertension Narcotic abuse in remission ([facility]) history of problem with percocet, pt states he has since taken [place] without any issues - 03/06/18 Prolonged emergence from general anesthesia Sleep apnea Visual impairment glasses No data recorded No data recorded No data recorded Past Surgical History: Procedure Laterality Date ARTHROSCOPY KNEE Right 12/08/2018 Performed by Dick Hyde Jr., DO at [facility] ARTHROSCOPY REPAIR ROTATOR CUFF SHOULDER Right 03/11/2018 Performed by Troy Wise DO at [facility] ARTHROSCOPY SHOULDER Right 03/11/2018 Performed by Troy Wise DO at [facility] HERNIA REPAIR KNEE ARTHROSCOPY NECK SURGERY 06/12/2021 Family History Problem Relation Age of Onset No Known Problems Mother No Known Problems Father Social History Socioeconomic History Marital status: Spouse name: Not on file Number of children: Not on file Years of education: Not on file Highest education level: Not on file Occupational History Not on file Tobacco Use Smoking status: Never Smokeless tobacco: Never Vaping Use Vaping status: Never Used Substance and Sexual Activity Alcohol use: Not Currently Drug use: Not Currently Sexual activity: Defer Other Topics Concern Caffeine Use Yes Comment: 3-4 cans of pepsi daily Social History Narrative Not on file Social Determinants of Health Financial Resource Strain: Not on file Food Insecurity: No Food Insecurity (06/12/2023) Hunger Screening Food Insecurity - Worry: Never True Food Insecurity - Inability: Never True Transportation Needs: Not on file Physical Activity: Not on file Stress: Not on file Social Connections: Not on file Interpersonal Safety: Not on file Housing Instability: Not on file Review of Systems Review of Systems Constitutional: Positive for malaise/fatigue. HENT: Negative. Eyes: Negative. Respiratory: Positive for shortness of breath and wheezing. Hematologic/Lymphatic: Negative. Skin: Negative. Musculoskeletal: Negative. Gastrointestinal: Negative. Neurological: Positive for dizziness and light-headedness. Psychiatric/Behavioral: Negative. Allergic/Immunologic: Positive for environmental allergies. CARDIOVASCULAR: Please review HPI. Physical Examination General appearance: Alert, oriented and cooperative. In no acute distress. Skin: Warm and dry to touch. Head: Normocephalic Neck: No JVD, No carotid bruit. Respiratory: Clear to auscultation bilaterally Cardiovascular: RRR with normal S1 and S2 with no murmurs. Musculoskeletal: No peripheral edema. Neurologic: Nonfocal VITAL SIGNS: BP (!) 160/110 (BP Site: Right Arm, BP Postition: Sitting) Pulse 91 Ht 182.9 cm (6') Wt 122.9 kg (271 lb) SpO2 96% BMI 36.75 kg/m Orders Placed or Reconciled This Encounter Medications cetirizine (ZyrTEC) 10 mg tablet Sig: Take 1 tablet (10 mg total) by mouth in the morning. montelukast (SINGULAIR) 10 mg tablet Sig: Take 1 tablet (10 mg total) by mouth nightly. lisinopril-hydroCHLOROthiazide (PRINZIDE,ZESTORETIC) 20-25 mg per tablet Sig: Take 2 tablets by mouth in the morning. Dispense: 180 tablet Refill: 3 Medications Discontinued During This Encounter Medication Reason benzonatate (TESSALON PERLES) 100 mg capsule Therapy completed IMPRESSIONS/PLAN 1. Primary hypertension - POCT EKG 1. Primary hypertension. Very poorly controlled. Currently on no medication. I have prescribed lisinopril hydrochlorothiazide 40/50 mg daily. I am going to see him back in the office in 4-5 weeks and we will then at that time decide whether not a 2nd medication should be added at that time. I have advised him that if he has problems with his medication he should contact our office and we can corrected problem over the phone. Total time spent on this patient was 23 minutes: Preparing to see the patient(e.g. review of tests and prior office/hospital notes) Obtaining and/or reviewing separately obtained history Performing and medical specialty appropriate examination and/or evaluation Counseling and educating the patient/family/caregiver Ordering medications,tests or procedures TODAYS ORDERS Orders Placed This Encounter Procedures POCT EKG FOLLOW UP Return in about 4 weeks (around 2023). PCP: PAIGE SOTO DO Referring Physician: Paige Soto DO [address] [place] [address] documented in this encounter [facility] 06-11-2023 Miscellaneous Notes Called patient to remind them to bring their most current copy of their medication list with them to their appt. Patient verbalizes understanding. documented in this encounter [facility] 06-11-2023 Telephone encounter Note Called patient to remind them to bring their most current copy of their medication list with them to their appt. Patient verbalizes understanding. [facility] 01-16-2022 Miscellaneous Notes Patient: Charlie Valdez Date of : 1980 Patient phone number: [phone] Referring Provider for the encounter: Paige Soto Requesting Provider: anyone Reason for requesting visit (RFV/signs and symptoms/diagnosis): syncope, unspecified, primary hypertension, syncopal episodes Person calling: self Return call to: self Medical Records/Insurance Card scanned into [employer]: No Comments: NA documented in this encounter [facility] 08-28-2021 Evaluation + Plan note Extrac arjun from: Title:Spine follow-up Author:Jason Laurent PA-C Date:08/28/21 Impression and Plan Patient is a 40-year-old male. He is 10 weeks postop from C5-6 ACDF. This was done on 06/25/2021. A few weeks ago we got a call from primary care physician's office that he was intermittently going paralyzed from the neck down . We recommended ER evaluation or for him to come for an appointment. Unfortunate, due to gas prices he did not come for an appointment. He states that this is still intermittently going on. He also feels that he is having choking issues if he turns his head a certain way. He feels that the incision pulls on something on his neck and chokes him. I recommended updated cervical x-rays and a Medrol Dosepak to see if we can get some inflammation calm down. In regards to his back pain I would also recommend some lumbar x-rays. He will obtain these x-rays and we will call him with any abnormal findings. Otherwise I recommend him to follow-up in 2 to 4 weeks for reevaluation to make sure things have gotten better. Call the clinic sooner if necessary. Future Appointments Appointment Date:09/25/2021 10:30:00 AM Scheduled Provider:Catarina Laurent PA-C Location:[facility] Clinic Appointment Type:Spine - Post-Op (FT) [facility]04-25-2022 Evaluation + Plan noteExtracted from: Title:Spine postop Author:Catarina Laurent PA-C Date:06/25/21 Impression and Plan Patient is a 40-year-old male. He is 2 weeks postop from C5-6 ACDF. He states that he is overall doing fairly well. 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 He is going to do this. He is also going to get our notes to turn into child support. He needs to be out for 12 weeks from surgery if he is doing any strenuous labor. He is going to follow-up in 6 to 8 weeks with cervical flexion-extension x-rays. He will continue to use the muscle relaxer in the meantime Follow-up as above noted or sooner if necessary. Future Appointments Appointment Date:08/14/2021 11:30:00 AM Scheduled Provider:Catarina Laurent PA-C Location:[facility]Sp[facility] Clinic Appointment Type:Spine - Post-Op (FT) [facility]04-13-2022 Evaluation + Plan noteExtracted from: Title:APSO Note Author:CHENCHO ARMENTA, Mbadenikefo Date: 40-year-old male w ith history of hypertension, rhf-ggxwbzp-stjmaymoz diabetes mellitus type 2, chronic pancreatitis, asthma/seasonal allergies was admitted to Dr. Ervin's service after a cervical spine fusion surgery and we were consulted to manage his medical conditions including asthma, hypertension, diabetes mellitus, chronic pancreatitis and obstructive sleep apnea. 1. S/P cervical spinal fusion (Z98.1: Arthrodesis status) Status post C5-C6 fusion postop day #1. Management by orthopedic spinal surgeon. Continue with physical therapy has no needs. Ordered: Sbsq Observation Care/Day Moderate 25 min 82808 2. Cervical radiculopathy (M54.12: Radiculopathy, cervical region) Secondary to old injury. See above discussion. Ordered: Sbsq Observation Care/Day Moderate 25 min 30523 3. HTN (hypertension) (I10: Essential (primary) hypertension) Blood pressure fairly controlled. Continue on amlodipine and lisinopril. Ordered: Sbsq Observation Care/Day Moderate 25 min 27290 4. Diabetes (E11.9: Type 2 diabetes mellitus without complications) Continue on Metformin and Trulicity. Ordered: Sbsq Observation Care/Day Moderate 25 min 20233 5. Migraine (G43.909: Migraine, unspecified, not intractable, without status migrainosus) Supportive care. 6. Chronic pancreatitis (K86.1: Other chronic pancreatitis) Continue on pancrelipase. 7. Obstructive sleep apnea (G47.33: Obstructive sleep apnea (adult) (pediatric)) Supportive care. Disposition: Home soon with primary service approval. 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 C5-6 disc herniation with myeloradiculopathy Status post anterior cervical discectomy and fusion at C5-6. Procedure was uneventful. Postop day #0 Incentive spirometer SCDs for DVT prophylaxis Pain control with acetaminophen, oxycodone, Dilaudid as needed On cefazolin, dexamethasone per gill Check AM labs PT/OT Hypertension On amlodipine, lisinopril Diabetes On Metformin, Trulicity BS 121 Migraine On erenumab q. monthly, ubrogepant Chronic pancreatitis On pancrelipase BASILIO Noncompliant with CPAP Diet: Diabetic Code: Full code DVT prophylaxis: SCDs This report was transcribed using voice recognition software. Every effort was made to ensure accuracy, however, inadvertently computerized business objects developer mistakes may be present. Dr. Glen Elliott Hospitalist 1. HTN (hypertension) (I10: Essential (primary) hypertension) 2. Diabetes (E11.9: Type 2 diabetes mellitus without complications) 3. Migraine (G43.909: Migraine, unspecified, not intractable, without status migrainosus) 4. Chronic pancreatitis (K86.1: Other chronic pancreatitis) 5. Obstructive sleep apnea (G47.33: Obstructive sleep apnea (adult) (pediatric)) Orders: Basic Metabolic Panel CBC w/ Auto Diff Magnesium Level Phosphorus Level Extracted from: Title:Post-anesthesia - General Author:Jay Mabry DO Date:06/12/21 Plan Transfer/ Discharge: Condition stable. Extracted from: Title:Pre-anesthesia - Adult Author:Jay Pratt Jr., DO Date:06/12/21 Plan [place] [employer] Anesthesiologists (ASA) physical status classification: Class III. Anesthetic Preoperative Plan Anesthesia: General. . Anesthetic plan, risks, benefits, and alternatives discussed with the patient and/or family. Patient verbalized understanding. Adverse reactions, complications, and alternatives discujssed. Consent signed and on chart.. Future Appointments Appointment Date:06/25/2021 10:15:00 AM Scheduled Provider:Catarina Laurent PA-C Location:[facility]Spine Clinic Appointment Type:Spine - Post-Op (FT) Future Scheduled Tests Radiology* XR Spine Cervical 2 or 3 Views 06/25/21 [facility]04-13-2022 Hospital Discharge instructions Patient Education 06/13/2021 07:39:11 [facility] Anterior Cervical Fusion, Care Following-[facility] (FTDMOORE) (FTDMOORE) Anterior Cervical Fusion, Care Following An anterior cervical fusion is an operation where a surgeon has gone through the front of your neckand attached together (fused) some of the bones in your neck. This is done so there is no longer movement between these bones. In order to obtain the best possible results from this operation it is necessary to follow your caregiver's instructions following the operation. HOME CARE INSTRUCTIONS You will be given a soft cervical collar to wear after the operation. You must wear the soft collarat all times, except for showering and eating, until seen in the office for your first visit after the operation. Do not drink alcohol, use public transportation, or sign important papers for at least one day following surgery. You may resume normal diet and activities as directed. You may NOT drive a car until told otherwise by your physician (usually at your first office visit). You may be a passenger for short distances (20-30 minutes). If you must take a longer trip, make sure to make several stops so that you can walk around and stretch your legs. Reclining the passengerseat seems to be the most comfortable position for most patients. It is normal to have a sore throat and some difficulty swallowing solid foods. This may persist forseveral weeks. Eating soft foods like yogurt, macaroni, and mashed potatoes seem to help. You may sleep in any position that makes you comfortable as long as your collar is securely in place. Sleeping in a recliner chair may offer comfort. It is not abnormal to have difficulty sleeping for the first several weeks following surgery. Only take gutg-bnc-vlyfdgk or prescription medicines for pain, discomfort, or fever as directed by your caregiver. Do NOT take any anti-inflammatory medication for the first six weeks following your surgery. You may shower normally once the bandages are removed from your cuts (incisions). If they are not removed before your discharge from the hospital, you may change them as directed. Hair washing is permissible while in the shower. Do not use bathtubs, hot tubs or whirlpools until seen in the office. You have unlimited walking and chair climbing privileges. Walking outside (in nice weather only) orwalking on a treadmill (no incline) is also allowed. Do NOT lift anything weighing greater than 15 pounds. Especially try to avoid lifting or reaching above your head. To help lessen or reduce continued soreness around the bone graft site, apply ice for minutes times per day for the first 2 days.. SEEK IMMEDIATE MEDICAL CARE IF: There is redness, swelling, or increasing pain in a wound. There is a pus-like discharge coming from a wound. There is drainage from a wound lasting longer than one day. An unexplained oral temperature above develops. You notice a foul smell coming from the wound or dressing. A breaking open of a wound (edges not staying together) after sutures have been removed. You develop dizzy episodes or feel faint while standing. You develop persistent nausea (feeling sick to your stomach) or vomiting. If you have ifeanyi or sutures in your incision they may be removed 2 weeks following your surgery.This may be done by a visiting nurse, family physician, or by making an appointment to come into the office. Document Released: 04/28/2002 Document Re-Released: 05/16/2009 [employer] Patient Information 2009 [employer]. 06/13/2021 07:39:11 [facility] Anterior Cervical Fusion, Care After (FTDMOORE) Anterior Cervical Fusion Care After Pinching of the nerves is a common cause of long-term pain. When this happens, a procedure called an anterior cervical fusion is sometimes performed. It relieves the pressure on the pinched nerve roots or spinal cord in the neck. An anterior cervical fusion means that the operation is done through the front (anterior) of your neck to fuse bones in your neck together. This procedure is done to relieve the pressure on pinched nerve roots or spinal cord. This operation is done to control the movement of your spine, which may be pressing on the nerves. This may relieve the pain. The procedure that stops the movement of the spine is called a fusion. The cut by the surgeon (incision) is usually within a skin fold line under your chin. After moving the neck muscles gently apart, the neurosurgeon uses an operating microscope and removes the injured intervertebral disk (the cushion or pad of tissue between the bones of the sp ine). This takes the pressure off the nerves or spinal cord. This is called decompression. The areawhere the disc was removed is then filled with a bone graft. The graft will fuse the vertebrae together over time. This means it causes the vertebral bodies to grow together. The bone graft may be obtained from your own bone (your hip for example), or may be obtained from a bone bank. Receiving bone from a bone bank is similar to a blood bank, only the bone comes from human donors who have recently . This type of graft is referred to as allograft bone. The preformed bone plug is safe and will not be rejected by your body. It does not contain blood cells. In some cases, the surgeon may use hardware in your neck to help stabilize it. This means that metal plates or pins or screws may be used to: Provide extra support to the neck. Help the bones to grow together more easily. A cervical fusion procedure takes a couple hours to several hours, depending on what needs to be done. Your caregiver will be able to answer your questions for you. HOME CARE INSTRUCTIONS It will be normal to have a sore throat and have difficulty swallowing foods for a couple weeks following surgery. See your caregiver if this seems to be getting worse rather than better. You may resume normal diet and activities as directed or allowed. Generally, walking and stair climbing are fine. Avoid lifting more than ten pounds and do no lifting above your head. If given a cervical collar, remove only for bathing and eating, or as directed. Use only showers for cleaning up, with no bathing, until seen. You may apply ice to the surgical or bone donor site for 15-20 minutes each hour while awake for the first couple days following surgery. Put the ice in a plastic bag and place a towel between the bag of ice and your skin. Change dressings if necessary or as directed. Avoid driving a car until given the OK by your surgeon. Take prescribed medication as directed. Only take fnuv-rrb-pjxhofj or prescription medicines for pain, discomfort, or fever as directed by your caregiver. Make an appointment to see your caregiver for suture or staple removal when instructed. If physical therapy was prescribed, follow your caregiver's directions. SEEK IMMEDIATE MEDICAL CARE IF: There is redness, swelling, or increasing pain in the wound. There is pus coming from the wound. An unexplained oral temperature over 102 F (38.9 C) develops. There is a bad smell coming from the wound or dressing. You have swelling in your calf or leg. You develop shortness of breath or chest pain. The wound edges break open after sutures or ifeanyi have been removed. Your pain is not controlled with medicine. You seem to be getting worse rather than better. Document Released: 10/01/2004 Document Revised: 05/11/2012 Document Reviewed: 12/07/2008 [facility] [place] Patient Information 2013 [employer]. 06/13/2021 07:39:11 [facility] 2, Discharge Instructions 3-30-14 (FTDMOORE) (FTDMOORE) Dr. Cottrell s Discharge Instructions, version 2 Follow the instructions marked only with [ x ] [ X ] Follow up in days__2___weeks when discharged from rehab center [ x ] Follow-up x-rays are needed. If discharged to home, then please have the following x-rays performed prior to the first office visit. If discharged to an extended care facility, alf or rehab, please have the facility perform the following x-rays to be done prior to the first office visit. [ ] Follow x-rays are not needed [ X ] Activities: No lifting over 10 pounds, no twisting, bending or stooping [ X ] Collar [ ] Corset [ ] brace to be worn [ ] when out of bed[ ] at all times. [ X ] No driving until further notice. [ X ] Shower allowed on post-operative day # __3___. [ X ] No bathing or swimming until further notice. [ X ] Dressing changes as needed after showering using 4x4 gauze and tape after __3___ days. [ X ] Anti-embolic hoses to be worn until normal activity is resumed or up to 3 weeks. [ X ] Avoid impact loading or jarring activities. [ X ] Resume all home medications unless otherwise instructed not to. [ x ] If spinal fusion has been done, then avoid taking anti-inflammatory medications. [ ] Take over the counter anti-inflammatory medication as directed. [ x ] Narcotic prescription(s) given. [ ] Narcotic prescription(s) not needed or indicated. [ X ] Discharge patient to [ x ] home [ ] with home health care if qualifies [ ] extended care facility or alf or [ ] rehab. Follow Up Care 05/30/2021 09:10:22 With:Catarina Laurent Address: [address] [place] [address]- Business (1) When:06/25/2021 10:15:00 With:PAIGE SOTO Address: [address] FAX# [phone] [place] [address]- [phone] Business (1) When: [facility] Future App[facility]ments Appointment Date:06/12/2021 11:15:00 AM Scheduled Provider: Location:[facility] App[facility] Future Appointments Appointment Date:08/14/2021 11:30:00 AM Scheduled Provider:Catarina Laurent PA-C [facility] Future Appointments Appointment Date:09/25/2021 10:30:00 AM Scheduled Provider:Catarina Laurent PA-C [facility] Future Appointments Appointment Date:08/15/2023 08:30:00 AM Scheduled Provider: Location:[facility] Surgical Services Appointment Type:Surgery FT Future Scheduled Tests Laboratory* Calprotectin, Fecal 07/16/23 * IgA, Quant. 07/16/23 * Celiac Disease Comprehensive 07/16/23 * C-Reactive Protein 07/16/23 [facility] Evaluation note* Diagnosis Syncope, unspecified syncope type- Primary [facility] noteNo assessment information availableSelect [facility] Work Phone: Evaluation note* Diagnosis Type 2 diabetes mellitus with hyperglycemia, without long-term current use of insulin ([facility]) documented in this encounter [facility] HealthcareEvaluation [facility]* Diagnosis Type 2 diabetes mellitus with hyperglycemia, without long-term current use of insulin ([facility])- Primary Encounter for dietary consultation Vitamin D deficiency Primary hypertension ([facility]) Unspecified essential hypertension Class 1 obesity due to excess calories with serious comorbidity and body mass index (BMI) of 30.0 to 30.9 in adult documented in this encounter [facility] HealthcareEvaluation note* Diagnosis Left ventricular hypertrophy- Primary Cardiomegaly Primary hypertension Unspecified essential hypertension Mixed hyperlipidemia [facility] Diagnosis Primary hypertension- Primary Unspecified essential hypertension Mixed hyperlipidemia [facility]* Diagnosis Acute epididymitis- Primary Other orchitis, epididymitis, and epididymo-orchitis, without mention of abscess Right inguinal hernia Inguinal hernia without mention of obstruction or gangrene, unilateral or unspecified, (not specified as recurrent) Recurrent right inguinal hernia Umbilical hernia without obstruction and without gangrene Class 2 severe obesity due to excess calories with serious comorbidity in adult, unspecified BMI ([facility]) Primary hypertension Unspecified essential hypertension [facility] Diagnosis Primary hypertension- Primary Unspecified essential hypertension [facility] Diagnosis Chronic midline low back pain with bilateral sciatica- Primary Hyperglycemia Other abnormal glucose Renal cyst Unspecified congenital cystic kidney disease Kidney stones Calculus of kidney [facility]* Diagnosis Chronic midline low back pain with bilateral sciatica- Primary Hyperglycemia Other abnormal glucose Renal cyst Unspecified congenital cystic kidney disease Kidney stones Calculus of kidney Back pain, unspecified back location, unspecified back pain laterality, unspecified chronicity- Primary [facility]* Diagnosis Type 2 diabetes mellitus with hyperglycemia, without long-term current use of insulin ([facility])- Primary Encounter for dietary consultation Vitamin D deficiency Primary hypertension ([facility]) Unspecified essential hypertension Class 2 severe obesity due to excess calories with serious comorbidity and body mass index (BMI) of 35.0 to 35.9 in adult (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 [facility] Diagnosis Chronic midline low back pain with bilateral sciatica- Primary Hyperglycemia Other abnormal glucose Renal cyst Unspecified congenital cystic kidney disease Kidney stones Calculus of kidney 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 Primary hypertension- Primary Unspecified essential hypertension Chest pain, unspecified type [facility]* Diagnosis Chronic midline low back pain with bilateral sciatica- Primary Hyperglycemia Other abnormal glucose Renal cyst Unspecified congenital cystic kidney disease Kidney stones Calculus of kidney 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 Chest pain, unspecified type [facility] Diagnosis Chronic midline low back pain with bilateral sciatica- Primary Hyperglycemia Other abnormal glucose Renal cyst Unspecified congenital cystic kidney disease Kidney stones Calculus of kidney 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) documented in this encounter [facility] HealthcareHospital course Narrative No data available for this section [facility] No data available for this section [facility] HospitalInstructionsNot on filedocumented in this encounter [facility] on filedocumented in this encounter [facility]ructionsNot on filedocumented in this encounter [facility]ructionsNot on filedocumented in this encounter [facility] on filedocumented in this encounter [facility]Not on filedocumented in this encounter [facility]ructionsNot on filedocumented in this encounter [facility]ructionsNot on filedocumented in this encounter [facility]ructionsNot on filedocumented in this encounter [facility]ructionsNot on filedocumented in this encounter [facility]ructionsNot on filedocumented in this encounter [facility]ructionsNot on filedocumented in this encounter [facility]ructionsNot on filedocumented in this encounter [facility] SystemInstructionsNot on filedocumented in this encounter [facility] SystemInstructionsNot on filedocumented in this encounter [facility] System[facility] note No data available for this section [facility] (narrative)* Outpatient Procedure (Routine) - Authorized Specialty Diagnoses / Procedures Referred By Pérez pagan Referred To Contact [facility] Diagnoses Syncope, unspecified syncope type Procedures ECG COMPLETE ECG ROUTINE ECG W/LEAST 12 LDS W/I&R Shadi Bloom DO [address] [place] [address] [facility] [place] [address] [place] [address] Referral ID Status Reason Start Date Expiration Date Visits Requested Visits Authorized [id number] Authorized Auto-Generat ed Referral 2 01/17/2023 1 1 [facility] Summary Purpose Family History No Family History Records Found Relationship Condition Age at Onset Recorded Date/T barbara brother Unknown Advance Directives No Advanced Directives Records Found Advance Directive Response Recorded Date/ Time Advance Directives No July 15 9 7:48am Date Activated Date Inactivated Comments 02/08/2024 9:06 AM 02/09/2024 5:49 PM Date Activated Date Inactivated Comments 04/07/2019 8:25 AM 04/08/2019 5:52 PM Date Activated Date Inactivated Comments 04/07/2019 8:25 AM 04/08/2019 5:52 PM Date Activated Date Inactivated Comments 02/08/2024 9:06 AM 02/09/2024 5:49 PM Date Activated Date Inactivated Comments 04/07/2019 8:25 AM 04/08/2019 5:52 PM Additional Source Comments (unrecognized sect ion and content) No Status Records FoundNo Status Records FoundNo Status Records FoundNo Status Records FoundNo Status Records FoundNo Status Records FoundNo Status Records FoundNo Status Records FoundNo Status Records FoundNo Status Records Found INFORMATION SOURCE (unrecogn ized section and content) DATE CREATED AUTHOR 12/06/2018 [facility] DATE CREATED AUTHOR AUTHOR'S ORGANIZ ATION 12/06/2018 [facility] DATE CREATED AUTHOR AUTHOR'S ORGANIZ ATION 05/12/2020 [facility] DATE CREATED AUTHOR AUTHOR'S ORGANIZ ATION 06/19/2022 [facility] DATE CREATED AUTHOR AUTHOR'S ORGANIZ ATION 07/20/2023 [facility] DATE CREATED AUTHOR AUTHOR'S ORGANIZ ATION 12/26/2023 [facility] DATE CREATED AUTHOR AUTHOR'S ORGANIZ ATION 08/23/2024 [facility] DATE CREATED AUTHOR AUTHOR'S ORGANIZ ATION 09/02/2024 [facility] DATE CREATED AUTHOR AUTHOR'S ORGANIZ ATION 09/17/2024 [facility] DATE CREATED AUTHOR AUTHOR'S ORGANIZ ATION 10/02/2024 [facility] EPIC Care Team (unrecognized sect ion and content) Cover Maker Relationship Specialty Start Date End Date Paige Soto [address] [place] [address] PCP - General Family Medicine 11/03/19 Paige Soto [address] [place] [address] Referring Family Medicine 11/03/19 Cover Maker Relationship Specialty Start Date End Date Paige Soto [address] [place] [address] PCP - General Family Medicine 11/03/19 Paige Soto [address] [place] [address] [facility] Family Medicine 11/03/19 Team Status: Active Member Role Status Dates Paige Soto DO Primary Care Provider Active Team Status: Inactive Member Role Status Dates Paige Soto DO Primary Care Provider Active Start: December 18, 2023 End: December 18, 2023 Aicha Kaur DO Attending Provider Active Start: December 18, 2023 End: December 18, 2023 Cover Maker Relationship Specialty Start Date End Date Paige Soto DO [address] [place] [address] PCP - General Family Medicine 12/16/23 Cover Maker Relationship Specialty Start Date End Date Paige Soto DO [address] [place] [address] PCP - General Family Medicine 12/16/23 Cover Maker Relationship Specialty Start Date End Date Services, [facility] [address] [place], [place] PCP - General Family Medicine 02/08/24 Cover Maker Relationship Specialty Start Date End Date Services, [facility] [address] [place] PCP - General Family Medicine 02/08/24 Cover Maker Relationship Specialty Start Date End Date Paige Soto DO [address] [place] [address] PCP - General Family Medicine 01/11/23 Cover Maker Relationship Specialty Start Date End Date Paige Soto DO [address] [place] [address] PCP - General Family Medicine 01/11/23 Cover Maker Relationship Specialty Start Date End Date Services, [facility] [address] [place], [place] PCP - General Family Medicine 08/28/23 Cover Maker Relationship Specialty Start Date End Date Services, [facility] [address] [place], [place] PCP - General Family Medicine 09/23/23 Cover Maker Relationship Specialty Start Date End Date Paige Soto DO [address] [place] [address] PCP - General Family Medicine 01/11/23 Cover Maker Relationship Specialty Start Date End Date Paige Soto DO [address] [place] [address] PCP - General Family Medicine 01/11/23 Cover Maker Relationship Specialty Start Date End Date Services, [facility] [address] [place], [place] PCP - General Family Medicine 09/23/23 Cover Maker Relationship Specialty Start Date End Date Services, [facility] [address] [place] PCP - General Family Medicine 09/23/23 Cover Maker Relationship Specialty Start Date End Date Services, [facility] [address] [place], [place] PCP - General Family Medicine 09/23/23 Cover Maker Relationship Specialty Start Date End Date Services, [facility] [address] [place], [place] PCP - General Family Medicine 02/08/24 Cover Maker Relationship Specialty Start Date End Date Services, [facility] [address] [place] PCP - General Family Medicine 02/08/24 Cover Maker Relationship Specialty Start Date End Date Paige Soto DO [address] [place], [place] [id number] PCP - General Family Medicine 12/16/23 Edson Tompknis MD [address] [place] [address] PCP - [employer] 01/31/23 03/02/99 Cover Maker Relationship Specialty Start Date End Date Paige Soto DO [address] [place] [address] PCP - General Family Medicine 12/16/23 Edson Tompkins MD [address], [address] [place] [address] PCP - [employer] 01/31/23 03/02/99 Cover Maker Relationship Specialty Start Date End Date Services, [facility] [address] [place] PCP - General Family Medicine 07/24/24 Cover Maker Relationship Specialty Start Date End Date Services, [facility] [address] [place] PCP - General Family Medicine 07/24/24 Cover Maker Relationship Specialty Start Date End Date Services, [facility] [address] [place] PCP - General Family Medicine 07/24/24 Cover Maker Relationship Specialty Start Date End Date Services, [facility] [address] [place] PCP - General Family Medicine 07/24/24 Cover Maker Relationship Specialty Start Date End Date [facility] [address] [place] PCP - General Family Medicine 07/24/24 Cover Maker Relationship Specialty Start Date End Date MiyaPaige redmond DO [address] [place] [address] PCP - General Family Medicine 12/16/23 Edson Tompkins MD [address] [place] [address] PCP - [employer] 01/31/23 03/02/99 Cover Maker Relationship Specialty Start Date End Date MarianoPaige loya [address] [place] [address] PCP - General Family Medicine 12/16/23 Edson Tompkins MD [address], [address] [place] [address] PCP - [employer] 01/31/23 03/02/99 Source Comments (unrecognize d section and content) In the event this informatio n is protected by the Federal Confidentiality of Alcohol and Drug Abuse Patient Records regulations: The Federal rules restrict any use of the information to criminally investigate or prosecute any alcohol or drug abuse patient.[facility] the event this information is protected by the Federal Confidentiality of Alcohol and Drug Abuse Patient Records regulations: The Federal rules restrict any use of the information to criminally investigate or prosecute any alcohol or drug abuse patient.[facility] Reason for Visit (unrecogniz ed section and content) Reason Comments External Referrals/resources Reason Comments Diabetes Reason Comments Follow-up EST PT F/U 6 MS L/S TLM SCHED W/ PT LMOM X 2 AND LETTER MAILED LETTING PT KNOW APPT NEEDS R/S SJN Reason Comments Follow-up 1 MONTH Hypertension Reason Comments Hernia Umbilical hernia, ri ght inguinal hernia, [facility] ER 09/23/23, referred by Rubina Glass Specialty Diagnoses / Procedures Referred By Pérez pagan Referred To Contact General Surgery Diagnoses Right inguinal hernia Cam Rich MD [address] [place] [address] [facility] Gen Surg Grillis Robby [address] [place] [address] Referral ID Status Reason Start Date Expiration Date V isits Requested Visits Authorized [id number] Closed Specialty Services Required 09/23/2023 09/22/2024 1 1 Reason Comments Follow-up 1 YEAR Hypertension Chest Pain Palpitations Shortness of Breath Dizziness Reason Comments New Patient renal cyst Nephrolithiasis Specialty Diagnoses / Procedures Referred By Pérez pagan Referred To Contact Urology Diagnoses Hyperglycemia Elis Kelley, THREAD CHECK[employer] C[employer] WORKER [address] [place] [address] Phone: tel: fax: Anderson Childers MD [facility] [place] [address] Phone: tel: fax: Referral ID Status Reason Start Date Expiration Date Visits Requested Visits Authorized [id number] Pending Review Specialty Services Required 02/09/2024 02/08/2025 1 1 Reason Comments Diabetes Follow-up Reason Comments A beaded appearance of the r ight middle cerebral artery. Th A beaded appearance of the right middle cerebral artery. This suggests vasculitis as often seen with fibromuscular dysplasia. Complaints of dizziness. passed out at hospital when BP lowered he was discharged. possible mini stroke. patient gets dizzy when walking. NEEDS LETTER FOR WORK IF HE IS GOING TO BE OFF OF WORK. HE WILL BE SENDING FMLA PAPERWORK TO OFFICE Reason Comments Follow-up EST PT 6 MO FU LABS DONE L/S LLD, PER PT NEEDS SOONER APPT HAVING MINI STROKES, [facility] 07/24/24, SCHED W/PT Reason Onset Date Comments opened in error 08/27/2024 Reason Comments Follow-up Goals (unrecognized section and content) Goals may be documented in a n alternate section FOR RECORDS PERTAINING TO PATIENTS WHO ARE OR HAVE BEEN ENROLLED IN A CHEMICAL DEPENDENCY/SUBSTANCEABUSE PROGRAM, SOME INFORMATION MAY BE OMITTED. This clinical summary was aggregated from multiple sources. Caution should be exercised in using it in the provision of clinical care. This summary normalizes information from multiple sources, and as a consequence, information in this document may materially change the coding, format and clinical context of patient data. In addition, data may be omitted in some cases. CLINICAL DECISIONS SHOULD BE BASED ON THE PRIMARY CLINICAL RECORDS. [employer] provides no warranty or guarantee of the accuracy or completeness of information in this document.
== END 2024-11-11 22:45 | disposition home or self-care (01) ==
PROVIDERS: Emergency Provider Emergency Medicine
DX: M79.641 Pain in right hand (principal)
CPT/HCPCS: 73130; 99283